=== PATIENT | male | born 1955 | race African-American/Black ===

== ENCOUNTER 2025-01-27 10:37 | Inpatient (IN) | payer MEDICARE, SELFPAY ==
[2025-01-27] VITALS (12 sets, daily range): BP systolic 165–187; BP diastolic 64–119; PULSE 57–115; RESP 12–21; TEMP 36.4–36.8; O2SAT 95–100; BMI 22.0
--- NOTE | ~2025-01-27 | US_ITS ---
EXAMINATION:US venous doppler LE RT INDICATION:Right leg pain TECHNIQUE: Multiple grayscale, color flow and Doppler images of the right lower extremity deep venous systems were obtained and reviewed. COMPARISON:01/2025 FINDINGS: The common femoral, superficial femoral and popliteal veins demonstrate normal respiratory variation, augmentation and compressibility. Color flow is also seen within the posterior tibial, pe roneal, greater saphenous and profunda veins. IMPRESSION: 1: No lower extremity deep venous thrombosis. Reviewed, dictated and finalized at location A.
--- NOTE | ~2025-01-27 | CT_ITS ---
CTA chest PE protocol Ordering provider: Antonio Barba MD History: 69 years Male with . Chest pain, recent travel . Comparison: None. Technique: CT angiogram chest was performed following timed intravenous injection of contrast. Thin s lice axial images and reformatted coronal images were obtained. Three dimensional reformatted images of the chest were also obtained using a [employer] workstation. . Automated exposure control and iterati ve reconstruction technique were employed. The dose-length product was 356.86 mGy-cm. 100 mL Omnipaqu e 350 was given IV. Findings: PULMONARY ARTERIES: No pulmonary embolus. VISUALIZED THORACIC INLET: Normal. MEDIASTINUM: Aorta/coronary arteries: Mild atheromatous disease. Heart/other: The heart is not slightly enlarged. Prominent pulmonary arteries is seen which may harshad chalo pulmonary hypertension. Congested branches of the pulmonary arteries is seen. Lymph nodes: No mediastinal or hilar adenopathy. LUNGS: Minimal bilateral interstitial thickening which may indicate edema. No pulmonary nodules or masses. N o infiltrates or effusions. No pneumothorax. Dependent atelectatic changes. VISUALIZED UPPER ABDOMEN: Possible left kidney stone. Bilateral kidney lobation. Status post ch olecystectomy. Highly suggestive status post partial resection of the right lobe of the liver with hy pertrophy of the left. Clinical correlation advised. Otherwise, the visualized upper abdomen is tk l. MUSCULOSKELETAL: Soft tissues: The superficial soft tissues are normal. Bones: Age appropriate degenerative changes of the spine. IMPRESSION: 1. No pulmonary embolism. 2. Cardiomegaly with highly suggestive pulmonary hypertension with minimal interstitial thickening w hich may indicate early pulmonary edema. Clinical correlation advised. 3. Possible left kidney stone. Reviewed, dictated and finalized at location A. IMPRESSION: 1. No pulmonary embolism. 2. Cardiomegaly with highly suggestive pulmonary hypertension with minimal int erstitial thickening which may indicate early pulmonary edema. Clinical correla tion advised. 3. Possible left kidney stone.
--- NOTE | ~2025-01-27 | XR_ITS ---
Portable chest x-ray Comparison: None Clinical History: Chest pain Findings: Lungs are clear, without focal consolidation or pleural effusion. Cardiomediastinal silho uette is enlarged. Bones and soft tissues are unremarkable. Impression: Clear lungs. Cardiomegaly. Reviewed, dictated and finalized at location . Impression: Clear lungs. Cardiomegaly.
--- NOTE | ~2025-01-27 | XR_ITS ---
XR abdomen/kub 1V 01/31/2025 14:23 INDICATION: Abdominal distention TECHNIQUE: KUB COMPARISON: None FINDINGS: Bowel gas pattern is normal. Moderate colonic fecal loading. There are surgical changes in the right upper abdomen. There is no evidence of free air, mass, organomegaly, ascites or obstruction . No abnormal calculi are seen. The bones appear intact. There is bibasilar atelectasis. IMPRESSION: 1: No acute abdominal abnormality identified. 2: Moderate colonic fecal loading. 3: Bibasilar atelectasis. Cannot exclude superimposed pneumonia. Consider correlation with chest x-r ay. Reviewed, dictated and finalized at location B. IMPRESSION: 1: No acute abdominal abnormality identified. 2: Moderate colonic fecal loading. 3: Bibasilar atelectasis. Cannot exclude superimposed pneumonia. Consider cynthia elation with chest x-ray.
--- NOTE | ~2025-01-27 | CT_ITS ---
Noncontrast CT scan of the right femur CLINICAL HISTORY: Pain TECHNIQUE: Axial noncontrast imaging of the right femur was performed. Sagittal and coronal reformatt ed images were constructed. Dose reduction technique was used on this scan by utilizing automated exp osure control and iterative reconstruction technique. The dose-length product (DLP) was 1134.14 mGy-c m. Findings: No acute fracture or dislocation seen. There is an area of sclerosis at the posterior super ior aspect of the femoral head which could reflect avascular necrosis. Possible additional more subtl e area of sclerosis at the medial femoral head, which could reflect additional AVN. No subchondral fr acture articular surface collapse. There is probable subchondral cystic change along the femoral trochlea, likely due to overlying chond romalacia. No joint effusion evident at the hip or knee. Visualized musculature is intact. There is diffuse subcutaneous soft tissue edema in the thigh, nonsp ecific. Moderate ascites noted in the lower abdomen/upper pelvis. Prostate gland enlarged. IMPRESSION: Findings suspicious for AVN of the right femoral head. No subchondral fracture or articular surface c ollapse. Recommend MR to confirm. Ascites and diffuse subcutaneous soft tissue edema, as noted above. Reviewed, dictated and finalized at location . IMPRESSION: Findings suspicious for AVN of the right femoral head. No subchondral fracture or articular surface collapse. Recommend MR to confirm. Ascites and diffuse subcutaneous soft tissue edema, as noted above.
--- NOTE | ~2025-01-27 | US_ITS ---
US abdomen limited INDICATION: Transaminitis PROCEDURE: Realtime right upper abdominal ultrasound. COMPARISON: No prior studies for comparison. FINDINGS: The pancreas is normal without focal mass or pancreatic ductal dilation. No discrete liver masses are identified. Liver surface is nodular, consistent with cirrhosis. Portal vein is dilated c onsistent with portal venous hypertension. The gallbladder is surgically absent. There is normal dir ectional flow in the portal vein. Common bile duct measures 4.2 mm. No sonographic Laureano's sign. IMPRESSION: 1: Cirrhosis of the liver with portal venous hypertension. Reviewed, dictated and finalized at location B.
--- NOTE | ~2025-01-27 | NM_ITS ---
EXAMINATION: NM renal flow and function DATE: 02/03/2025 10:07 CDT INDICATION: TECHNIQUE: 8 mCi Tc-99m MAG3 was administered IV. The patient was scanned in the upright/supine posi tion. A posterior abdominal radionuclide angiogram was obtained. A subsequent time course of static i mages of the kidneys, ureters, and bladder was obtained. COMPARISON: Renal ultrasound dated 01/30/2025 FINDINGS: The posterior abdominal radionuclide angiogram and sequential static images show normal siz e, position, and morphology of the kidneys. Peak renal parenchymal uptake was 21.5 min in right kidne y and 17.5 min in left kidney (normal peak 3-5 minutes). The relative early renal uptake was 53% on the right and 47% on the left (<40% is abnormal). No abnormalities of the ureters or bladder are see n. T1/2 for clearance of activity from the right kidney and proximal collecting system was 158 minutes. T1/2 for clearance of activity from the left kidney and proximal collecting system was 153 minutes. Notes on interpretation: T1/2 <10 minutes is normal, 10-15 minutes is low grade obstruction of questi onable clinical significance, 15-20 minutes is partial obstruction that is likely clinically signific ant, >20 minutes is high grade obstruction. Note that false positives may be seen with supine positio mirtha, dehydration, severely dilated nonobstructed kidney, atonic collecting stystem, poor renal funct ion, and chronic furosemide use. IMPRESSION: 1. Delayed peak renal uptake bilaterally, although symmetric. 2. Increased T 1/2 clearance bilaterally consistent with obstruction. Reviewed, dictated and finalized at location A.
--- NOTE | ~2025-01-27 | US_ITS ---
BILATERAL LOWER EXTREMITY VENOUS ULTRASOUND Ordering provider: Antonio Barba MD History: . Leg pain, Recent travel . Comparison: None. FINDINGS: RIGHT LOWER EXTREMITY VEINS: --COMMON FEMORAL: Patent and free of thrombus. Normal compressibility, phasic flow and augmentation. --PROXIMAL SUPERFICIAL FEMORAL: Patent and free of thrombus. Normal compressibility, phasic flow and augmentation. --DISTAL SUPERFICIAL FEMORAL: Patent and free of thrombus. Normal compressibility, phasic flow and au gmentation. --POPLITEAL: Patent and free of thrombus. Normal compressibility, phasic flow and augmentation. --POSTERIOR TIBIAL: Patent and free of thrombus. Normal compressibility, phasic flow and augmentation . LEFT LOWER EXTREMITY VEINS: --COMMON FEMORAL: Patent and free of thrombus. Normal compressibility, phasic flow and augmentation. --PROXIMAL SUPERFICIAL FEMORAL: Patent and free of thrombus. Normal compressibility, phasic flow and augmentation. --DISTAL SUPERFICIAL FEMORAL: Patent and free of thrombus. Normal compressibility, phasic flow and au gmentation. --POPLITEAL: Patent and free of thrombus. Normal compressibility, phasic flow and augmentation. --POSTERIOR TIBIAL: Patent and free of thrombus. Normal compressibility, phasic flow and augmentation . IMPRESSION: Negative bilateral lower extremity venous US. No deep vein thrombosis. Reviewed, dictated and finalized at location A.
--- NOTE | ~2025-01-27 | XR_ITS ---
EXAMINATION: XR chest 1V portable DATE: 01/28/2025 09:10 INDICATION: Desaturations. Shortness of breath. TECHNIQUE: frontal view of the chest was obtained. COMPARISON: Chest radiograph and CT dated 01/27/2025 FINDINGS: Bronchial wall thickening and mild opacities at the bilateral lung bases which could be due to pneumo tera or pulmonary edema. No pleural effusion or pneumothorax. Cardiomegaly. Sclerosis at the left chente ral head consistent with osteonecrosis. IMPRESSION: 1. Bronchial wall thickening and opacities at the bilateral lower lung zones which could represent pn eumonia or mild pulmonary edema. 2. 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 Reviewed, dictated and finalized at location A. IMPRESSION: 1. Bronchial wall thickening and opacities at the bilateral lower lung zones wh ich could represent pneumonia or mild pulmonary edema. 2. 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
--- NOTE | ~2025-01-27 | US_ITS ---
EXAMINATION: US renal BI DATE: 01/30/2025 18:09 INDICATION: RENY on CKD TECHNIQUE: Multiple grayscale and Doppler ultrasound images of the kidneys were obtained. COMPARISON: Ultrasound abdomen, same date; CTPA 01/27/2025. FINDINGS: Technical limited scan due to body habitus and considerable bowel shadowing. The right kidney measure s 7.7 x 3.8 x 4.9 cm. The left kidney measures 10.3 x 6.5 x 5.3 cm. The kidneys demonstrate normal pa renchymal echogenicity. Possible right renal mass noted in multiple images, no corresponding mass on prior CT, likely representing artifact. 11 mm simple left midpole cyst. There is no hydronephrosis. B ladder wall thickening. IMPRESSION: Limited examination as detailed above. No hydronephrosis. Bladder wall thickening as can be seen with chronic obstruction or cystitis. Reviewed, dictated and finalized at location K.
--- NOTE | 2025-01-27 10:48 | ECG_ITS ---
Test Date: 2025-01-27 10:49:45 Measurements Intervals Cullen Rate: 57 P: 52 WY: 215 QRS: -2 QRSD: 109 T: 54 QT: 442 QTc: 433 Interpretive Statements SINUS BRADYCARDIA WITH FIRST DEGREE AV BLOCK ABNORMAL ECG No previous ECG available for comparison Electronically Signed On 01-27-2025 11:42:05 CDT by Rod Santana M.D.
--- NOTE | 2025-01-27 12:02 | ED_ITS ---
<Statement entered by Gisel Elizabeth MD - 01/28/25 11:18> I dont know why this document is routed to me, I did not initiate this document and does not work collaboratively with the author. I am signing it just to get it off my dash board, but it does not serve as endorsement, the content belongs to original author HPI - General Adult General Chief complaint: Unspecified Stated complaint: all over pain hx of sickle cell Time Seen by Provider: 01/27/25 11:29 History of Present Illness HPI narrative: This is a 69-year-old male with history of beta thalassemia presenting for a pain crisis. Is traveling here from [place]. His heme oncologist in [place] is Dr. Macario Fernandez. Patient says that this morning he developed pain in his lower back going down the his legs and on the right side of his chest. He says this is his typical pain crisis. No recent viral illness fevers shortness of breath abdominal pain nausea vomiting diarrhea. He took a tramadol this morning with no relief. Related Data Home Medications ?Medication ?Instructions ?Recorded ?Confirmed ?Last Taken ?Type allopurinol 100 mg tablet 100 mg PO Q12H 01/27/25 01/27/25 01/26/25 History amlodipine 5 mg tablet 5 mg PO DAILY 01/27/25 01/27/25 01/26/25 History clonidine HCl 0.1 mg tablet 0.1 mg PO TID 01/27/25 01/27/25 01/26/25 History epoetin riley-epbx 40,000 unit/mL 40,000 unit subcut WEEKLY 01/27/25 01/27/25 01/22/25 History injection solution (Retacrit) folic acid 1 mg tablet 1 mg PO DAILY 01/27/25 01/27/25 01/26/25 History olmesartan 5 mg tablet 5 mg PO DAILY 01/27/25 01/27/25 01/26/25 History paricalcitol 1 mcg capsule 1 mcg PO DAILY 01/27/25 01/27/25 01/26/25 History pregabalin 150 mg capsule 150 mg PO HS 01/27/25 01/27/25 01/26/25 History sodium bicarbonate 650 mg tablet 650 mg PO DAILY 01/27/25 01/27/25 01/26/25 History sodium zirconium cyclosilicate 10 10 g PO DAILY 01/27/25 01/27/25 01/26/25 History gram oral powder packet (Lokelma) tramadol 50 mg tablet 50 mg PO Q8H PRN pain 01/27/25 01/27/25 01/27/25 History Allergies Allergy/AdvReac Type Severity Reaction Status Date / Time ibuprofen Allergy Unknown Verified 01/27/25 11:35 aspirin AdvReac Unknown Other Verified 01/27/25 11:35 Exam 2 Narrative: APPEARANCE: Patient appears very uncomfortable and is writhing on the bed Head: Atraumatic EYES: EOMI, NOSE: Atraumatic NECK/BACK: No midline spinal tenderness RESPIRATORY: No increased rate of breathing CTAB CARDIOVASCULAR: RRR, no peripheral edema ABDOMINAL: Non-distended soft nontender no guarding rebound MUSCULOSKELETAl: No obvious deformities NEURO: Alert. Moving for 4 extremities to command SKIN:: Warm, dry. Normal color PSYCHIATRIC: Normal affect Course Vital Signs Vital signs: Vital Signs Temperature 97.6 F 01/27/25 10:39 Pulse Rate 60 01/27/25 10:39 Respiratory Rate 16 01/27/25 10:39 Blood Pressure 171/64 H 01/27/25 10:39 Pulse Oximetry 100 01/27/25 10:39 Oxygen Delivery Room Air 01/27/25 10:39 Temperature 97.5 F L 01/27/25 11:32 Pulse Rate 92 01/27/25 17:39 Respiratory Rate 12 01/27/25 17:39 Blood Pressure 182/69 H 01/27/25 17:39 Pulse Oximetry 97 01/27/25 17:39 Oxygen Delivery Room Air 01/27/25 16:45 Oxygen Flow Rate 3 01/27/25 12:34 Medical Decision Making [facility] Narrative Medical decision making narrative: -Course: This is a 60-year-old male with thalassemia B presenting for a pain crisis. Patient has chest pain, and lower back going down his legs. The intention was to treat his pain aggressively with 1 mg of hydromorphone Q 30 minutes until pain under control. However he received 3 mg of hydromorphone on the initial dose. This was immediately recognized and he was placed on monitoring equipment. Patient required Narcan for respiratory depression. Will continue to monitor. Blood pressures were elevated but he is not taking his blood pressure medications today. Given his home dose of amlodipine and clonidine. Workup significant for hemoglobin of 9.1 and MCV of 61.4. No baseline is available. ABG showed respiratory alkalosis. Metabolic panel showed a BUN creatinine of 51 and 2.5. Patient has history of CKD stage 3 and when I spoke with his she has had his creatinine is usually in the 2s. He has also takes daily Lokelma and frequently has potassiums in the 60s. Today's potassium is 5.8. EKG shows peaked T-waves. He is given a dose of oral Lokelma with improvement in his ekg. EKG showed peaked T-waves which improved with Lokelma. Troponins are flat at 0.022. BNP 970. urine not indicative infection. Urine drug screen and alcohol viral swabs were negative. Chest x-ray showed clear lungs w/ cardiomegaly. CTA negative for PE but showed beginnings of possible fluid overload. No more fluids. Venous ultrasound negative for DVT. Patient was re-evaluated frequently and is significantly improved. His pain is now controlled. Respiratory status is stabilized. Patient will be placed in observation overnight. -DDX includes but is not limited to: Pain crisis, PE, DVT, pneumonia, acute chest syndrome -Co-morbidities complicating care: Beta thalassemia, hypertension, gout -Social determinants of health: Patient lives with [place], Vital Signs Vital Signs: Vital Signs Temperature 97.6 F 01/27/25 10:39 Pulse Rate 60 01/27/25 10:39 Respiratory Rate 16 01/27/25 10:39 Blood Pressure 171/64 H 01/27/25 10:39 Pulse Oximetry 100 01/27/25 10:39 Oxygen Delivery Room Air 01/27/25 10:39 Temperature 97.5 F L 01/27/25 11:32 Pulse Rate 92 01/27/25 17:39 Respiratory Rate 12 01/27/25 17:39 Blood Pressure 182/69 H 01/27/25 17:39 Pulse Oximetry 97 01/27/25 17:39 Oxygen Delivery Room Air 01/27/25 16:45 Oxygen Flow Rate 3 01/27/25 12:34 Lab Data 01/27/25 12:09 01/27/25 12:09 Labs: Lab Results 01/27/25 01/27/25 01/27/25 Range/Units 11:55 12:09 12:09 WBC 12.1 H (4.5-10.0) K/mm3 RBC 4.87 (4.6-6.20) M/mm3 Hgb 9.1 L (14.0-18.0) g/dL Hct 29.9 L (42.0-52.0) % MCV 61.4 L (80-100) fl MCH 18.7 L (26-34) pg MCHC 30.4 L (32-36) g/dl RDW 24.2 H (11.5-14.5) % Plt Count 185 (150-375) k/mm3 MPV TNP Immature Gran % (Auto) Not Reportable Neut % (Auto) Not Reportable Lymph % (Auto) Not Reportable [place] % (Auto) Not Reportable Eos % (Auto) Not Reportable Baso % (Auto) Not Reportable Lymph # (Auto) Not Reportable [place] # (Auto) Not Reportable Eos # (Auto) Not Reportable Baso # (Auto) Not Reportable Abs Immat Gran (auto) Not Reportable Absolute Neuts (auto) Not Reportable Absolute Nucleated RBC Not Reportable Total Counted 100 Neutrophils % (Manual) 68 (46-73) % Band Neutrophils % 2 (0-6) % Lymphocytes % (Manual) 19 (18-44) % Monocytes % (Manual) 11 H (3-9) % Nucleated RBC % Not Reportable Abs Neuts (Manual) 8.47 H (1.3-6.7) K/mm3 Abs Lymphs (Manual) 2.29 (1.1-4.5) K/mm3 Abs Monocytes (Manual) 1.33 H (0.1-0.90) K/mm3 Nucleated RBCs 73 % Platelet Estimate Adequate (Adequate) % Immature Plt Fraction 7.4 (0.9-11.2) % Polychromasia 2+ Hypochromasia 2+ Poikilocytosis 2+ Anisocytosis 2+ Pappenheimer Bodies 3+ Sickle Cells 2+ Target Cells 3+ Helmet Cells 1+ [place] Bodies 2+ Acanthocytes (Spur) 1+ Schistocytes 1+ Absolute Retic 0.32 H (0.02-0.10) 10^6/uL Percent Retic 6.43 H (0.7-4.3) % Immature Retic Fraction 25.7 H (3.0-15.9) % Retic Hgb Content 21.7 L (28.2-36.6) pg Sodium 136 L (137-145) mmol/L Potassium 5.8 H (3.4-5.0) mmol/L Chloride 108 H (98-107) mmol/L Carbon Dioxide 15 L (22-30) mmol/L Anion Gap 13 H (4-12) mmol/L BUN 51 H (9-20) mg/dL Creatinine 2.50 H (0.7-1.3) mg/dL Estim Creat Clear Calc 27 ml/min Estimated GFR 26 L (59 - ) Glucose 118 H (65-110) mg/dL POC Capillary Glucose 115 H (65-105) mg/dl Lactic Acid (0.7-2.0) mmol/L Calcium 9.3 (8.4-10.2) mg/dL Phosphorus 3.4 (2.5-4.5) mg/dL Magnesium 2.1 (1.6-2.3) mg/dL Total Bilirubin 3.1 H (0.2-1.3) mg/dL AST 60 H (17-59) U/L ALT 36 (6-50) U/L Alkaline Phosphatase 177 H (38-126) U/L Troponin I 0.023 Cancelled (0.000-0.034) ng/mL NT-Pro-B Natriuret Pep 970 H (19.9-100) pg/mL Total Protein 8.8 H (6.3-8.2) g/dL Albumin 4.2 (3.5-5.1) g/dL Lipase 317 H (23-300) U/L Urine Color (Yellow) Urine Appearance (Clear) Urine pH (5.0-9.0) Ur Specific [place]aca (1.001-1.035) Urine Protein (Negative) mg/dL Urine Glucose (UA) (Negative) mg/dL Urine Ketones (Negative) mg/dL Ur Blood (Man) (Negative) Urine Nitrate (Negative) Urine Bilirubin (Negative) Urine Urobilinogen (<2.0) mg/dL Leukocyte Esterase Rfl (Negative) SHUKRI/UL Urine RBC (0-2) /hpf Urine WBC (0-3) /hpf Ur Squamous Epith Cells (Few) /hpf Urine Bacteria /hpf Urine Casts Urine Opiates Screen (Negative) Urine Methadone Screen (Negative) Ur Barbiturates Screen (Negative) Ur Phencyclidine Scrn (Negative) Ur Amphetamine Screen (Negative) U Benzodiazepines Scrn (Negative) Urine Cocaine Screen (Negative) U Cannabinoids Screen (Negative) Ethyl Alcohol < 10 (<10) mg/dL Influenza A (RT-PCR) Negative (Negative) Influenza B (RT-PCR) Negative (Negative) RSV (RT-PCR) Negative (Negative) SARS-CoV-2 RNA (RT-PCR) Negative (Negative) 01/27/25 01/27/25 01/27/25 Range/Units 12:41 14:58 15:19 WBC (4.5-10.0) K/mm3 RBC (4.6-6.20) M/mm3 Hgb (14.0-18.0) g/dL Hct (42.0-52.0) % MCV (80-100) fl MCH (26-34) pg MCHC (32-36) g/dl RDW (11.5-14.5) % Plt Count (150-375) k/mm3 MPV Immature Gran % (Auto) Neut % (Auto) Lymph % (Auto) [place]quette % (Auto) Eos % (Auto) Baso % (Auto) Lymph # (Auto) [place] # (Auto) Eos # (Auto) Baso # (Auto) Abs Immat Gran (auto) Absolute Neuts (auto) Absolute Nucleated RBC Total Counted Neutrophils % (Manual) (46-73) % Band Neutrophils % (0-6) % Lymphocytes % (Manual) (18-44) % Monocytes % (Manual) (3-9) % Nucleated RBC % Abs Neuts (Manual) (1.3-6.7) K/mm3 Abs Lymphs (Manual) (1.1-4.5) K/mm3 Abs Monocytes (Manual) (0.1-0.90) K/mm3 Nucleated RBCs % Platelet Estimate (Adequate) % Immature Plt Fraction (0.9-11.2) % Polychromasia Hypochromasia Poikilocytosis Anisocytosis Pappenheimer Bodies Sickle Cells Target Cells Helmet Cells [place] Bodies Acanthocytes (Spur) Schistocytes Absolute Retic (0.02-0.10) 10^6/uL Percent Retic (0.7-4.3) % Immature Retic Fraction (3.0-15.9) % Retic Hgb Content (28.2-36.6) pg Sodium (137-145) mmol/L Potassium (3.4-5.0) mmol/L Chloride (98-107) mmol/L Carbon Dioxide (22-30) mmol/L Anion Gap (4-12) mmol/L BUN (9-20) mg/dL Creatinine (0.7-1.3) mg/dL Estim Creat Clear Calc ml/min Estimated GFR (59 - ) Glucose (65-110) mg/dL POC Capillary Glucose (65-105) mg/dl Lactic Acid 2.1 H 3.1 H (0.7-2.0) mmol/L Calcium (8.4-10.2) mg/dL Phosphorus (2.5-4.5) mg/dL Magnesium (1.6-2.3) mg/dL Total Bilirubin (0.2-1.3) mg/dL AST (17-59) U/L ALT (6-50) U/L Alkaline Phosphatase (38-126) U/L Troponin I 0.022 (0.000-0.034) ng/mL NT-Pro-B Natriuret Pep (19.9-100) pg/mL Total Protein (6.3-8.2) g/dL Albumin (3.5-5.1) g/dL Lipase (23-300) U/L Urine Color (Yellow) Urine Appearance (Clear) Urine pH (5.0-9.0) Ur Specific [place] (1.001-1.035) Urine Protein (Negative) mg/dL Urine Glucose (UA) (Negative) mg/dL Urine Ketones (Negative) mg/dL Ur Blood (Man) (Negative) Urine Nitrate (Negative) Urine Bilirubin (Negative) Urine Urobilinogen (<2.0) mg/dL Leukocyte Esterase Rfl (Negative) SHUKRI/UL Urine RBC (0-2) /hpf Urine WBC (0-3) /hpf Ur Squamous Epith Cells (Few) /hpf Urine Bacteria /hpf Urine Casts Urine Opiates Screen (Negative) Urine Methadone Screen (Negative) Ur Barbiturates Screen (Negative) Ur Phencyclidine Scrn (Negative) Ur Amphetamine Screen (Negative) U Benzodiazepines Scrn (Negative) Urine Cocaine Screen (Negative) U Cannabinoids Screen (Negative) Ethyl Alcohol (<10) mg/dL Influenza A (RT-PCR) (Negative) Influenza B (RT-PCR) (Negative) RSV (RT-PCR) (Negative) SARS-CoV-2 RNA (RT-PCR) (Negative) 01/27/25 01/27/25 Range/Units 15:39 19:11 WBC (4.5-10.0) K/mm3 RBC (4.6-6.20) M/mm3 Hgb (14.0-18.0) g/dL Hct (42.0-52.0) % MCV (80-100) fl MCH (26-34) pg MCHC (32-36) g/dl RDW (11.5-14.5) % Plt Count (150-375) k/mm3 MPV Immature Gran % (Auto) Neut % (Auto) Lymph % (Auto) [place] % (Auto) Eos % (Auto) Baso % (Auto) Lymph # (Auto) [place] # (Auto) Eos # (Auto) Baso # (Auto) Abs Immat Gran (auto) Absolute Neuts (auto) Absolute Nucleated RBC Total Counted Neutrophils % (Manual) (46-73) % Band Neutrophils % (0-6) % Lymphocytes % (Manual) (18-44) % Monocytes % (Manual) (3-9) % Nucleated RBC % Abs Neuts (Manual) (1.3-6.7) K/mm3 Abs Lymphs (Manual) (1.1-4.5) K/mm3 Abs Monocytes (Manual) (0.1-0.90) K/mm3 Nucleated RBCs % Platelet Estimate (Adequate) % Immature Plt Fraction (0.9-11.2) % Polychromasia Hypochromasia Poikilocytosis Anisocytosis Pappenheimer Bodies Sickle Cells Target Cells Helmet Cells Johnson[place] Bodies Acanthocytes (Spur) Schistocytes Absolute Retic (0.02-0.10) 10^6/uL Percent Retic (0.7-4.3) % Immature Retic Fraction (3.0-15.9) % Retic Hgb Content (28.2-36.6) pg Sodium (137-145) mmol/L Potassium (3.4-5.0) mmol/L Chloride (98-107) mmol/L Carbon Dioxide (22-30) mmol/L Anion Gap (4-12) mmol/L BUN (9-20) mg/dL Creatinine (0.7-1.3) mg/dL Estim Creat Clear Calc ml/min Estimated GFR (59 - ) Glucose (65-110) mg/dL POC Capillary Glucose (65-105) mg/dl Lactic Acid 2.6 H (0.7-2.0) mmol/L Calcium (8.4-10.2) mg/dL Phosphorus (2.5-4.5) mg/dL Magnesium (1.6-2.3) mg/dL Total Bilirubin (0.2-1.3) mg/dL AST (17-59) U/L ALT (6-50) U/L Alkaline Phosphatase (38-126) U/L Troponin I (0.000-0.034) ng/mL NT-Pro-B Natriuret Pep (19.9-100) pg/mL Total Protein (6.3-8.2) g/dL Albumin (3.5-5.1) g/dL Lipase (23-300) U/L Urine Color Yellow (Yellow) Urine Appearance Clear (Clear) Urine pH 6.5 (5.0-9.0) Ur Specific [place] 1.008 (1.001-1.035) Urine Protein 3+ H (Negative) mg/dL Urine Glucose (UA) Negative (Negative) mg/dL Urine Ketones Negative (Negative) mg/dL Ur Blood (Man) 2+ H (Negative) Urine Nitrate Negative (Negative) Urine Bilirubin Negative (Negative) Urine Urobilinogen 1.0 (<2.0) mg/dL Leukocyte Esterase Rfl Trace H (Negative) SHUKRI/UL Urine RBC 0-2 (0-2) /hpf Urine WBC 0-5 (0-3) /hpf Ur Squamous Epith Cells None seen (Few) /hpf Urine Bacteria None seen /hpf Urine Casts 0-2 Urine Opiates Screen Negative (Negative) Urine Methadone Screen Negative (Negative) Ur Barbiturates Screen Negative (Negative) Ur Phencyclidine Scrn Negative (Negative) Ur Amphetamine Screen Negative (Negative) U Benzodiazepines Scrn Negative (Negative) Urine Cocaine Screen Negative (Negative) U Cannabinoids Screen Negative (Negative) Ethyl Alcohol (<10) mg/dL Influenza A (RT-PCR) (Negative) Influenza B (RT-PCR) (Negative) RSV (RT-PCR) (Negative) SARS-CoV-2 RNA (RT-PCR) (Negative) ABG Data ABG results: 01/27/25 12:04 VBG pH 7.450 H* VBG pCO2 19.7 L* VBG pO2 56.6 H VBG HCO3 13.4 L O2 Delivery Device Room air O2 Liters/Min Not Reportable FiO2 21 Discharge Plan Discharge Clinical Impression: Pain crisis, Overdose of opiate or related narcotic Patient Disposition: Still a Patient Condition: Stable Patient Language: East Timorese Prescriptions: No Action allopurinol 100 mg tablet 100 mg PO Q12H amlodipine 5 mg tablet 5 mg PO DAILY clonidine HCl 0.1 mg tablet 0.1 mg PO TID Retacrit 40,000 unit/mL solution 40,000 unit subcut WEEKLY folic acid 1 mg tablet 1 mg PO DAILY olmesartan 5 mg tablet 5 mg PO DAILY paricalcitol 1 mcg capsule 1 mcg PO DAILY pregabalin 150 mg capsule 150 mg PO HS sodium bicarbonate 650 mg tablet 650 mg PO DAILY Lokelma 10 gram powder in packet 10 g PO DAILY tramadol 50 mg tablet 50 mg PO Q8H PRN (Reason: pain) Follow-up/Referrals: PHYSICIAN,SUPERVISOR [employer] [Primary Care Provider] -
--- OUTSIDE RECORDS SUMMARY | 2025-01-27 12:04 | XMS_ITS ---
Author Organization [facility] [employer] Address [address] [address] Care Team Providers Care Sole Stapler Welt Name Role Phone Lavrene SHEPARD, John Paul Primary Care Provider Carolina Becker APRN [phone] REASON FOR VISIT 1 Week (Reason: 1 w f/u ct right shoulder Encounters Encounter Location Date Provider Diagnosis [facility] [address] [place], [place] [id number] 12/21/2024 Carolina Becker Plan Of Treatment Next Appt Details Provider Name:Darwinrani Robby apodacabelen, 03/20/2025 01:30:00 PM, [address] [facility], [place], [place], [id number], Progress Notes * Cecilio JUANDOB:1955 (69 yo M)Acc No.[id number]:12/21/2024 UNLOCKED PROGRESS NOTE Progress Notes Patient: Cecilio LIMON Provider: HARLEY Lei :1955 A ge:69 Y S ex:Male Date:12/21/2024 Address:[address] [place] [address], [place], [id number] Pcp:John Paul Galloway MD Subjective: * Chief Complaints: * 1 . 1 Week (Reason: 1 w f/u ct right shoulder. * Medical History: * Implants: Objective: * Vitals: Assessment: Plan: * Treatment: * * Electronic signature of Shailesh Becker APRN, APRN on 01/27/2025 at 01:04 PM EDT Sign off status: Pending * Provider: HARLEY Lei Date: 12/21/2024 Generated for Malissa cuenca/Thomas/Elena on: 01/27/2025 01:04 PM EDT
--- OUTSIDE RECORDS SUMMARY | 2025-01-27 12:04 | XMS_ITS | Encounter Summary ---
Author Organization [facility] Address [address], [place] [address] Phone Care Team Providers Care Magneto Repairer Name Role Phone John Paul Campa MD Primary Care Provider [phone] Encounter Details Date Type Department Care Team (Late st Contact Info) Description 02/22/2020 Legacy Encounter - Labs [facility] [place] [address] ProviderGustavo MD [address] [place] [id number] Social History Tobacco Use Types Packs/Day Years Used Date Smoking Tobacco: Never Assessed Sex and Gender Information Value Date Recorded Sex Assigned at Not on file Legal Sex Male 7:04 PM MDT Gender Identity Not on file Sexual Orientation Not on file documented as of this encounter Plan of Treatment Upcoming Encounters Date Type Department Care Team (Late st Contact Info) Description 02/19/2025 10:00 AM EDT Office Visit [facility] [address] [place] [address] [place] [address] Maxx Soares MD [address] [place], [place] [id number] documented as of this encounter Procedures Procedure Name Priority Date/Time Associated Diagnosis Comments DPS CONVERSION - LAB RESULT SCAN PROCEDURE 02/22/2020 DPS CONVERSION - LAB RESULT SCAN PROCEDURE 02/22/2020 documented in this encounter Results * DPS CONVERSION - LAB RESULT SCAN PROCEDURE (02/22/2020) Narrative 02/22/2020 Ordered by an unspecified provider. Historical Provider MD LAB BLOOD ORDERABLES Nichole l Result * DPS CONVERSION - LAB RESULT SCAN PROCEDURE (02/22/2020) Narrative 02/22/2020 Ordered by an unspecified provider. Historical Provider MD LAB BLOOD ORDERABLES Nichole l Result documented in this encounter Visit Diagnoses Not on filedocumented in this encounter Care Teams Magneto Repairer Relationship Specialty Start Date End Date John Paul Campa MD [address] [place] [id number] PCP - General 05/29/24 documented as of this encounter
--- OUTSIDE RECORDS SUMMARY | 2025-01-27 12:04 | XMS_ITS | Encounter Summary ---
Author Organization [facility] Address [address], [place] [address] Phone Care Team Providers Care Tagman Name Role Phone John Paul Campa MD Primary Care Provider [phone] Encounter Details Date Type Department Care Team (Late Contact Info) Description 05/16/2020 Office Visit [facility] [address] [place] [address] ProviderGustavo MD [address] [place] [address] Social History Tobacco Use Types Packs/Day Years Used Date Smoking Tobacco: Never Assessed Sex and Gender Information Value Date Recorded Sex Assigned at Not on file Legal Sex Male 7:04 PM MDT Gender Identity Not on file Sexual Orientation Not on file documented as of this encounter Plan of Treatment Upcoming Encounters Date Type Department Care Team (Late Contact Info) Description 02/19/2025 10:00 AM EDT Office Visit [facility] [address] [place] [address] [place] [address] Maxx Soares MD [address] [place] [address] documented as of this encounter Visit Diagnoses Not on filedocumented in this encounter Care Teams Tagman Relationship Specialty Start Date End Date John Paul Campa MD [address] [place] [facility] [address] PCP - General 05/29/24 documented as of this encounter
--- OUTSIDE RECORDS SUMMARY | 2025-01-27 12:04 | XMS_ITS | Encounter Summary ---
Author Organization [facility] Address [address] [address] Phone Care Team Providers Care Table Worker Packager Name Role Phone John Paul Campa MD Primary Care Provider [phone] Encounter Details Date Type Department Care Team (Late Contact Info) Description 05/16/2020 Abstract [facility] [address] [place] [address] ProviderGustavo MD [address] [place] [address] Social History Tobacco Use Types Packs/Day [...] Description 02/19/2025 10:00 AM EDT Office Visit [facility] [address] [place] [address] [place] [address] Maxx Soares MD [address] [place] [address] documented as of this encounter Visit Diagnoses Not on filedocumented in this encounter Care Teams Table Worker Packager Relationship Specialty Start Date End Date John Paul Campa MD [address] [facility] [place] [address] PCP - General 05/29/24 documented as of this encounter
--- OUTSIDE RECORDS SUMMARY | 2025-01-27 12:04 | XMS_ITS | Encounter Summary ---
Author Organization [facility] Address [address], [place] [address] Phone Care Team Providers Care Slot Tag Inserter Name Role Phone John Paul Campa MD Primary Care Provider [phone] Encounter Details Date Type Department Care Team (Late st Contact Info) Description 02/26/2020 Abstract [facility] [address] [place] [address] ProviderGutsavo MD [address] [place] [address] Social History Tobacco Use Types Packs/Day [...] Description 02/19/2025 10:00 AM EDT Office Visit [facility] [address] [place] [address] [place] [address] Maxx Soares MD [address] [place], [place] [phone] documented as of this encounter Procedures Procedure Name Priority Date/Time Associated Diagnosis Comments DPS CONVERSION - LAB RESULT SCAN PROCEDURE 02/26/2020 documented in this encounter Results * DPS CONVERSION - LAB RESULT SCAN PROCEDURE (02/26/2020) Narrative 02/26/2020 Ordered by an unspecified provider. us Historical Provider LAB BLOOD ORDERABLES Nichole l Result documented in this encounter Visit Diagnoses Not on filedocumented in this encounter Care Teams Slot Tag Inserter Relationship Specialty Start Date End Date John Paul Campa MD [address] [place] [id number] PCP - General 05/29/24 documented as of this encounter
--- OUTSIDE RECORDS SUMMARY | 2025-01-27 12:05 | XMS_ITS | Encounter Summary ---
Author Organization [facility] Physician Phyllis utimaría elena Address [address] [address] Phone Care Team Providers Care Auto Radiator Mechanic Name Role Phone John Paul Campa MD Primary Care Provider [phone] Encounter Details Date Type Department Care Team (Late Contact Info) Description 03/11/2020 Abstract [facility] [address] [place] [address] ProviderGustavo MD [address] [place] [address] Social History Tobacco Use Types Packs/Day [...] Description 02/19/2025 10:00 AM EDT Office Visit [facility] [address] [place] [address] [place] [address] Maxx Soares MD [address] [place] [address] documented as of this encounter Visit Diagnoses Not on filedocumented in this encounter Care Teams Auto Radiator Mechanic Relationship Specialty Start Date End Date John Paul Campa MD [address] [facility] [place] [address] PCP - General 05/29/24 documented as of this encounter
--- OUTSIDE RECORDS SUMMARY | 2025-01-27 12:05 | XMS_ITS | Encounter Summary ---
Author Organization [facility] Phyllis utimaría elena Address [address] [address] Phone Care Team Providers Care Delivery Room Supervisor Name Role Phone John Paul Campa MD Primary Care Provider [phone] Encounter Details Date Type Department Care Team (Late Contact Info) Description 08/23/2022 Office Visit [facility] [address] [place] [address] ProviderGustavo MD [address] [place] [address] Social History Tobacco Use Types Packs/Day [...] Description 02/19/2025 10:00 AM EDT Office Visit [facility] [address] [place] [address] [place] [address] Maxx Soares MD [address] [place] [address] documented as of this encounter Visit Diagnoses Not on filedocumented in this encounter Care Teams Delivery Room Supervisor Relationship Specialty Start Date End Date John Paul Campa MD [address] [facility] [place] [address] PCP - General 05/29/24 documented as of this encounter
--- OUTSIDE RECORDS SUMMARY | 2025-01-27 12:05 | XMS_ITS | Encounter Summary ---
Author Organization [facility] Phyllis utimaría elena Address [address], [place] [address] Phone Care Team Providers Care Technical Support Engineer Name Role Phone John Paul Campa MD Primary Care Provider [phone] Encounter Details Date Type Department Care Team (Late st Contact Info) Description 05/05/2020 Legacy Encounter - [facility] [place] [address] ProviderGustavo MD [address] [place] [address] Social History Tobacco Use Types Packs/Day [...] Description 02/19/2025 10:00 AM EDT Office Visit [facility] [address] [place] [address] [place] [address] Maxx Soares MD [address] [place], [place] [id number] documented as of this encounter Procedures Procedure Name Priority Date/Time Associated Diagnosis Comments DPS CONVERSION - LAB RESULT SCAN PROCEDURE 05/05/2020 documented in this encounter Results * DPS CONVERSION - LAB RESULT SCAN PROCEDURE (05/05/2020) Narrative 05/05/2020 Ordered by an unspecified provider. us Historical Provider LAB BLOOD ORDERABLES Nichole l Result documented in this encounter Visit Diagnoses Not on filedocumented in this encounter Care Teams Technical Support Engineer Relationship Specialty Start Date End Date John Paul Campa MD [address] [place] [address] PCP - General 05/29/24 documented as of this encounter
--- OUTSIDE RECORDS SUMMARY | 2025-01-27 12:05 | XMS_ITS | Patient Health Record ---
Author Organization MACARIO CONLEY MD Address [address] [place] [address] Care Team Providers Care Vault Clerk Name Role Phone DHARMESH COLLINS Primary Care Provider Macario Douglas Unavailable [phone] Susana Conley Unavailable [phone] Bhupinder Jimenez Unavailable [phone] Results Component Value Reference Range Notes VITAMIN B12 (Not yet reviewe d by provider) Interpretation: Performing Lab:TP, [facility], [address], [place], [place], [address] Isaac Townsend MD Notes/Report: Received Date: NON-FASTING VITAMIN B12 [phone] pg/mL COMP (comprehensive metaboli c panel) (Not yet reviewed by provider) Interpretation: Performing Lab:TP, [facility], [address] [place], [address] Isaac Townsend MD Notes/Report: NON-FASTING Received Date: GLUCOSE 100 65-99 mg/dL Fasting reference interval For someone without known diabetes, a glucose value between 100 and 125 mg/dL is consistent with prediabetes and should be confirmed with a follow-up test. UREA NITROGEN (BUN) 54 7-25 mg/dL CREATININE 2.18 0.70-1.35 mg/dL EGFR 32 > OR = 60 mL/min/1.73m2 BUN/CREATININE RATIO 25 6-22 (calc) SODIUM 136 135-146 mmol/L POTASSIUM 5.9 3.5-5.3 mmol/L CHLORIDE 107 98-110 mmol/L CARBON DIOXIDE 18 20-32 mmol/L CALCIUM 9.0 8.6-10.3 mg/dL PROTEIN, TOTAL 7.1 6.1-8.1 g/dL ALBUMIN 3.9 3.6-5.1 g/dL GLOBULIN 3.2 1.9-3.7 g/dL (calc) ALBUMIN/GLOBULIN RATIO 1.2 1.0-2.5 (calc) BILIRUBIN, TOTAL 1.8 0.2-1.2 mg/dL ALKALINE PHOSPHATASE 146 35-144 U/L AST 23 10-35 U/L ALT 21 9-46 U/L Folate (Folic Acid), Serum ( Not yet reviewed by provider) Interpretation: Performing Lab:[address] [id number], Phone - [phone], [facility] - [facility] Notes/Report: Folate (Folic Acid), Serum >20.0 >3.0 ng/mL A serum folate concentration of less than 3.1 ng/mL is considered to represent clinical deficiency. Comp. Metabolic Panel (14) ( Not yet reviewed by provider) Interpretation: Performing Lab:[address] [id number], Phone - [phone], Director - MDFarrier Notes/Report: Glucose 121 70-99 mg/dL BUN 42 8-27 mg/dL Creatinine 1.64 0.76-1.27 mg/dL eGFR 45 >59 mL/min/1.73 BUN/Creatinine Ratio 26 10-24 Sodium 134 134-144 mmol/L Potassium 5.8 3.5-5.2 mmol/L Chloride 107 96-106 mmol/L Carbon Dioxide, Total 16 20-29 mmol/L Calcium 9.0 8.6-10.2 mg/dL Protein, Total 7.4 6.0-8.5 g/dL Albumin 3.6 3.9-4.9 g/dL Globulin, Total 3.8 1.5-4.5 g/dL Bilirubin, Total 1.3 0.0-1.2 mg/dL Alkaline Phosphatase 198 44-121 IU/L AST (SGOT) 28 0-40 IU/L ALT (SGPT) 23 0-44 IU/L Vitamin B12 (Not yet reviewe d by provider) Interpretation: Performing Lab:[address] [place], [place] [id number], Phone - [phone], [facility] Notes/Report: Vitamin B12 [phone] pg/mL Ferritin, Serum (Not yet rev iewed by provider) Interpretation: Performing Lab:[facility] [address] [id number], Phone - [phone], [facility] Notes/Report: Ferritin 1183 30-400 ng/mL Iron and TIBC (Not yet revie wed by provider) Interpretation: Performing Lab:[facility], [address] [place] [id number], Phone - [phone], Director [facility] Notes/Report: Iron Bind.Cap.(TIBC) 249 250-450 ug/dL UIBC 94 111-343 ug/dL Iron 155 38-169 ug/dL Iron Saturation 62 15-55 % IRON AND TOTAL IRON BINDING CAPACITY (Not yet reviewed by provider) Interpretation: Performing Lab:[facility], [address] [place], [address] Isaac Townsend MD Notes/Report: Received Date: IRON, TOTAL 217 50-180 mcg/dL IRON BINDING CAPACITY 250 250-425 mcg/dL (melinda c) % SATURATION 87 20-48 % (calc) COMP (comprehensive metaboli c panel) (Not yet reviewed by provider) Interpretation: Performing Lab[facility] [place], [address] Isaac Townsend MD Notes/Report: Received Date: GLUCOSE 164 65-99 mg/dL Fasting reference interval For someone without known diabetes, a glucose value >125 mg/dL indicates that they may have diabetes and this should be confirmed with a follow-up test. UREA NITROGEN (BUN) 46 7-25 mg/dL CREATININE 1.97 0.70-1.35 mg/dL EGFR 36 > OR = 60 mL/min/1.73m2 BUN/CREATININE RATIO 23 6-22 (calc) SODIUM 136 135-146 mmol/L POTASSIUM 5.5 3.5-5.3 mmol/L CHLORIDE 106 98-110 mmol/L CARBON DIOXIDE 18 20-32 mmol/L CALCIUM 9.2 8.6-10.3 mg/dL PROTEIN, TOTAL 7.2 6.1-8.1 g/dL ALBUMIN 3.8 3.6-5.1 g/dL GLOBULIN 3.4 1.9-3.7 g/dL (calc) ALBUMIN/GLOBULIN RATIO 1.1 1.0-2.5 (calc) BILIRUBIN, TOTAL 1.4 0.2-1.2 mg/dL ALKALINE PHOSPHATASE 163 35-144 U/L AST 27 10-35 U/L ALT 29 9-46 U/L FERRITIN (Not yet reviewed b y provider) Interpretation: Performing Lab[facility] [address] [place], [address] Isaac Townsend MD Notes/Report: Received Date: FERRITIN 1091 24-380 ng/mL VITAMIN B12 (Not yet reviewe d by provider) Interpretation: Performing Lab:[facility] [place], [address] Isaac Townsend MD Notes/Report: Received Date: VITAMIN B12 4839 322-7380 pg/mL Reason For Referral No Information Medications Medication SIG (Take, Route, Frequency, Duration) Notes Start Date End Date Status Folic Acid Unknown Social History Tobacco Use: Social History Observation Description Date Details (start date - stop date) Never Smoker NA - NA Tobacco Use/Smoking Question Answer Notes Are you a nonsmoker Problems Problem Type SNOMED Code ICD Code Onset Dates Problem Status W/U Status Risk Notes Problem Sickle cell disease (475027269) Sickle-cell disease, unspecified (282.60) Active confirmed Problem Sickle cell disease without crisis (777844685) Sickle-cell disease without crisis (D57.1) Active confirmed Vital Signs Heart Rate 59 /min 01/22/2025 Temperature 98.1 degrees Fahrenheit 01/22/2025 Oximetry 95 % 01/22/2025 Blood pressure diastolic 72 mm Hg 01/22/2025 Height 73 in 01/22/2025 Blood pressure systolic 153 mm Hg 01/22/2025 Weight 165 lbs 01/22/2025 BMI 21.77 kg/m2 01/22/2025 Encounters Encounter Location Date Provider Diagnosis MACARIO CONLEY MD [address] [place] [id number] 01/31/2024 Macario Jim Sickle-cell disease without crisis D57.1 MACARIO CONLEY MD [address] [place] [address] [id number] 06/04/2024 Macario Jim Sickle-cell disease without crisis D57.1 MACARIO CONLEY MD [address] [place] [address] [id number] 06/18/2024 Macario Jim Sickle-cell disease without crisis D57.1 MACARIO CONLEY MD [address] [place] [address] [id number] 07/23/2024 Macario Jim Sickle-cell disease without crisis D57.1 MACARIO CONLEY MD [address] [place] [address] [id number] 07/30/2024 Macario Jim Sickle-cell disease without crisis D57.1 Macario Conley MD [place] [address] [place] [address] 07/30/2024 Bhupinder Tony CONLEY MD [address] [place] [address] [id number] 08/06/2024 Macario Jim Sickle-cell disease without crisis D57.1 MACARIO CONLEY MD [address] [place] [address] [id number] 08/13/2024 Macario Jim Sickle-cell disease without crisis D57.1 MACARIO CONLEY MD [address] [place] [address] [id number] 08/20/2024 Macario CONLEY MD [address] [place] [address] [id number] 08/27/2024 Macario CONLEY MD [address] [place] [address] [id number] 09/06/2024 Macario Jim Sickle-cell disease without crisis D57.1 MACARIO CONLEY MD [address] [place] [address] [id number] 09/13/2024 Macario Jim Sickle-cell disease without crisis D57.1 MACARIO CONLEY MD [address] [place] [address] [id number] 09/20/2024 Macario Jim Sickle-cell disease without crisis D57.1 MACARIO CONLEY MD [address] [place] [address] [id number] 10/02/2024 Susana CONLEY MD [address] [place] [id number] 10/16/2024 Macario FORRESTER [address] [place] [address] 10/23/2024 Macario CONLEY MD [address] [place] [address] [id number] 11/06/2024 Susana CONLEY MD [address] [place] [address] [id number] 11/15/2024 Macario Conley Sickle-cell disease without crisis D57.1 MACARIO CONLEY MD [address] [place] [address] [id number] 11/22/2024 Macario Conley Sickle-cell disease without crisis D57.1 MACARIO CONLEY MD [address] [place] [address] [id number] 11/29/2024 Susana CONLEY MD [address] [place] [address] [id number] 12/06/2024 Macario CONLEY MD [address] [place] [address] [id number] 12/18/2024 Macario Conley Sickle-cell disease without crisis D57.1 MACARIO CONLEY MD [address] [place] [address] [id number] 12/25/2024 Macario Conley Sickle-cell disease without crisis D57.1 MACARIO CONLEY MD [address] [place] [address] [id number] 01/01/2025 Macario CONLEY MD [address] [place] [address] [id number] 01/08/2025 Macario Conley Sickle-cell disease without crisis D57.1 Macario FORRESTER [address] [place] [address] 01/15/2025 Macario Conley Sickle-cell disease without crisis D57.1 MACARIO COLNEY MD [address] [place] [address] [id number] 01/22/2025 Macario Conley Assessments Encounter Date Diagnosis (ICD Code) Assessment Notes Treatment Notes Treatment Clinical Notes Section Notes 01/31/2024 Sickle-cell disease without crisis (ICD-10 - D57.1) CBC hEMOGLBIN 6.0 . PATIENT SEEN AFTER 18 MONTHS . ANEMIA WORKUP SENT . HAS RENAL DYSFUNCTION . WILL REPEAT CREATININE AND CONSIDER PROCRIT 20 k FOR HEMOGLBIN LESS THAN 10 . ALSO START ON VOXELOTOR ( OXBRYTA ) 1500 MG DAILY . CBC 06/04/2024 Sickle-cell disease without crisis (ICD-10 - D57.1) CBC hEMOGLBIN 6.0 . PATIENT SEEN AFTER 18 MONTHS . ANEMIA WORKUP SENT . HAS RENAL DYSFUNCTION . WILL REPEAT CREATININE AND CONSIDER PROCRIT 20 k FOR HEMOGLBIN LESS THAN 10 . ALSO START ON VOXELOTOR ( OXBRYTA ) 1500 MG DAILY . CBC 06/18/2024 Sickle-cell disease without crisis (ICD-10 - D57.1) DESFERAL 20 MG /KG SC DAILY FOR IRON OVERLOAD . PATIENT HESITANT . iRON OVERLOAD / SATURATION HIGH AND FERRITIN 1098 CLE[address] 38 UNABLE TO USE EXJADE . . 07/23/2024 Sickle-cell disease without crisis (ICD-10 - D57.1) CBC hEMOGLBIN 6.0 . PATIENT SEEN AFTER 18 MONTHS . ANEMIA WORKUP SENT . HAS RENAL DYSFUNCTION . WILL REPEAT CREATININE AND CONSIDER PROCRIT 20 k FOR HEMOGLBIN LESS THAN 10 . iron saturation high . 07/30/2024 Sickle-cell disease without crisis (ICD-10 - D57.1) CBC hEMOGLBIN 6.0 . PATIENT SEEN AFTER 18 MONTHS . ANEMIA WORKUP SENT . HAS RENAL DYSFUNCTION . WILL REPEAT CREATININE AND CONSIDER PROCRIT 20 k FOR HEMOGLBIN LESS THAN 10 . ALSO START ON VOXELOTOR ( OXBRYTA ) 1500 MG DAILY . CBC 08/06/2024 Sickle-cell disease without crisis (ICD-10 - D57.1) CBC hEMOGLBIN 6.0 . PATIENT SEEN AFTER 18 MONTHS . ANEMIA WORKUP SENT . HAS RENAL DYSFUNCTION . WILL REPEAT CREATININE AND CONSIDER PROCRIT 20 k FOR HEMOGLBIN LESS THAN 10 . ALSO START ON VOXELOTOR ( OXBRYTA ) 1500 MG DAILY . CBC 08/13/2024 Sickle-cell disease without crisis (ICD-10 - D57.1) CBC hEMOGLBIN 6.0 . PATIENT SEEN AFTER 18 MONTHS . ANEMIA WORKUP SENT . HAS RENAL DYSFUNCTION . WILL REPEAT CREATININE AND CONSIDER PROCRIT 20 k FOR HEMOGLBIN LESS THAN 10 . ALSO START ON VOXELOTOR ( OXBRYTA ) 1500 MG DAILY . CBC 09/06/2024 Sickle-cell disease without crisis (ICD-10 - D57.1) CBC hEMOGLBIN 6.0 . PATIENT SEEN AFTER 18 MONTHS . ANEMIA WORKUP SENT . HAS RENAL DYSFUNCTION . WILL REPEAT CREATININE AND CONSIDER PROCRIT 20 k FOR HEMOGLBIN LESS THAN 10 . ALSO START ON VOXELOTOR ( OXBRYTA ) 1500 MG DAILY . CBC 09/13/2024 Sickle-cell disease without crisis (ICD-10 - D57.1) CBC hEMOGLBIN 6.0 . PATIENT SEEN AFTER 18 MONTHS . ANEMIA WORKUP SENT . HAS RENAL DYSFUNCTION . WILL REPEAT CREATININE AND CONSIDER PROCRIT 20 k FOR HEMOGLBIN LESS THAN 10 . ALSO START ON VOXELOTOR ( OXBRYTA ) 1500 MG DAILY . CBC 09/20/2024 Sickle-cell disease without crisis (ICD-10 - D57.1) CBC hEMOGLBIN 6.0 . PATIENT SEEN AFTER 18 MONTHS . ANEMIA WORKUP SENT . HAS RENAL DYSFUNCTION . WILL REPEAT CREATININE AND CONSIDER PROCRIT 20 k FOR HEMOGLBIN LESS THAN 10 . ALSO START ON VOXELOTOR ( OXBRYTA ) 1500 MG DAILY . CBC 11/15/2024 Sickle-cell disease without crisis (ICD-10 - D57.1) CBC hEMOGLBIN 6.0 . PATIENT SEEN AFTER 18 MONTHS . ANEMIA WORKUP SENT . HAS RENAL DYSFUNCTION . WILL REPEAT CREATININE AND CONSIDER PROCRIT 20 k FOR HEMOGLBIN LESS THAN 10 . ALSO START ON VOXELOTOR ( OXBRYTA ) 1500 MG DAILY . CBC 11/22/2024 Sickle-cell disease without crisis (ICD-10 - D57.1) CBC hEMOGLBIN 6.0 . PATIENT SEEN AFTER 18 MONTHS . ANEMIA WORKUP SENT . HAS RENAL DYSFUNCTION . WILL REPEAT CREATININE AND CONSIDER PROCRIT 20 k FOR HEMOGLBIN LESS THAN 10 . ALSO START ON VOXELOTOR ( OXBRYTA ) 1500 MG DAILY . CBC 12/18/2024 Sickle-cell disease without crisis (ICD-10 - D57.1) CBC hEMOGLBIN 6.0 . PATIENT SEEN AFTER 18 MONTHS . ANEMIA WORKUP SENT . HAS RENAL DYSFUNCTION . WILL REPEAT CREATININE AND CONSIDER PROCRIT 20 k FOR HEMOGLBIN LESS THAN 10 . ALSO START ON VOXELOTOR ( OXBRYTA ) 1500 MG DAILY . CBC 12/25/2024 Sickle-cell disease without crisis (ICD-10 - D57.1) CBC hEMOGLBIN 6.0 . PATIENT SEEN AFTER 18 MONTHS . ANEMIA WORKUP SENT . HAS RENAL DYSFUNCTION . WILL REPEAT CREATININE AND CONSIDER PROCRIT 20 k FOR HEMOGLBIN LESS THAN 10 . ALSO START ON VOXELOTOR ( OXBRYTA ) 1500 MG DAILY . CBC 01/08/2025 Sickle-cell disease without crisis (ICD-10 - D57.1) CBC hEMOGLBIN 6.0 . PATIENT SEEN AFTER 18 MONTHS . ANEMIA WORKUP SENT . HAS RENAL DYSFUNCTION . WILL REPEAT CREATININE AND CONSIDER PROCRIT 20 k FOR HEMOGLBIN LESS THAN 10 . ALSO START ON VOXELOTOR ( OXBRYTA ) 1500 MG DAILY . CBC 01/15/2025 Sickle-cell disease without crisis (ICD-10 - D57.1) CBC hEMOGLBIN 6.0 . PATIENT SEEN AFTER 18 MONTHS . ANEMIA WORKUP SENT . HAS RENAL DYSFUNCTION . WILL REPEAT CREATININE AND CONSIDER PROCRIT 20 k FOR HEMOGLBIN LESS THAN 10 . ALSO START ON VOXELOTOR ( OXBRYTA ) 1500 MG DAILY . CBC Plan Of Treatment Pending Test Test Name Order Date CBC (INCLUDES DIFF/PLT) 08/13/2022 FOLATE, SERUM 11/11/2020 VITAMIN B12 11/11/2020 VITAMIN B12 11/22/2024 VITAMIN B12 09/06/2024 VITAMIN B12 09/13/2024 VITAMIN B12 09/20/2024 VITAMIN B12 11/15/2024 VITAMIN B12 06/04/2024 VITAMIN B12 07/23/2024 VITAMIN B12 07/30/2024 VITAMIN B12 08/06/2024 VITAMIN B12 08/13/2024 FERRITIN 08/13/2024 FERRITIN 08/06/2024 FERRITIN 07/30/2024 FERRITIN 06/04/2024 FERRITIN 11/15/2024 FERRITIN 09/20/2024 FERRITIN 09/13/2024 FERRITIN 09/06/2024 FERRITIN 11/22/2024 FERRITIN 11/11/2020 COMP (comprehensive metabolic panel) 01/2019 COMP (comprehensive metabolic panel) 01/2019 COMP (comprehensive metabolic panel) 02/2025 COMP (comprehensive metabolic panel) 09/2024 COMP (comprehensive metabolic panel) 04/2025 COMP (comprehensive metabolic panel) COMP (comprehensive metabolic panel) 07/2024 COMP (comprehensive metabolic panel) COMP (comprehensive metabolic panel) COMP (comprehensive metabolic panel) COMP (comprehensive metabolic panel) COMP (comprehensive metabolic panel) 12/2024 COMP (comprehensive metabolic panel) 07/2024 IRON AND TOTAL IRON BINDING CAPACITY 07/2024 IRON AND TOTAL IRON BINDING CAPACITY 12/2024 IRON AND TOTAL IRON BINDING CAPACITY IRON AND TOTAL IRON BINDING CAPACITY IRON AND TOTAL IRON BINDING CAPACITY 02/2025 IRON AND TOTAL IRON BINDING CAPACITY IRON AND TOTAL IRON BINDING CAPACITY IRON AND TOTAL IRON BINDING CAPACITY IRON AND TOTAL IRON BINDING CAPACITY IRON AND TOTAL IRON BINDING CAPACITY Hgb Frac. w/o Solubility 09/06/2013 Hgb Frac. w/o Solubility 12/24/2014 Hgb Frac. w/o Solubility 04/03/2015 Vitamin B12 and Folate 01/27/2016 Iron and TIBC 01/27/2016 Iron and TIBC 03/11/2022 Iron and TIBC 04/08/2022 Iron and TIBC 05/20/2022 Iron and TIBC 06/24/2022 Iron and TIBC 07/29/2022 Iron and TIBC 08/30/2022 Iron and TIBC 06/16/2023 Iron and TIBC 06/23/2023 Iron and TIBC 07/21/2023 Iron and TIBC 04/28/2023 Iron and TIBC 11/24/2023 Iron and TIBC 12/06/2023 Iron and TIBC 01/17/2024 Iron and TIBC 01/31/2024 Ferritin, Serum 01/31/2024 Ferritin, Serum 01/17/2024 Ferritin, Serum 12/06/2023 Ferritin, Serum 11/24/2023 Ferritin, Serum 07/21/2023 Ferritin, Serum 06/23/2023 Ferritin, Serum 06/16/2023 Ferritin, Serum 08/30/2022 Ferritin, Serum 04/28/2023 Ferritin, Serum 07/29/2022 Ferritin, Serum 06/24/2022 Ferritin, Serum 05/20/2022 Ferritin, Serum 04/08/2022 Ferritin, Serum 03/11/2022 Ferritin, Serum 01/27/2016 Vitamin B12 03/11/2022 Vitamin B12 04/08/2022 Vitamin B12 05/20/2022 Vitamin B12 06/24/2022 Vitamin B12 07/29/2022 Vitamin B12 04/28/2023 Vitamin B12 08/30/2022 Vitamin B12 06/16/2023 Vitamin B12 06/23/2023 Vitamin B12 07/21/2023 Vitamin B12 11/24/2023 Vitamin B12 12/06/2023 Vitamin B12 01/17/2024 Vitamin B12 01/31/2024 Comp. Metabolic Panel (14) 01/31/2024 Comp. Metabolic Panel (14) 01/17/2024 Comp. Metabolic Panel (14) 12/06/2023 Comp. Metabolic Panel (14) 11/24/2023 Comp. Metabolic Panel (14) 07/21/2023 Comp. Metabolic Panel (14) 06/23/2023 Comp. Metabolic Panel (14) 06/16/2023 Comp. Metabolic Panel (14) 08/30/2022 Comp. Metabolic Panel (14) 04/03/2015 Comp. Metabolic Panel (14) 09/10/2019 Comp. Metabolic Panel (14) 12/24/2014 Comp. Metabolic Panel (14) 11/04/2022 Comp. Metabolic Panel (14) 04/28/2023 Comp. Metabolic Panel (14) 07/29/2022 Comp. Metabolic Panel (14) 06/24/2022 Comp. Metabolic Panel (14) 05/20/2022 Comp. Metabolic Panel (14) 04/08/2022 Comp. Metabolic Panel (14) 03/11/2022 Comp. Metabolic Panel (14) 09/06/2013 Comp. Metabolic Panel (14) 01/27/2016 Comp. Metabolic Panel (14) 08/13/2019 Folate (Folic Acid), Serum 03/11/2022 Folate (Folic Acid), Serum 04/08/2022 Folate (Folic Acid), Serum 05/20/2022 Folate (Folic Acid), Serum 06/24/2022 Folate (Folic Acid), Serum 07/29/2022 Folate (Folic Acid), Serum 04/28/2023 Folate (Folic Acid), Serum 08/30/2022 Folate (Folic Acid), Serum 06/16/2023 Folate (Folic Acid), Serum 06/23/2023 Folate (Folic Acid), Serum 07/21/2023 Folate (Folic Acid), Serum 11/24/2023 Folate (Folic Acid), Serum 12/06/2023 Folate (Folic Acid), Serum 01/17/2024 Folate (Folic Acid), Serum 01/31/2024 One Specimen Identifier 01/17/2024 One Specimen Identifier 12/06/2023 One Specimen Identifier 11/24/2023 One Specimen Identifier 04/28/2023 One Specimen Identifier 05/19/2023 One Specimen Identifier 07/21/2023 One Specimen Identifier 06/23/2023 One Specimen Identifier 06/16/2023 One Specimen Identifier 09/10/2019 One Specimen Identifier 08/13/2019 COMPREHENSIVE METABOLIC PANEL 11/11/2020 COMPREHENSIVE METABOLIC PANEL 06/04/2024 COMPREHENSIVE METABOLIC PANEL 07/30/2024 COMPREHENSIVE METABOLIC PANEL 08/13/2024 COMPREHENSIVE METABOLIC PANEL 08/06/2024 COMPREHENSIVE METABOLIC PANEL 11/22/2024 COMPREHENSIVE METABOLIC PANEL 09/06/2024 COMPREHENSIVE METABOLIC PANEL 09/13/2024 COMPREHENSIVE METABOLIC PANEL 09/20/2024 COMPREHENSIVE METABOLIC PANEL 11/15/2024 Next Appt Details Provider Name:Macario Conley , 02/05/2025 11:00:00 AM, [address] [place], [place], [phone], Insurance Providers Payer Name Payer Address Payer Phone Subscriber Number Group Number Insured Name Patient Relationship to Insured Coverage Start Date Coverage End Date [employer] [address] [place] [address] [phone] [id number] ARNALDO JUAN Self - patient is the insured 4 MEDICARE [employer] [address] [address] [place] [address] [phone] [id number] ARNALDO JUAN Self - patient is the insured Medical (General) History Surgical History Surgery Date(Month/Year)
--- OUTSIDE RECORDS SUMMARY | 2025-01-27 12:05 | XMS_ITS | Encounter Summary ---
Author Organization Elana Physician Phyllis utimaría elena Address [address] [place] [address] Phone Care Team Providers Care Cloth Folder Hand Name Role Phone John Paul Campa MD Primary Care Provider +1- [phone] Encounter Details Date Type Department Care Team (Late st Contact Info) Description 08/23/2022 Legacy Encounter - Labs [facility] [place] [address] Provider, MD Gustavo [address] [place] [address] Social History Tobacco Use Types Packs/Day [...] Description 02/19/2025 10:00 AM EDT Office Visit [facility] [address] [place] [address] Maxx Soares MD [address] [place] [address] documented as of this encounter Procedures Procedure Name Priority Date/Time Associated Diagnosis Comments DPS CONVERSION - LAB RESULT SCAN PROCEDURE 08/23/2022 documented in this encounter Results * DPS CONVERSION - LAB RESULT SCAN PROCEDURE (08/23/2022) Narrative 08/23/2022 Ordered by an unspecified provider. us Historical Provider LAB BLOOD ORDERABLES Nichole l Result documented in this encounter Visit Diagnoses Not on filedocumented in this encounter Care Teams Cloth Folder Hand Relationship Specialty Start Date End Date John Paul Campa MD [address] [place] [phone] PCP - General 05/29/24 documented as of this encounter
--- OUTSIDE RECORDS SUMMARY | 2025-01-27 12:05 | XMS_ITS | Encounter Summary ---
Author Organization Elana Physician Phyllis utimaría elena Address [address], [place] [address] Phone Care Team Providers Care Process Controls Technician Name Role Phone John Paul Campa MD Primary Care Provider +1- [phone] Encounter Details Date Type Department Care Team (Late Contact Info) Description 03/03/2020 Office Visit [facility] [address] [place] [address] ProviderGustavo MD [address] [place] [address] Social History Tobacco Use Types Packs/Day [...] Description 02/19/2025 10:00 AM EDT Office Visit [facility] - [facility] [address] [place] [address] [place] [address] Maxx Soares MD [address] [place] [address] documented as of this encounter Visit Diagnoses Not on filedocumented in this encounter Care Teams Process Controls Technician Relationship Specialty Start Date End Date John Paul Campa MD [address] [facility] [place] [address] PCP - General 05/29/24 documented as of this encounter
--- OUTSIDE RECORDS SUMMARY | 2025-01-27 12:05 | XMS_ITS ---
Author Organization MACARIO CONLEY MD Address [address] [place] [phone] Care Team Providers Care Window Installation Subcontractor Name Role Phone DHARMESH COLLINS Primary Care Provider Macario Douglas Unavailable [phone] Medications Medication SIG (Take, Route, Frequency, Duration) Notes Start Date End Date Status Folic Acid Unknown Vital Signs Temperature 98.1 degrees Fahrenheit 01/23/20 25 Heart Rate 59 /min 01/22/2025 Blood pressure systolic 153 mm Hg 01/23/20 25 Blood pressure diastolic 72 mm Hg 025 Oximetry 95 % 01/22/2025 BMI 21.77 kg/m2 01/22/2025 Height 73 in 01/22/2025 Weight 165 lbs 01/22/2025 Encounters Encounter Location Date Provider Diagnosis MACARIO CONLEY MD [address] [place] [phone] 01/22/2025 Macario Conley Plan Of Treatment Next Appt Details Provider Name:Macario Conley , 02/05/2025 11:00:00 AM, [address] [place] [address], [phone], Procedure Notes * Category Sub-Category Detail Notes Chemotherapy Notes 01/22/25CBC with d ifferential counts Inj RETACRIT 40 k adminsitered S/C on the RIGHT UPPER ARM {medications - pharmacy } PB RN Progress Notes * ARNALDO JUAN ADOB:1955 ( 69 yo M)Acc No.[id number]:01/22/2025 Patient: Lynsey ARNALDO ALMARAZ Account Number:[id number] Provider: Cb Conley MD :1955 A ge:69 Y S ex:Male Date:01/22/2025 Address:[address] [place] [address] [facility] Pcp:DHARMESH MOON Subjective: * Chief Complaints: * * Medical History: * Medications: U nknown Folic Acid Objective: * Vitals: T emp:98.1, HR:59/min, BP:153/72mm Hg, Oxygen sat %:95%, BMI:21.77Index, Ht: 73 in, Wt:165lbs. Assessment: Plan: * Treatment: * Procedures: C hemotherapy: Notes CBC with differential counts Inj RETACRIT 40 k adminsitered S/C on the RIGHT UPPER ARM {medications - pharmacy } PB RN . * Images: * Electronic signature of Leonard Conley MD on 01/27/2025 at 01:05 PM EDT Sign off status: Pending * Provider: Cb Conley MD Date: 0 01/22/2025 Generated for Malissa cuenca/Thomas/eTstephensmitting on: 0 01/27/2025 01:05 PM EDT
--- OUTSIDE RECORDS SUMMARY | 2025-01-27 12:05 | XMS_ITS ---
Author Organization MACARIO CONLEY MD Address [address] [place], [place] [address] Care Team Providers Care Public Safety Telecommunicator Name Role Phone DHARMESH COLLINS Primary Care Provider Macario Douglas Unavailable [phone] REASON FOR VISIT 3, 3, Patient with sickle cell, ., . Medications Medication SIG (Take, Route, Frequency, Duration) Notes Start Date End Date Status Folic Acid Unknown Vital Signs Temperature 97.5 degrees Fahrenheit 01/16/20 25 Heart Rate 65 /min 01/15/2025 Blood pressure systolic 133 mm Hg 01/16/20 25 Blood pressure diastolic 71 mm Hg 025 Oximetry 98 % 01/15/2025 Height 73 in 01/15/2025 Encounters Encounter Location Date Provider Diagnosis Macario Con[place] MD [place] [address] [facility] [place] [address] 01/15/2025 Macario Conley Sickle-cell disease without crisis D57.1 Assessments Encounter Date Diagnosis (ICD Code) Assessment Notes Treatment Notes Treatment Clinical Notes Section Notes 01/15/2025 Sickle-cell disease without crisis (ICD-10 - D57.1) CBC hEMOGLBIN 6.0 . PATIENT SEEN AFTER 18 MONTHS . ANEMIA WORKUP SENT . HAS RENAL DYSFUNCTION . WILL REPEAT CREATININE AND CONSIDER PROCRIT 20 k FOR HEMOGLBIN LESS THAN 10 . ALSO START ON VOXELOTOR ( OXBRYTA ) 1500 MG DAILY . CBC Plan Of Treatment Treatment Notes Assessment Notes Sickle-cell disease without crisis CBC hEMOGLBIN 6.0 . PATIENT SEEN AFTER 18 MONTHS . ANEMIA WORKUP SENT . HAS RENAL DYSFUNCTION . WILL REPEAT CREATININE AND CONSIDER PROCRIT 20 k FOR HEMOGLBIN LESS THAN 10 . ALSO START ON VOXELOTOR ( OXBRYTA ) 1500 MG DAILY . CBC Pending Test Test Name Order Date COMP (comprehensive metabolic panel) 07/2024 Next Appt Details Follow Up: 4 Weeks, Reason: Provider Name:Macario Braggta , 02/05/2025 11:00:00 AM, [address] [place], [place], [phone], Procedure Notes * Category Sub-Category Detail Notes Chemotherapy Notes 01/15/25CBC with d ifferential counts Inj RETACRIT 40 k adminsitered S/C on the RIGHT UPPER ARM HGB 8.3HCT 29.3{medications - pharmacy } PB RN Progress Notes * ARNALDO JUAN ADOB:1955 ( 69 yo M)Acc No.[id number]:01/15/2025 Patient: ARNALDO LIMON Account Number:[id number] Provider: Cb Conley MD :1955 A ge:69 Y S ex:Male Date:01/15/2025 Address:[address] [place], [place] [phone] Pcp:DHARMESH MOON Subjective: * Chief Complaints: * 1 . 3. 2. 3. 3. Patient with sickle cell . 4. .. 5. .. * HPI: I nterim History: Patient with sickle cell seen for pain . complains of bone pain . has been running low grade fevers . * ROS: G eneral/Constitutional: Change in appetite d enies. C hills d enies. F atigue d enies. F ever d enies. O phthalmologic: Blurred vision d enies. D ischarge d enies. P ain d enies. E NT: Decreased hearing d enies. D ifficulty swallowing d enies. S ore throat d enies. S wollen glands d enies. E ndocrine: Cold intolerance d enies. E xcessive thirst d enies. H eat intolerance d enies. W eight loss d enies. R espiratory: Cough d enies. H emoptysis d enies. P ain with inspiration d enies. S hortness of breath at rest d enies. S hortness of breath with exertion d enies. W heezing d enies. B reast: Breast lump d enies. B reast pain d enies. B reast swelling d enies. N ipple discharge d enies. C ardiovascular: Chest pain at rest d enies. C hest pain with exertion?denies. I rregular heartbeat d enies. S hortness of breath d enies. ? G astrointestinal: Abdominal pain d enies. D iarrhea d enies. N ausea d enies. R ectal bleeding d enies. V omiting d enies . H ematology: Dizziness d enies. E asy bruising d enies. F ever d enies. P rolonged bleeding d enies. S wollen glands d enies. W eight loss d enies. G enitourinary: Blood in urine d enies. D ifficulty urinating d enies. F requent urination d enies. M usculoskeletal: Painful joints d enies. W eakness d enies. ? S kin: Dry skin d enies. I tching d enies. R keara d enies. N eurologic: Dizziness d enies. F ainting d enies. H eadache?denies. * Medical History: * Medications: U nknown Folic Acid Objective: * Vitals: T emp:97.5, HR:65/min, BP:133/71mm Hg, Oxygen sat %:98%, Ht: 73 in. * Examination: G eneral Examination: GENERAL APPEARANCE: i n no acute distress, well developed, well nourished , in no acute distress, well developed, well nourished. HEAD: n ormocephalic, atraumatic , normocephalic, atraumatic. EYES: p upils equal, round, reactive to light and accommodation , pupils equal, round, reactive to light and accommodation. EARS: n ormal , normal. ORAL CAVITY: m ucosa moist , mucosa moist. THROAT: c lear , clear. NECK/THYROID: n tyler supple, full range of motion, no cervical lymphadenopathy , neck supple, full range of motion, no cervical lymphadenopathy. SKIN: n o suspicious lesions, warm and dry , no suspicious lesions, warm and dry. HEART: n o murmurs, regular rate and rhythm, S1, S2 normal , no murmurs, regular rate and rhythm, S1, S2 normal. LUNGS: c lear to auscultation bilaterally , clear to auscultation bilaterally. CHEST: c lear to auscultation and percussion , clear to auscultation and percussion. BREASTS: n o masses palpable bilaterally , no masses palpable bilaterally. ABDOMEN: n ormal, bowel sounds present, soft, nontender, nondistended , normal, bowel sounds present, soft, nontender, nondistended. BACK: n ormal , normal. MALE GENITOURINARY: n ormal , normal. EXTREMITIES: n o clubbing, cyanosis, or edema , no clubbing, cyanosis, or edema. PERIPHERAL PULSES: n ormal , normal. NEUROLOGIC: n onfocal, motor strength normal upper and lower extremities, sensory exam intact , nonfocal, motor strength normal upper and lower extremities, sensory exam intact. PSYCH: a lert, oriented, cognitive function intact , alert, oriented, cognitive function intact. Assessment: * Assessment: 1. S ickle-cell disease without crisis - D57.1 (Primary) Plan: * Treatment: * Procedures: C hemotherapy: Notes CBC with differential counts Inj RETACRIT 40 k adminsitered S/C on the RIGHT UPPER ARM HGB 8.3 HCT 29.3 {medications - pharmacy } PB RN . * Labs: * L ab: COMP (comprehensive metabolic panel) * Follow Up: 4 Weeks * Images: * Electronic signature of Leonard Conley MD on 01/27/2025 at 01:04 PM EDT Sign off status: Pending * Provider: Cb Conley MD Date: 01/15/2025 Generated for Anmoli bang/Thomas/eTransmitting on: 01/27/2025 01:04 PM EDT History and Physical Notes * HPI (History of Present Illness) Category Sub-Category Detail Notes Category Not es Interim History Patient with sickle cell seen for pain . complains of bone pain . has been running low grade fevers . Examination Category Sub-Category Detail Notes Category Not es General Examination GENERAL APPEARANCE: in no ac brennan distress, well developed, well nourished , in no acute distress, well developed, well nourished HEAD: normocephalic, atrau matic , normocephalic, atraumatic EYES: pupils equal, round, reactive to light and accommodation , pupils equal, round, reactive to light and accommodation EARS: normal , normal THROAT: clear , clear NECK/THYROID: neck supple, full ra nge of motion, no cervical lymphadenopathy , neck supple, full range of motion, no cervical lymphadenopathy HEART: no murmurs, regular rate and rhythm, S1, S2 normal , no murmurs, regular rate and rhythm, S1, S2 normal CHEST: clear to auscultatio n and percussion , clear to auscultation and percussion LUNGS: clear to auscultatio n bilaterally , clear to auscultation bilaterally ABDOMEN: normal, bowel sounds present, soft, nontender, nondistended , normal, bowel sounds present, soft, nontender, nondistended NEUROLOGIC: nonfocal, motor stre ngth normal upper and lower extremities, sensory exam intact , nonfocal, motor strength normal upper and lower extremities, sensory exam intact SKIN: no suspicious lesion s, warm and dry , no suspicious lesions, warm and dry EXTREMITIES: no clubbing, cyanosi s, or edema , no clubbing, cyanosis, or edema PERIPHERAL PULSES: normal , normal BACK: normal , normal BREASTS: no masses palpable b ilaterally , no masses palpable bilaterally MALE GENITOURINARY: normal , normal PSYCH: alert, oriented, cog nitive function intact , alert, oriented, cognitive function intact ORAL CAVITY: mucosa moist , mucos a moist
--- OUTSIDE RECORDS SUMMARY | 2025-01-27 12:05 | XMS_ITS | Encounter Summary ---
Author Organization Elana Physician Phyllis utimaría elena Address [address], [place] [address] Phone Care Team Providers Care Director Product Management Name Role Phone John Paul Campa MD Primary Care Provider +1- [phone] Encounter Details Date Type Department Care Team (Late Contact Info) Description 06/29/2022 Office Visit [facility] [address] [place] [address] ProviderGustavo MD [address] [place] [address] Social History Tobacco Use Types Packs/Day [...] Description 02/19/2025 10:00 AM EDT Office Visit [facility] - [facility] [address] [place] [address] [place] [address] Maxx Soares MD [address] [place] [address] documented as of this encounter Visit Diagnoses Not on filedocumented in this encounter Care Teams Director Product Management Relationship Specialty Start Date End Date John Paul Campa MD [address] [place] [address] PCP - General 05/29/24 documented as of this encounter
--- OUTSIDE RECORDS SUMMARY | 2025-01-27 12:05 | XMS_ITS | Encounter Summary ---
Author Organization Elana Physician Phyllis utimaría elena Address [address], [place] [address] Phone Care Team Providers Care Bee Rancher Name Role Phone John Paul Campa MD Primary Care Provider +1- [phone] Encounter Details Date Type Department Care Team (Late st Contact Info) Description 04/29/2022 Legacy Encounter - Labs [facility] [place] [address] Provider, MD Gustavo [address] [place], [place] [phone] Social History Tobacco Use Types Packs/Day Years [...] Description 02/19/2025 10:00 AM EDT Office Visit [facility] - [facility] [address] [place] [address] [place] [address] Maxx Soares MD [address] [place] [address] documented as of this encounter Procedures Procedure Name Priority Date/Time Associated Diagnosis Comments DPS CONVERSION - LAB RESULT SCAN PROCEDURE 04/29/2022 DPS CONVERSION - LAB RESULT SCAN PROCEDURE 04/29/2022 DPS CONVERSION - LAB RESULT SCAN PROCEDURE 04/29/2022 DPS CONVERSION - LAB RESULT SCAN PROCEDURE 04/29/2022 documented in this encounter Results * DPS CONVERSION - LAB RESULT SCAN PROCEDURE (04/29/2022) Narrative 04/29/2022 Ordered by an unspecified provider. Historical Provider MD LAB BLOOD ORDERABLES Nichole l Result * DPS CONVERSION - LAB RESULT SCAN PROCEDURE (04/29/2022) Narrative 04/29/2022 Ordered by an unspecified provider. [facility] Provider MD LAB BLOOD ORDERABLES Nichole l Result * DPS CONVERSION - LAB RESULT SCAN PROCEDURE (04/29/2022) Narrative 04/29/2022 Ordered by an unspecified provider. [facility] Provider MD LAB BLOOD ORDERABLES Nichole l Result * DPS CONVERSION - LAB RESULT SCAN PROCEDURE (04/29/2022) Narrative 04/29/2022 Ordered by an unspecified provider. [facility] Provider MD LAB BLOOD ORDERABLES Nichole l Result documented in this encounter Visit Diagnoses Not on filedocumented in this encounter Care Teams Bee Rancher Relationship Specialty Start Date End Date John Paul Campa MD [address] [place] [phone] PCP - General 05/29/24 documented as of this encounter
--- OUTSIDE RECORDS SUMMARY | 2025-01-27 12:05 | XMS_ITS | Encounter Summary ---
Author Organization Elana Physician Phyllis utimaría elena Address [address], [place] [address] Phone Care Team Providers Care Machine Loader Name Role Phone John Paul Campa MD Primary Care Provider +1- [phone] Encounter Details Date Type Department Care Team (Late st Contact Info) Description 06/10/2020 Legacy Encounter - Labs [facility] [place] [address] ProviderGustavo MD [address] [place] [address] Social History Tobacco Use Types Packs/Day [...] Description 02/19/2025 10:00 AM EDT Office Visit [facility] - [facility] [address] [place] [address] [place] [address] Maxx Soares MD [address] [place], [place] [phone] documented as of this encounter Procedures Procedure Name Priority Date/Time Associated Diagnosis Comments DPS CONVERSION - LAB RESULT SCAN PROCEDURE 06/10/2020 documented in this encounter Results * DPS CONVERSION - LAB RESULT SCAN PROCEDURE (06/10/2020) Narrative 06/10/2020 Ordered by an unspecified provider. us Historical Provider LAB BLOOD ORDERABLES Nichole l Result documented in this encounter Visit Diagnoses Not on filedocumented in this encounter Care Teams Machine Loader Relationship Specialty Start Date End Date John Paul Campa MD [address] [place] [phone] PCP - General 05/29/24 documented as of this encounter
--- OUTSIDE RECORDS SUMMARY | 2025-01-27 12:05 | XMS_ITS | Encounter Summary ---
Author Organization Elana Physician Phyllis utimaría elena Address [address] [place] [address] Phone Care Team Providers Care Hoeing Row Boss Name Role Phone John Paul Campa MD Primary Care Provider +1- [phone] Encounter Details Date Type Department Care Team (Late st Contact Info) Description 08/18/2022 Legacy Encounter - Labs [facility] [place] [address] Provider, MD Gustavo [address] [place], [place] [phone] Social History Tobacco Use Types Packs/Day Years [...] Description 02/19/2025 10:00 AM EDT Office Visit [facility] - [facility] [address] [place] [address] [place] [address] Maxx Soares MD [address] [place] [address] documented as of this encounter Procedures Procedure Name Priority Date/Time Associated Diagnosis Comments DPS CONVERSION - LAB RESULT SCAN PROCEDURE 08/18/2022 documented in this encounter Results * DPS CONVERSION - LAB RESULT SCAN PROCEDURE (08/18/2022) Narrative 08/18/2022 Ordered by an unspecified provider. us Historical Provider LAB BLOOD ORDERABLES Nichole l Result documented in this encounter Visit Diagnoses Not on filedocumented in this encounter Care Teams Hoeing Row Boss Relationship Specialty Start Date End Date John Paul Campa MD [address] [place] [phone] PCP - General 05/29/24 documented as of this encounter
--- OUTSIDE RECORDS SUMMARY | 2025-01-27 12:05 | XMS_ITS | Encounter Summary ---
Author Organization Elana Physician Phyllis utimaría elena Address [address], [place] [address] Phone Care Team Providers Care Material Control Specialist Name Role Phone John Paul Campa MD Primary Care Provider +1- [phone] Encounter Details Date Type Department Care Team (Late Contact Info) Description 05/05/2020 Office Visit [facility] [address] [place] [address] ProviderGustavo MD [address] [place] [address] Social History Tobacco Use Types Packs/Day [...] Description 02/19/2025 10:00 AM EDT Office Visit [facility] - [facility] [address] [place] [address] [place] [address] Maxx Soares MD [address] [place] [address] documented as of this encounter Visit Diagnoses Not on filedocumented in this encounter Care Teams Material Control Specialist Relationship Specialty Start Date End Date John Paul Campa MD [address] [place] [address] PCP - General 05/29/24 documented as of this encounter
--- OUTSIDE RECORDS SUMMARY | 2025-01-27 12:05 | XMS_ITS ---
Author Organization [facility] [employer]. Address [address] [place] [address] Care Team Providers Care Family Services Manager Name Role Phone Laverne SHEPARD, John Paul Primary Care Provider REASON FOR VISIT ORTHOPEDIC REFERRAL INFORMATION Encounters Encounter Location Date Provider Diagnosis [facility] [address] [place], [place] [phone] 01/17/2025 John Paul Galloway Plan Of Treatment Next Appt Details Provider Name:Carolina dale, 03/20/2025 01:30:00 PM, [address] [place], [place], [phone], Progress Notes * Cecilio JUANDOB:1955 (69 yo M)Acc No.[id number]:01/17/2025 Patient: Cecilio LIMON :1955 A ge:69 Y S ex:Male Address:[address] [place] [address], [phone] * true * Date: Generated for Malissa cuenca/Thomas/eTransmitting on: 01/27/2025 01:05 PM EDT
--- OUTSIDE RECORDS SUMMARY | 2025-01-27 12:05 | XMS_ITS | Encounter Summary ---
Author Organization Elana Physician Phyllis utimaría elena Address [address] [address] Phone Care Team Providers Care Universal Grinder Operator Name Role Phone John Paul Campa MD Primary Care Provider +1- [phone] Encounter Details Date Type Department Care Team (Late st Contact Info) Description 05/08/2020 Legacy Encounter - Labs [facility] [place] [address] ProviderGustavo MD [address] [place] [address] Social History Tobacco Use Types Packs/Day [...] Description 02/19/2025 10:00 AM EDT Office Visit [facility] - [facility] [address] [place] [address] [place] [address] Maxx Soares MD [address] [place], [place] [phone] documented as of this encounter Procedures Procedure Name Priority Date/Time Associated Diagnosis Comments DPS CONVERSION - LAB RESULT SCAN PROCEDURE 05/08/2020 documented in this encounter Results * DPS CONVERSION - LAB RESULT SCAN PROCEDURE (05/08/2020) Narrative 05/08/2020 Ordered by an unspecified provider. us Historical Provider LAB BLOOD ORDERABLES Nichole l Result documented in this encounter Visit Diagnoses Not on filedocumented in this encounter Care Teams Universal Grinder Operator Relationship Specialty Start Date End Date John Paul Campa MD [address] [place] [phone] PCP - General 05/29/24 documented as of this encounter
--- OUTSIDE RECORDS SUMMARY | 2025-01-27 12:05 | XMS_ITS | Encounter Summary ---
Author Organization Elana Physician Phyllis utimaría elena Address [address], [place] [address] Phone Care Team Providers Care Facilities Flight Check Pilot Name Role Phone John Paul Campa MD Primary Care Provider +1- [phone] Encounter Details Date Type Department Care Team (Late Contact Info) Description 03/11/2020 Office Visit [facility] [address] [place] [address] ProviderGustavo MD [address] [place] [address] Social History Tobacco Use Types Packs/Day [...] Description 02/19/2025 10:00 AM EDT Office Visit [facility] - [facility] [address] [place] [address] [place] [address] Maxx Soares MD [address] [place] [address] documented as of this encounter Visit Diagnoses Not on filedocumented in this encounter Care Teams Facilities Flight Check Pilot Relationship Specialty Start Date End Date John Paul Campa MD [address] [facility] [place] [address] PCP - General 05/29/24 documented as of this encounter
--- OUTSIDE RECORDS SUMMARY | 2025-01-27 12:05 | XMS_ITS | Encounter Summary ---
Author Organization [facility] Phyllis utimaría elena Address [address], [place] [address] Phone Care Team Providers Care Boulevard Glassware Replacer Name Role Phone John Paul Campa MD Primary Care Provider [phone]- [phone] Encounter Details Date Type Department Care Team (Late Contact Info) Description 08/24/2022 Office Visit [facility] [address] [place] [address] ProviderGustavo MD [address] [place] [address] Social History Tobacco Use Types Packs/Day [...] Description 02/19/2025 10:00 AM EDT Office Visit [facility] [address] [place] [address] Maxx Soares MD [address] [place] [address] documented as of this encounter Visit Diagnoses Not on filedocumented in this encounter Care Teams Boulevard Glassware Replacer Relationship Specialty Start Date End Date John Paul Campa MD [address] [facility] [place] [address] PCP - General 05/29/24 documented as of this encounter
--- OUTSIDE RECORDS SUMMARY | 2025-01-27 12:05 | XMS_ITS | Encounter Summary ---
Author Organization [facility] Phyllis utimaría elena Address [address], [place] [address] Phone Care Team Providers Care Dance Hall Host/Hostess Name Role Phone John Paul Campa MD Primary Care Provider [phone]- [phone] Encounter Details Date Type Department Care Team (Late Contact Info) Description 10/11/2022 Office Visit [facility] [address] [place] [address] ProviderGustavo MD [address] [place] [address] Social History Tobacco Use Types Packs/Day [...] Description 02/19/2025 10:00 AM EDT Office Visit [facility] [address] [place] [address] [place] [address] Maxx Soares MD [address] [place] [address] documented as of this encounter Visit Diagnoses Not on filedocumented in this encounter Care Teams Dance Hall Host/Hostess Relationship Specialty Start Date End Date John Paul Campa MD [address] [facility] [place] [address] PCP - General 05/29/24 documented as of this encounter
--- OUTSIDE RECORDS SUMMARY | 2025-01-27 12:05 | XMS_ITS | Encounter Summary ---
Author Organization [facility] Phyllis utimaría elena Address [address], [place] [address] Phone Care Team Providers Care French Drawer Name Role Phone John Paul Campa MD Primary Care Provider [phone]- [phone] Encounter Details Date Type Department Care Team (Late Contact Info) Description 02/26/2020 Office Visit [facility] [address] [place] [address] ProviderGustavo MD [address] [place] [address] Social History Tobacco Use Types Packs/Day [...] Description 02/19/2025 10:00 AM EDT Office Visit [facility] [address] [place] [address] Maxx Soares MD [address] [place] [address] documented as of this encounter Visit Diagnoses Not on filedocumented in this encounter Care Teams French Drawer Relationship Specialty Start Date End Date John Paul Campa MD [address] [place] [address] PCP - General 05/29/24 documented as of this encounter
--- OUTSIDE RECORDS SUMMARY | 2025-01-27 12:05 | XMS_ITS | Encounter Summary ---
Author Organization [facility]ana Physician Phyllis utimaría elena Address [address], [place] [address] Phone Care Team Providers Care Produce Specialist Name Role Phone John Paul Campa MD Primary Care Provider [phone]- [phone] Encounter Details Date Type Department Care Team (Late Contact Info) Description 09/23/2022 Office Visit [facility] [address] [place] [address] ProviderGustavo MD [address] [place] [address] Social History Tobacco Use Types Packs/Day [...] Description 02/19/2025 10:00 AM EDT Office Visit [facility] [address] [place] [address] [place] [address] Maxx Soares MD [address] [place] [address] documented as of this encounter Visit Diagnoses Not on filedocumented in this encounter Care Teams Produce Specialist Relationship Specialty Start Date End Date John Paul Campa MD [address] [place] [address] PCP - General 05/29/24 documented as of this encounter
--- OUTSIDE RECORDS SUMMARY | 2025-01-27 12:05 | XMS_ITS | Patient Health Record ---
Author Organization Julian Velázquez MD PA1 Address [address] [place] [address] Care Team Providers Care Center Mgr Name Role Phone Julian Velázquez Primary Care Provider RADHA, S Unavailable Unavailable Allergies No Known Allergies Results Component Value Reference Range Notes Cardiovascular Risk Assessme nt Reviewed date:04/04/2024 01:35:08 PM Interpretation: Performing Lab:[facility], [address] [place] [id number], Phone - [phone], Director - Andree Notes/Report: Interpretation Note Supplemental report is available. PDF Not applicable TSH Reviewed date:04/04/2024 01:35:08 PM Interpretation: Performing Lab:[facility], [address] [place] [id number], Phone - [phone], Director - Andree Notes/Report: TSH 1.800 0.450-4.500 uIU/mL Uric Acid, Serum Reviewed date:04/04/2024 01:35:08 PM Interpretation: Performing Lab:[facility], [facility] [place], [place] [id number], Phone - [phone], Director - Andree Notes/Report: Uric Acid 6.7 3.8-8.4 mg/dL Therapeutic ta rget for gout patients: <6.0 Comp. Metabolic Panel (14) Reviewed date:04/04/2024 01:35:08 PM Interpretation: Performing Lab:[facility] [id number], Phone - [phone], Director - Andree Notes/Report: Glucose 82 70-99 mg/dL BUN 50 8-27 mg/dL Creatinine 1.90 0.76-1.27 mg/dL eGFR 38 >59 mL/min/1.73 BUN/Creatinine Ratio 26 10-24 Sodium 137 134-144 mmol/L Potassium 5.5 3.5-5.2 mmol/L Chloride 108 96-106 mmol/L Carbon Dioxide, Total 18 20-29 mmol/L Calcium 9.1 8.6-10.2 mg/dL Protein, Total 7.1 6.0-8.5 g/dL Albumin 3.8 3.9-4.9 g/dL Globulin, Total 3.3 1.5-4.5 g/dL Bilirubin, Total 1.5 0.0-1.2 mg/dL Alkaline Phosphatase 178 44-121 IU/L AST (SGOT) 33 0-40 IU/L ALT (SGPT) 22 0-44 IU/L Lipid Panel Reviewed date:04/04/2024 01:35:08 PM Interpretation: Performing Lab:[facility] [address] [id number], Phone - [phone], Director - Andree Notes/Report: Cholesterol, Total 129 100-199 mg/dL Triglycerides 89 0-149 mg/dL HDL Cholesterol 59 >39 mg/dL VLDL Cholesterol Lam 17 5-40 mg/dL LDL Chol Calc (NIH) 53 0-99 mg/dL Vitamin D, 25-Hydroxy Reviewed date:04/04/2024 01:35:08 PM Interpretation: Performing Lab:[facility] [address] [id number], Phone - [phone], Director - Andree Notes/Report: Vitamin D, 25-Hydroxy 24.8 30.0-100.0 ng/mL Vitamin D deficiency has been defined by the [place] of Medicine and an Endocrine Society practice guideline as a level of serum 25-OH vitamin D less than 20 ng/mL (1,2). The Endocrine Society went on to further define vitamin D insufficiency as a level between 21 and 29 ng/mL (2). 1. IOM ([place] of Medicine). 2010. Dietary reference intakes for calcium and D. [place]: The National Academies Press. 2. Irene MF, Jewel NC, Rachel KABA, et al. Evaluation, treatment, and prevention of vitamin D deficiency: an Endocrine Society clinical practice guideline. JCEM. 2010; 96(5):1911-30. PTH, Intact Reviewed date:04/04/2024 01:35:08 PM Interpretation: Performing Lab:[facility], [address] [place] [id number], Phone - [phone], Director - Andree Notes/Report: PTH, Intact 128 15-65 pg/mL Prostate-Specific Ag, Serum Reviewed date:04/04/2024 01:35:08 PM Interpretation: Performing Lab:[facility], [address] [place] [id number], Phone - [phone], Director - Andree Notes/Report: Prostate Specific Ag 1.7 0.0-4.0 ng/mL Elizabeth ECLIA methodology. . According to the [place] [employer], Serum PSA should decrease and remain at undetectable levels after radical prostatectomy. The AUA defines biochemical recurrence as an initial PSA value 0.2 ng/mL or greater followed by a subsequent confirmatory PSA value 0.2 ng/mL or greater. Values obtained with different assay methods or kits cannot be used interchangeably. Results cannot be interpreted as absolute evidence of the presence or absence of malignant disease. Hemoglobin A1c Reviewed date:04/04/2024 01:35:08 PM Interpretation: Performing Lab:[facility], [address] [place] [id number], Phone - [phone], Director - Andree Notes/Report: Hemoglobin A1c 4.8 4.8-5.6 % Verified by repeat analysis . Prediabetes: 5.7 - 6.4 Diabetes: >6.4 Glycemic control for adults with diabetes: <7.0 CBC With Differential/Platel et Reviewed date:04/04/2024 01:35:08 PM Interpretation: Performing Lab:[facility], [facility] [place] [id number], Phone - [phone], Director - MDFarrier Notes/Report: WBC 7.7 3.4-10.8 x10E3/uL WBC correc kurtis for nucleated RBC's. RBC 3.22 4.14-5.80 x10E6/uL Target cells present. Sickle cells. Polychromasia present Pappenheimer bodies present. Microcytes present. [place] bodies were observed. Anisocytosis present. Hemoglobin 6.4 13.0-17.7 g/dL Hematocrit 21.1 37.5-51.0 % MCV 66 79-97 fL MCH 19.9 26.6-33.0 pg MCHC 30.3 31.5-35.7 g/dL RDW 23.8 11.6-15.4 % Platelets 168 150-450 x10E3/uL Neutrophils 47 Not Estab. % Occasional myel ocyte seen on scanning. Lymphs 35 Not Estab. % Monocytes 14 Not Estab. % Eos 2 Not Estab. % Basos 1 Not Estab. % Neutrophils (Absolute) 3.7 1.4-7.0 x10E3/uL Lymphs (Absolute) 2.7 0.7-3.1 x10E3/uL Monocytes(Absolute) 1.0 0.1-0.9 x10E3/uL Eos (Absolute) 0.2 0.0-0.4 x10E3/uL Baso (Absolute) 0.1 0.0-0.2 x10E3/uL Immature Granulocytes 1 Not Estab. % Immature Grans (Abs) 0.0 0.0-0.1 x10E3/uL NRBC 36 0 - 0 % Hematology Comments: Note: Verifie d by microscopic examination. Prot+CreatU (Random) Reviewed date:04/04/2024 01:35:08 PM Interpretation: Performing Lab:[facility], [facility] [place], [place] [id number], Phone - [phone], Director - Andree Notes/Report: Creatinine, Urine 58.1 Not Estab. mg/dL Protein,Total,Urine 130.6 Not Estab. mg/dL Protein/Creat Ratio 2248 0-200 mg/g creat [facility] CKD Program Reviewed date:04/04/2024 01:35:08 PM Interpretation: Performing Lab:[facility] [place], [facility] [place], [place] [id number], Phone - [phone], Director - Andree Notes/Report: Interpretation Note Oncology Radiation Physician's Note: Two or more accessions have been associated with this patient's current order. The listing of laboratory test results is not included within this interpretive report. Please refer to the [facility] report for these test results. Oncology Radiation Physician's Note: This is a consolidated report on 03/31/2024. You and one or more other clinicians ordered program relevant tests with the same date of service for this patient. We have included all of those tests in this report, including tests you may not have ordered. Where tests were duplicated, we present only the results from one physician's order. When available, Treatment and/or Follow-Up Suggestions in the Bone and Mineral section are based on concomitant calcium/intact PTH results. If applicable, you should consult your [facility] test results as well as this report to verify that the duplicated test values are clinically equivalent. Please contact us if you need additional information. This report is being forwarded to all ordering clinicians. Supplemental report is available. PDF . Reason For Referral No Information Medications Medication SIG (Take, Route, Frequency, Duration) Notes Start Date End Date Status amLODIPine Besylate 5 MG 1 tablet Orally Once a day for 90 days Active Pregabalin 150 MG 1 capsule Orally Once a day 03/18 Active Torsemide 20 MG 1 tablet Orally once a day 024 Active Folic Acid 1 MG 1 tablet Orally Once a day for 90 days Active cloNIDine HCl 0.1 MG 1 tablet Orally twi ce a day for 90 days Active Allopurinol 100 MG 1 tablet Orally Once a day for 90 days Active Social History Tobacco Use: Social History Observation Description Date Details (start date - stop date) Never Smoker NA - NA Tobacco Use/Smoking Question Answer Notes Are you a nonsmoker Section Notes: denies of alcohol use denies of alcohol use Problems Problem Type SNOMED Code ICD Code Onset Dates Problem Status W/U Status Risk Notes Problem Sickle cell disease without crisis (251778904) Sickle-cell disease without crisis (D57.1) 2020 Active confirmed Problem Anemia in chronic kidney disease (292572973) Anemia in chronic kidney disease (D63.1) Active confirmed Problem Hypertensive heart AND chronic kidney disease with congestive heart failure (27375437440590) Hypertensive heart and chronic kidney disease with heart failure and stage 1 through stage 4 chronic kidney disease, or unspecified chronic kidney disease (I13.0) Active confirmed Problem Secondary hyperparathyroidism of renal origin (36959892) Secondary hyperparathyroidism of renal origin (N25.81) Active confirmed Problem Thalassemia (94901753) Thalassemia, unspecified type (D56.9) 2019 Active confirmed Problem Chronic kidney disease stage 3A (699932429) Stage 3a chronic kidney disease (N18.31) 2021 Active confirmed Problem First degree atrioventricular block (535038778) Atrioventricular block, first degree (I44.0) 2023 Active confirmed Problem Hyperparathyroidism due to renal insufficiency (99681653) Hyperparathyroidism due to renal insufficiency (N25.81) 2023 Active confirmed Problem Chronic kidney disease stage 4 (960431002) Chronic kidney disease stage 4 (N18.4) 2023 Active confirmed Problem Hyperuricemia (65230931) Hyperuricemia (E79.0) 2023 Active confirmed Vital Signs Heart Rate 61 /min 04/05/2024 Temperature 98.6 degrees Fahrenheit 04/05/2024 Respiratory Rate 16 /min 04/05/2024 Blood pressure diastolic 58 mm Hg 04/05/2024 Oximetry 99 % 04/05/2024 Height 6FT 1IN in 04/05/2024 Blood pressure systolic 144 mm Hg 04/05/2024 Weight 164 lbs 04/05/2024 BMI 21.63 kg/m2 04/05/2024 Encounters Encounter Location Date Provider Diagnosis Julian Velázquez MD PA [address] [place] [address] 03/22/2024 Julian Velázquez Hypertensive heart a nd chronic kidney disease with heart failure and stage 1 through stage 4 chronic kidney disease, or unspecified chronic kidney disease I13.0 ; Sickle-cell disease without crisis D57.1 ; Chronic kidney disease stage 4 N18.4 ; Hyperparathyroidism due to renal insufficiency N25.81 ; Hyperuricemia E79.0 ; Atrioventricular block, first degree I44.0 ; Thalassemia, unspecified type D56.9 and Body mass index [BMI] 21.0-21.9, adult Z68.21 Julian Velázquez MD [facility] [address] [place] [address] 04/05/2024 Julian Velázquez Hypertensive heart a nd chronic kidney disease with heart failure and stage 1 through stage 4 chronic kidney disease, or unspecified chronic kidney disease I13.0 ; Anemia in chronic kidney disease D63.1 ; Hyperuricemia E79.0 ; Thalassemia, unspecified type D56.9 ; Chronic kidney disease stage 4 N18.4 ; Hyperparathyroidism due to renal insufficiency N25.81 ; Atrioventricular block, first degree I44.0 and Body mass index [BMI] 21.0-21.9, adult Z68.21 Julian Velázquez MD PA1 [address] [place] [address] 03/22/2024 Julian Velázquez Hypertensive heart a nd chronic kidney disease with heart failure and stage 1 through stage 4 chronic kidney disease, or unspecified chronic kidney disease I13.0 ; Hyperuricemia E79.0 and Thalassemia, unspecified type D56.9 Assessments Encounter Date Diagnosis (ICD Code) Assessment Notes Treatment Notes Treatment Clinical Notes Section Notes 03/22/2024 Sickle-cell disease without crisis (ICD-10 - D57.1) 03/22/2024 Hypertensive heart a nd chronic kidney disease with heart failure and stage 1 through stage 4 chronic kidney disease, or unspecified chronic kidney disease (ICD-10 - I13.0) 04/05/2024 Anemia in chronic kidney disease (ICD-10 - D63.1) Hgb is 64 , HCT is 21.1 , patient is advised to go to ER for blood transfusion , he is not ready for it and refused, he is advised to go to ER if he feels chest pain or shortness of breath. 04/05/2024 Hypertensive heart a nd chronic kidney disease with heart failure and stage 1 through stage 4 chronic kidney disease, or unspecified chronic kidney disease (ICD-10 - I13.0) 03/22/2024 Hypertensive heart a nd chronic kidney disease with heart failure and stage 1 through stage 4 chronic kidney disease, or unspecified chronic kidney disease (ICD-10 - I13.0) 03/22/2024 Chronic kidney disea se stage 4 (ICD-10 - N18.4) 03/22/2024 Hyperuricemia (ICD-1 0 - E79.0) 04/05/2024 Hyperuricemia (ICD-1 0 - E79.0) 03/22/2024 Hyperparathyroidism due to renal insufficiency (ICD-10 - N25.81) 03/22/2024 Thalassemia, unspecified type (ICD-10 - D56.9) 04/05/2024 Thalassemia, unspecified type (ICD-10 - D56.9) 03/22/2024 Hyperuricemia (ICD-1 0 - E79.0) 04/05/2024 Chronic kidney disea se stage 4 (ICD-10 - N18.4) Cr is 1.90 , GFR is 38 03/30/2024 03/22/2024 Atrioventricular blo ck, first degree (ICD-10 - I44.0) 04/05/2024 Hyperparathyroidism due to renal insufficiency (ICD-10 - N25.81) iPTH 128 03/30/2024 04/05/2024 Atrioventricular blo ck, first degree (ICD-10 - I44.0) 03/22/2024 Thalassemia, unspecified type (ICD-10 - D56.9) 03/22/2024 Body mass index [BMI ] 21.0-21.9, adult (ICD-10 - Z68.21) 04/05/2024 Body mass index [BMI ] 21.0-21.9, adult (ICD-10 - Z68.21) Plan Of Treatment Pending Test Test Name Order Date PTH, Intact 03/22/2024 Microalb/Creat Ratio, Randm Ur Comp. Metabolic Panel (14) 03/22/2024 Uric Acid, Serum 03/22/2024 Insurance Providers Payer Name Payer Address Payer Phone Subscriber Number Group Number Insured Name Patient Relationship to Insured Coverage Start Date Coverage End Date [employer] (HMO) [address] [place] [address] [id number] ARNALDO JUAN Self - patient is the insured Medical (General) History Medical History History ICD Code Hypertensive heart and chron ic kidney disease with heart failure and stage 1 through stage 4 chronic kidney disease, or unspecified chronic kidney disease I13.0 Chronic kidney disease stage 4 N18.4 Hyperuricemia E79.0 Secondary hyperparathyroidism of renal o rigin N25.81 anemia of chronic disease Hospitalization History Reason Date(Month/Year) hyperkelemia 02/2024
--- OUTSIDE RECORDS SUMMARY | 2025-01-27 12:05 | XMS_ITS | Patient Health Record ---
Author Organization [facility] Address [address] [facility] [address] [place] [address] Care Team Providers Care Gravity Prospecting Operator Helper Name Role Phone Hilario Mcgrath MD Primary Care Provider Unavailab mary Manzanares MD, Thanh Unavailable [phone] Zachariah Martinez Unavailable Unavailable REASON FOR REFERRAL No Information MEDICATIONS Medication SIG (Take, Route, Frequency, Duration) Notes Start Date End Date Status Dandelion Root Activ e hydroCHLOROthiazide 25 mg 1 tab(s) orall y once a day for 30 day(s) Active folic acid 1 mg 1 tab(s) orally once a day for 30 day(s) Active olmesartan 40 mg 1 tab(s) orally once a day for 30 day(s) Active pregabalin 100 mg 1 cap(s) orally once a day Active allopurinol 100 mg 1 tab(s) orally once a day Active HydrALAZINE Hydrochloride 50 mg 1 tab(s) orally 3 times a day for 30 day(s) 06/29/2022 Active torsemide 20 mg 1 tab(s) orally once a day for 30 day(s) Active Milk Thistle 1 cap(s) orally ever y evening Active SOCIAL HISTORY Sex Assigned At : Social History Observation Description Sex Assigned At Unknown PROBLEMS Problem Type ICD Code Onset Dates Problem Status W/U Status Risk SNOMED Code Notes Problem Thalassemia, unspecified type (D56.9) Active confirmed 96558862 Problem Hypertension, unspecified type (I10) Active confirmed 70155105 Problem Stage 3a chronic kidney disease (N18.31) Active confirmed 434485289 PLAN OF TREATMENT Pending Test Test Name Order Date BMP WITH eGFR 05/16/2020 COMPLETE BLOOD COUNT WITH AUTO DIFF 02/16 CMP WITH eGFR 03/11/2020 TINO w/Reflex 03/11/2020 C3, C4, COMPLEMENT CH50 03/11/2020 Hepatitis Panel 03/11/2020 ANCA SCREEN WITH MPO AND PR3 WITH REFLEX TO TITER 03/11/2020 Future Test Test Name Order Date CMP WITH eGFR 06/29/2022 UPROT/UCREAT RATIO 06/29/2022 Urinalysis, Complete with Microscopic ex am 06/29/2022 CMP WITH eGFR 08/23/2022 UPROT/UCREAT RATIO 08/23/2022 COMPLETE BLOOD COUNT WITH AUTO DIFF 09/16 CMP WITH eGFR 10/11/2022 UPROT/UCREAT RATIO 10/11/2022 Urinalysis, Complete with Microscopic ex am 10/11/2022 Insurance Providers Payer Name Payer Address Payer Phone Subscriber Number Group Number Insured Name Patient Relationship to Insured Coverage Start Date Coverage End Date [employer] [address] [place] [address] [id number] ARNALDO JUAN Self - patient is the insured MEDICAL (GENERAL) HISTORY Medical History History ICD Code Hypertension Dx 2019 Thalassemia 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
--- OUTSIDE RECORDS SUMMARY | 2025-01-27 12:06 | XMS_ITS | Patient Health Record ---
Author Organization [employer] Address [address] [place] [address] [place] [address] Care Team Providers Care Behavioral Scientist Name Role Phone John Paul Galloway MD Primary Care Provider Taqueria SHEPARD, Jazmin Unavailable [phone] Carolina Becker APRN Unavailable Allergies Allergen (clinical drug ingredient) Drug/Non Drug Allergy documented on EMR Reaction Allergy Type Onset Date Status aspirin Aspirin GI upset Drug Allergy Active ibuprofen Ibuprofen GI upset Drug Allergy Active Results Component Value Reference Range Notes Urine Culture, Routine Reviewed date:10/10/2024 08:28:27 AM Interpretation: Performing Lab:[facility] [id number], Phone - [phone], [facility] Notes/Report: Urine Culture, Routine Final report Result 1 Enterococcus faecalis Enterococci susceptible to penicillin are predictably susceptible resistance screening), cephalosporins, clindamycin, and 25,000-50,000 colony forming units per mL For Enterococcus species, aminoglycosides (except for high-level amoxicillin-clavulanate , and piperacillin-tazobactam for trimethoprim-sulfametho xazole are not effective clinically. to ampicillin, amoxicillin, ampicillin-sulbactam, cmi-szxd-olakhadld producing enterococci. (CLSI 2018) (CLSI, E047-[id number], 2016) Urinalysis with Microscopy ( UA) Reviewed date:10/10/2024 08:28:27 AM Interpretation: Performing Lab:[facility] [address], [place], [place] [id number], Phone - [phone], Director - Landy Notes/Report: Specific Romeo 1.010 1.005-1.030 pH 6.0 5.0-7.5 Urine-Color Yellow Yellow Appearance Clear Clear WBC Esterase Negative Negative Protein 3+ Negative/Trace Glucose Negative Negative Ketones Negative Negative Occult Blood Negative Negative Bilirubin Negative Negative Urobilinogen,Semi-Qn 0.2 0.2-1.0 mg/dL Nitrite, Urine Negative Negative Microscopic Examination See below: Micr oscopic was indicated and was performed. WBC None seen 0 - 5 /hpf RBC None seen 0 - 2 /hpf Epithelial Cells (non renal) None seen 0 - 10 /hpf Casts None seen None seen /lpf Bacteria None seen None seen/Few Pain Screening - Pain Presen t Reviewed date:01/04/2025 01:46:18 PM Interpretation: Performing Lab: Notes/Report: MEDICATION REVIEW Reviewed date:01/04/2025 01:46:39 PM Interpretation: Performing Lab: Notes/Report: Pain Screening - Pain Presen t Reviewed date:12/13/2024 01:04:34 PM Interpretation: Performing Lab: Notes/Report: MEDICATION REVIEW Reviewed date:12/13/2024 01:04:34 PM Interpretation: Performing Lab: Notes/Report: [facility] CKD Program Reviewed date:10/10/2024 08:28:27 AM Interpretation: Performing Lab:[facility], [address] [place] [address] [address], [place], [place] [id number], Phone - [phone], [facility] Notes/Report: Interpretation Not applicable A [employer] CDS interpretive report has not been generated since ordered tests are not currently relevant to the program. program. A [facility] CDS interpretive report has not been generated since ordered tests are not currently relevant to the A [employer] CDS interpretive report has not been generated since ordered tests are not currently relevant to the program. PDF Not applicable Interpretation Not applicable A [employer] CDS interpretive report has not been generated since ordered tests are not currently relevant to the program. program. A [employer] CDS interpretive report has not been generated since ordered tests are not currently relevant to the A [employer] CDS interpretive report has not been generated since ordered tests are not currently relevant to the program. PDF Not applicable Interpretation Not applicable A [employer] CDS interpretive report has not been generated since ordered tests are not currently relevant to the program. program. A [facility] CDS interpretive report has not been generated since ordered tests are not currently relevant to the A [employer] CDS interpretive report has not been generated since ordered tests are not currently relevant to the program. PDF Not applicable * *CORRECTED REPORT * * *CORRECTED REPORT * Pain Screening - Pain Presen t Reviewed date:10/01/2024 12:47:05 PM Interpretation: Performing Lab: Notes/Report: MEDICATION REVIEW Reviewed date:10/01/2024 02:32:20 PM Interpretation: Performing Lab: Notes/Report: Pain Screening - Pain Presen t Reviewed date:09/28/2024 08:47:45 AM Interpretation: Performing Lab: Notes/Report: MEDICATION REVIEW Reviewed date:09/28/2024 08:47:45 AM Interpretation: Performing Lab: Notes/Report: Pain Screening - Pain Presen t Reviewed date:09/18/2024 02:57:11 PM Interpretation: Performing Lab: Notes/Report: MEDICATION REVIEW Reviewed date:09/18/2024 02:57:11 PM Interpretation: Performing Lab: Notes/Report: Pain Screening - No Pain Pre sent Reviewed date:07/13/2024 02:39:08 PM Interpretation: Performing Lab: Notes/Report: MEDICATION REVIEW Reviewed date:07/13/2024 02:38:47 PM Interpretation: Performing Lab: Notes/Report: Hemoglobin A1C Reviewed date:06/10/2024 04:52:47 PM Interpretation: Performing Lab:[facility] [place], [address] [place] [id number], Phone - [phone], Director - Andree Notes/Report: Hemoglobin A1c 5.1 4.8-5.6 % Verified by repeat analysis . Diabetes: >6.4 Prediabetes: 5.7 - 6.4 Glycemic control for adults with diabetes: <7.0 Parathyroid Hormone (PTH), I ntact Reviewed date:06/10/2024 04:52:47 PM Interpretation: Performing Lab:[facility] [id number], Phone - [phone], Director - Andree Notes/Report: PTH, Intact 156 15-65 pg/mL Lipid Panel With Total Pina sterol/HDL Ratio Reviewed date:06/10/2024 04:52:47 PM Interpretation: Performing Lab:[facility] [id number], Phone - [phone], Director - Andree Notes/Report: Cholesterol, Total 143 100-199 mg/dL Triglycerides 77 0-149 mg/dL HDL Cholesterol 68 >39 mg/dL VLDL Cholesterol Lam 15 5-40 mg/dL LDL Chol Calc ([facility]) 60 0-99 mg/dL T. Chol/HDL Ratio 2.1 0.0-5.0 ratio Men Women T. Chol/HDL Ratio 1/2 Avg.Risk 3.4 3.3 Avg.Risk 5.0 4.4 3X Avg.Risk 23.4 11.0 2X Avg.Risk 9.6 7.1 Comprehensive Metabolic Pane l 14 (CMP) Reviewed date:06/10/2024 04:52:47 PM Interpretation: Performing Lab:[address] [id number], Phone - [phone], Director - Andree Notes/Report: Glucose 90 70-99 mg/dL BUN 48 8-27 mg/dL Creatinine 2.60 0.76-1.27 mg/dL eGFR 26 >59 mL/min/1.73 BUN/Creatinine Ratio 18 10-24 Sodium 136 134-144 mmol/L Potassium 5.2 3.5-5.2 mmol/L Chloride 101 96-106 mmol/L Carbon Dioxide, Total 21 20-29 mmol/L Calcium 9.2 8.6-10.2 mg/dL Protein, Total 6.9 6.0-8.5 g/dL Albumin 4.0 3.9-4.9 g/dL Globulin, Total 2.9 1.5-4.5 g/dL Bilirubin, Total 1.2 0.0-1.2 mg/dL Alkaline Phosphatase 191 44-121 IU/L AST (SGOT) 28 0-40 IU/L ALT (SGPT) 27 0-44 IU/L Pain Screening - No Pain Pre sent Reviewed date:05/28/2024 08:54:13 AM Interpretation: Performing Lab: Notes/Report: MEDICATION REVIEW Reviewed date:05/28/2024 08:53:49 AM Interpretation: Performing Lab: Notes/Report: Pain Screening - No Pain Pre sent Reviewed date:09/12/2024 10:17:19 AM Interpretation: Performing Lab: Notes/Report: MEDICATION REVIEW Reviewed date:09/12/2024 10:17:19 AM Interpretation: Performing Lab: Notes/Report: Pain Screening - No Pain Pre sent Reviewed date:09/05/2024 02:12:40 PM Interpretation: Performing Lab: Notes/Report: MEDICATION REVIEW Reviewed date:09/05/2024 02:12:40 PM Interpretation: Performing Lab: Notes/Report: [facility] CKD Program Reviewed date:06/10/2024 04:52:47 PM Interpretation: Performing Lab:[facility] [address] [id number], Phone - [phone], Director - Andree Notes/Report: Interpretation Note Supplemental report is available. Complete Blood Count With Di fferential With Reflex to Smear Review (CBC) Reviewed date:06/10/2024 04:52:47 PM Interpretation: Performing Lab:[facility] [address] [id number], Phone - [phone], Director - Andree Notes/Report: WBC 10.5 3.4-10.8 x10E3/uL Effective June 18, 2024 profile [id number] WBC will be made WBC corrected for nucleated RBC's. non-orderable as a stand-alone order code. RBC 3.51 4.14-5.80 x10E6/uL Polychromasia present Johnson-Brambleton bodies were observed. Target cells present. Pappenheimer bodies present. Sickle cells. Microcytes present. Basophilic Stippling. Anisocytosis present. Hemoglobin 7.2 13.0-17.7 g/dL Hematocrit 24.5 37.5-51.0 % MCV 70 79-97 fL MCH 20.5 26.6-33.0 pg MCHC 29.4 31.5-35.7 g/dL RDW 27.5 11.6-15.4 % Platelets 230 150-450 x10E3/uL Neutrophils 46 Not Estab. % Lymphs 35 Not Estab. % Monocytes 13 Not Estab. % Eos 4 Not Estab. % Basos 1 Not Estab. % Neutrophils (Absolute) 4.9 1.4-7.0 x10E3/uL Lymphs (Absolute) 3.7 0.7-3.1 x10E3/uL Monocytes(Absolute) 1.3 0.1-0.9 x10E3/uL Eos (Absolute) 0.4 0.0-0.4 x10E3/uL Baso (Absolute) 0.1 0.0-0.2 x10E3/uL Immature Granulocytes 1 Not Estab. % Immature Grans (Abs) 0.1 0.0-0.1 x10E3/uL NRBC 34 0 - 0 % Hematology Comments: Note: Verifie d by microscopic examination. Albumin/Creatinine Ratio, Ra ndom Urine (uACR) Reviewed date:06/10/2024 04:52:47 PM Interpretation: Performing Lab:[facility] [place], [address] [place] [id number], Phone - [phone], Director - Andree Notes/Report: Creatinine, Urine 47.9 Not Estab. mg/dL Albumin, Urine 416.0 Not Estab. ug/mL dilution. Results confirmed on Alb/Creat Ratio 868 0-29 mg/g creat Normal: 0 - 29 Moderately increased: 30 - 300 Severely increased: >300 Reason For Referral Reason eval PLEASE FAX RATNA LOYD NOTES TO [phone] faxed Successfully Created. STATUS: Approved. Your Reference # is [id number]. 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) Referral Organization [facility] Referring Provider First Name John Paul Referring Provider Last Name Laverne Referring Provider Speciality Internal M edicine Referred Provider Gerald Wu Referred Provider Specialty Hematology/O ncology Procedure 1 New Patient - Detail ed (59602) Procedure 2 New Patient - Compre hensive/Moderate (15961) Procedure 3 Established - Expand ed (27621) Procedure 4 Established - Detail ed (83601) Procedure 5 COMPLETE CBC W/AUTO DIFF WBC (03237) Procedure 6 VENIPUNCT, ROUTINE ( 39287) Procedure 7 PROTHROMBIN TIME (85 610) General Notes John Paul Galloway 1 07/25/2023 12:06:31 PM >[facility] - referral ID [id number], Target specialist:, , Name: Jim Sorto, Practice name: [facility], Specialty: Hematology/Oncology, Address: [address] [place] [address] [address], [place], [address], , , Referral information:, Start date: 2024-05-25, End date: 2025-05-25, Number of visits: 2, Diagnosis: , code: D57.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 Your Reference # is [id number]., Debra Arce 05/25/2024 12:17:02 PM >referral given to patient on hand Referral Priority Routine Reason eval PLEASE FAX RATNA LOYD NOTES TO [phone] faxed Authorization - [id number], Status - Approved Diagnosis 1 Heart failure, diast olic, chronic (I50.32) Referral Organization [facility] Referring Provider First Name John Paul Referring Provider Last Name Laverne Referring Provider Speciality Internal M edicine Referred Provider Gerald Wu Juanito Referred Provider Specialty Cardiology Procedure 1 New Patient - Detail ed (87931) Procedure 2 New Patient - Compre hensive/Moderate (90064) Procedure 3 Established - Expand ed (55328) Procedure 4 Established - Detail ed (74564) Procedure 5 ELECTROCARDIOGRAM (E KG), COMPLETE (77212) General Notes John Paul Galloway 1 07/25/2023 12:10:59 PM >[facility] - referral ID [id number], Target specialist:, , Name: Cherrie Shell, Practice name: [facility], Specialty: Cardiology, [facility], [address], , , Referral information:, Start date: 2024-05-25, End date: 2025-05-25, Number of visits: 2, Diagnosis: , code: I50.32 description: Heart failure, diastolic, chronic, Reason: eval, Urgency: RoutineClaude Mireya 06/04/2024 04:52:39 PM >called specialist office spoke Meagankevin stated they received referral Referral Priority Routine Reason eval Authorization - [id number], Status - Approved PLEASE FAX BACK CONUSLT NOTES TO [phone] faxed Diagnosis 1 Stage 3b chronic kid lokesh disease (CKD) (N18.32) Referral Organization [facility] Referring Provider First Name John Paul Referring Provider Last Name Laverne Referring Provider Speciality Internal M edicine Referred Provider Gerald Wu [place] Referred Provider Specialty Nephrology Procedure 1 New Patient - Detail ed (24775) Procedure 2 New Patient - Compre hensive/Moderate (98123) Procedure 3 Established - Expand ed (55555) Procedure 4 Established - Detail ed (05504) General Notes John Paul Galloway 1 07/25/2023 12:13:19 PM >[facility] - referral ID [id number], Target specialist:, , Name: Fany Lilly, Practice name[facility], Specialty: Nephrology, Address: [address] [place] [address], [address], , Fax: N/A, Referral information:, Start date: 2024-05-25, End date: 2025-05-25, Number of visits: 2, Diagnosis: , code: N18.32 description: Stage 3b chronic kidney disease (CKD), Reason: eval, Urgency: Routine, Bartolo Arcea 05/25/2024 12:23:40 PM >Successfully Created., STATUS: Approved. Your Reference # is [id number], Bartolo Arcea 05/25/2024 12:24:46 PM >referral given to patient on hand, Debra Arce 06/04/2024 04:53:20 PM >called specialist office spoke to Dania stated they received referral Referral Priority Routine Reason Follow up due uncont rolled HTN recently. thank you in advance PLEASE FAXBACK CONSULT NOTES TO [phone] FAXED Diagnosis 1 Hypertensive heart a nd chronic kidney disease with heart failure and stage 1 through stage 4 chronic kidney disease, or unspecified chronic kidney disease (I13.0) Diagnosis 2 Hypertensive chronic kidney disease with stage 1 through stage 4 chronic kidney disease, or unspecified chronic kidney disease (I12.9) Diagnosis 3 Heart failure, diast olic, chronic (I50.32) Referral Organization [facility] Referring Provider First Name John Paul Referring Provider Last Name Laverne Referring Provider Speciality Internal M edicine Referred Provider Gerald Wu Referred Provider Specialty Cardiology Procedure 1 ELECTROCARDIOGRAM (E KG), COMPLETE (11434) Procedure 2 New Patient - Detail ed (21836) Procedure 3 New Patient - Compre hensive/Moderate (36591) Procedure 4 Established - Expand ed (80359) Procedure 5 Established - Detail ed (38913) General Notes Carolina Becker 07/13/2024 02:43:58 PM >[facility] - referral ID [id number] Target specialist: Name: Vinayak Jordan Practice name: [facility] Specialty: Cardiology () Address 1: [address] [place] [address] Address 2: Address 3: City: [place] State: [place] Zip: [address] Referral information: Follow up due uncontrolled HTN recently. thank you in advance End date: 2025-07-13 Number of visits: 3 Diagnosis: code: I13.0 description: Hypertensive heart and chronic kidney disease with heart failure and stage 1 through stage 4 chronic kidney disease, or unspecified chronic kidney disease, code: I12.9 description: Hypertensive chronic kidney disease with stage 1 through stage 4 chronic kidney disease, or unspecified chronic kidney disease, code: I50.32 description: Heart failure, diastolic, chronic Urgency: (Normal) Market: [place] Tier: Tier 1, Debra Arce 07/13/2024 03:10:31 PM >REFERRAL UPDATED, Provider Name JOSE PORTILLO Org Name , Specialty INTERVENTIONAL CARDIOLOGY, LOB FRCR, , Tax ID [id number], , , Address [address] [place] [address], Successfully Created., STATUS: Approved. Your Reference # is [id number]. Clinical Notes AlvesJennifer perez 08/18 10:15:43 AM >called at this number is not the number . Referral Priority Routine Reason eval and treat giancarlo l Diagnosis 1 Major depressive dis order, single episode, mild (F32.0) Referral Organization [facility] Referring Provider First Name Jazmin Referring Provider Last Name Taqueria Referring Provider Speciality Internal M edicine Referred Provider Gerald Wu Juanito Referred Provider Specialty Psychiatry Procedure 1 New Patient - Detail ed (32815) Procedure 2 New Patient - Compre hensive/Moderate (73619) Procedure 3 Established - Expand ed (26681) Procedure 4 Established - Detail ed (57408) General Notes Jazmin Meng 06:18:04 PM >[facility] - referral ID [id number] Target specialist: NPI: Name: Practice name: [facility] Specialty: Psychiatry () Address 1: undefined Address 2: undefined Address 3: City: [facility] State: [facility] Zip: undefined Phone: undefined Fax: undefined Referral information: eval and treat End date: 2025-10-01 Number of visits: 3 Diagnosis: code: F32.0 description: Major depressive disorder, single episode, mild Urgency: (Normal) Market: [place] Tier: undefined, Debra Arce 10/25/2024 09:39:47 PM >Referral To Information:, Provider Name: Re [facility], Provider , Provider Speciality: Psychiatry, Address1: [address] [place] [address], [facility], Zip: [place], [address], , Referral Priority Routine Reason eval and treat Diagnosis 1 Heart failure, diast olic, chronic (I50.32) [facility] Referring Provider First Name John Paul Referring Provider Last Name Laverne Referring Provider Speciality Internal M edicine Referred Provider Gerald Wu Referred Provider Specialty Cardiology Procedure 1 New Patient - Detail ed (98295) Procedure 2 New Patient - Compre hensive/Moderate (71579) Procedure 3 Established - Expand ed (85494) Procedure 4 Established - Detail ed (39292) Procedure 5 ELECTROCARDIOGRAM (E KG), COMPLETE (95443) General Notes Debra Arce 10/15 08:58:09 AM >Successfully Created., STATUS: Approved. Your Reference # is [id number]., Debra Arce 10/15/2024 08:59:55 AM >Provider Name JOSE PORTILLO, Specialty INTERVENTIONAL CARDIOLOGY, , Tax ID [id number], , , Address [address] [place] [address] Referral Priority Routine Reason eval and treat Diagnosis 1 Nocturia (R35.1) Ref[facility] [employer] [facility] Referring Provider First Name John Paul Referring Provider Last Name Laverne Referring Provider Speciality Internal M edicine Referred Provider Gerald Wu Referred Provider Specialty Urology Procedure 1 New Patient - Detail ed (84439) Procedure 2 New Patient - Compre hensive/Moderate (38944) Procedure 3 Established - Expand ed (57584) Procedure 4 Established - Detail ed (85192) General Notes Jazmin Meng 04:55:57 PM >[facility] - referral ID [id number] Target specialist: NPI: Name: Practice name: undefined Specialty: Urology () Address 1: undefined Address 2: undefined Address 3: City: undefined State: undefined Zip: undefined Phone: undefined Fax: undefined Referral information: eval and treat End date: 2025-10-09 Number of visits: 3 Diagnosis: code: R35.1 description: Nocturia Urgency: (Normal) Market: [place] Tier: undefined, Arce Debra 10/10/2024 11:25:39 AM >Carolina Becker 10/09/2024 05:09:46 PM >[facility] - referral ID [id number] Target specialist: Name: Dean Gusman Practice name: [facility] Specialty: Urology () Address 1: [address] Address 2: [facility] [address] Address 3: City: [facility]: [place] Zip: [address] Referral information: eval and f/u. thnak you in advance. End date: 2025-10-09 Number of visits: 3 Diagnosis: code: R35.1 description: Nocturia Urgency: (Normal) Market: [place] Tier: Tier 1Claude Mireya 10/10/2024 11:24:24 AM >Successfully Created., STATUS: Approved. Your Reference # is [id number]. Referral Priority Routine Reason eval and f/u. thnak you in advance. Diagnosis 1 Nocturia (R35.1) Referral Organization [facility] Referring Provider First Name John Paul Referring Provider Last Name Laverne Referring Provider Speciality Internal M edicine Referred Provider Gerald [place] Referred Provider Specialty Urology Procedure 1 New Patient - Detail ed (56831) Procedure 2 New Patient - Compre hensive/Moderate (56158) Procedure 3 Established - Expand ed (30643) Procedure 4 Established - Detail ed (77185) Procedure 5 Urinalysis wo micro Auto (63344) Procedure 6 US URINE CAPACITY ME ASURE (69687) Procedure 7 CYSTOSCOPY (43437) General Notes Carolina Becker 10/09/2024 05:09:46 PM >[facility] - referral ID [id number] Target specialist: Name: Dean Gusman Practice name: [facility] Specialty: Urology () Address 1: [address] Address 2: [place] [address] Address 3: City: [facility]: [place] Zip: [address] Referral information: eval and f/u. thnak you in advance. End date: 2025-10-09 Number of visits: 3 Diagnosis: code: R35.1 description: Nocturia Urgency: (Normal) Market: [place] Tier: Tier 1Claude Mireya 10/10/2024 11:24:24 AM >Successfully Created., STATUS: Approved. Your Reference # is [id number]. Referral Priority Routine Reason Eval and f/u. CT rig ht shoulder done recently 12/31/2024. Thank you in advance. Please fax back the record to [phone]. 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) Referral Organization [facility] Referring Provider First Name Carolina Referring Provider Last Name Eugenio Referring Provider Speciality [facility] Referred Provider Gerald Wu Referred Provider Specialty Orthopedic S urgery Procedure 1 New Patient - Detail ed (79333) Procedure 2 New Patient - Compre hensive/Moderate (20740) Procedure 3 Established - Expand ed (17857) Procedure 4 Established - Detail ed (68479) Procedure 5 XRAY EXAM OF SHOULDSia R (04329) General Notes Debra Arce 01/17 02:45:17 PM >Successfully Created., STATUS: Approved. Your Reference # is [id number]., Provider Name HÉCTOR TETE, Specialty ORTHOPEDIC SURGERY, , Tax ID [id number], , , Address [address] [place] [address] Referral Priority Routine Medications Medication SIG (Take, Route, Frequency, Duration) Notes Start Date End Date Status Amoxicillin 250 MG one capsule Orally T hree times a day for 10 days 10/09/2024 Active amLODIPine Besylate 10 MG 1 tablet Orall y Once a day for 90 days Active Folic Acid 1 MG TAKE ONE TABLET BY M OUTH ONE TIME DAILY Oral Once a day for 90 days Active Sodium Bicarbonate 650 MG as directed Or ally daily for 90 days Active Allopurinol 100 MG 1 tablet Orally twic e a day for 90 days 05/25/2024 Active Paricalcitol 1 MCG 1 capsule Orally onc e a day for 90 days Active Meclizine HCl 12.5 MG 1 tablet as needed Orally every 12 hrs for 15 days 09/18/2024 Active cloNIDine HCl 0.1 MG 1 tablet Orally thr ee times a day for 90 days Active Lactulose 10 GM/15ML TAKE 15 ML BY MOUTH ONE TIME DAILY FOR 3 DOSES Oral for Not Available Active Famotidine 40 MG 1 tablet Orally Once a day for 90 days 10/01/2024 Active Vitamin D 25 MCG (1000 UT) 1 tablet Oral ly Once a day Active Vitamin C 500 MG as directed Orally Active Diclofenac Sodium 1 % as directed Assistant Manager Trainee ally every 4 hours for 10 days 12/12/2024 Active Triamcinolone Acetonide 0.1 % 1 application Externally day for 7 days 12/12/2024 Active Torsemide 20 MG 1 tablet as needed f or edema, swelling Orally Once a day for 90 days Active Social History Marital status: Question Answer Notes Status: Alcohol Screen Question Answer Notes Do you currently consume, or have you in the pas t consumed, alcohol? No Did you have a drink containing alcohol in the p ast year? No Points 0 Problems Problem Type SNOMED Code ICD Code Onset Dates Problem Status W/U Status Risk Notes Problem Mild major depression, single episode (41785450) Major depressive disorder, single episode, mild (F32.0) Active confirmed Problem [id number] Other chronic pa in (G89.29) Active confirmed Problem [id number] Hypertensive hea rt and chronic kidney disease with heart failure and stage 1 through stage 4 chronic kidney disease, or unspecified chronic kidney disease (I13.0) Active confirmed Problem [id number] Pain in right shoulder (M25.511) Active confirmed Problem 954484710 Generalized abdominal pain (R10.84) Active confirmed Problem Gastritis (4390764) Gastritis (K29.70) Active c onfirmed Problem 29895754 Serum potassium elevated (E87.5) Active confirmed Problem 925627320 Dermatitis (L30.9) Active confirmed Problem 900448866 Vertigo (R42) Active confirmed Problem 676391880 Lower extremity edema (R60.0) Active confirmed Problem CKD (chronic kid lokesh disease) stage 4, GFR 15-29 ml/min (N18.4) Active confirmed Problem Arthritis of acromioclavicular joint (692863290) 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 Problem 571531546 Encounter for screening (Z13.9) Active confirmed Problem Avascular necrosis (24929856) Avascular necrosis (M87.00) Active confirmed Problem 801670620 Cervical spine p ain (M54.2) Active confirmed Problem 391942777 Heart failure, diastolic, chronic (I50.32) Active confirmed Problem 11017402 Iron overload (E83.19) Active confirmed Problem 878024251 Encounter for annual wellness visit (AWV) in Medicare patient (Z00.00) Active confirmed Problem 134755622 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 Vital Signs Temperature 98.1 degrees Fahrenheit 01/04/2025 Respiratory Rate 17 /min 01/04/2025 Oximetry 96 % 01/04/2025 Blood pressure diastolic 55 mm Hg 01/04/2025 Height 72 in 01/04/2025 Blood pressure systolic 115 mm Hg 01/04/2025 Weight 170 lbs 01/04/2025 BMI 23.05 kg/m2 01/04/2025 Encounters Encounter Location Date Provider Diagnosis [facility] [address] [id number] 05/25/2024 John Paul Galloway Encounter for annual wellness visit (AWV) in Medicare patient Z00.00 ; Sickle cell beta thalassemia D57.40 ; Heart failure, diastolic, chronic I50.32 ; Iron overload E83.19 ; Stage 3b chronic kidney disease (CKD) N18.32 ; Hypertensive heart and chronic kidney disease with heart failure and stage 1 through stage 4 chronic kidney disease, or unspecified chronic kidney disease I13.0 and Colon cancer screening Z12.11 [facility] [address] [id number] 06/08/2024 John Paul Galloway Encounter for annual wellness visit (AWV) in Medicare patient Z00.00 ; Sickle cell beta thalassemia D57.40 ; Heart failure, diastolic, chronic I50.32 ; Iron overload E83.19 ; Stage 3b chronic kidney disease (CKD) N18.32 ; Hypertensive heart and chronic kidney disease with heart failure and stage 1 through stage 4 chronic kidney disease, or unspecified chronic kidney disease I13.0 ; Colon cancer screening Z12.11 and Encounter for screening Z13.9 [facility] [address] [place] [id number] 06/12/2024 Dhayamy Eugenio Encounter for annual wellness visit (AWV) in Medicare patient Z00.00 ; Hypertensive heart and chronic kidney disease with heart failure and stage 1 through stage 4 chronic kidney disease, or unspecified chronic kidney disease I13.0 ; Stage 3b chronic kidney disease (CKD) N18.32 ; Heart failure, diastolic, chronic I50.32 and Iron overload E83.19 [facility] [address], [place] [id number] 09/12/2024 Dhacamilla LindquistEugenio Heart failure, diastolic, chronic I50.32 ; Encounter for screening Z13.9 ; Encounter for annual wellness visit (AWV) in Medicare patient Z00.00 ; Hypertensive heart and chronic kidney disease with heart failure and stage 1 through stage 4 chronic kidney disease, or unspecified chronic kidney disease I13.0 ; Stage 3b chronic kidney disease (CKD) N18.32 ; Iron overload E83.19 ; Sickle cell beta thalassemia D57.40 and Hypertensive chronic kidney disease with stage 1 through stage 4 chronic kidney disease, or unspecified chronic kidney disease I12.9 [facility] [address] [id number] 07/13/2024 Dhacamilla LindquistEugenio Encounter for screening Z13.9 ; Hospital discharge follow-up Z09 ; Hypertensive heart and chronic kidney disease with heart failure and stage 1 through stage 4 chronic kidney disease, or unspecified chronic kidney disease I13.0 ; Sickle cell beta thalassemia D57.40 and Iron overload E83.19 [facility] [address], [place] [id number] 09/05/2024 Jazmin Taqueria Encounter for screen ing Z13.9 and Left leg swelling M79.89 [facility] [address] [id number] 09/18/2024 Dhayamy Eugenio Encounter for screening Z13.9 ; Cervical spine pain M54.2 ; Vertigo R42 and Lower extremity edema R60.0 [facility] [address] [id number] 09/25/2024 Dhayamy Eugenio Encounter for screening Z13.9 ; Generalized abdominal pain R10.84 and Sickle cell beta thalassemia D57.40 [facility] [address] [id number] 10/01/2024 [facility] discharge follow-up Z09 ; Gastritis K29.70 ; Sickle cell beta thalassemia D57.40 ; Encounter for screening Z13.9 ; Hypertensive heart and chronic kidney disease with heart failure and stage 1 through stage 4 chronic kidney disease, or unspecified chronic kidney disease I13.0 ; Heart failure, diastolic, chronic I50.32 ; CKD (chronic kidney disease) stage 4, GFR 15-29 ml/min N18.4 and Major depressive disorder, single episode, mild F32.0 [facility] [address], [place] [id number] 12/12/2024 Carolina Becker Hypertensive heart and chronic kidney disease with heart failure and stage 1 through stage 4 chronic kidney disease, or unspecified chronic kidney disease I13.0 ; Pain in right shoulder M25.511 ; Encounter for screening Z13.9 ; Sickle cell beta thalassemia D57.40 ; Heart failure, diastolic, chronic I50.32 ; Gastritis K29.70 ; Vertigo R42 ; Other chronic pain G89.29 and Dermatitis L30.9 [facility] [place] [address], [place] [id number] 01/04/2025 Carolina Becker Avascular necrosis M87.00 ; 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 and Encounter for screening Z13.9 [facility] [place] [address], [place] [id number] 05/25/2024 John Paul Galloway [facility] [place] [address], [place] [id number] 05/28/2024 John Paul Galloway [facility] [place] [address], [place] [id number] 07/12/2024 John Paul Galloway [facility] [address] [place] [phone] 09/04/2024 John Paul Galloway [facility] [place] [address], [place] [id number] 09/07/2024 John Paul Galloway Serum potassium elev ated E87.5 [facility] [place] [address], [place] [id number] 09/20/2024 John Paul Simms-Saldaña [facility] [address], [place] [id number] 09/28/2024 John Paul Simms-Saldaña [facility] [address] [facility], [place] [id number] 09/28/2024 John Paul Simms-Saldaña [facility] [address], [place] [id number] 10/02/2024 John Paul Simms-Saldaña Heart failure, diastolic, chronic I50.32 [facility] [address], [place] [id number] 10/05/2024 John Paul Simms-Saldaña Hypertensive heart a nd chronic kidney disease with heart failure and stage 1 through stage 4 chronic kidney disease, or unspecified chronic kidney disease I13.0 [facility] [address], [place] [id number] 10/08/2024 John Paul Simms-Saldaña [facility] [address], [place] [id number] 10/09/2024 John Paul Simms-Saldaña Hypertensive heart a nd chronic kidney disease with heart failure and stage 1 through stage 4 chronic kidney disease, or unspecified chronic kidney disease I13.0 and Nocturia R35.1 [facility] [place] [address], [place] [id number] 10/15/2024 John Paul Simms-Saldaña [facility] [address], [place] [id number] 12/12/2024 John Paul Simms-Saldaña [facility] [address], [place] [id number] 12/18/2024 John Paul Simms-Saldaña [facility] [address], [place] [id number] 01/17/2025 John Paul Simms-Saldaña Assessments Encounter Date Diagnosis (ICD Code) Assessment Notes Treatment Notes Treatment Clinical Notes 05/25/2024 Encounter for annual wellness visit (AWV) in Medicare patient (ICD-10 - Z00.00) 05/25/2024 Sickle cell beta thalassemia (ICD-10 - D57.40) To be followed and managed by H/O 06/08/2024 Encounter for annual wellness visit (AWV) in Medicare patient (ICD-10 - Z00.00) 06/08/2024 Sickle cell beta thalassemia (ICD-10 - D57.40) 06/12/2024 Encounter for annual wellness visit (AWV) in Medicare patient (ICD-10 - Z00.00) 06/12/2024 Hypertensive heart and chronic kidney disease with heart failure and stage 1 through stage 4 chronic kidney disease, or unspecified chronic kidney disease (ICD-10 - I13.0) Follow a low sodium diet, avoid stress, exercise as tolerated, monitor blood pressure as directed, continue with medications as prescribed. Will continue to monitor. 07/13/2024 Encounter for screening (ICD-10 - Z13.9) 07/13/2024 Hospital discharge follow-up (ICD-10 - Z09) 09/12/2024 Heart failure, diastolic, chronic (ICD-10 - I50.32) Patient with clinical signs and symptoms of heart failure with abnormal diastolic findings on echocardiogram with response to heart failure therapy. Plan is to follow low sodium diet, continue diuretic/CALVIN therapy, control BP, and close outpatient followup. Serial echocardiography as needed. 09/05/2024 Encounter for screening (ICD-10 - Z13.9) 09/07/2024 Serum potassium elevated (ICD-10 - E87.5) 09/12/2024 Encounter for screening (ICD-10 - Z13.9) 09/18/2024 Encounter for screening (ICD-10 - Z13.9) 09/18/2024 Cervical spine pain (ICD-10 - M54.2) Plan of care is to start Motrin for control of pain. Risks and benefits of this type of drugs explained to patient in detail. He was instructed to use a towel roll to support the cervical spine at night. Neck and shoulder stretches. Moist heat BID and IC massage. Explained this will take time and gradually improved. He voiced understanding. I have reviewed at this encounter, patient recent labs, Xray, medication and problem list. 09/25/2024 Encounter for screening (ICD-10 - Z13.9) 09/25/2024 Generalized abdomina l pain (ICD-10 - R10.84) Referral to ER for evaluation. Pt refuses to uses 911. 10/01/2024 Hospital discharge follow-up (ICD-10 - Z09) Hospital records reviewed and findings discussed with pt. Medications reconciled. 10/02/2024 Heart failure, diastolic, chronic (ICD-10 - I50.32) 10/05/2024 Hypertensive heart and chronic kidney disease with heart failure and stage 1 through stage 4 chronic kidney disease, or unspecified chronic kidney disease (ICD-10 - I13.0) 10/09/2024 Hypertensive heart and chronic kidney disease with heart failure and stage 1 through stage 4 chronic kidney disease, or unspecified chronic kidney disease (ICD-10 - I13.0) 12/12/2024 Hypertensive heart and chronic kidney disease with heart failure and stage 1 through stage 4 chronic kidney disease, or unspecified chronic kidney disease (ICD-10 - I13.0) Pts HTN has caused chronic kidney disease. Pt is aware of the need to conrtol HTN and to notify us if any edema, decrease in urine output. Pt reminded to avoid NSAIDs and to eat a low salt diet of no more than 2000 mg/day. Pt to follow up with Nephrol and cardiology as advised. Pt voiced understanding. 12/12/2024 Pain in right shoulder (ICD-10 - M25.511) Improved. Stable at this time. CT ordered today. Continue current pain regimen. Will consider MRI if symptoms do not improve and or Referral to ortho as needed. 01/04/2025 Avascular necrosis (ICD-10 - M87.00) Patient seen and examined, has signs and symptoms of impingement sign to the shoulder. Patient with positive painful acrc, Neer's and Hawkin's test. Discussed treatment options and patient elected Kenalog (40 mg/mL)/lidocaine 1% without epinephrine via posteriolateral approach. After informed consent injection was given. Patient tolerated procedure well. 15 min post injection patient reporting significant improvement in pain. Patient also demonstrates improved range of motion without pain. 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 Patient with positive painful acrc, Neer's and Hawkin's test. Discussed treatment options and patient elected Kenalog (40 mg/mL)/lidocaine 1% without epinephrine via posteriolateral approach. After informed consent injection was given. Patient tolerated procedure well. 15 min post injection patient reporting significant improvement in pain. Patient also demonstrates improved range of motion without pain. 01/04/2025 Encounter for screening (ICD-10 - Z13.9) 10/09/2024 Nocturia (ICD-10 - R35.1) 12/12/2024 Encounter for screening (ICD-10 - Z13.9) 10/01/2024 Gastritis (ICD-10 - K29.70) Patient is advised to eliminate irritating foods from his diet such as lactose from dairy or gluten from wheat, avoid hot or spicy foods. 09/25/2024 Sickle cell beta thalassemia (ICD-10 - D57.40) Send to Er for evaluation. Pt in acute severe abdminal pain. 09/18/2024 Vertigo (ICD-10 - R42) The plan of care for vertigo will be to avoid positions that may trigger this event. Take medications as recommended. Do not drive if vertigo persists, this can cause and accident and . Call us if the medication is not working or if vertigo gets worse. 09/05/2024 Left leg swelling (ICD-10 - M79.89) will check venous doppler to r/o DVT 09/12/2024 Encounter for annual wellness visit (AWV) in Medicare patient (ICD-10 - Z00.00) Annual Wellness Assessment Completed. All medication reviewed and reconciled. All past medical, social, surgical, and family history reviewed and updated. Patient evaluated for need for any age appropriate screening exams and vaccinations. 07/13/2024 Hypertensive heart and chronic kidney disease with heart failure and stage 1 through stage 4 chronic kidney disease, or unspecified chronic kidney disease (ICD-10 - I13.0) Follow a low sodium diet, avoid stress, exercise as tolerated, monitor blood pressure as directed, continue with medications as prescribed. Will continue to monitor. 06/12/2024 Stage 3b chronic kidney disease (CKD) (ICD-10 - N18.32) Continue with medications as prescribed, maintain BP control at target. Monitor blood pressure and Renal function. Follow a low sodium diet. Follow up in 3 months for a visit and labs or as directed. Avoid all NSAIDs. 06/08/2024 Heart failure, diastolic, chronic (ICD-10 - I50.32) 05/25/2024 Heart failure, diastolic, chronic (ICD-10 - I50.32) Follow a low sodium diet, maintain excellent control of blood pressure, monitor blood pressure as directed, continue with medications as prescribed and follow in 3 months for labs and an office visit unless advised otherwise. Avoid taking NSAIDs. 05/25/2024 Iron overload (ICD-1 0 - E83.19) Secondary to blood transfusions 06/08/2024 Iron overload (ICD-1 0 - E83.19) 06/12/2024 Heart failure, diastolic, chronic (ICD-10 - I50.32) Check weight daily, follow a low sodium diet. Continue to take medications as prescribed, exercise as tolerated. Notify PCP if increase in weight gain, increase in dyspnea, or increase in lower extremity edema. Follow up in 3 months for lab and visit unless advised otherwise. 07/13/2024 Sickle cell beta thalassemia (ICD-10 - D57.40) Patients with sickle cell trait can usually be cared for on an outpatient basis. Follow-up care is necessary to ensure that therapy is being continued and to assess the efficacy of treatment. The plan of care will be hemoglobin monitoring followed by Heme/Onc if symptoms develop or an acute therapy if patient develops sickle cell crisis. 09/12/2024 Hypertensive heart and chronic kidney disease with heart failure and stage 1 through stage 4 chronic kidney disease, or unspecified chronic kidney disease (ICD-10 - I13.0) Pts HTN has caused chronic kidney disease. Pt is aware of the need to conrtol HTN and to notify us if any edema, decrease in urine output. Pt reminded to avoid NSAIDs and to eat a low salt diet of no more than 2000 mg/day. Pt to follow up with Nephrol and cardiology as advised. Pt voiced understanding. 09/18/2024 Lower extremity marla a (ICD-10 - R60.0) Advised pt to restart diuretic, eat a low salt diet (no more than 2000mg per day), elevate legs as much as possible. Advised to weigh daily and call if gains over 5 pounds in 7 days and has edema. Pt voiced understanding. Cut down the amlopidine to 2.5 mg x 3 days and after stop and check BP with log and will follow up in 1 week. 12/12/2024 Sickle cell beta thalassemia (ICD-10 - D57.40) Patients with sickle cell trait can usually be cared for on an outpatient basis. Follow-up care is necessary to ensure that therapy is being continued and to assess the efficacy of treatment. The plan of care will be hemoglobin monitoring followed by Heme/Onc if symptoms develop or an acute therapy if patient develops sickle cell crisis. 10/01/2024 Sickle cell beta thalassemia (ICD-10 - D57.40) f/u by Dr. Fernandez 12/12/2024 Heart failure, diastolic, chronic (ICD-10 - I50.32) Continue low fat/low salt diet. Continue current medications as prescribed. Continue to stay active as much as possible. Monitor for sxs of angina or claudication. Check weight daily and notify clinic if a gain of more than 5 lbs in 2 days occurs. Keep f/u with cardiology. 10/01/2024 Encounter for screening (ICD-10 - Z13.9) 09/12/2024 Stage 3b chronic kidney disease (CKD) (ICD-10 - N18.32) Stage 3 CKD secondary to hypertension. Continue current medications to control blood pressure and comorbidities currently takes . Avoidance of nephrotoxic agents discussed. Discussed BP goal less than 140/90. Monitor labs routinely and as needed. 07/13/2024 Iron overload (ICD-1 0 - E83.19) mild; will monitor with serial CBC/iron studies Pt is under Hemotology follow up. 06/12/2024 Iron overload (ICD-1 0 - E83.19) Patient advised of Dx. Patient advised that I recommend stating Ferrous Sulfate to help correct this anemia, and Colace to prevent constipation as this can happen when taking Ferrous Sulfate. Reviewed and discussed new medications with pt. Pt advised of name of medications, dosages, route, frequency, and potential side effects. Pt advised to notify us immediately of any ill effects of medications. Also discussed iron rich foods to include in diet: dark, leafy green vegetables, legumes, Cream of Wheat, lean meats. Pt voiced understanding and is agreeable to plan of care. 06/08/2024 Stage 3b chronic kidney disease (CKD) (ICD-10 - N18.32) 05/25/2024 Stage 3b chronic kidney disease (CKD) (ICD-10 - N18.32) 05/25/2024 Hypertensive heart and chronic kidney disease with heart failure and stage 1 through stage 4 chronic kidney disease, or unspecified chronic kidney disease (ICD-10 - I13.0) CHF secondary to hypertensive heart disease. Follow a low sodium diet, monitor and control blood pressure as directed, continue with medications as prescribed and follow in 4 months for labs and an office visit unless advised otherwise. Limit or avoid NSAID use. 06/08/2024 Hypertensive heart and chronic kidney disease with heart failure and stage 1 through stage 4 chronic kidney disease, or unspecified chronic kidney disease (ICD-10 - I13.0) 09/12/2024 Iron overload (ICD-1 0 - E83.19) Monitor CBC, check Iron/IBC, Ferritin, B12, Folate. Patient FOBT tested positive therefore she will be referred immediately to GI for colonoscopy to determine source of bleeding . Patient instructed to buy OTC Ferrous sulfate and take it AD. Additionally, patient was also advised to increase rugae and fluid to prevent iron induced constipation. 10/01/2024 Hypertensive heart and chronic kidney disease with heart failure and stage 1 through stage 4 chronic kidney disease, or unspecified chronic kidney disease (ICD-10 - I13.0) Follow a low sodium diet, avoid stress, exercise as tolerated, monitor blood pressure as directed, continue with medications as prescribed. Will continue to monitor. 12/12/2024 Gastritis (ICD-10 - K29.70) Medication as above. Asked to avoid alcohol, stress, antiinflammatory drugs and certain foods such as citrus, peppers onion, high fat foods. Encouraged small frequent meals, sit upright after eating, sleep with head of bed elavated and reduce abdominal girth 12/12/2024 Vertigo (ICD-10 - R42) Advised to avoid positions that may trigger this event and change position very slowly, especially when getting up and down positions. Will start meclizine. Medication may cause drowsiness or sleepiness, avoid driving and use fall precautions. 10/01/2024 Heart failure, diastolic, chronic (ICD-10 - I50.32) Continue low fat/low salt diet. Continue current medications as prescribed. Continue to stay active as much as possible. Monitor for sxs of angina or claudication. Check weight daily and notify clinic if a gain of more than 5 lbs in 2 days occurs. Keep f/u with cardiology. 09/12/2024 Sickle cell beta thalassemia (ICD-10 - D57.40) Patients with sickle cell trait can usually be cared for on an outpatient basis. Follow-up care is necessary to ensure that therapy is being continued and to assess the efficacy of treatment. The plan of care will be hemoglobin monitoring followed by Heme/Onc if symptoms develop or an acute therapy if patient develops sickle cell crisis. 06/08/2024 Colon cancer screening (ICD-10 - Z12.11) 06/08/2024 Encounter for screening (ICD-10 - Z13.9) 05/25/2024 Colon cancer screening (ICD-10 - Z12.11) 09/12/2024 Hypertensive chronic kidney disease with stage 1 through stage 4 chronic kidney disease, or unspecified chronic kidney disease (ICD-10 - I12.9) Pts HTN has caused chronic kidney disease. Pt is aware of the need to conrtol HTN and to notify us if any edema, decrease in urine output. Pt reminded to avoid NSAIDs and to eat a low salt diet of no more than 2000 mg/day. Pt to follow up with Nephrol and cardiology as advised. Pt voiced understanding. 10/01/2024 CKD (chronic kidney disease) stage 4, GFR 15-29 ml/min (ICD-10 - N18.4) Continue with medications as prescribed, maintain BP control at target. Monitor blood pressure and Renal function. Follow a low sodium diet. Follow up in 3 months for a visit and labs or as directed. Avoid all NSAIDs. 12/12/2024 Other chronic pain (ICD-10 - G89.29) For all chronic pain related diagnoses with controlled opioid pain medication dependence either constant or interval: Consider appropriate evaluation and consult by pain management when indicated: Otherwise, monitor labs and vital signs per pain policies and protocols for the specific type of medication for this patient, at least every 3-4 months. 10/01/2024 Major depressive disorder, single episode, mild (ICD-10 - F32.0) Maintain healthy lifestyle with regular exercise, diet, and adequate sleep. Notify office if any decreased appetite, weight loss, or prolonged episodes of sadness or lack of concentration occur. Continue medications as directed 12/12/2024 Dermatitis (ICD-10 - L30.9) Wash with Cetaphil Gentle Cleanser twice a day. Apply topical steroid prescription for 5-7 days only. Aquaphor/Cerave generously throughout the day. Avoid fragrances, nail polishes, hair dyes. Call if not improved. Take allergy med to help with itching. 06/12/2024 Other Patient educat ion was given about patient's diagnosed condition and patient expressed understanding. Printed information also generated for patient to review again at home. Patient expressed understanding about the plan of care that was explained. 07/13/2024 Other Patient educat ion was given about patient's diagnosed condition and patient expressed understanding. Printed information also generated for patient to review again at home. Patient expressed understanding about the plan of care that was explained. 09/12/2024 Other Patient educat ion was given about patient's diagnosed condition and patient expressed understanding. Printed information also generated for patient to review again at home. Patient expressed understanding about the plan of care that was explained. 09/18/2024 Other Patient educat ion was given about patient's diagnosed condition and patient expressed understanding. Printed information also generated for patient to review again at home. Patient expressed understanding about the plan of care that was explained. 09/25/2024 Other Patient educat ion was given about patient's diagnosed condition and patient expressed understanding. Printed information also generated for patient to review again at home. Patient expressed understanding about the plan of care that was explained. 12/12/2024 Other Patient educat ion was given about patient's diagnosed condition and patient expressed understanding. Printed information also generated for patient to review again at home. Patient expressed understanding about the plan of care that was explained. 01/04/2025 Other Patient educat ion was given about patient's diagnosed condition and patient expressed understanding. Printed information also generated for patient to review again at home. Patient expressed understanding about the plan of care that was explained. Plan Of Treatment Pending Test Test Name Order Date DEPRESSION SCREENING 06/12/2024 Advance Directive 06/12/2024 MONITORING/COUNSELING PHYSICAL ACTIVITY 06/12/2024 FALL RISK ASSESSMENT 06/12/2024 Albumin/Creatinine Ratio, Random Urine ( uACR) 10/01/2024 Albumin/Creatinine Ratio, Random Urine ( uACR) 05/25/2024 Comprehensive Metabolic Panel 14 (CMP) 0 09/07/2024 FUNCTIONAL STATUS ASSESSMENT 06/12/2024 MEDICATION REVIEW 06/12/2024 Urinalysis without Microscopy 10/01/2024 TOBACCO SCREENING 06/12/2024 BLADDER CONTROL ASSESSMENT 06/12/2024 Pain Screening - No Pain Present 024 Pain Screening - Pain Present 06/12/2024 Elder Abuse Suspicion Index (EASI) 06/12 CERVICAL SPINE, 2 VIEWS 09/18/2024 VENOUS DOPPLER LOWER EXTREMITY - UNILATE RAL - LEFT 09/05/2024 CT Shoulder Right without Contrast 12/12 Mini-Cog 06/12/2024 Occult Blood Fecal, IA (FIT) 05/25/2024 Vitamin B12 and Folate 09/12/2024 Hemoglobin A1C 09/12/2024 Urinalysis with Microscopy (UA) 09/12/19 25 Parathyroid Hormone (PTH), Intact 2024 Complete Blood Count (CBC) Without Diffe rential 09/12/2024 Vitamin D, 25-Hydroxy 09/12/2024 Lipid Panel With Total Cholesterol/HDL R atio 09/12/2024 TSH reflex to T4F 09/12/2024 Comprehensive Metabolic Panel 14 (CMP) 0 09/12/2024 Future Test Test Name Order Date Vitamin B12 and Folate 10/08/2024 Phosphorus, Serum 10/08/2024 Uric Acid, Serum 10/08/2024 Iron and Total Iron Binding Capacity (TI BC) 10/08/2024 Hemoglobin A1C 10/08/2024 Complete Blood Count With Differential W ith Reflex to Smear Review (CBC) 10/08/2024 Parathyroid Hormone (PTH), Intact 2024 Vitamin D, 25-Hydroxy 10/08/2024 Albumin/Creatinine Ratio, Random Urine ( uACR) 10/08/2024 Lipid Panel With Total Cholesterol/HDL R atio 10/08/2024 TSH reflex to T4F 10/08/2024 Comprehensive Metabolic Panel 14 (CMP) 0 10/08/2024 Occult Blood Fecal, IA (FIT) 10/08/2024 Next Appt Details Provider Name:Carolina Bustamante chito, 03/20/2025 01:30:00 PM, [address], [place], [phone], Insurance Providers Payer Name Payer Address Payer Phone Subscriber Number Group Number Insured Name Patient Relationship to Insured Coverage Start Date Coverage End Date [id number] [employer] [address] [place], [place] [phone] [id number] Cecilio Estrada Self - patient is the insured Medications Administered Medication Instructions Date of Administration Dosage Notes Ketorolac, 60mg/2mL 09/25/2024 60 mg Medical (General) History Medical History History ICD Code High blood pressure Kidney failure CHF Hospitalization History Reason Date(Month/Year) [facility] Hospitalized Elevated Potassium and low hemaglobin 04/07/2024 Hospitalized high potassium and low marianne globin 03/03/2024
--- OUTSIDE RECORDS SUMMARY | 2025-01-27 12:06 | XMS_ITS | Clinical Summary ---
Author Organization Formerly [facility] Address [address] [place] [address] Care Team Providers Care Hearing Care Professional Name Role Phone Jose Garcia MD Primary Care Provider U navailable Social History Tobacco Use Types Packs/Day Years Used Date Smoking Tobacco: Never Assessed Sex and Gender Information Value Date Recorded Sex Assigned at Not on file Legal Sex Male 3:21 AM EDT Gender Identity Not on file Sexual Orientation Not on file Plan of Treatment Not on file Care Teams Hearing Care Professional Relationship Specialty Start Date End Date Jose Garcia MD PCP - General Family Medicine 01/12/23
--- OUTSIDE RECORDS SUMMARY | 2025-01-27 12:06 | XMS_ITS ---
Author Organization Julian Velázquez MD PA1 Address [address] [place] [address] Care Team Providers Care Conference Services Director Name Role Phone Julian Velázquez Primary Care Provider RADHA, S Unavailable Unavailable REASON FOR VISIT Follow-up appointment Encounters Encounter Location Date Provider Diagnosis Julian Velázquez MD PA[facility] [address] [place] [address] 05/03/2024 Julian Velázquez Plan Of Treatment No Information Progress Notes * DRAKEARNALDODOB:1955 (69 yo M)Acc No.[id number]:05/03/2024 Progress Notes Patient: ARNALDO LIMON Provider: Chiki Velázquez MD :1955 A ge:68 Y S ex:Male Date:05/03/2024 Address:[address] [place], [place] [id number] Subjective: * Chief Complaints: * 1 . Follow-up appointment. * Medical History: Objective: * Vitals: Assessment: Plan: * Treatment: * Preventive Medicine: Preventative screening: H GA1C 4 .8-03/30/2024. T OBACCO ASSESMENT 0 03/22/2024. D EPRESSION SCREENING 0 04/05/2024. L IPID PANEL-LDL 5 3-03/30/2024. * Care Plan Details* * Electronic signature of Julian Velázquez MD on 01/27/2025 at 01:06 PM EDT Sign off status: Pending * Provider: Chiki Velázquez MD Date: 1 Generated for Malissa cuenca/Thomas/Elena on: 0 01/27/2025 01:06 PM EDT
--- OUTSIDE RECORDS SUMMARY | 2025-01-27 12:06 | XMS_ITS ---
Author Organization MACARIO CONLEY MD Address [address], [place] [address] Care Team Providers Care Hotel Security Officer Name Role Phone DHARMESH COLLINS Primary Care Provider Macario Douglas Unavailable [phone] REASON FOR VISIT 3, 3, Patient with sickle cell, ., . Medications Medication SIG (Take, Route, Frequency, Duration) Notes Start Date End Date Status Folic Acid Unknown Vital Signs Temperature 98.0 degrees Fahrenheit 01/09/20 25 Heart Rate 63 /min 01/08/2025 Blood pressure systolic 136 mm Hg 01/09/20 25 Blood pressure diastolic 65 mm Hg 025 Oximetry 94 % 01/08/2025 BMI 21.77 kg/m2 01/08/2025 Height 73 in 01/08/2025 Weight 165 lbs 01/08/2025 Encounters Encounter Location Date Provider Diagnosis MACARIO CONLEY MD [address], [place] [phone] 01/08/2025 Macario Conley Sickle-cell diseas e without crisis D57.1 Assessments Encounter Date Diagnosis (ICD Code) Assessment Notes Treatment Notes Treatment Clinical Notes Section Notes 01/08/2025 Sickle-cell disease without crisis (ICD-10 - [...] Name Order Date COMP (comprehensive metabolic panel) Next Appt Details Follow Up: 4 Weeks, Reason: Provider Name:Macario Conley , 02/05/2025 11:00:00 AM, [address] [place] [address], [phone], Procedure Notes * Category Sub-Category Detail Notes Chemotherapy Notes 01/08/25CBC with differential counts Inj RETACRIT 40 k adminsitered S/C on the RIGHT UPPER ARM HGB 8.1HCT 29.1{medications - pharmacy } PB RN Progress Notes * ARNALDO JUAN ADOB:1955 ( 69 yo M)Acc No.[id number]:01/08/2025 Patient: ARNALDO LIMON Account Number:[id number] Provider: Cb Conley MD :1955 A ge:69 Y S ex:Male Date:01/08/2025 Address:[address] [place], [place] [address] Pcp:DHARMESH MOON Subjective: * Chief Complaints: * [...] d enies. H eadache?denies. * Medical History: M edical History Verified. * Medications: U nknown Folic Acid , Medication List reviewed and reconciled with the patient Objective: * Vitals: T emp:98.0, HR:63/min, BP:136/65mm Hg, Oxygen sat %:94%, BMI:21.77Index, Ht: 73 in, Wt:165lbs. * Examination: G eneral Examination: GENERAL APPEARANCE: [...] * Treatment: * Procedures: C hemotherapy: Notes 0 01/08/25 CBC with differential counts Inj RETACRIT 40 k adminsitered S/C on the RIGHT UPPER ARM HGB 8.1 HCT 29.1 {medications - pharmacy } PB RN . * Labs: * L ab: COMP (comprehensive metabolic panel) * Follow Up: 4 Weeks * Images: * Electronic signature of Leonard Conley MD on 01/27/2025 at 01:06 PM EDT Sign off status: Pending * Provider: Cb Conley MD Date: 01/08/2025 Generated for Malissa cuenca/Thomas/eTransmitting on: 0 01/27/2025 01:06 PM EDT History and Physical Notes * [...]
--- OUTSIDE RECORDS SUMMARY | 2025-01-27 12:06 | XMS_ITS ---
Author Organization [facility] Address [address] [facility] [address] [place] [address] Care Team Providers Care Automatic Blocker Name Role Phone Laverne SHEPARD, John Paul Primary Care Provider [phone] Carolina Becker APRN Unavailable Allergies Allergen (clinical drug ingredient) Drug/Non Drug Allergy documented on EMR Reaction Allergy Type Onset Date Status aspirin Aspirin GI upset Drug Allergy Active ibuprofen Ibuprofen GI upset Drug Allergy Active Results Component Value Reference Range Notes MEDICATION REVIEW Reviewed date:01/04/2025 01:46:39 PM Interpretation: Performing Lab: Notes/Report: Pain Screening - Pain Presen t Reviewed date:01/04/2025 01:46:18 PM Interpretation: Performing Lab: Notes/Report: Reason For Referral Reason Eval and f/u. CT rig ht shoulder done recently 12/31/2024. Thank you in advance. Please fax back the record to [phone]. 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) Referral Organization [facility] Referring Provider First Name Carolina Referring Provider Last Name Eugenio Referring Provider Speciality Family Med icine Referred Provider Gerald Wu Referred Provider Specialty Orthopedic S urgery Procedure 1 New Patient - Detail ed (55757) Procedure 2 New Patient - Compre hensive/Moderate (48548) Procedure 3 Established - Expand ed (35342) Procedure 4 Established - Detail ed (43990) Procedure 5 XRAY EXAM OF SHOULDE R (39536) General Notes Debra Arce 01/17 02:45:17 PM >Successfully Created., STATUS: Approved. Your Reference # is [id number]., Provider Name TETE ANAYA, Specialty ORTHOPEDIC SURGERY, , Tax ID [id number], , , Address [address] [place] [address] Referral Priority Routine REASON FOR VISIT follow up CT of shoulder in chart, pt came in alone, no medication bottles Medications Medication SIG (Take, Route, Frequency, Duration) Notes Start Date End Date Status Allopurinol 100 MG 1 tablet Orally twic e a day for 90 days 05/25/2024 Active Vitamin D 25 MCG (1000 UT) 1 tablet Oral ly Once a day Active Vitamin C 500 MG as directed Orally Active Triamcinolone Acetonide 0.1 % 1 application [...] Or ally daily for 90 days Active Paricalcitol 1 MCG 1 capsule Orally onc e a day for 90 days Active Meclizine HCl 12.5 MG 1 tablet as needed Orally every 12 hrs for 15 days 09/18/2024 Active Lactulose 10 GM/15ML TAKE 15 ML BY MOUTH ONE TIME DAILY FOR 3 DOSES Oral for Not Available Active Amoxicillin 250 MG one capsule Orally T hree times a day for 10 days 10/09/2024 Active amLODIPine Besylate 10 MG 1 tablet Orall y Once a day for 90 days Active cloNIDine HCl 0.1 MG 1 tablet Orally thr ee times a day for 90 days Active Famotidine 40 MG 1 tablet Orally Once a day for 90 days 10/01/2024 Active Diclofenac Sodium 1 % as directed [employer] Operator ally every 4 hours for 10 days 12/12/2024 Active Problems Problem Type SNOMED Code ICD Code Onset Dates Problem Status W/U Status Risk Notes Problem Avascular necrosis (77480228) Avascular necrosis (M87.00) Active confirmed Problem Arthritis of acromioclavicular joint (448819578) 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 Vital Signs Blood pressure systolic 115 mm Hg 01/05/20 25 Blood pressure diastolic 55 mm Hg 025 Respiratory Rate 17 /min 01/04/2025 Temperature 98.1 degrees Fahrenheit 01/05/20 25 Height 72 in 01/04/2025 Weight 170 lbs 01/04/2025 BMI 23.05 kg/m2 01/04/2025 Oximetry 96 % 01/04/2025 Encounters Encounter Location Date Provider Diagnosis [facility] [address], [place] [phone] 01/04/2025 Carolina Becker Avascular necrosis M87.00 ; 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 and Encounter for screening Z13.9 Assessments Encounter Date Diagnosis (ICD Code) Assessment Notes Treatment Notes Treatment Clinical Notes 01/04/2025 Avascular necrosis (ICD-10 - M87.00) Patient [...] 01/04/2025 Encounter for screening (ICD-10 - Z13.9) 01/04/2025 Other Patient educat ion was given about patient's diagnosed condition and patient expressed understanding. Printed information also generated for patient to review again at home. Patient expressed understanding about the plan of care that was explained. Plan Of Treatment Referrals Referral Date Details 01/04/2025 01/04/2025, Eval and f/u. CT right shoulder done recently 12/31/2024. Thank you in advance. Please fax back the record to [phone]. Next Appt Details Follow Up: keep next appt, R chan: f/u c c Provider Name:Carolina dale, 03/20/2025 01:30:00 PM, [address], [place], [phone], Progress Notes * Cecilio JUANDOB:1955 (69 yo M)Acc No.[id number]:01/04/2025 Progress Notes Patient: Cecilio LIMON Provider: HARLEY Lei :1955 A ge:69 Y S ex:Male Date:01/04/2025 Address:[address] [place], [place] [phone] Pcp:John Paul Galloway MD Subjective: * Chief Complaints: * f ollow up CT of shoulder in chartPt came in aloneNo medication bottles * HPI: G eneral: 68 years old AA male patient is seen today for follow up right shoulder CT and referral to Ortopedic. , medication refills and complaint of right shoulder pain. 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 Macario Fernandez. Patient has HTN complicated by CHF and CKD stage 4 and is anxious about his medical condition. He is being f/u by Dr. Soares, the soft boarder. His BP is elevated and he is encouraged to monitor his bP and HR. He admits to abdominal pain associated with bloating and nausea but he denies any rectal bleeding or vomiting. He had MDD with anxiety episodes and insomnia but denies any suicidal ideation. * ROS: C omplete Review of Systems: Constitutional: D enies fever, chills, fatigue, unintentional weight loss. E yes: D enies blurred vision, vision change. E NT: D enies sore throat, nasal congestion, loss of taste/smell. S kin: D enies Rash. C ardiovascular: D enies chest pain, palpitations, lower extremity edema. P ulmonary: D enies shortness of breath, cough. G astrointestinal: c /o abdominal pain, nausea, but denies vomiting, diarrhea, constipation. G enitourinary: D enies dysuria, hematuria, polyuria. M usculoskeletal: D enies pain, stiff joints. N eurologic: D enies headache, dizziness. P sychiatric: c /o anxiety and insomnia. * Medical History: * Surgical History: * Hospitalization/Major Diagno stic Procedure: * Medications: T akingAllopurinol 100 MG Tablet 1 tablet Orally twice a day amLODIPine Besylate 10 MG Tablet 1 tablet Orally Once a day Amoxicillin 250 MG Capsule one capsule Orally Three times a day cloNIDine HCl 0.1 MG Tablet 1 tablet Orally three times a day Diclofenac Sodium 1 % Gel as directed Externally every 4 hours Famotidine 40 MG Tablet 1 tablet Orally Once a day Folic Acid 1 MG Tablet TAKE ONE TABLET BY MOUTH ONE TIME DAILY Oral Once a day Lactulose 10 GM/15ML Solution TAKE 15 ML BY MOUTH ONE TIME DAILY FOR 3 DOSES Oral Meclizine HCl 12.5 MG Tablet 1 tablet as needed Orally every 12 hrs Paricalcitol 1 MCG Capsule 1 capsule Orally once a day Sodium Bicarbonate 650 MG Tablet as directed Orally daily Torsemide 20 MG Tablet 1 tablet as needed for edema, swelling Orally Once a day Triamcinolone Acetonide 0.1 % Cream 1 application Externally day Vitamin C 500 MG Capsule as directed Orally Vitamin D 25 MCG (1000 UT) Tablet 1 tablet Orally Once a day Medication List reviewed and reconciled with the patientTaking Allopurinol 100 MG Tablet 1 tablet Orally twice a day Taking amLODIPine Besylate 10 MG Tablet 1 tablet Orally Once a day Taking Amoxicillin 250 MG Capsule one capsule Orally Three times a day Taking cloNIDine HCl 0.1 MG Tablet 1 tablet Orally three times a day Taking Diclofenac Sodium 1 % Gel as directed Externally every 4 hours Taking Famotidine 40 MG Tablet 1 tablet Orally Once a day Taking Folic Acid 1 MG Tablet TAKE ONE TABLET BY MOUTH ONE TIME DAILY Oral Once a day Taking Lactulose 10 GM/15ML Solution TAKE 15 ML BY MOUTH ONE TIME DAILY FOR 3 DOSES Oral Taking Meclizine HCl 12.5 MG Tablet 1 tablet as needed Orally every 12 hrs Taking Paricalcitol 1 MCG Capsule 1 capsule Orally once a day Taking Sodium Bicarbonate 650 MG Tablet as directed Orally daily Taking Torsemide 20 MG Tablet 1 tablet as needed for edema, swelling Orally Once a day Taking Triamcinolone Acetonide 0.1 % Cream 1 application Externally day Taking Vitamin C 500 MG Capsule as directed Orally Taking Vitamin D 25 MCG (1000 UT) Tablet 1 tablet Orally Once a day Medication List reviewed and reconciled with the patient * Allergies: A spirin: GI upset - Side EffectsIbuprofen: GI upset - Side Effectsyes[Allergies Verified] * Implants: Objective: * Vitals: B P:sittin/55mm Hg, RR:17/min, Pulse:sittin/min, Temp:98.1F, Ht:72in, Wt:170lbs, BMI:23.05Index, Oxygen Sat:Room Air:96%, Pain Scale:21-10, Nurse/MA::Karoline SHAH MA. * Examination: G eneral Examination: Appearance: i n no acute distress, well developed, well nourished. Neck/Thyroid: n o cervical lymphadenopathy, no thyromegaly.? Heart: S 1, S2 normal. Lungs: c lear to auscultation bilaterally. Abdomen: n ormal, soft, nontender, nondistended. Neurologic: nonfocal. Assessment: * Assessment: 1. 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 E ncounter for screening - Z13.9 3 . A vascular necrosis - M87.00 (Primary) S pecify :right humeral head as per CT done in [facility] 12/31/2024. Plan: * Treatment: 2. A cromioclavicular joint arthritis Clinical Notes: Patient seen and examined, has signs and [...] demonstrates improved range of motion without pain. Referral To:Orthopedic Surgery Reason:Eval and f/u. CT right shoulder done recently 12/31/2024. Thank you in advance. Please fax back the record to [phone]. 3. E ncounter for screening I maging: MEDICATION REVIEW (Performed Date - 01/04/2025) ?Imaging: Pain Screening - Pain Present (Performed Date - 01/04/2025)* Ana Paula Shah 01/04/2025 0 2:46:07 PM EDT > complete 4.?Others? Clinical Notes: Patient education was given about patient's diagnosed condition and patient expressed understanding. Printed information also generated for patient to review again at home. Patient expressed understanding about the plan of care that was explained.?? * Procedure Codes: G 8420 BMI<30 AND >=22 CALC & [id number] SYST BP LT 130 MM [id number] DIAST BP < 80 MM [id number] MEDICATION REVIEW [id number] MEDICATION LIST DOCUMENTED IN [id number] DOC MEDS VERIFIED W/PT OR [id number] AMNT PAIN NOTED PAIN PRSNT * Preventive Medicine: Self-Reported Measures: C olon Cancer Screening Colon Cancer Screening: D one Type: C olonoscopy in the last 10 years Date: 0 12/13/2024 Results: N ormal * Follow Up: k eep next appt (Reason: f/u c c) * * Sign off status: Completed true * Provider: HARLEY Lei Date: 0 01/04/2025 Generated for Malissa cuenca/Thomas/eTransmitting on: 0 01/27/2025 01:06 PM EDT History and Physical Notes * Examination Category Sub-Category Detail Notes General Examination Appearance: in no acute distress, well developed, well nourished Neck/Thyroid: no cervical lymphade nopathy, no thyromegaly Heart: S1, S2 normal Lungs: clear to auscultatio n bilaterally Abdomen: normal, soft, nonten sander, nondistended Neurologic: nonfocal Consultation Request Notes Referral Date Referring Provider Referred Provider Not es 01/04/2025 Carolina Becker LeadingRekatrina h, [facility] Eval and f/u. CT right shoulder done recently 12/31/2024. Thank you in advance. Please fax back the record to [phone].
--- OUTSIDE RECORDS SUMMARY | 2025-01-27 12:06 | XMS_ITS | Encounter Summary ---
Author Organization [facility] Address [address] [place] [address] Care Team Providers Care Address Change Clerk Name Role Phone Susi Marshall MD Unavailable John Paul Campa MD Primary Care Provider [phone] Encounter Details Date Type Department Care Team (Latest Contact Info) Description 01/17/2025 Results Follow-Up [facility] - Dr. [facility] [address] [place] [address] [phone] Wayne Rush MD [address] [facility] [place] [address] [address] Pathology Tissue Exam Social History Tobacco Use Types Packs/Day Years Used Date Smoking Tobacco: Never Smokeless Tobacco: Never Alcohol Use Standard Drinks/Week Comments Never 0 (1 standard drink = 0.6 oz pur e alcohol) Caregiver Education and Work Answer James e Recorded Opt Out of Tobacco Outreach No 03/18 Opt Out of Tobacco Outreach No 03/18 Safety and Environment Answer Date Angelito rded Opt Out of Tobacco Outreach No 03/18 Opt Out of Tobacco Outreach No 03/18 Opt Out of Tobacco Outreach No 03/18 Opt Out of Tobacco Outreach No 03/18 Caregiver Health Answer Date Recorded Opt Out of Tobacco Outreach No 03/18 Opt Out of Tobacco Outreach No 03/18 Opt Out of Tobacco Outreach No 03/18 Child Education Answer Date Recorded Opt Out of Tobacco Outreach No 03/18 Opt Out of Tobacco Outreach No 03/18 Opt Out of Tobacco Outreach No 03/18 Adolescent Substance Use Answer Date Re corded Opt Out of Tobacco Outreach No 03/18 Opt Out of Tobacco Outreach No 03/18 Opt Out of Tobacco Outreach No 03/18 [place] Short Social Needs Screen ing - Utilities Answer Date Recorded Would you like help with any of the following needs? (Select ALL that apply) I don't want help with any of these 09/26/2024 [place] ED Domestic Violence Answer Date Rec orded Do you feel threatened or afraid of others close to you? No 09/25/2024 [place] IP Psychosocial Abuse Answer Date Re corded Is there any current sexual, emotional, verbal, or physical abuse? No 09/25/2024 [place] Short Social Needs Screen ing - Social Connection Answer Date Recorded Would you like help with any of the following needs? (Select ALL that apply) I don't want help with any of these 09/26/2024 [place] IP CAGE Alcohol Use Answer Date Angelito rded Is the patient able to parti cipate in an alcohol misuse screening? Yes 09/25/2024 CAGE Questionnaire Score 0 025 [place] Short Social Needs Screen ing - Medical Financial Resource Strain Answer Date Recorded Would you like help with any of the following needs? (Select ALL that apply) I don't want help with any of these 09/26/2024 [place] Short Social Needs Screen ing - Food Insecurity Answer Date Recorded Would you like help with any of the following needs? (Select ALL that apply) I don't want help with any of these 09/26/2024 [place] Short Social Needs Screen ing - Transportation Answer Date Recorded Would you like help with any of the following needs? (Select ALL that apply) I don't want help with any of these 09/26/2024 [place] Short Social Needs Screen ing - Housing Answer Date Recorded Would you like help with any of the following needs? (Select ALL that apply) I don't want help with any of these 09/26/2024 Sex and Gender Information Value Date Recorded Sex Assigned at Not on file Legal Sex Male 11:49 PM EDT Gender Identity Not on file Sexual Orientation Not on file documented as of this encounter Functional Status * Are you deaf or do you have serious difficulty hearing? Answer Date of Assessment Author No 04/08/2024 4:46 PM EDT Dale Zepeda RN * Are you blind or do you have serious difficulty seeing, even when wearing glasses? Answer Date of Assessment Author No 04/08/2024 4:46 PM EDT Dale Zepeda RN * Do you have serious difficulty walking or climbing stairs? Answer Date of Assessment Author No 04/08/2024 4:46 PM EDT Dale Zepeda RN * Do you have serious difficulty dressing or bathing? Answer Date of Assessment Author No 04/08/2024 4:46 PM EDT Dale Zepeda RN * Because of a physical, mental, or emotional condition, do you have serious difficulty doing errandsalone such as visiting the doctor? Answer Date of Assessment Author No 04/08/2024 4:46 PM EDT Dale Zepeda RN documented as of this encounter Mental Status * Because of a physical, mental, or emotional condition, do you have serious difficulty concentrating, remembering, or making decisions? (5 years old or older) Answer Entry Date Author No 04/08/2024 4:46 PM EDT Dale Zepeda RN documented in this encounter Miscellaneous Notes * Result Encounter Note - Wayne Rush MD - 01/17/2025 3:55 PM EDT Biopsies are within normal limits documented in this encounter Plan of Treatment Not on file documented as of this encounter Visit Diagnoses Not on filedocumented in this encounter Additional Health Concerns Infection Onset Date Last Indicated Resolved Time MSSA 03/05/2024 03/05/2024 documented as of this encounter Care Teams Address Change Clerk Relationship Specialty Start Date End Date John Paul Campa MD [address] [place], [place] [id number] PCP - General Internal Medicine 09/25/24 Susi Marshall MD [address] [phone] Consulting Physician Hematology and Oncology 08/10/23 documented as of this encounter
--- OUTSIDE RECORDS SUMMARY | 2025-01-27 12:06 | XMS_ITS | Clinical Summary ---
Author Organization [facility] Address [address] [place] [address] Care Team Providers Care [employer] Officer Name Role Phone Susi Marshall MD Unavailable John Paul Campa MD Primary Care Provider [phone] Allergies Active Allergy Reactions Criticality Noted Date Comments Aspirin Other 08/03/2019 Ibuprofen Nausea 02/07/2021 Medications folic acid (FOLVITE) 1 mg tablet Take 1 mg by mouth 1 (one) time each day. Active cloNIDine (CATAPRES) 0.1 mg tablet Take 1 tablet (0.1 mg total) by mouth every 12 (twelve) hours. 60 tablet 4 Active allopurinoL (ZYLOPRIM) 100 mg tablet Take 100 mg by mouth in the morning and 100 mg before bedtime. 4 Active labetalol (NORMODYNE) 100 mg tablet Take 1 tablet (100 mg total) by mouth in the morning and 1 tablet (100 mg total) at noon and 1 tablet (100 mg total) in the evening. 90 tablet 4 Active amLODIPine (NORVASC) 10 mg tablet Take 1 tablet (10 mg total) by mouth 1 (one) time each day. 5 Active torsemide (DEMADEX) 20 mg tablet Take 1 tablet (20 mg total) by mouth 1 (one) time each day if needed (edema, swelling). NEPHROLOGY RECOMMENDS ONLY TAKING THIS NEEDED Active paricalcitol (ZEMPLAR) 1 mcg capsule Take 1 capsule (1 mcg total) by mouth 1 (one) time each day. 30 capsule 5 Active Active Problems Problem Noted Date Diagnosed Date Leukocytosis 09/26/2024 Uncontrolled stage 2 hypertension 07/10/2024 Uncontrolled hypertension 07/10/2024 Iron overload, transfusional 05/22/2024 Acute on chronic anemia 05/21/2024 Chronic heart failure with p reserved ejection fraction [facility] 05/21/2024 Diabetes type 2, controlled [facility] 04/08/2024 COVID-19 03/05/2024 UTI (urinary tract infection) 03/05/2024 Cardiomegaly 03/05/2024 Macrocytic anemia 12/02/2023 Stage 3b chronic kidney disease 07/29/2023 Elevated brain natriuretic peptide (BNP) level 0 07/29/2023 Atrioventricular block, first degree 07/29/2023 Vitamin D insufficiency 07/29/2023 Hyperparathyroidism due to r enal insufficiency ([facility]) 07/29/2023 Acute on chronic diastolic h eart failure ([facility] 07/07/2023 Microcytic anemia 08/04/2021 Hypertension 08/04/2021 Assessment & Plan (08/04/2021 11:21 AM EST): . Chest pain 02/13/2021 Assessment & Plan (08/04/2021 11:20 AM EST): Hgb 5.1 Troponin <0.03 , continue to trend EKG SR, PVCs, nonspecific ST changes CXR negatie Sickle [id number] 02/13/2021 Overview (07/11/2024): Stable COVID-19 02/08/2021 Resolved Problems Problem Noted Date Diagnosed Date Resolved Date Hypertensive urgency 09/26/2024 025 Anemia, unspecified type 05/22/202412/2023 Hyponatremia 04/08/2024 04/08/2024 Acute kidney injury superimposed on CKD 04/08/2024 04/08/2024 Metabolic acidosis, increased anion gap 03/05/2024 03/07/2024 Hyperglycemia 03/05/2024 03/07/2024 Elevated lipase 03/05/2024 03/07/2024 Leukocytosis 03/05/2024 03/07/2024 Ankle edema, bilateral 03/05/202403/07 Dizziness 03/05/2024 03/07/2024 Abdominal pain 03/05/2024 03/07/2024 Sickle cell disease without crisis ([facility] [facility]) 12/02/2023 12/03/2023 Hyperkalemia 07/29/2023 09/27/2024 Acute on chronic anemia 07/29/202302/16 Sinus bradycardia 07/29/2023 04/08/2024 Diastolic CHF, acute [facility] 07/29/2023 08/05/2023 Acute hypoxemic respiratory failure ([facility] 07/07/2023 07/09/2023 Hypertensive emergency 07/07/202307/09 Bilateral lower extremity edema 07/06/2023 08/05/2023 Thrombocytopenia 07/04/2023 08/05/2023 Hemolytic anemia, acute [facility] 08/05/2023 RENY (acute kidney injury) 08/04/2021 Hypoxia 02/17/2021 02/17/2021 Encounters Date Type Department Care Team Description 01/17/2025 Results Follow-Up [facility] - Dr. Cho [address] [facility] [address] [place] [address] Wayne Rush MD Pathology Tissue Exam 12/13/2024 11:16 AM EDT Anesthesia Event [facility] Dr Hari Cho [facility] [address] [place] [address] Farhad Moreira Jr., MD Rodriguez Cintron, Edwin O, LASHAY 12/13/2024 10:57 AM EDT - 12/13/2024 11:59 PM EDT Hospital Encounter [facility] [address] [place] [address] Wayne Rush MD Rodriguez Cintron, Edwin O, Farhad Chan Jr., Domenica Hernandez, Shlomo Stoner, ESTHER Abdominal pain, unspecified abdominal location; Screen for colon cancer Discharge Disposition: Discharged to home or self care (routine discharge) 12/07/2024 10:20 AM EDT Clinical Support [facility] [address] [facility] [address] [place] [address] Chronic kidney disease, stage 3b ([facility]); Essential (primary) hypertension; Hyperkalemia; Hyperuricemia without signs of inflammatory arthritis and tophaceous disease; Other proteinuria; Encounter for follow-up examination after completed treatment for conditions other than malignant neoplasm; Encounter for screening, unspecified; Hypertensive heart and chronic kidney disease with heart failure and stage 1 through stage 4 chronic kidney disease, or unspecified chronic kidney disease ([facility]); Chronic diastolic (congestive) heart failure ([facility] [facility]); Gastritis, unspecified, without bleeding; Chronic kidney disease, stage 4 (severe) ([facility]) 11/02/2024 8:00 AM EDT Ancillary Procedure [facility] [address] [place] [address] Abdominal pain, unspecified abdominal location 11/02/2024 Telephone [facility] - Dr. Cho [address] [facility] [address] [place] [address] Wayne Rush MD [id number] (Pt calling asking about a sooner availability for her husbands procedure, please advise) 11/02/2024 Nurse Triage [facility] - [address] [place] [address] [place] [phone] Moni John, ESTHER 10/29/2024 Patient Outreach [facility] [address] [place] [address] Gail Gunn, KOSHER SEALER from Last 3 Months Social History Tobacco Use Types Packs/Day Years Used Date Smoking Tobacco: Never Smokeless Tobacco: Never Tobacco Cessation:Counseling Given: Not Answered Alcohol Use Standard Drinks/Week Comments Never 0 [...] on file Sexual Orientation Not on file Last Filed Vital Signs Vital Sign Reading Time Taken Comments Blood Pressure 137/72 12/13/2024 12:25 PM EDT Pulse 52 12/13/2024 12:25 PM EDT Temperature 36.3 C (97.4 F) 12/13/2024 12:00 PM EDT Respiratory Rate 12 12/13/2024 12:25 PM EDT Oxygen Saturation 96% 12/13/2024 12:25 PM EDT Inhaled Oxygen Concentration - - Weight 77 kg (169 lb 12.1 oz) 10/12/2024 12:38 P M EDT Height 185.4 cm (6' 0.99) 10/12/2024 12:38 PM E DT Body Mass Index 22.4 10/12/2024 12:38 PM EDT Plan of Treatment Health Maintenance Due Date Last Done Comments CT Colonography 1955 FIT-DNA 1955 FIT 1955 Hepatitis C Screening 1955 Sigmoidoscopy 1955 HIB Vaccines (1 of 1 - Risk 1-dose series) 02/15/1957 Meningococcal ACWY (1 - Risk 2-dose series) 11/15/1957 COVID-19 Vaccine (#1) 11/15/1960 Diabetic Foot Exam 11/15/1965 Depression Screening 1967 Hepatitis A Vaccines (1 of 2 - Risk 2-dose series) 11/15/1974 Zoster Vaccines (1 of 2) 11/15/1974 Pneumococcal Vaccine: 50+ Years (2 of 2 - PPSV23) 07/07/2004 05/12/2004 Pneumococcal Vaccine: Pediatrics (0 to 5 Years) and At-Risk Patients (6 to 49 Years) (2 of 2 - PPSV23) 07/07/2004 05/12/2004 Hepatitis B Vaccines (1 of 3 - Risk 3-dose series) 2015 RSV women or 60 years and older (1 - Risk 60-74 years 1-dose series) 2015 FOBT 07/30/2024 07/30/2023 Hemoglobin A1C 03/07/2025 09/07/2024, 02/15, 07/29/2023 Influenza Vaccine (#1) 2025 05/12/2004 Advance Care Planning 07/10/2025 07/10/2024 Fall Risk Screening 09/27/2025 09/27/2024 Hypertension Annual Potassium 12/07/2025 12/07/2024, 09/27/2024, 09/26/2024, Additional history exists Lipid Panel 12/07/2029 12/07/2024, 02/07/2024, 07/30/2023, Additional history exists DTaP,Tdap,and Td Vaccines (2 - Td or Tdap) 03/07/2032 03/07/2022, 03/07/2022 Colonoscopy 12/13/2034 12/13/2024 [place] Colorectal Cancer Screening 12/13/2034 Diabetes Screening Discontinued 12/07/2024, 0 09/27/2024, 09/26/2024, Additional history exists HPV Vaccines Aged Out No longer eligi ble based on patient's age to complete this topic IPV Vaccines Aged Out No longer eligi ble based on patient's age to complete this topic RSV patients under 20 months Aged Out No longer eligible based on patient's age to complete this topic Procedures Procedure Name Priority Date/Time Associated Diagnosis Comments COLONOSCOPY Routine 12/13/2024 11:53 AM EDT Abdominal pain, unspecified abdominal location Screen for colon cancer EGD Routine 12/13/2024 11:53 AM EDT Abdominal pain, unspecified abdominal location PATHOLOGY TISSUE REQUEST Routine 12/13/2024 11:25 AM EDT Abdominal pain, unspecified abdominal location Screen for colon cancer MANUAL DIFF CELLAVISION Routine 12/07/2024 10:35 AM EDT Chronic kidney disease, stage 3b (CMS-HCC) Essential (primary) hypertension Hyperkalemia Hyperuricemia without signs of inflammatory arthritis and tophaceous disease Other proteinuria CBC WITH AUTO DIFFERENTIAL Routine 12/07/2024 10:35 AM EDT Chronic kidney disease, stage 3b (CMS-HCC) Essential (primary) hypertension Hyperkalemia Hyperuricemia without signs of inflammatory arthritis and tophaceous disease Other proteinuria B12/ FOLATE LEVEL Routine 12/07/2024 10: 35 AM EDT Encounter for follow-up examination after completed treatment for conditions other than malignant neoplasm Encounter for screening, unspecified Hypertensive heart and chronic kidney disease with heart failure and stage 1 through stage 4 chronic kidney disease, or unspecified chronic kidney disease (CMS/Commercial-H[facility]) Chronic diastolic (congestive) heart failure (CMS/Commercial-HCC) Gastritis, unspecified, without bleeding Chronic kidney disease, stage 4 (severe) (CMS/Commercial-HCC) VITAMIN D 25 HYDROXY Routine 12/07/2024 10:35 AM EDT Encounter for follow-up examination after completed treatment for conditions other than malignant neoplasm Encounter for screening, unspecified Hypertensive heart and chronic kidney disease with heart failure and stage 1 through stage 4 chronic kidney disease, or unspecified chronic kidney disease (CMS/Commercial-HCC) Chronic diastolic (congestive) heart failure (CMS/Commercial-HCC) Gastritis, unspecified, without bleeding Chronic kidney disease, stage 4 (severe) (CMS/Commercial-HCC) T4, FREE Routine 12/07/2024 10:35 AM EDT Encounter for follow-up examination after completed treatment for conditions other than malignant neoplasm Encounter for screening, unspecified Hypertensive heart and chronic kidney disease with heart failure and stage 1 through stage 4 chronic kidney disease, or unspecified chronic kidney disease (CMS/Commercial-HCC) Chronic diastolic (congestive) heart failure (CMS/Commercial-HCC) Gastritis, unspecified, without bleeding Chronic kidney disease, stage 4 (severe) (CMS/Commercial-HCC) TSH Routine 12/07/2024 10:35 AM EDT Encounter for follow-up examination after completed treatment for conditions other than malignant neoplasm Encounter for screening, unspecified Hypertensive heart and chronic kidney disease with heart failure and stage 1 through stage 4 chronic kidney disease, or unspecified chronic kidney disease ([facility]) Chronic diastolic (congestive) heart failure (CMS/Commercial-HCC) Gastritis, unspecified, without bleeding Chronic kidney disease, stage 4 (severe) (CMS/Commercial-HCC) LIPID PANEL Routine 12/07/2024 10:35 AM EDT Encounter for follow-up examination after completed treatment for conditions other than malignant neoplasm Encounter for screening, unspecified Hypertensive heart and chronic kidney disease with heart failure and stage 1 through stage 4 chronic kidney disease, or unspecified chronic kidney disease ([facility]) Chronic diastolic (congestive) heart failure (CMS/Commercial-HCC) Gastritis, unspecified, without bleeding Chronic kidney disease, stage 4 (severe) (CMS/Commercial-HCC) IRON AND TIBC Routine 12/07/2024 10:35 AM EDT Encounter for follow-up examination after completed treatment for conditions other than malignant neoplasm Encounter for screening, unspecified Hypertensive heart and chronic kidney disease with heart failure and stage 1 through stage 4 chronic kidney disease, or unspecified chronic kidney disease ([facility]) Chronic diastolic (congestive) heart failure ([facility]) Gastritis, unspecified, without bleeding Chronic kidney disease, stage 4 (severe) (CMS/Commercial-HCC) HEMOGLOBIN A1C Routine 12/07/2024 10:35 AM EDT Encounter for follow-up examination after completed treatment for conditions other than malignant neoplasm Encounter for screening, unspecified Hypertensive heart and chronic kidney disease with heart failure and stage 1 through stage 4 chronic kidney disease, or unspecified chronic kidney disease ([facility]) Chronic diastolic (congestive) heart failure (CMS/Commercial-HCC) Gastritis, unspecified, without bleeding Chronic kidney disease, stage 4 (severe) (CMS/Commercial-HCC) COMPREHENSIVE METABOLIC PANEL Routine 12/07/2024 10:35 AM EDT Encounter for follow-up examination after completed treatment for conditions other than malignant neoplasm Encounter for screening, unspecified Hypertensive heart and chronic kidney disease with heart failure and stage 1 through stage 4 chronic kidney disease, or unspecified chronic kidney disease ([facility]) Chronic diastolic (congestive) heart failure ([facility]) Gastritis, unspecified, without bleeding Chronic kidney disease, stage 4 (severe) ([facility]) URINE MICROALBUMIN Routine 12/07/2024 10 :35 AM EDT Encounter for follow-up examination after completed treatment for conditions other than malignant neoplasm Encounter for screening, unspecified Hypertensive heart and chronic kidney disease with heart failure and stage 1 through stage 4 chronic kidney disease, or unspecified chronic kidney disease ([facility] [facility]) Chronic diastolic (congestive) heart failure ([facility] [facility]) Gastritis, unspecified, without bleeding Chronic kidney disease, stage 4 (severe) ([facility]) URINALYSIS WITH CULTURE IF INDICATED Routine 12/07/2024 10:35 AM EDT Encounter for follow-up examination after completed treatment for conditions other than malignant neoplasm Encounter for screening, unspecified Hypertensive heart and chronic kidney disease with heart failure and stage 1 through stage 4 chronic kidney disease, or unspecified chronic kidney disease ([facility] [facility]) Chronic diastolic (congestive) heart failure ([facility] [facility]) Gastritis, unspecified, without bleeding Chronic kidney disease, stage 4 (severe) ([facility]) URIC ACID Routine 12/07/2024 10:35 AM EDT Chronic kidney disease, stage 3b ([facility]) Essential (primary) hypertension Hyperkalemia Hyperuricemia without signs of inflammatory arthritis and tophaceous disease Other proteinuria PROTEIN / CREATININE RATIO, URINE Routine 12/07/2024 10:35 AM EDT Chronic kidney disease, stage 3b ([facility]) Essential (primary) hypertension Hyperkalemia Hyperuricemia without signs of inflammatory arthritis and tophaceous disease Other proteinuria CBC WITH DIFFERENTIAL Routine 12/07/2024 10:35 AM EDT Chronic kidney disease, stage 3b (CMS-HCC) Essential (primary) hypertension Hyperkalemia Hyperuricemia without signs of inflammatory arthritis and tophaceous disease Other proteinuria PTH, INTACT Routine 12/07/2024 10:35 AM EDT Chronic kidney disease, stage 3b (CMS-HCC) Essential (primary) hypertension Hyperkalemia Hyperuricemia without signs of inflammatory arthritis and tophaceous disease Other proteinuria PHOSPHORUS Routine 12/07/2024 10:35 AM EDT Chronic kidney disease, stage 3b (CMS-HCC) Essential (primary) hypertension Hyperkalemia Hyperuricemia without signs of inflammatory arthritis and tophaceous disease Other proteinuria CT ABDOMEN WO CONTRAST STAT 11/02/2024 8:14 AM EDT Abdominal pain, unspecified abdominal location HEMOGLOBIN A1C Routine 09/07/2024 10:46 AM EST Encounter for general adult medical examination without abnormal findings Hypertensive heart and chronic kidney disease with heart failure and stage 1 through stage 4 chronic kidney disease, or unspecified chronic kidney disease (CMS/Commercial-HCC) Chronic kidney disease, stage 3b (CMS-HCC) OCCULT BLOOD X 1, STOOL Routine 07/30/2023 10:36 AM EST from Last 3 Months or Most Recently Relevant to Health Maintenance Results * Colonoscopy (12/13/2024 11:53 AM EDT) Anatomical Region Laterality Modality Endoscopy 12/13/2024 11:0 4 AM EDT Narrative 12/13/2024 11:59 AM EDT Gastroenterology Patient Name: Arnaldo Estrada Procedure Date: 12/13/2024 11:04 AM Date of : 1955 Age: 69 Gender: Male Procedure: Colonoscopy Indications: Screening for colorectal malignant neoplasm Providers: Wayne Rush MD, oDmenica Dawn, SUZI RYAN RN Referring MD: Attending Participation: I personally performed the entire procedure without the assistance of a fellow, resident or surgical forceps fabricator. Medicines: Propofol per Anesthesia Complications: No immediate complications. Estimated blood loss: None. Procedure: Pre-Anesthesia Assessment: - Prior to the procedure, a History and Physical was performed, and patient medications and allergies were reviewed. The patient is competent. The risks and benefits of the procedure and the sedation options and risks were discussed with the patient. All questions were answered and informed consent was obtained. Patient identification and proposed procedure were verified by the physician in the pre-procedure area. Mental Status Examination: alert and oriented. Airway Examination: normal oropharyngeal airway and neck mobility. Respiratory Examination: clear to auscultation. CV Examination: normal. Prophylactic Antibiotics: The patient does not require prophylactic antibiotics. Prior Anticoagulants: The patient has taken no anticoagulant or antiplatelet agents. ASA Grade Assessment: III - A patient with severe systemic disease. After reviewing the risks and benefits, the patient was deemed in satisfactory condition to undergo the procedure. The anesthesia plan was to use monitored anesthesia care (MAC). Immediately prior to administration of medications, the patient was re-assessed for adequacy to receive sedatives. The heart rate, respiratory rate, oxygen saturations, blood pressure, adequacy of pulmonary ventilation, and response to care were monitored throughout the procedure. The physical status of the patient was re-assessed after the procedure. A history and physical examination was performed and documented. Prior to obtaining signature documenting informed consent, the planned endoscopic procedure was discussed including, indications, potential complications (bleeding, perforation, respiratory distress, respiratory failure, cardiac arrest and , need for surgery, infection, adverse medication reaction), and alternatives available were explained and understanding verbalized. The opportunity for questions was provided and informed consent obtained. Throughout the procedure, the patient's blood pressure, pulse, and oxygen saturations were monitored continuously. The Colonoscope was introduced through the anus and advanced to the the cecum, identified by appendiceal orifice and ileocecal valve. The colonoscopy was performed without difficulty. The patient tolerated the procedure well. The quality of the bowel preparation was evaluated using the BBPS ([place] Bowel Preparation Scale) with scores of: Right Colon = 2 (minor amount of residual staining, small fragments of stool and/or opaque liquid, but mucosa seen well), Transverse Colon = 2 (minor amount of residual staining, small fragments of stool and/or opaque liquid, but mucosa seen well) and Left Colon = 2 (minor amount of residual staining, small fragments of stool and/or opaque liquid, but mucosa seen well). The total BBPS score equals 6. The quality of the bowel preparation was good. The ileocecal valve, appendiceal orifice, and rectum were photographed. Estimated Blood Loss: Estimated blood loss: none. Findings: The perianal and digital rectal examinations were normal. Pertinent negatives include normal sphincter tone. The colon (entire examined portion) appeared normal. Non-bleeding internal hemorrhoids were found during retroflexion. The hemorrhoids were small. Impression: - The entire examined colon is normal. - Non-bleeding internal hemorrhoids. - No specimens collected. - Patient stable at time of discharge from procedure. Recommendation: - Repeat colonoscopy in 10 years for screening purposes. - Patient has a contact number available for emergencies. The signs and symptoms of potential delayed complications were discussed with the patient. Return to normal activities tomorrow. Written discharge instructions were provided to the patient. Procedure Code(s): --- Professional --- 82467, Colonoscopy, flexible; diagnostic, including collection of specimen(s) by brushing or washing, when performed (separate procedure) Diagnosis Code(s): --- Professional --- Z12.11, Encounter for screening for malignant neoplasm of colon K64.8, Other hemorrhoids CPT copyright 2020 [employer]. All rights reserved. The codes documented in this report are preliminary and upon pourer review may be revised to meet current compliance requirements. Wayne Rush MD 12/13/2024 11:59:27 AM This report has been signed electronically. Number of Addenda: 0 Note Initiated On: 12/13/2024 11:04 AM Scope Withdrawal Time: 0 hours 13 minutes 33 seconds Total Procedure Duration: Scope In: Scope Out: 11:51:14 AM Procedure Note Wayne Rush MD - 12/13/2024 Gastroenterology Patient Name: Arnaldo Estrada Procedure Date: 12/13/2024 11:04 AM Date of : 1955 Age: 69 Gender: Male Procedure: Colonoscopy Indications: Screening for colorectal malignant neoplasm Providers: Wayne Rush MD, GuadamarSUZI Cheng RN Referring MD: Attending Participation: I personally performed the entire procedure without the assistance ofa fellow, resident or surgical forceps fabricator. Medicines: Propofol per Anesthesia Complications: No immediate complications. Estimated blood loss:None. Procedure: Pre-Anesthesia Assessment: - Prior to the procedure, a History and Physicalwas performed, and patient medications and allergieswere reviewed. The patient is competent. The risks and benefits of the procedure and the sedation optionsand risks were discussed with the patient. Allquestions were answered and informed consent was obtained. Patient identification and proposed procedure were verified by the physician in the pre-procedurearea. Mental Status Examination: alert and oriented.Airway Examination: normal oropharyngeal airway and neck mobility. Respiratory Examination: clear to auscultation. CV Examination: normal. Prophylactic Antibiotics: The patient does not requireprophylactic antibiotics. Prior Anticoagulants: The patient has taken no anticoagulant or antiplatelet agents. ASA Grade Assessment: III - A patient with severesystemic disease. After reviewing the risks and benefits,the patient was deemed in satisfactory condition to undergo the procedure. The anesthesia plan was touse monitored anesthesia care (MAC). Immediately priorto administration of medications, the patient was re-assessed for adequacy to receive sedatives. The heart rate, respiratory rate, oxygen saturations, blood pressure, adequacy of pulmonary ventilation,and response to care were monitored throughout the procedure. The physical status of the patient was re-assessed after the procedure. A history and physical examination was performedand documented. Prior to obtaining signaturedocumenting informed consent, the planned endoscopic procedurewas discussed including, indications, potential complications (bleeding, perforation, respiratory distress, respiratory failure, cardiac arrest and , need for surgery, infection, adversemedication reaction), and alternatives available wereexplained and understanding verbalized. The opportunity for questions was provided and informed consentobtained. Throughout the procedure, the patient's blood pressure, pulse, and oxygen saturations weremonitored continuously. The Colonoscope was introducedthrough the anus and advanced to the the cecum, identifiedby appendiceal orifice and ileocecal valve. The colonoscopy was performed without difficulty. The patient tolerated the procedure well. The qualityof the bowel preparation was evaluated using the BBPS ([place] Bowel Preparation Scale) with scores of:Right Colon = 2 (minor amount of residual staining, small fragments of stool and/or opaque liquid, but mucosa seen well), Transverse Colon = 2 (minor amount of residual staining, small fragments of stool and/or opaque liquid, but mucosa seen well) and Left Colon= 2 (minor amount of residual staining, smallfragments of stool and/or opaque liquid, but mucosa seenwell). The total BBPS score equals 6. The quality of the bowel preparation was good. The ileocecal valve, appendiceal orifice, and rectum werephotographed. Estimated Blood Loss: Estimated blood loss: none. Findings: The perianal and digital rectal examinations were normal. Pertinent negatives include normal sphincter tone. The colon (entire examined portion) appeared normal. Non-bleeding internal hemorrhoids were found during retroflexion. The hemorrhoids were small. Impression: - The entire examined colon is normal. - Non-bleeding internal hemorrhoids. - No specimens collected. - Patient stable at time of discharge fromprocedure. Recommendation: - Repeat colonoscopy in 10 years for screening purposes. - Patient has a contact number available for emergencies. The signs and symptoms of potential delayed complications were discussed with thepatient. Return to normal activities tomorrow. Written discharge instructions were provided to thepatient. Procedure Code(s): --- Professional --- 25796, Colonoscopy, flexible; diagnostic, including collection of specimen(s) by brushing or washing, when performed (separateprocedure) Diagnosis Code(s): --- Professional --- Z12.11, Encounter for screening for malignant neoplasm of colon K64.8, Other hemorrhoids CPT copyright 2020 [employer]. All rights reserved. The codes documented in this report are preliminary and upon pourer reviewmay be revised to meet current compliance requirements. Wayne Rush MD 12/13/2024 11:59:27 AM This report has been signed electronically. Number of Addenda: 0 Note Initiated On: 12/13/2024 11:04 AM Scope Withdrawal Time: 0 hours 13 minutes 33 seconds Total Procedure Duration: Scope In: Scope Out: 11:51:14 AM us Wayne Rush MD GI PROCEDURE ORDERABLES Final R esult * Esophagogastroduodenoscopy (12/13/2024 11:53 AM EDT) Anatomical Region Laterality Modality Endoscopy 12/13/2024 11:0 2 AM EDT Narrative 12/13/2024 12:02 PM EDT Gastroenterology Patient Name: Arnaldo Estrada Procedure Date: 12/13/2024 11:02 AM Date of : 1955 Age: 69 Gender: Male Procedure: Upper GI endoscopy Indications: Dyspepsia, bloating Providers: Wayne Rush MD, Domenica Dawn, SUZI RYAN RN Referring MD: Attending Participation: I personally performed the entire procedure without the assistance of a fellow, resident or surgical forceps fabricator. Medicines: Propofol per Anesthesia Complications: No immediate complications. Estimated blood loss: Minimal. Procedure: Pre-Anesthesia Assessment: - Prior to the procedure, a History and Physical was performed, and patient medications and allergies were reviewed. The patient is competent. The risks and benefits of the procedure and the sedation options and risks were discussed with the patient. All questions were answered and informed consent was obtained. Patient identification and proposed procedure were verified by the physician in the pre-procedure area. Mental Status Examination: alert and oriented. Airway Examination: normal oropharyngeal airway and neck mobility. Respiratory Examination: clear to auscultation. CV Examination: normal. Prophylactic Antibiotics: The patient does not require prophylactic antibiotics. Prior Anticoagulants: The patient has taken no anticoagulant or antiplatelet agents. ASA Grade Assessment: III - A patient with severe systemic disease. After reviewing the risks and benefits, the patient was deemed in satisfactory condition to undergo the procedure. The anesthesia plan was to use monitored anesthesia care (MAC). Immediately prior to administration of medications, the patient was re-assessed for adequacy to receive sedatives. The heart rate, respiratory rate, oxygen saturations, blood pressure, adequacy of pulmonary ventilation, and response to care were monitored throughout the procedure. The physical status of the patient was re-assessed after the procedure. A history and physical examination was performed and documented. Prior to obtaining signature documenting informed consent, the planned endoscopic procedure was discussed including, indications, potential complications (bleeding, perforation, respiratory distress, respiratory failure, cardiac arrest and , need for surgery, infection, adverse medication reaction), and alternatives available were explained and understanding verbalized. The opportunity for questions was provided and informed consent obtained. Throughout the procedure, the patient's blood pressure, pulse, and oxygen saturations were monitored continuously. The Endoscope was introduced through the mouth, and advanced to the second part of duodenum. The upper GI endoscopy was accomplished without difficulty. The patient tolerated the procedure well. Estimated Blood Loss: Estimated blood loss was minimal. Findings: The examined esophagus was normal. The entire examined stomach was normal. Biopsies were taken with a cold forceps for Helicobacter pylori testing. The duodenal bulb, first portion of the duodenum and second portion of the duodenum were normal. Biopsies for histology were taken with a cold forceps for evaluation of celiac disease. Impression: - Normal esophagus. - Normal stomach. Biopsied. - Normal duodenal bulb, first portion of the duodenum and second portion of the duodenum. Biopsied. - Patient stable at time of discharge from procedure. Recommendation: - Patient has a contact number available for emergencies. The signs and symptoms of potential delayed complications were discussed with the patient. Return to normal activities tomorrow. Written discharge instructions were provided to the patient. - Await pathology results. - Return to my office as previously scheduled. - Advance diet as tolerated today. Procedure Code(s): --- Professional --- 00127, Esophagogastroduodenoscopy, flexible, transoral; with biopsy, single or multiple Diagnosis Code(s): --- Professional --- R10.13, Epigastric pain CPT copyright 2020 [employer]. All rights reserved. The codes documented in this report are preliminary and upon pourer review may be revised to meet current compliance requirements. Wayne Rush MD 12/13/2024 12:02:14 PM This report has been signed electronically. Number of Addenda: 0 Note Initiated On: 12/13/2024 11:02 AM Scope Withdrawal Time: Total Procedure Duration: Scope In: Scope Out: Procedure Note Wayne Rush MD - 12/13/2024 Gastroenterology Patient Name: Arnaldo Estrada Procedure Date: 12/13/2024 11:02 AM Date of : 1955 Age: 69 Gender: Male Procedure: Upper GI endoscopy Indications: Dyspepsia, bloating Providers: Wayne Rush MD, SUZI Garza RN Referring MD: Attending Participation: I personally performed the entire procedure without the assistance ofa fellow, resident or surgical forceps fabricator. Medicines: Propofol per Anesthesia Complications: No immediate complications. Estimated blood loss: Minimal. Procedure: Pre-Anesthesia Assessment: - Prior to the procedure, a History and Physicalwas performed, and patient medications and allergieswere reviewed. The patient is competent. The risks and benefits of the procedure and the sedation optionsand risks were discussed with the patient. Allquestions were answered and informed consent was obtained. Patient identification and proposed procedure were verified by the physician in the pre-procedurearea. Mental Status Examination: alert and oriented.Airway Examination: normal oropharyngeal airway and neck mobility. Respiratory Examination: clear to auscultation. CV Examination: normal. Prophylactic Antibiotics: The patient does not requireprophylactic antibiotics. Prior Anticoagulants: The patient has taken no anticoagulant or antiplatelet agents. ASA Grade Assessment: III - A patient with severesystemic disease. After reviewing the risks and benefits,the patient was deemed in satisfactory condition to undergo the procedure. The anesthesia plan was touse monitored anesthesia care (MAC). Immediately priorto administration of medications, the patient was re-assessed for adequacy to receive sedatives. The heart rate, respiratory rate, oxygen saturations, blood pressure, adequacy of pulmonary ventilation,and response to care were monitored throughout the procedure. The physical status of the patient was re-assessed after the procedure. A history and physical examination was performedand documented. Prior to obtaining signaturedocumenting informed consent, the planned endoscopic procedurewas discussed including, indications, potential complications (bleeding, perforation, respiratory distress, respiratory failure, cardiac arrest and , need for surgery, infection, adversemedication reaction), and alternatives available wereexplained and understanding verbalized. The opportunity for questions was provided and informed consentobtained. Throughout the procedure, the patient's blood pressure, pulse, and oxygen saturations weremonitored continuously. The Endoscope was introduced throughthe mouth, and advanced to the second part of duodenum. The upper GI endoscopy was accomplished without difficulty. The patient tolerated the procedurewell. Estimated Blood Loss: Estimated blood loss was minimal. Findings: The examined esophagus was normal. The entire examined stomach was normal. Biopsies were taken with acold forceps for Helicobacter pylori testing. The duodenal bulb, first portion of the duodenum and second portionof the duodenum were normal. Biopsies for histology were taken with acold forceps for evaluation of celiac disease. Impression: - Normal esophagus. - Normal stomach. Biopsied. - Normal duodenal bulb, first portion of theduodenum and second portion of the duodenum. Biopsied. - Patient stable at time of discharge fromprocedure. Recommendation: - Patient has a contact number available for emergencies. The signs and symptoms of potential delayed complications were discussed with thepatient. Return to normal activities tomorrow. Written discharge instructions were provided to thepatient. - Await pathology results. - Return to my office as previously scheduled. - Advance diet as tolerated today. Procedure Code(s): --- Professional --- 04128, Esophagogastroduodenoscopy, flexible, transoral; with biopsy, single or multiple Diagnosis Code(s): --- Professional --- R10.13, Epigastric pain CPT copyright 2020 [employer]. All rights reserved. The codes documented in this report are preliminary and upon pourer reviewmay be revised to meet current compliance requirements. Wayne Rush MD 12/13/2024 12:02:14 PM This report has been signed electronically. Number of Addenda: 0 Note Initiated On: 12/13/2024 11:02 AM Scope Withdrawal Time: Total Procedure Duration: Scope In: Scope Out: Wayne Rush MD GI PROCEDURE ORDERABLES Final R esult * Pathology Tissue Exam (12/13/2024 11:25 AM EDT) Case Report Surgical Pathology Case: [id number] Authorizing Provider: Wayne Rush MD Collected: 12/13/2024 1125 Ordering Location: [facility] [address]ie[address] Received: 12/13/2024 1411 [facility] Pathologist: Handy Peñaloza MD Specimens: 1) - Small Intestine, Duodenum, duodenal biopsy r/o celiac dse 2) - Stomach, antrum biopsy 3) - Stomach, gastric body biopsy 12/17/2024 4:40 PM EDT ORM LAB Clinical Information Esophagogastroduodeno scopy; Colonoscopy Pre-procedure Diagnosis: R10.9 - Abdominal pain, unspecified abdominal location [ICD-10-CM] Z12.11 - Screen for colon cancer [ICD-10-CM] Post-op Diagnosis: No Dx found. Admission Diagnosis: Abdominal pain, unspecified abdominal location, Screen for colon cancer Authorizing Provider: Wayne Rush MD 12/17/2024 4:40 PM EDT [facility]M [facility] Final Diagnosis 1. DUODENUM, BIOPSY: - WITHIN NORMAL LIMITS. NORMAL VILLOUS ARCHITECTURE. NEGATIVE FOR INTRAEPITHELIAL LYMPHOCYTOSIS OR GRANULOMA. 2. STOMACH, BIOPSY: - ANTRAL MUCOSA, WITHIN NORMAL LIMITS. 3. STOMACH, BODY, BIOPSY: - BODY MUCOSA, WITHIN NORMAL LIMITS. 12/17/2024 4:40 PM EDT ORM LAB at [address] [place], [place] [address]T Gross Description The specimen is received labeled with the patient's name ARNALDO ESTRADA 1. Received in formalin labeled duodenal biopsy are multiple irregular oneal-pink soft tissues measuring 0.9 x 0.4 x 0.2 cm in greatest dimension which are submitted in toto in one cassette in a specimen bag. 2. Received in formalin labeled antrum biopsy are two irregular oneal-pink soft tissues measuring 0.5 x 0.4 x 0.2 cm in greatest dimension which are submitted in toto in one cassette in a specimen bag. 3. Received in formalin labeled gastric body biopsy are two irregular oneal-pink soft tissues measuring 0.7 x 0.4 x 0.2 cm in greatest dimension which are submitted in toto in one cassette in a specimen bag. Manuela 12/17/2024 4:40 PM EDT ORM LAB Microscopic Description Unless 'gross-only' is specified, the final diagnosis for each specimen is based on a microscopic interpretation of the submitted sections of each tissue sample. Daily H&E QC controls were prepared, reviewed by a pathologist, determined to stain appropriately, and documented at ORM LAB. Immunohistochemical and special stain controls (if applicable) are present on the respective slides and stain appropriately. 12/17/2024 4:40 PM EDT ORM LAB Tissue Stomach structure / Unknown 12/13/2024 11:25 AM EDT 12/13/2024 2:11 PM EDT Tissue specimen (specimen) Stomach structure / Unknown 12/13/2024 11:25 AM EDT 12/13/2024 2:11 PM EDT Tissue specimen (specimen) Stomach structure / Unknown 12/13/2024 11:25 AM EDT 12/13/2024 2:11 PM EDT Wayne Rush MD LAB PATHOLOGY ORDERABLES Final Result OR LAB [facility] [place] [address], * (ABNORMAL) Manual Differential (12/07/2024 10:35 AM EDT) Neutrophil % 55.9 42 - 75 % LAB HEMATOLOGY METHOD 12/07/2024 1:29 PM EDT [facility] Band % 2.2 0 - 11 % LAB HEMATOLOGY METHOD 12/07/2024 1:29 PM EDT [facility] Lymphocyte % 22.6 20 - 44 % LAB HEMATOLOGY METHOD 12/07/2024 1:29 PM EDT [facility] Monocyte % 17.2(H) 2 - 8 % LAB HEMATOLOGY METHOD 12/07/2024 1:29 PM EDT [facility] Eosinophil % 1.1 1 - 5 % LAB HEMATOLOGY METHOD 12/07/2024 1:29 PM EDT [facility] Basophil % 1.1 0 - 2 % LAB HEMATOLOGY METHOD 12/07/2024 1:29 PM EDT [facility] Manual nRBC 139.8(H) 0 - 0 % LAB HEMATOLOGY METHOD 12/07/2024 1:29 PM EDT [facility] Absolute Neutrophil Count 3.3 1.5 - 7.5 x10(3)/ul LAB HEMATOLOGY METHOD 12/07/2024 1:29 PM EDT [facility] Anisocytosis Marked LAB HEMATOLOGY METHOD 12/07/2024 1:29 PM EDT [facility] Macrocyte Marked LAB HEMATOLOGY METHOD 12/07/2024 1:29 PM EDT [facility] Polychromasia Marked LAB HEMATOLOGY METHOD 12/07/2024 1:29 PM EDT [facility] Blood Venous blood specimen / Unknown Venipuncture / Unknown 12/07/2024 10:35 AM EDT 12/07/2024 10:35 AM EDT Erika FORRESTER LAB BLOOD ORDERABLES Final R esult [facility] [address] [place], [place] [address], [place] [phone] * (ABNORMAL) Urinalysis with reflex culture if indicated (12/07/2024 10:35 AM EDT) Urine, Color Yellow 12/07/2024 12:20 PM EDT [facility] Urine, Appearance Clear Clear, Slightly Cloudy 12/07/2024 12:20 PM EDT [facility] Specific Slaughters, Urine 1.008 1.002 - 1.035 12/07/2024 12:20 PM EDT [facility] Urine, Leukocyte Esterase Negative Negative /uL 12/07/2024 12:20 PM EDT [facility] Urine Nitrite Negative Negative 12/07/2024 12:20 PM EDT [facility] pH, Urine 5.5 4.5 - 8.0 12/07/2024 12:20 PM EDT [facility] Protein, Urine Dipstick 100(A) Negative - 30 mg/dL 12/07/2024 12:20 PM EDT [facility] Urine, Glucose Negative Negative mg/dL 12/07/2024 12:20 PM EDT [facility] Urine, Ketones Negative Negative mg/dL 12/07/2024 12:20 PM EDT [facility] Urine, Urobilinogen Normal Normal mg/dL 12/07/2024 12:20 PM EDT [facility] Urine, Bilirubin Negative Negative 12/07/2024 12:20 PM EDT [facility] Urine, Blood Small(A) Negative 12/07/2024 12:20 PM EDT [facility] Urine, RBC 0-2 0 - 2 /HPF 12/07/2024 12:20 PM EDT [facility] Urine, WBC 0-5 0 - 5 /HPF 12/07/2024 12:20 PM EDT [facility] Urine, Bacteria None Seen < / = Occasional /HPF 12/07/2024 12:20 PM EDT [facility] Urine, Hyaline Casts 0-2 0 - 2 /LPF 12/07/2024 12:20 PM EDT [facility] UA sent for Culture? Culture not indicated LAB URINALYSIS - AUTOMATED METHOD 12/07/2024 12:20 PM EDT [facility] Urine, Total Epithelial Cells 0-5 (None/Rare) /HPF 12/07/2024 12:20 PM EDT [facility] Comment:Total Epithelial Cou nt includes squamous and non-squamous epithelial cells. Microscopic examination is performed when the value is > 5 cells/HPF. Non- squamous epithelial cells will be reported with microscopic results if present. Urine Urine specimen obtained by clean catch procedure / Unknown Non-blood Collection / Unknown 12/07/2024 10:35 AM EDT 12/07/2024 10:35 AM EDT Jazmin Meng MD LAB URINE ORDERABLES Final Re sult Performing Organization Address City/[facility]/ZIP Co de Phone Number [facility] [address] [place], [place] [address], [place] [phone] * (ABNORMAL) B12/ Folate Level (12/07/2024 10:35 AM EDT) Vitamin B-12 999(H) 213 - 816 pg/mL LAB CHEMISTRY METHOD 12/07/2024 2:17 PM EDT ORM LAB Folate 14.2 >3.5 ng/mL LAB CHEMISTRY METHOD 12/07/2024 2:17 PM EDT OR LAB Blood Venous blood specimen / Unknown Venipuncture / Unknown 12/07/2024 10:35 AM EDT 12/07/2024 10:35 AM EDT Jazmin Meng MD LAB BLOOD ORDERABLES Final Re sult Performing Organization Address [facility]/ZIP Co de Phone Number [facility] [address] [id number], [place] [phone] * (ABNORMAL) CBC auto differential (12/07/2024 10:35 AM EDT) WBC 5.7 4.4 - 10.5 x10(3)/uL LAB HEMATOLOGY METHOD 12/07/2024 12:31 PM EDT [facility] RBC 4.65 4.00 - 5.65 x10(6)/uL LAB HEMATOLOGY METHOD 12/07/2024 12:31 PM EDT [facility] Hgb 8.8(L) 12.6 - 16.7 g/dL LAB HEMATOLOGY METHOD 12/07/2024 12:31 PM EDT [facility] HCT 28.4(L) 36.9 - 48.5 % LAB HEMATOLOGY METHOD 12/07/2024 12:31 PM EDT [facility] MCV 61.1(L) 82.4 - 99.3 fL LAB HEMATOLOGY METHOD 12/07/2024 12:31 PM EDT [facility] MCH 18.9(L) 27.5 - 34.1 pg LAB HEMATOLOGY METHOD 12/07/2024 12:31 PM EDT [facility] MCHC 31.0(L) 31.7 - 36.1 g/dL LAB HEMATOLOGY METHOD 12/07/2024 12:31 PM EDT [facility] RDW 22.8(H) 11.4 - 14.9 % LAB HEMATOLOGY METHOD 12/07/2024 12:31 PM EDT [facility] Platelet 190 139 - 361 x10(3)/uL LAB HEMATOLOGY METHOD 12/07/2024 12:31 PM EDT [facility] MPV LAB HEMATOLOGY METHOD 12/07/2024 12:31 PM EDT [facility] Comment:Unable to calculate due to abnormal distribution curve. Smear, Review Done 12/07/2024 12:31 PM EDT [facility] Blood Venous blood specimen / Unknown Venipuncture / Unknown 12/07/2024 10:35 AM EDT 12/07/2024 10:35 AM EDT Erika FORRESTER LAB BLOOD ORDERABLES Final R esult [facility] [address] [place] [id number], * IRON AND TIBC (12/07/2024 10:35 AM EDT) Iron Level 143 65 - 175 ug/dL LAB CHEMISTRY METHOD 12/07/2024 1:06 PM EDT [facility] Comment:Reportable range has been updated. Transferrin 185 174 - 364 mg/dL LAB CHEMISTRY METHOD 12/07/2024 1:06 PM EDT [facility] TIBC 231 218 - 455 ug/dL LAB CHEMISTRY METHOD 12/07/2024 1:06 PM EDT [facility] Iron Saturation 62 % 1:06 PM EDT [facility] Blood Venous blood specimen / Unknown Venipuncture / Unknown 12/07/2024 10:35 AM EDT 12/07/2024 10:35 AM EDT Jazmin Meng MD LAB BLOOD ORDERABLES Final Re sult Performing Organization Address [facility] de Phone Number [facility] [address] [place] [address], * (ABNORMAL) Protein / creatinine ratio, urine (12/07/2024 10:35 AM EDT) Protein, Urine 53 mg/dL LAB CHEMISTRY METHOD 12/07/2024 12:38 PM EDT [facility] Prot/Creat, Ur 1.5(H) 0.0 - 0.2 LAB CHEMISTRY METHOD 12/07/2024 12:38 PM EDT [facility] Creatinine, Urine 35 mg/dL LAB CHEMISTRY METHOD 12/07/2024 12:38 PM EDT [facility] Urine Urine specimen obtained by clean catch procedure / Unknown Non-blood Collection / Unknown 12/07/2024 10:35 AM EDT 12/07/2024 10:35 AM EDT Erika FORRESTER LAB URINE ORDERABLES Final R esult Performing Organization Address [facility] de Phone Number [facility] [address] [place] [address], * (ABNORMAL) Microalbumin, Urine (12/07/2024 10:35 AM EDT) Microalb, Ur 38.6(H) 0.5 - 29.0 mg/dL LAB CHEMISTRY METHOD 12/07/2024 12:38 PM EDT [facility] Comment: Urinary microalbumin is intended to detect early glomerular damage. Samples from patients with moderate to heavy proteinuria may yield falsely low or false negative results with this assay. Creatinine, Urine 35 mg/dL LAB CHEMISTRY METHOD 12/07/2024 12:38 PM EDT [facility] Microalbumin/Cre atinine Ratio 1,103(H) 1 - 30 mg/g LAB CHEMISTRY METHOD 12/07/2024 12:38 PM EDT [facility] Comment: Urine Microalbumin note: The ADA (Diabetes care (1997) 20:S24-S27) has defined abnomalities in Albumin excretion as follows: Category Result Normal <30 Microalbuminuria 30-300 Clinical Albuminuria >300 The ADA recommends that at least two of three specimens,collected within a 3-6 month period be abnormal, before considering a patient to be within a diagnostic category. Urine Urine specimen obtained by clean catch procedure / Unknown Non-blood Collection / Unknown 12/07/2024 10:35 AM EDT 12/07/2024 10:35 AM EDT Jazmin Meng MD LAB URINE ORDERABLES Final Re sult [facility] [address] [place] [address], * Vitamin D 25 hydroxy (12/07/2024 10:35 AM EDT) Vit D, 25-Hydroxy 34.3 29.0 - 99.0 ng/mL LAB CHEMISTRY METHOD 12/07/2024 2:03 PM EDT [facility] Blood Venous blood specimen / Unknown Venipuncture / Unknown 12/07/2024 10:35 AM EDT 12/07/2024 10:35 AM EDT Jazmin Meng MD LAB BLOOD ORDERABLES Final Re sult [facility] [place] [address], [place] [phone] * Uric acid (12/07/2024 10:35 AM EDT) Uric Acid 6.0 3.5 - 7.2 mg/dL LAB CHEMISTRY METHOD 12/07/2024 12:34 PM EDT [facility] Comment: Note: Patients who have taken toxic doses of acetaminophen may have falsely low levels of this analyte. Blood Venous blood specimen / Unknown Venipuncture / Unknown 12/07/2024 10:35 AM EDT 12/07/2024 10:35 AM EDT Erika FORRESTER LAB BLOOD ORDERABLES Final R esult Performing Organization Address [facility] Co de Phone Number [facility] [address] [place] [address], * TSH (12/07/2024 10:35 AM EDT) TSH 1.94 0.35 - 4.94 uIU/mL LAB CHEMISTRY METHOD 12/07/2024 12:46 PM EDT [facility] Comment:Comment: TSH standar dized to WHO 3rd International Standard for human TSH (IRP81/565) Blood Venous blood specimen / Unknown Venipuncture / Unknown 12/07/2024 10:35 AM EDT 12/07/2024 10:35 AM EDT Jazmin Meng MD LAB BLOOD ORDERABLES Final Re sult Performing Organization Address [facility] Co de Phone Number [facility] [address] [place] [address], * T4, free (12/07/2024 10:35 AM EDT) Free T4 1.07 0.70 - 1.48 ng/dL LAB CHEMISTRY METHOD 12/07/2024 12:46 PM EDT [facility] Blood Venous blood specimen / Unknown Venipuncture / Unknown 12/07/2024 10:35 AM EDT 12/07/2024 10:35 AM EDT Jazmin Meng MD LAB BLOOD ORDERABLES Final Re sult Performing Organization Address [facility] Co de Phone Number [facility] [address] [place] [address], * (ABNORMAL) Phosphorus (12/07/2024 10:35 AM EDT) Phosphorus 6.3(H) 2.3 - 4.7 mg/dL LAB CHEMISTRY METHOD 12/07/2024 12:41 PM EDT [facility] Blood Venous blood specimen / Unknown Venipuncture / Unknown 12/07/2024 10:35 AM EDT 12/07/2024 10:35 AM EDT Erika FORRESTER LAB BLOOD ORDERABLES Final R esult [facility] [address] [place] [id number], * (ABNORMAL) PTH, intact (12/07/2024 10:35 AM EDT) PTH 383(H) 12 - 88 pg/mL LAB CHEMISTRY METHOD 12/07/2024 1:48 PM EDT [facility] Blood Venous blood specimen / Unknown Venipuncture / Unknown 12/07/2024 10:35 AM EDT 12/07/2024 10:35 AM EDT Erika FORRESTER LAB BLOOD ORDERABLES Final R esult Performing Organization Address [facility] Co de Phone Number [facility] [place] [address], * Hemoglobin A1c (12/07/2024 10:35 AM EDT) Only the most recent of2 resultswithin the time period is included. Hemoglobin A1c LAB CHEMISTRY METHOD 12/08/2024 1:04 AM EDT [facility] Comment:HbA1c cannot be kendal ured, probably indicative of a hemoglobinopathy. Recommend measuring fructosamine as an alternative monitor of glycemic control. Blood Venous blood specimen / Unknown Venipuncture / Unknown 12/07/2024 10:35 AM EDT 12/07/2024 10:35 AM EDT Jazmin Meng MD LAB BLOOD ORDERABLES Final Re sult Performing Organization Address City/[facility]/ZIP Co de Phone Number [facility] [address] [place] [address], * (ABNORMAL) Lipid panel (12/07/2024 10:35 AM EDT) Triglycerides 99 7 - 149 mg/dL LAB CHEMISTRY METHOD 12/07/2024 12:36 PM EDT [facility] Comment: Triglycerides: Normal - Less than 150 mg/dl Borderline High - 150 to 199 mg/dl High - 200 to 499 mg/dl Very High - 500 mg/dl or greater Cholesterol, Total 135 118 - 199 mg/dL LAB CHEMISTRY METHOD 12/07/2024 12:36 PM EDT [facility] Comment: Cholesterol: Desirable- Less than 200 mg/dl Borderline high- 200 to 239 mg/dl High- 240 mg/dl or greater HDL Cholesterol 52 40 - 60 mg/dL LAB CHEMISTRY METHOD 12/07/2024 12:36 PM EDT [facility] Comment: HDL Cholesterol: High (Desirable) - Greater than 60 mg/dl Acceptable - 40 to 60 mg/dl Low - Less than 40 mg/dl Chol/HDL Ratio 2.6(L) 4.2 - 7.6 LAB CHEMISTRY METHOD 12/07/2024 12:36 PM EDT [facility] LDL Calculated 63 <=130 mg/dL LAB CHEMISTRY METHOD 12/07/2024 12:36 PM EDT [facility] Comment: LDL Cholesterol: Below 70 mg/dL - Best for people who have coronary artery disease - including a history of heart attacks, angina, stents, or coronary bypass. Below 100 mg/dL - Optimal for people at risk of coronary artery disease or who have diabetes. Near optimal for people with uncomplicated coronary artery disease. 100-129 mg/dL - Near optimal if there is no coronary artery disease. High if there is coronary artery disease. 130-159 mg/dL - Borderline high if there is no coronary artery disease. High if there is coronary artery disease. 160-189 mg/dL - High if there is no coronary artery disease. Very high if there is coronary artery disease. 190 mg/dL and above - Very high, likely representing a genetic condition. Blood Venous blood specimen / Unknown Venipuncture / Unknown 12/07/2024 10:35 AM EDT 12/07/2024 10:35 AM EDT Jazmin Meng MD LAB BLOOD ORDERABLES Final Re sult [facility] [address] [place] [address], * (ABNORMAL) Comprehensive metabolic panel (12/07/2024 10:35 AM EDT) Sodium 135(L) 136 - 145 mmol/L LAB CHEMISTRY METHOD 12/07/2024 12:36 PM EDT [facility] Potassium 5.3(H) 3.5 - 5.1 mmol/L LAB CHEMISTRY METHOD 12/07/2024 12:36 PM EDT [facility] Chloride 108(H) 98 - 107 mmol/L LAB CHEMISTRY METHOD 12/07/2024 12:36 PM EDT [facility] CO2 19(L) 22 - 31 mmol/L LAB CHEMISTRY METHOD 12/07/2024 12:36 PM EDT [facility] Glucose 88 80 - 115 mg/dL LAB CHEMISTRY METHOD 12/07/2024 12:36 PM EDT [facility] BUN 59(H) 7 - 26 mg/dL LAB CHEMISTRY METHOD 12/07/2024 12:36 PM EDT [facility] Creatinine 2.46(H) 0.70 - 1.30 mg/dL LAB CHEMISTRY METHOD 12/07/2024 12:36 PM EDT [facility] BUN/Creatinine Ratio 24.0(H) 7.3 - 21.7 LAB CHEMISTRY METHOD 12/07/2024 12:36 PM EDT [facility] Calcium 8.6 8.4 - 10.2 mg/dL LAB CHEMISTRY METHOD 12/07/2024 12:36 PM EDT [facility] Total Protein 8.3 6.4 - 8.3 g/dL LAB CHEMISTRY METHOD 12/07/2024 12:36 PM EDT [facility] Albumin Level 3.6 3.5 - 5.0 g/dL LAB CHEMISTRY METHOD 12/07/2024 12:36 PM EDT [facility] Bilirubin Total 2.2(H) 0.2 - 1.2 mg/dL LAB CHEMISTRY METHOD 12/07/2024 12:36 PM EDT [facility] ALT 27 6 - 55 U/L LAB CHEMISTRY METHOD 12/07/2024 12:36 PM EDT [facility] AST 27 5 - 34 U/L LAB CHEMISTRY METHOD 12/07/2024 12:36 PM EDT [facility] ALP 178(H) 40 - 150 U/L LAB CHEMISTRY METHOD 12/07/2024 12:36 PM EDT [facility] Osmolality Calc 297 280 - 300 mOs/kg LAB CHEMISTRY METHOD 12/07/2024 12:36 PM EDT [facility] Anion Gap 8 2 - 12 mmol/L LAB CHEMISTRY METHOD 12/07/2024 12:36 PM EDT [facility] Corrected Calcium 8.92 mg/dL 025 12:36 PM EDT [facility] eGFR 28 mL/min LAB CHEMISTRY METHOD 12/07/2024 12:36 PM EDT [facility] Comment: Calculation based on the Chronic Kidney Disease Epidemiology Collaboration (CKD- EPI) equation refit without adjustment for race. GFR ranges: A GFR of 60 higher is in the normal range. A GFR below 60 may mean kidney disease. A GFR of 15 or lower may mean kidney failure. Below shows the 5 stages of CKD with ICD-10 code and GFR for each stage: N18.1 Stage 1: With normal or high GFR (GFR > 90 mL/min) N18.2 Stage 2: Mild CKD (GFR = 60-89 mL/min) N18.3 Stage 3A: Moderate CKD (GFR = 45-59 mL/min) N18.3 Stage 3B: Moderate CKD (GFR = 30-44 mL/min) N18.4 Stage 4: Severe CKD (GFR = 15-29 mL/min) N18.5 Stage 5: End Stage CKD (GFR < 15 mL/min) Blood Venous blood specimen / Unknown Venipuncture / Unknown 12/07/2024 10:35 AM EDT 12/07/2024 10:35 AM EDT us Jazmin Meng MD LAB BLOOD ORDERABLES Final Re sult [facility] [address] [place] [address], * CT abdomen wo IV contrast (11/02/2024 8:14 AM EDT) Anatomical Region Laterality Modality Abdomen N/A Computed Tomogra phy Impressions 11/02/2024 8:24 AM EDT 1. No visualized acute process in the abdomen. Dictated on: 11/02/2024 8:20 AM Signed by: Stuart Smith DO 11/02/2024 8:24 AM Narrative 11/02/2024 8:24 AM EDT PROCEDURE: CT ABDOMEN WO CONTRAST INDICATION: abdominal pain in the left abdomen. COMPARISON: 03/05/2024 TECHNIQUE: Serial axial images of the abdomen were obtained without IV contrast. Coronal reformations were performed. Dose lowering technique(s) such as automated exposure control, iterative reconstruction, mA and/or KV adjustment for patient's size was utilized for this examination. CONTRAST: None. FINDINGS: Lower chest: The lung bases are clear. The included mediastinum is unremarkable. Liver: Normal. Gallbladder: Surgically absent. Biliary system: No intra or extrahepatic ductal dilation. Pancreas: No mass lesion, duct dilatation, peripancreatic fluid or fluid collection. Spleen: Not visualized. Minimal soft tissue in the splenic bed. This may represent autoinfarcted spleen or surgical removal. Unchanged from comparison. Adrenals: No nodule or mass lesion. Kidneys: No renal stones, hydronephrosis or mass lesion. Vasculature: No aneurysm or dissection. Gastrointestinal: Partial visualization of the small and large bowel. No bowel wall thickening, bowel obstruction, pneumatosis or diverticulitis. Lymph nodes: No pathologically enlarged lymph nodes. Other: No free fluid or focal fluid collection. Abdominal wall: No abdominal wall hernia. Musculoskeletal: No acute osseous injury or suspicious osseous lesion. Procedure Note Stuart Smith DO - 11/02/2024 PROCEDURE: CT ABDOMEN WO CONTRAST INDICATION: abdominal pain in the left abdomen. COMPARISON: 03/05/2024 TECHNIQUE: Serial axial images of the abdomen were obtained without IVcontrast. Coronal reformations were performed. Dose lowering technique(s)such as automated exposure control, iterative reconstruction, mA and/or KVadjustment for patient's size was utilized for this examination. CONTRAST: None. FINDINGS: Lower chest: The lung bases are clear. The included mediastinum isunremarkable. Liver: Normal. Gallbladder: Surgically absent. Biliary system: No intra or extrahepatic ductal dilation. Pancreas: No mass lesion, duct dilatation, peripancreatic fluid or fluidcollection. Spleen: Not visualized. Minimal soft tissue in the splenic bed. This mayrepresent autoinfarcted spleen or surgical removal. Unchanged fromcomparison. Adrenals: No nodule or mass lesion. Kidneys: No renal stones, hydronephrosis or mass lesion. Vasculature: No aneurysm or dissection. Gastrointestinal: Partial visualization of the small and large bowel. Nobowel wall thickening, bowel obstruction, pneumatosis or diverticulitis. Lymph nodes: No pathologically enlarged lymph nodes. Other: No free fluid or focal fluid collection. Abdominal wall: No abdominal wall hernia. Musculoskeletal: No acute osseous injury or suspicious osseous lesion. IMPRESSION: 1. No visualized acute process in the abdomen. Dictated on: 11/02/2024 8:20 AM Signed by: Stuart Smith DO 11/02/2024 8:24 AM Wayne Rush MD IMG CT PROCEDURES Final Result * Stool Occult Blood (07/30/2023 10:36 AM EST) Occult, Blood Stool Negative Negative 07/30/2023 10:53 AM EST [facility] Stool Rectal contents / Unknown Non-blood Collection / Unknown 07/30/2023 10:36 AM EST 07/30/2023 10:43 AM EST Josh Currie MD LAB BODY FLUIDS AND STOOLS BLAKE PASCUAL Final Result [facility] [address] [place], [place] [id number], from Last 3 Months or Most Recently Relevant to Health Maintenance Additional Health Concerns Infection Onset Date Last Indicated MSSA 03/05/2024 03/05/2024 Insurance [employer] H[employer] Advance Directives For more information, please contact: [phone] * Full Code (Latest Code Status on File) Date Activated Date Inactivated Comments 09/25/2024 7:00 PM 09/27/2024 3:03 PM * Full Code Date Activated Date Inactivated Comments 07/10/2024 3:00 AM 07/11/2024 6:54 PM * Full Code Date Activated Date Inactivated Comments 05/21/2024 10:12 AM 05/23/2024 6:37 PM * Full Code Date Activated Date Inactivated Comments 04/08/2024 2:57 AM 04/08/2024 10:39 PM * Full Code Date Activated Date Inactivated Comments 03/05/2024 2:48 PM 03/07/2024 8:20 PM Care Teams [employer] Officer Relationship Specialty Start Date End Date John Paul Campa MD [address] [place], [place] [phone] PCP - General Internal Medicine 09/25/24 [place] [address] [place] [phone] Consulting Physician Hematology and Oncology 08/10/23
--- OUTSIDE RECORDS SUMMARY | 2025-01-27 12:06 | XMS_ITS | Clinical Summary ---
Author Organization [facility] Address [address], [place] [address] Phone Care Team Providers Care Installer Inspector Final Name Role Phone John Paul Campa MD Primary Care Provider [phone] Allergies Active Allergy Reactions Criticality Noted Date Comments Aspirin Stomach Upset Medium 08/03/2019 Medications cloNIDine (CATAPRES) 0.1 MG tablet Take 1 tablet (0.1 mg total) by mouth in the morning and 1 tablet (0.1 mg total) in the evening and 1 tablet (0.1 mg total) before bedtime. 90 tablet 11 4 Active allopurinol (ZYLOPRIM) 100 MG tablet Take 1 tablet (100 mg total) by mouth in the morning and 1 tablet (100 mg total) in the evening. 180 tablet 3 4 Active folic acid (FOLVITE) 1 MG tablet Take 1 tablet (1 mg total) by mouth 1 (one) time each day 90 tablet 1 4 Active amLODIPine (NORVASC) 10 MG tablet Take 10 mg by mouth 1 (one) time each day Active sodium bicarbonate 650 MG tablet TAKE ONE TABLET BY MOUTH ONE TIME DAILY DIRECTED 5 Active paricalcitol (ZEMPLAR) 1 MCG capsule Take 1 mcg by mouth 1 (one) time each day Active olmesartan (BENICAR) 5 MG tablet Take 1 tablet (5 mg total) by mouth 1 (one) time each day 30 tablet 11 5 12/28/19 26 Active Jardiance 10 MG tablet Take 10 mg by mouth every other day 30 tablet 11 5 Active Sodium Zirconium Cyclosilicate 10 g pack Take 10 g by mouth 1 (one) time each day 30 each 3 5 Active Active Problems Problem Noted Date Diagnosed Date Other proteinuria 09/21/2023 Overview (12/27/2024): Pt states farxiga caused hypoglycemia. Will change to Jardiance 10 mg every other day. Resume olmesartan 5 mg daily. Proteinuria & RAAS Blockade: Proteinuria represents intrinsic glomerular/tubular interstitial membrane damage either from a systemic or intrinsic renal disease. There is strong correlation with: -Worsening of GFR via accelerated Intrinsic Fibrosis/Sclerosis -Cardiovascular-Atherosclerotic -Endothelial dysfunction. Whether the patients has Hypertension or not, they will Benefit from RAAS Blockade via ACEI/ARB/DRI therapy, In addition to the Following: -Management of Metabolic Syndrome & Diabetes Mellitus -Management of Hemodynamics -Management of Hypertension with Target sbp 120-130 -Management and Restriction of Sodium Intake We should avoid the usage DUAL RAAS blockade (DRI+ACEI or ARB) based on the Ontarget Trial among others in particular it should be avoided in those with DM,CardioVAscular complications (CMP with Lvef Dysfunction) and PVD as the potential for mortality is high . Recommend continue (SGLT2) inhibitor but QOD based on the DAPPA trial. Data shows favorable effects in decreasing both kidney and cardiovascular adverse outcomes in individuals with diabetic kidney disease, nondiabetic proteinuric kidney disease, and heart failure with reduce ejection fraction (with and without precense on diabetes). Sodium glucose cotransporter 2 is responsible for the majority of glucose reabsorption in the proximal tubule. SGLT2 inhibitors increase urinary glucose excretion and lower blood glucose. Also have non-glycemic effects on improvements in blood pressure, lipids, and uric acid levels. Advised the patient to keep up with fluid intake and or made adjustments in diuretics as IVVD can occur with and osmotic diuretic drag with Glucosuria . SIde effects of the class of drug discussed, in particular issues. Chronic kidney disease stage 4 08/24/2023 Overview (08/24/2023): CardioRenal Syndrome: We should expect fluctuations of the GFR based on patients compromised LVEF plus diuretic usage, RAAS inhibition and intra Glomerular hemodynamics . Daily weights are critical in the daily management of diuretic usage. Instructions provided for the patient to auto-adjust based on fluid gain or lost. The patient was advised to monitor intrinsic blood pressure twice a day plus daily weights and report to me in 4 weeks with the log reading. We will notify the patient and make changes accordingly if needed. Hyperkalemia 08/24/2023 Overview (12/27/2024): Recurrent. He is well aware of low potassium diet. Resume once daily lokelma now that we are resuming his ARB because of proteinuria. Hyperuricemia 08/24/2023 Overview (09/21/2023): Uric Acid , is a product of purine metabolism. In humans and higher-order primates, there is a tendency to retain high levels of serum uric acid due to the loss of akey enzyme, uricase, which converts uric acid to water soluble allantoin. Elevated concentrations of uric acid in serum (hyperuricemia defined by serum uric acid concentration >7 mg/dL in men and >6 mg/dL in women), or elevated urinary uric acid concentrations (hyperuricosuria) can lead to gout and uric acid nephrolithiasis and increase the risk for hypertension, acceleration of chronic kidney disease, and cardiovascular disease. Patient was advised to decrease fluid intake such as red meat, seafood shrimp, alcohol, etc In addition to dietary restriction, the medical therapy will consist of either allopurinol or Uloric. We will strive to maintain a uric acid less than 6.5. Continue allopurinol BID Hyperparathyroidism due to renal insufficiency 0 08/24/2023 Overview (12/27/2024): Secondary Hyperparathyroidism and its complexity with renal involvement was discussed with patient at [facility]. Data discussed with its Renal Osteodystrophy and cardiovascular M & M association. Patient's compliance is extremely importance in its management. Our goal is to maintain the PTH between <75. Certainly need to avoid oversuppression and adynamic bone disease. Recently started on zemplar Hypertensive crisis 08/15/2023 Overview (08/15/2023): Hospitalized. 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 We will need to check updated labs since his hospital discharge. In addition, patient was advised to: -Avoid prolonged dehydration, -Hypotension, -Contrast exposure, -NSAID or PPI use, -Monitor and report any allergic reaction to any medication or other potential nephrotoxic injury Furthermore, we will continue to focus on addressing and managing the metabolic derangements of the particular CKD stage in hopes to maintain metabolic neutrality and avoid further deterioration of the GFR. Each CKD stage has specific laboratory abnormalities that need attention in conjuction to main systemic Illness such as DM , HTN, Cardiac stable plus Dietary modification. The metabolic neutrality of all lead to the Nephrological Management Complexity of our subspecialty. They all play a critical role in management in hopes to reduce the rapidity of gfr loss and ultimate preservation or slowing of Nephron demise and ESRD. Iron deficiency anemia 07/20/2023 Overview (08/24/2023): Currently on procrit injection with his hematology office. Has hx of thalassemia. Continue with procrit as per his hemaotology doctor Thalassemia 03/11/2020 Overview (08/15/2023): He normally runs a hemoglobin between 6.5 and 7.5. He is getting Procrit through the capping machine operator. Essential (primary) hypertension 02/26/2020 Overview (12/27/2024): I advised the patient and family (when present) about the importance of maintaining SBP 120-130 based Literature guidelines in addition to comorbid conditions and end-organ complications. This is based on multi-regression analysis of all Hypertensive data, as reported on the JNC-7 and prior studies. Although , there are conflicting suggestions of target SBP from JNC 8 as described by some ... Then comes the SPRINT Trial which showed significant cardiovascular outcome with target [id number]'s as compared to controls <140. Pte is aware of importance of monitoring Bp at home and report log as discussed. Resume olmesartan 5 mg daily and cut down amlodipine to 5 mg daily. Monitor BP Resolved Problems Problem Noted Date Diagnosed Date Resolved Date Vitamin D deficiency 07/20/2023 024 Overview (07/20/2023): Continue daily vitamin D supplement. Check updated Vitamin D levels. Stage 3a chronic kidney disease 06/29/2022 08/15/2023 Encounters Date Type Department Care Team Description 12/27/2024 2:00 PM EDT Office Visit [facility] [address] [place] [address] [place] [address] Maxx Soares MD Stage 3b chronic kidney disease (CMS-HCC) (Primary Dx); Essential (primary) hypertension; Hyperkalemia; Hyperuricemia; Other proteinuria; Hyperparathyroidism due to renal insufficiency (CMS-HCC) from Last 3 Months Family History Medical History Relation Comments Hypertension Father Hypertension Mother Relation Status Comments Father Alive Mother Alive Social History Tobacco Use Types Packs/Day Years Used Date Smoking Tobacco: Never Smokeless Tobacco: Never Tobacco Cessation:Counseling Given: Not Answered Alcohol Use Standard Drinks/Week Comments Never 0 (1 standard drink = 0.6 oz pur e alcohol) Sex and Gender Information Value Date Recorded Sex Assigned at Not on file Legal Sex Male 7:04 PM MDT Gender Identity Not on file Sexual Orientation Not on file Last Filed Vital Signs Vital Sign Reading Time Taken Comments Blood Pressure 128/63 12/27/2024 10:11 AM EDT Pulse 72 12/27/2024 10:11 AM EDT Temperature - - Respiratory Rate 16 02/26/2020 9:17 AM EDT Oxygen Saturation 99% 12/27/2024 10:11 AM EDT Inhaled Oxygen Concentration - - Weight 74.8 kg (165 lb) 12/27/2024 10:11 AM EDT Height 185.4 cm (6' 1) 12/27/2024 10:11 AM EDT Body Mass Index 21.77 12/27/2024 10:11 AM EDT Plan of Treatment Upcoming Encounters Date Type Department Care Team (Late st Contact Info) Description 02/19/2025 10:00 AM EDT Office Visit [facility] [address] [place] [address] Maxx Soares MD [address] [place] [address] Health Maintenance Due Date Last Done Comments Diabetic Foot Exam 11/15/1965 Ophthalmology Exam 11/15/1965 Pneumococcal PPSV23/PCV13 65 + Years / High and Highest Risk (1 of 5 - PCV) 11/15/1974 Influenza Vaccine (#1) 2025 Insurance [employer] Care Teams Installer Inspector Final Relationship Specialty Start Date End Date John Paul Campa MD [address] [place] [address] PCP - General 05/29/24
[2025-01-27 12:13] LABS: Fractional Inspired Oxygen 21 %; HCO3 VBG 13.4 mEq/l (24.0-30.0); PO2 VBG 56.6 mmHg (35.0-45.0)
[2025-01-27] MEDS: KETOROLAC 15 MG/ML VIAL (*BKC) IV PUSH (12:14)
[2025-01-27 12:16] LABS: PCO2 VBG 19.7 mmHg (42.0-48.0); pH VBG 7.450 (7.300-7.400)
[2025-01-27 12:16] LABS: Hematocrit 29.9 % (42.0-52.0); Hemoglobin 9.1 g/dL (14.0-18.0); Immature Platelet Fraction Pct 7.4 % (0.9-11.2); Mean Corpuscular HGB Conc 30.4 g/dl (32-36); Mean Corpuscular Hemoglobin 18.7 pg (26-34); Mean Corpuscular Volume 61.4 fl (80-100); Platelet Count Result 185 k/mm3 (150-375); Red Blood Count 4.87 M/mm3 (4.6-6.20); White Blood Count 12.1 K/mm3 (4.5-10.0)
[2025-01-27] MEDS: HYDROmorphone HCL INJ (*CRX) 2 MG/ML VIAL 3 MG IV PUSH (12:17)
[2025-01-27 12:24] LABS: Alanine Aminotransferase 36 U/L (6-50); Albumin Level 4.2 g/dL (3.5-5.1); Alkaline Phosphatase 177 U/L (38-126); Anion Gap 13 mmol/L (4-12); Aspartate Amino Transferase 60 U/L (17-59); Bilirubin,Total 3.1 mg/dL (0.2-1.3); Blood Urea Nitrogen 51 mg/dL (9-20); Calcium 9.3 mg/dL (8.4-10.2); Carbon Dioxide 15 mmol/L (22-30); Chloride 108 mmol/L (98-107); Estimated CRCL calculation 27 ml/min; Estimated Glomerular Filt Rate 26; Glucose 118 mg/dL (65-110); Lipase 317 U/L (23-300); Magnesium 2.1 mg/dL (1.6-2.3); Potassium 5.8 mmol/L (3.4-5.0); Sodium 136 mmol/L (137-145); Total Protein 8.8 g/dL (6.3-8.2)
[2025-01-27] MEDS: ACETAMINOPHEN 500 MG TABLET 1000 MG PO (12:24)
[2025-01-27 12:36] LABS: NT Pro B Type Natriuretic Pept 970 pg/mL (19.9-100); Troponin I 0.023 ng/mL (0.000-0.034)
[2025-01-27 12:40] LABS: Immature Reticulocyte Fraction 25.7 % (3.0-15.9); Reticulocyte Hemoglobin Conten 21.7 pg (28.2-36.6); Reticulocytes Absolute 0.32 10^6/uL (0.02-0.10)
[2025-01-27 12:51] LABS: Influenza A QL RT-PCR Negative (Negative); Influenza B QL RT-PCR Negative (Negative); RSV RNA, RT-PCR Negative (Negative); SARS-CoV-2 RNA PCR Negative (Negative)
[2025-01-27 12:58] LABS: Band Neutrophils Percent 2 % (0-6); Lymphocytes Absolute Manual 2.29 K/mm3 (1.1-4.5); Lymphocytes Percent Manual 19 % (18-44); Monocytes Absolute Manual 1.33 K/mm3 (0.1-0.90); Monocytes Percent Manual 11 % (3-9); Neutrophils Absolute Manual 8.47 K/mm3 (1.3-6.7); Neutrophils Percent Manual 68 % (46-73); Total Cells Counted 100
[2025-01-27 12:59] LABS: Anisocytosis 2+; Hypochromasia 2+; Poikilocytosis 2+; Polychromasia 2+
[2025-01-27 13:00] LABS: Helmet Cells 1+; Sickle Cells 2+; Target Cells 3+
[2025-01-27 13:01] LABS: Schistocytes 1+
[2025-01-27 13:02] LABS: Acanthocytes 1+
[2025-01-27] MEDS: SODIUM ZIRCONIUM CYCLOSILICATE 10 GM POWD.PACK PO ×2 (13:58→21:46)
--- NOTE | 2025-01-27 14:16 | PC.NURSE ---
Pt reports still unable to void
--- NOTE | 2025-01-27 14:47 | ECG_ITS ---
Test Date: 2025-01-27 14:57:19 Measurements Intervals [place] Rate: 103 P: 26 ME: 233 QRS: 74 QRSD: 109 T: 26 QT: 323 QTc: 423 Interpretive Statements SINUS TACHYCARDIA WITH FIRST DEGREE AV BLOCK POSSIBLE LEFT ATRIAL ENLARGEMENT [-0.1mV P-WAVE IN V1/V2] ST-T WAVE CHANGES SUGGESTIVE OF ISCHEMIA Compared to ECG 01/27/2025 10:49:45 Sinus bradycardia no longer present Electronically Signed On 01-28-2025 15:50:47 CDT by Duncan Burks M.D.
[2025-01-27 15:37] LABS: Troponin I 0.022 ng/mL (0.000-0.034)
[2025-01-27 16:02] LABS: Cannabinoid Screen Urine Negative (Negative)
[2025-01-27 16:07] LABS: Add Urine Microscopic? YES; Appearance Urine Clear (Clear); Glucose Urine UA Negative (Negative); Leukocyte Esterase Ur Trace LEU/UL (Negative); Nitrate Urine Negative (Negative); Non Pathogenic Casts 0-2; Specific Grav Ur 1.008 (1.001-1.035)
[2025-01-27] MEDS: LACTATED RINGERS 1,000 ML 999 ML IV CONT ×2 (16:28)
--- NOTE | 2025-01-27 17:09 | PC.NURSE ---
EDP gave VORB that pt is able to take his home medication including the following : 5mg amlodipine and 0.1mg clonidine for his blood pressure.
--- NOTE | 2025-01-27 17:15 | ECG_ITS ---
Test Date: 2025-01-27 17:45:42 Measurements Intervals [place] Rate: 90 P: 33 MO: 204 QRS: 12 QRSD: 126 T: 45 QT: 362 QTc: 444 Interpretive Statements SINUS RHYTHM WITH SINUS ARRHYTHMIA MODERATE INTRAVENTRICULAR CONDUCTION DELAY [110+ ms QRS DURATION] FIRST-DEGREE AV BLOCK Compared to ECG 01/27/2025 14:57:19 Intraventricular conduction delay now present Possible ischemia no longer present Electronically Signed On 01-28-2025 15:53:16 CDT by Duncan Burks M.D.
--- NOTE | 2025-01-27 18:40 | PC.NURSE ---
Phlebotomy called to get repeat lactic at this time.
--- NOTE | 2025-01-27 18:42 | PC.NURSE ---
Report given to Kinza SANTANA all questions answered
--- NOTE | 2025-01-27 19:07 | PC.NURSE ---
Phlebotomy at bedside at this time.
[2025-01-27] MEDS: SODIUM BICARBONATE 8.4% 100 MEQ in WATER, STERILE FOR INJECTION 1,000 ML 75 MEQ IV CONT (19:35)
--- NOTE | 2025-01-27 20:07 | P.HP_ITS ---
H&P: HPI History of Present Illness Date/Time: 01/27/25 20:07 Chief Complaint: Chest pain Narrative: 69 yo male with PMH of sickle cell with PMH of HTN, CKD III, CHF who presented to the on account of chest and lower extremities. Patient lives in [place] and came to [place] for a gnosticism function which concluded yesterday, he started having symptoms yesterday which worsening today causing him to presented to the ER for proper eval and care. Denies any SOB, abdpain, fever, focal weakness or numbness, diarrhea or vomiting. ER eval notable for PPR 113, RR 18, BP 176/86, saturating 99% on room air. Labs notable for WBC 12.1, hb 9.1, Na 136, K 5.8, CO2 15, Cr 2.5, Lactic aic 3.1 repeat 2.6. CTA chest showed no PE but showed cardiomegaly showed hightly suggetive pulm hypertensio with monimal interstitial thickening wihich may indicate early pulm edema and possible left kidney stone. Venous doppler negative for DVT. Patient was started on IVF and IV Dilaudid PRN prior to admission. Patient appea red to be overdose o Dilaudid in the ER and was given Narcan prior to admission whcih he responded to. Review of Systems Review of Systems: All other systemes were reviewed and negative except as noted in the HPI above Meds Home Medications and Allergies Home Medications ?Medication ?Instructions ?Recorded ?Confirmed ?Type allopurinol 100 mg tablet 100 mg PO Q12H 01/27/25 01/27/25 History amlodipine 5 mg tablet 5 mg PO DAILY 01/27/25 01/27/25 History clonidine HCl 0.1 mg tablet 0.1 mg PO TID 01/27/25 01/27/25 History epoetin riley-epbx 40,000 unit/mL 40,000 unit subcut WEEKLY 01/27/25 01/27/25 History injection solution (Retacrit) folic acid 1 mg tablet 1 mg PO DAILY 01/27/25 01/27/25 History olmesartan 5 mg tablet 5 mg PO DAILY 01/27/25 01/27/25 History paricalcitol 1 mcg capsule 1 mcg PO DAILY 01/27/25 01/27/25 History pregabalin 150 mg capsule 150 mg PO HS 01/27/25 01/27/25 History sodium bicarbonate 650 mg tablet 650 mg PO DAILY 01/27/25 01/27/25 History sodium zirconium cyclosilicate 10 10 g PO DAILY 01/27/25 01/27/25 History gram oral powder packet (Lokelma) tramadol 50 mg tablet 50 mg PO Q8H PRN pain 01/27/25 01/27/25 History Allergies Allergy/AdvReac Type Severity Reaction Status Date / Time ibuprofen Allergy Unknown Verified 01/27/25 11:35 aspirin AdvReac Unknown Other Verified 01/27/25 11:35 Vital Signs Vital Signs - 24 hr 01/27/25 10:39 01/27/25 11:32 01/27/25 11:32 Temperature 97.6 F 97.5 F L Pulse Rate 60 74 79 Respiratory Rate 16 20 Blood Pressure 171/64 H 165/119 H Pulse Oximetry 100 100 Oxygen Delivery Room Air Room Air Oxygen Flow Rate 01/27/25 12:34 01/27/25 13:03 01/27/25 14:12 Temperature Pulse Rate 115 H 114 H Respiratory Rate 21 H 13 Blood Pressure 187/96 H 187/99 H Pulse Oximetry 96 98 95 Oxygen Delivery Nasal Cannula Oxygen Flow Rate 3 01/27/25 14:46 01/27/25 15:30 01/27/25 16:45 Temperature Pulse Rate 113 H 108 H Respiratory Rate 18 15 Blood Pressure 176/86 H 177/77 H Pulse Oximetry 96 96 99 Oxygen Delivery Room Air Oxygen Flow Rate 01/27/25 16:46 01/27/25 17:39 Temperature Pulse Rate 94 92 Respiratory Rate 13 12 Blood Pressure 177/72 H 182/69 H Pulse Oximetry 100 97 Oxygen Delivery Oxygen Flow Rate Exam Narrative: General: lethargic but responding to question and compliant Eyes: EOMI, PERRLA ENNT External ears normal, Neck is supple, no masses, Respiratory systems: Clear to auscultation Cardiovascular S1, S2, normal rhythm, no murmur, rub, or gallop; no thrill or palpable murmurs on palpation. Gastrointestinal: soft, non-tender, and non-distended abdomen with no masses; BS present Skin: no rash, lesions, ulcerations, subcutaneous nodules or induration Musculoskeletal: no abnormality and no tenderness, normal ROM Neurologic: Alert and oriented x3, non focal Mental Status Exam: normal affect H&P: Results Labs Labs: Short CBC 01/27/25 Range/Units 12:09 WBC 12.1 H (4.5-10.0) K/mm3 Hgb 9.1 L (14.0-18.0) g/dL Hct 29.9 L (42.0-52.0) % Plt Count 185 (150-375) k/mm3 BMP 01/27/25 12:09 Sodium 136 L Potassium 5.8 H Chloride 108 H Carbon Dioxide 15 L BUN 51 H Creatinine 2.50 H Glucose 118 H Calcium 9.3 Cardiac Enzymes 01/27/25 01/27/25 01/27/25 Range/Units 12:09 12:09 14:58 Troponin I 0.023 Cancelled 0.022 (0.000-0.034) ng/mL Liver Function 01/27/25 Range/Units 12:09 Total Bilirubin 3.1 H (0.2-1.3) mg/dL AST 60 H (17-59) U/L ALT 36 (6-50) U/L Alkaline Phosphatase 177 H (38-126) U/L Albumin 4.2 (3.5-5.1) g/dL Urine 01/27/25 Range/Units 15:39 Urine Color Yellow (Yellow) Urine Appearance Clear (Clear) Urine pH 6.5 (5.0-9.0) Ur Specific [place] 1.008 (1.001-1.035) Urine Protein 3+ H (Negative) mg/dL Urine Glucose (UA) Negative (Negative) mg/dL Assessment and Plan Assessment and plan (1) Pain crisis: Code(s): R52 - Pain, unspecified Status: Acute (2) Overdose of opiate or related narcotic: Code(s): T40.601A - Poisoning by unspecified narcotics, accidental (unintentional), initial encounter Status: Acute Plan Sickle cell pain crisis patient has history of Sickle cell disease CTA Chest reviewed, no PE but showed cardiomegaly and possible pulm edema Noted pain is improving COntineu IVF and PRN pain control monitor Sickle cell anemia hb 9.1 patient on epoietin Continue monitoring Metabolic acidosis Co2 15 with anion gap of 13 started on Bicarb infusion restarted on home bicarb tablets monitor hyperkalemia K 5.8 Conitnue home Zirconium monitor K level CKD, stage III cr 2.5 monitor HTN conitnue home meds CHF, no ECHO, unable to specify CT chest reviewed monitor for now DVT prophylaxis on Sq lovenox full code SDM: Spouse Meuhl Estrada Hospitalist [facility] Advance Care Plan I have confirmed that the patient's Advanced Care Plan is present, code status is documented, or surrogate decision maker is listed in patient medical record.: Yes Medication Reconciliation I have utilized all available resources to obtain, update and review the patients current medications (includes all prescriptions, OTC, herbals, cannabis, and nutritional supplements).: Yes
--- NOTE | 2025-01-27 20:50 | ADMGEN ---
This patient, Cecilio Estrada, was admitted to Medical Room 349-01. Patient/family oriented to hospital policies and general routines including ID bracelet, bed and alarms, visiting hours, pain management, procedures, bathroom and other care routines, personal items, smoking policy, room service/diet, and visiting hours. Information on how to activate the Rapid Response Team has been discussed. Patient/Family are encouraged to report perceived risks to care and to ask questions if they do not understand what they are told or what they should do.
[2025-01-28] VITALS (8 sets, daily range): BP systolic 148–181; BP diastolic 70–78; PULSE 66–84; RESP 12–20; TEMP 36.8–37; O2SAT 86–95
[2025-01-28] MEDS: traMADol HCL (*CRX) 50 MG TABLET PO ×3 (04:25→21:24)
[2025-01-28] MEDS: traMADol HCL (*CRX) 25 MG TABLET PO (06:32)
[2025-01-28 07:10] LABS: Hematocrit 24.4 % (42.0-52.0); Hemoglobin 7.4 g/dL (14.0-18.0); Immature Platelet Fraction Pct 8.5 % (0.9-11.2); Mean Corpuscular HGB Conc 30.3 g/dl (32-36); Mean Corpuscular Hemoglobin 18.7 pg (26-34); Mean Corpuscular Volume 61.6 fl (80-100); Platelet Count Result 152 k/mm3 (150-375); Red Blood Count 3.96 M/mm3 (4.6-6.20); White Blood Count 15.3 K/mm3 (4.5-10.0)
[2025-01-28 07:29] LABS: Alanine Aminotransferase 120 U/L (6-50); Albumin Level 3.3 g/dL (3.5-5.1); Alkaline Phosphatase 151 U/L (38-126); Anion Gap 10 mmol/L (4-12); Aspartate Amino Transferase 177 U/L (17-59); Bilirubin,Total 3.3 mg/dL (0.2-1.3); Blood Urea Nitrogen 58 mg/dL (9-20); Calcium 8.9 mg/dL (8.4-10.2); Carbon Dioxide 19 mmol/L (22-30); Chloride 102 mmol/L (98-107); Estimated CRCL calculation 19 ml/min; Estimated Glomerular Filt Rate 17; Glucose 89 mg/dL (65-110); Magnesium 2.1 mg/dL (1.6-2.3); Potassium 4.7 mmol/L (3.4-5.0); Sodium 131 mmol/L (137-145); Total Protein 6.9 g/dL (6.3-8.2)
[2025-01-28 07:45] LABS: Anisocytosis 2+; Band Neutrophils Percent 1 % (0-6); Eosinophils Absolute Manual 0.15 K/mm3 (0.02-0.50); Eosinophils Percent Manual 1 % (0-4); Hypochromasia 3+; Lymphocytes Absolute Manual 1.98 K/mm3 (1.1-4.5); Lymphocytes Percent Manual 13 % (18-44); Monocytes Absolute Manual 0.30 K/mm3 (0.1-0.90); Monocytes Percent Manual 2 % (3-9); Neutrophils Absolute Manual 12.39 K/mm3 (1.3-6.7); Neutrophils Percent Manual 80 % (46-73); Poikilocytosis 2+; Sickle Cells 2+; Target Cells 2+; Total Cells Counted 100
[2025-01-28 07:46] LABS: Acanthocytes 1+; Schistocytes 1+
[2025-01-28 09:44] LABS: Alveolar/Arterial O2 Gradient 52.8 mmHg; Fractional Inspired Oxygen 21 %; HCO3 ABG 20.7 mEq/l (22.0-26.0); Oxygen Content ABG 9.0 %vol (16.0-22.0); PCO2 ABG 38.6 mmHg (35.0-45.0); PO2 ABG 50.7 mmHg (80.0-100.0); PO2 FiO2 Ratio Arterial Blood 2.41 %
[2025-01-28 10:07] LABS: Oxygen Saturation ABG 84.3 % (95.0-100.0)
[2025-01-28 10:08] LABS: Modified Allen's Test Pass; Site Drawn RIGHT RADIAL
[2025-01-28] MEDS: OLMESARTAN MEDOXOMIL 5 MG TABLET PO (10:31)
[2025-01-28] MEDS: SODIUM BICARBONATE TAB 650 MG TABLET PO (10:31)
[2025-01-28] MEDS: SODIUM BICARBONATE 8.4% 100 MEQ in WATER, STERILE FOR INJECTION 1,000 ML 75 MEQ IV CONT (10:32)
--- NOTE | 2025-01-28 13:53 | P.PNIM_ITS ---
Progress Note: A&P Assessment and Plan (1) Pain crisis: Code(s): R52 - Pain, unspecified Status: Acute (2) Overdose of opiate or related narcotic: Code(s): T40.601A - Poisoning by unspecified narcotics, accidental (unintentional), initial encounter Status: Acute Plan Sickle cell pain crisis patient has history of Sickle cell disease CTA Chest reviewed, no PE but showed cardiomegaly and possible pulm edema still in pain but improvin Continue IVF and PRN pain control monitor Sickle cell anemia hb 7.4 today patient on epoietin Continue monitoring Metabolic acidosis, resolving Co2 19 from 15 , anion gap resolved continue Bicarb infusion on home bicarb tablets monitor hyperkalemia, resolved K 4.7 Continue home Zirconium monitor K level RENY on CKD, stage III cr 2.5 , 3.5 today Contineu IVF and monitor HTN continue home meds CHF, no ECHO, unable to specify CT chest reviewed monitor for now DVT prophylaxis on Sq lovenox full code SDM: Spouse Mehul Estrada Subjective Date/time seen: 01/28/25 13:53 Interval history: Comfortable at bedside Still acidotic Review of Systems Review of Systems: All other systemes were reviewed and negative except as noted in the HPI above Exam Narrative: General: lethargic but responding to question and compliant Eyes: EOMI, PERRLA ENNT External ears normal, Neck is supple, no masses, Respiratory systems: Clear to auscultation Cardiovascular S1, S2, normal rhythm, no murmur, rub, or gallop; no thrill or palpable murmurs on palpation. Gastrointestinal: soft, non-tender, and non-distended abdomen with no masses; BS present Skin: no rash, lesions, ulcerations, subcutaneous nodules or induration Musculoskeletal: no abnormality and no tenderness, normal ROM Neurologic: Alert and oriented x3, non focal Mental Status Exam: normal affect Objective Data Vital Signs Vital Signs: Vital Signs - 24 hr 01/27/25 14:12 01/27/25 14:46 01/27/25 15:30 Temperature Pulse Rate 114 H 113 H 108 H Respiratory Rate 13 18 15 Blood Pressure 187/99 H 176/86 H 177/77 H Pulse Oximetry 95 96 96 Oxygen Delivery Fraction of Inspired Oxygen 01/27/25 16:45 01/27/25 16:46 01/27/25 17:39 Temperature Pulse Rate 94 92 Respiratory Rate 13 12 Blood Pressure 177/72 H 182/69 H Pulse Oximetry 99 100 97 Oxygen Delivery Room Air Fraction of Inspired Oxygen 01/27/25 21:11 01/27/25 21:15 01/27/25 22:00 Temperature 98.2 F Pulse Rate 57 L Respiratory Rate 18 Blood Pressure 181/83 H Pulse Oximetry 97 95 Oxygen Delivery Room Air Room Air Fraction of Inspired Oxygen 21 01/28/25 00:00 01/28/25 00:00 01/28/25 04:00 Temperature 98.6 F Pulse Rate 71 77 66 Respiratory Rate 18 Blood Pressure 158/77 H Pulse Oximetry 90 Oxygen Delivery Fraction of Inspired Oxygen 01/28/25 04:00 01/28/25 08:00 01/28/25 12:00 Temperature 98.2 F 98.4 F 98.6 F Pulse Rate 78 83 74 Respiratory Rate 20 12 12 Blood Pressure 181/74 H 148/72 H 156/78 H Pulse Oximetry 93 92 86 L Oxygen Delivery Fraction of Inspired Oxygen Intake/Output Intake/Output: Intake & Output 01/25/25 01/26/25 01/27/25 01/28/25 23:59 23:59 23:59 23:59 Intake Total 1999 1440 Output Total 200 Balance 1999 1240 Meds/Results Medications: Active Medications Generic Name Dose Route Start Last Admin Trade Name Alejandroq PRN Reason Stop Dose Admin Allopurinol 100 mg 01/27/25 21:00 01/28/25 10:31 Allopurinol 100 Mg Tablet PO 100 mg Q12HR KYAW Administration Amlodipine Besylate 5 mg 01/28/25 09:00 01/28/25 10:31 Amlodipine Besylate 5 Mg Tablet PO 5 mg DAILY KYAW Administration Clonidine HCl 0.1 mg 01/28/25 09:00 01/28/25 10:31 Clonidine Hcl 0.1 Mg Tablet PO 0.1 mg TID KYAW Administration Heparin Sodium (Porcine) 5,000 units 01/27/25 22:00 01/28/25 05:06 Heparin Sodium 5,000 Units/Ml Vial SUB-Q 5,000 units Q8HR KYAW Administration Sodium Bicarbonate 100 meq/ 1,100 mls @ 75 mls/hr 01/27/25 19:00 01/28/25 10:32 Sterile Water IV CONT 75 mls/hr .[id number] KYAW Administration Olmesartan 5 mg 01/28/25 09:00 01/28/25 10:31 Olmesartan Medoxomil 5 Mg Tablet PO 5 mg DAILY KYAW Administration Sodium Bicarbonate 650 mg 01/28/25 09:00 01/28/25 10:31 Sodium Bicarbonate Tab 650 Mg Tablet PO 650 mg DAILY KYAW Administration Sodium Zirconium Cyclosilicate 10 gm 01/27/25 19:00 01/28/25 10:36 Sodium Zirconium Cyclosilicate 10 Gm Powd.Pack PO Not Given DAILY KYAW Tramadol HCl 50 mg 01/27/25 20:26 01/28/25 12:50 Tramadol Hcl (*Crx) 50 Mg Tablet PO 50 mg Q8H PRN Administration pain 4-6 Radiology Results: ITS Impressions Chest CTA 01/27/25 19:20 IMPRESSION: 1. No pulmonary embolism. 2. Cardiomegaly with highly suggestive pulmonary hypertension with minimal interstitial thickening which may indicate early pulmonary edema. Clinical correlation advised. 3. Possible left kidney stone. Venous Doppler Study 01/27/25 19:29 IMPRESSION: Negative bilateral lower extremity venous US. No deep vein thrombosis. Chest X-Ray 01/28/25 11:36 IMPRESSION: 1. Bronchial wall thickening and opacities at the bilateral lower lung zones which could represent pneumonia or mild pulmonary edema. 2. 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 Labs Labs: Laboratory Results - last 24 hr 01/27/25 01/27/25 01/27/25 14:58 15:19 15:39 WBC RBC Hgb Hct MCV MCH MCHC RDW Plt Count MPV Immature Gran % (Auto) Neut % (Auto) Lymph % (Auto) [place] % (Auto) Eos % (Auto) Baso % (Auto) Lymph # (Auto) [place] # (Auto) Eos # (Auto) Baso # (Auto) Abs Immat Gran (auto) Absolute Neuts (auto) Absolute Nucleated RBC Total Counted Neutrophils % (Manual) Band Neutrophils % Lymphocytes % (Manual) Monocytes % (Manual) Eosinophils % (Manual) Nucleated RBC % Abs Neuts (Manual) Abs Lymphs (Manual) Abs Monocytes (Manual) Absolute Eos (Manual) Nucleated RBCs Atypical Lymphocytes Platelet Estimate % Immature Plt Fraction Hypochromasia Poikilocytosis Anisocytosis Pappenheimer Bodies Sickle Cells Target Cells [place] Bodies Acanthocytes (Spur) Schistocytes Puncture Site ABG pH ABG pCO2 ABG pO2 ABG PO2/FiO2 Ratio ABG HCO3 ABG O2 Saturation ABG O2 Content ABG Base Excess A-a Gradient Oxyhemoglobin Total Hemoglobin O2 Delivery Device O2 Liters/Min FiO2 Sodium Potassium Chloride Carbon Dioxide Anion Gap BUN Creatinine Estim Creat Clear Calc Estimated GFR Glucose Lactic Acid 3.1 H Calcium Magnesium Total Bilirubin AST ALT Alkaline Phosphatase Troponin I 0.022 Total Protein Albumin Urine Color Yellow Urine Appearance Clear Urine pH 6.5 Ur Specific [place] 1.008 Urine Protein 3+ H Urine Glucose (UA) Negative Urine Ketones Negative Ur Blood (Man) 2+ H Urine Nitrate Negative Urine Bilirubin Negative Urine Urobilinogen 1.0 Leukocyte Esterase Rfl Trace H Urine RBC 0-2 Urine WBC 0-5 Ur Squamous Epith Cells None seen Urine Bacteria None seen Urine Casts 0-2 Urine Opiates Screen Negative Urine Methadone Screen Negative Ur Barbiturates Screen Negative Ur Phencyclidine Scrn Negative Ur Amphetamine Screen Negative U Benzodiazepines Scrn Negative Urine Cocaine Screen Negative U Cannabinoids Screen Negative 01/27/25 01/28/25 01/28/25 19:11 06:41 09:36 WBC 15.3 H RBC 3.96 L Hgb 7.4 L Hct 24.4 L MCV 61.6 L MCH 18.7 L MCHC 30.3 L RDW 24.2 H Plt Count 152 MPV TNP Immature Gran % (Auto) Not Reportable Neut % (Auto) Not Reportable Lymph % (Auto) Not Reportable [place] % (Auto) Not Reportable Eos % (Auto) Not Reportable Baso % (Auto) Not Reportable Lymph # (Auto) Not Reportable [place] # (Auto) Not Reportable Eos # (Auto) Not Reportable Baso # (Auto) Not Reportable Abs Immat Gran (auto) Not Reportable Absolute Neuts (auto) Not Reportable Absolute Nucleated RBC Not Reportable Total Counted 100 Neutrophils % (Manual) 80 H Band Neutrophils % 1 Lymphocytes % (Manual) 13 L Monocytes % (Manual) 2 L Eosinophils % (Manual) 1 Nucleated RBC % Not Reportable Abs Neuts (Manual) 12.39 H Abs Lymphs (Manual) 1.98 Abs Monocytes (Manual) 0.30 Absolute Eos (Manual) 0.15 Nucleated RBCs 48 Atypical Lymphocytes Present Platelet Estimate Adequate % Immature Plt Fraction 8.5 Hypochromasia 3+ Poikilocytosis 2+ Anisocytosis 2+ Pappenheimer Bodies 2+ Sickle Cells 2+ Target Cells 2+ [place] Bodies 2+ Acanthocytes (Spur) 1+ Schistocytes 1+ Puncture Site Right radial ABG pH 7.348 L ABG pCO2 38.6 ABG pO2 50.7 L ABG PO2/FiO2 Ratio 2.41 ABG HCO3 20.7 L ABG O2 Saturation 84.3 L* ABG O2 Content 9.0 L ABG Base Excess -4.5 A-a Gradient 52.8 Oxyhemoglobin 77.2 L* Total Hemoglobin 8.2 L O2 Delivery Device Room air O2 Liters/Min Not Reportable FiO2 21 Sodium 131 L Potassium 4.7 Chloride 102 Carbon Dioxide 19 L Anion Gap 10 BUN 58 H Creatinine 3.55 H Estim Creat Clear Calc 19 Estimated GFR 17 L Glucose 89 Lactic Acid 2.6 H 1.3 Calcium 8.9 Magnesium 2.1 Total Bilirubin 3.3 H AST 177 H ALT 120 H Alkaline Phosphatase 151 H Troponin I Total Protein 6.9 Albumin 3.3 L Urine Color Urine Appearance Urine pH Ur Specific [place] Urine Protein Urine Glucose (UA) Urine Ketones Ur Blood (Man) Urine Nitrate Urine Bilirubin Urine Urobilinogen Leukocyte Esterase Rfl Urine RBC Urine WBC Ur Squamous Epith Cells Urine Bacteria Urine Casts Urine Opiates Screen Urine Methadone Screen Ur Barbiturates Screen Ur Phencyclidine Scrn Ur Amphetamine Screen U Benzodiazepines Scrn Urine Cocaine Screen U Cannabinoids Screen
[2025-01-28] MEDS: ACETAMINOPHEN 325 MG TABLET 650 MG PO (15:07)
[2025-01-28] MEDS: BISACODYL 10 MG SUPPOSITORY RECTAL (18:24)
--- NOTE | 2025-01-28 19:09 | PC.NURSE ---
RN spoke with hospitalist Glenn via telephone. Patient appears to have some facial swelling/puffiness. is concerned of fluid overload and patient not urinating enough. RN bladder scanned patient and 308mL were present.RN updated hospitalist on concerns. RN obtained order to straight cath patient if over 400mL present. RN obtained order for CMP and BMP. Hospitalist Glenn wanted called with results, but due to shift change shift mgr RN will report results to night hospitalist.
[2025-01-28 20:00] LABS: Alanine Aminotransferase 200 U/L (6-50); Albumin Level 3.5 g/dL (3.5-5.1); Alkaline Phosphatase 175 U/L (38-126); Anion Gap 10 mmol/L (4-12); Aspartate Amino Transferase 281 U/L (17-59); Bilirubin,Total 3.5 mg/dL (0.2-1.3); Blood Urea Nitrogen 57 mg/dL (9-20); Calcium 8.1 mg/dL (8.4-10.2); Carbon Dioxide 25 mmol/L (22-30); Chloride 88 mmol/L (98-107); Estimated CRCL calculation 19 ml/min; Estimated Glomerular Filt Rate 17; Glucose 129 mg/dL (65-110); Potassium 4.6 mmol/L (3.4-5.0); Sodium 123 mmol/L (137-145); Total Protein 7.5 g/dL (6.3-8.2)
[2025-01-28] MEDS: SODIUM CHLORIDE 500 MG TABLET 1000 MG PO (22:18)
[2025-01-29] VITALS (12 sets, daily range): BP systolic 148–188; BP diastolic 71–86; PULSE 70–99; RESP 12–18; TEMP 36.4–37.2; O2SAT 88–97
[2025-01-29 05:55] LABS: Hematocrit 24.9 % (42.0-52.0); Hemoglobin 7.6 g/dL (14.0-18.0); Immature Platelet Fraction Pct 8.5 % (0.9-11.2); Mean Corpuscular HGB Conc 30.5 g/dl (32-36); Mean Corpuscular Hemoglobin 18.5 pg (26-34); Mean Corpuscular Volume 60.7 fl (80-100); Platelet Count Result 154 k/mm3 (150-375); Red Blood Count 4.10 M/mm3 (4.6-6.20); White Blood Count 15.6 K/mm3 (4.5-10.0)
[2025-01-29 06:19] LABS: Alanine Aminotransferase 209 U/L (6-50); Albumin Level 3.3 g/dL (3.5-5.1); Alkaline Phosphatase 187 U/L (38-126); Anion Gap 9 mmol/L (4-12); Aspartate Amino Transferase 250 U/L (17-59); Bilirubin,Total 3.4 mg/dL (0.2-1.3); Blood Urea Nitrogen 63 mg/dL (9-20); Calcium 8.6 mg/dL (8.4-10.2); Carbon Dioxide 21 mmol/L (22-30); Chloride 95 mmol/L (98-107); Estimated CRCL calculation 16 ml/min; Estimated Glomerular Filt Rate 13; Glucose 105 mg/dL (65-110); Magnesium 2.0 mg/dL (1.6-2.3); Potassium 5.6 mmol/L (3.4-5.0); Sodium 125 mmol/L (137-145); Total Protein 7.0 g/dL (6.3-8.2)
[2025-01-29 06:40] LABS: Hypochromasia 3+; Lymphocytes Absolute Manual 0.46 K/mm3 (1.1-4.5); Lymphocytes Percent Manual 3 % (18-44); Monocytes Absolute Manual 0.31 K/mm3 (0.1-0.90); Monocytes Percent Manual 2 % (3-9); Neutrophils Percent Manual 33 % (46-73); Smudge Cells PRESENT; Total Cells Counted 100
[2025-01-29 06:41] LABS: Microcytosis 1+ (NORMAL); Poikilocytosis 1+; Sickle Cells 2+; Target Cells 2+
[2025-01-29 06:42] LABS: Acanthocytes 1+; Schistocytes 1+
[2025-01-29] MEDS: SODIUM BICARBONATE TAB 650 MG TABLET PO (10:13)
[2025-01-29] MEDS: OLMESARTAN MEDOXOMIL 5 MG TABLET PO (10:13)
[2025-01-29] MEDS: SODIUM ZIRCONIUM CYCLOSILICATE 10 GM POWD.PACK PO (10:14)
[2025-01-29] MEDS: traMADol HCL (*CRX) 50 MG TABLET PO (10:21)
[2025-01-29] MEDS: SODIUM CHLORIDE 0.9% IV 1,000 ML 75 ML IV CONT (14:03)
--- NOTE | 2025-01-29 14:27 | P.PNIM_ITS ---
Progress Note: A&P Assessment and Plan (1) Pain crisis: Code(s): R52 - Pain, unspecified Status: Acute (2) Overdose of opiate or related narcotic: Code(s): T40.601A - Poisoning by unspecified narcotics, accidental (unintentional), initial encounter Status: Acute Plan Sickle cell pain crisis patient has history of Sickle cell disease CTA Chest reviewed, no PE but showed cardiomegaly and possible pulm edema still in pain but improvin Continue IVF and PRN pain control monitor Sickle cell anemia hb 7.6 today patient on epoietin Continue monitoring Metabolic acidosis, resolving Co2 21, anion gap resolved continue Bicarb infusion on home bicarb tablets monitor hyperkalemia K 5.6 Continue home Zirconium monitor K level RENY on CKD, stage III cr 2.5 at baseline , worsening Contineu IVF and monitor consult nephrology team HTN uncontrolled continue home meds hydralazine prn CHF, no ECHO, unable to specify CT chest reviewed monitor for now DVT prophylaxis on Sq lovenox full code SDM: Spouse Mehul Estrada Subjective Date/time seen: 01/29/25 14:27 Interval history: per HPI: 69 yo male with PMH of sickle cell with PMH of HTN, CKD III, CHF who presented to the on account of chest and lower extremities. Patient lives in [place] and came to [place] for a orthodox function which concluded yesterday, he started having symptoms yesterday which worsening today causing him to presented to the ER for proper eval and care. Denies any SOB, abdpain, fever, focal weakness or numbness, diarrhea or vomiting. ER eval notable for PPR 113, RR 18, BP 176/86, saturating 99% on room air. Labs notable for WBC 12.1, hb 9.1, Na 136, K 5.8, CO2 15, Cr 2.5, Lactic aic 3.1 repeat 2.6. CTA chest showed no PE but showed cardiomegaly showed hightly suggetive pulm hypertensio with monimal interstitial thickening wihich may indicate early pulm edema and possible left kidney stone. Venous doppler negative for DVT. Patient was started on IVF and IV Dilaudid PRN prior to admission. Patient appeared to be overdose o Dilaudid in the ER and was given Narcan prior to admission whcih he responded to. 01/29/25 Felling better. pain improving/ WBC 15.6, hemoglobin 7.6, sodium 125, creatinine 4.43 ,elevated liver enzyme Continue IV fluid. We will get liver ultrasound. Review of Systems Review of Systems: All other systemes were reviewed and negative except as noted in the HPI above Exam Narrative: General: lethargic but responding to question and compliant Eyes: EOMI, PERRLA ENNT External ears normal, Neck is supple, no masses, Respiratory systems: Clear to auscultation Cardiovascular S1, S2, normal rhythm, no murmur, rub, or gallop; no thrill or palpable murmurs on palpation. Gastrointestinal: soft, non-tender, and non-distended abdomen with no masses; BS present Skin: no rash, lesions, ulcerations, subcutaneous nodules or induration Musculoskeletal: no abnormality and no tenderness, normal ROM Neurologic: Alert and oriented x3, non focal Mental Status Exam: normal affect Objective Data Vital Signs Vital Signs: Vital Signs - 24 hr 01/28/25 16:00 01/28/25 16:00 01/28/25 20:00 Temperature 98.5 F 98.4 F Pulse Rate 77 76 73 Respiratory Rate 12 17 Blood Pressure 168/70 H 164/74 H Pulse Oximetry 90 94 Oxygen Delivery Oxygen Flow Rate 01/28/25 21:30 01/28/25 21:30 01/29/25 00:00 Temperature Pulse Rate 75 76 Respiratory Rate Blood Pressure Pulse Oximetry 94 Oxygen Delivery Nasal Cannula Oxygen Flow Rate 1 01/29/25 00:34 01/29/25 04:00 01/29/25 04:34 Temperature 98.1 F 97.5 F L Pulse Rate 77 93 87 Respiratory Rate 18 17 Blood Pressure 155/71 H 148/76 H Pulse Oximetry 96 96 Oxygen Delivery Oxygen Flow Rate 01/29/25 10:22 01/29/25 10:22 Temperature Pulse Rate 84 Respiratory Rate Blood Pressure Pulse Oximetry Oxygen Delivery Room Air Oxygen Flow Rate Intake/Output Intake/Output: Intake & Output 01/26/25 01/27/25 01/28/25 01/29/25 23:59 23:59 23:59 23:59 Intake Total 1999 3540 980 Output Total 700 520 Balance 1999 2840 460 Meds/Results Medications: Active Medications Generic Name Dose Route Start Last Admin Trade Name Freq PRN Reason Stop Dose Admin Acetaminophen 650 mg 01/28/25 14:02 01/28/25 15:07 Acetaminophen 325 Mg Tablet PO 650 mg Q4H PRN Administration Mild Pain (1-3) or Fever Allopurinol 100 mg 01/27/25 21:00 01/29/25 10:13 Allopurinol 100 Mg Tablet PO 100 mg Q12HR KYAW Administration Amlodipine Besylate 5 mg 01/28/25 09:00 01/29/25 10:13 Amlodipine Besylate 5 Mg Tablet PO 5 mg DAILY KYAW Administration Clonidine HCl 0.1 mg 01/28/25 09:00 01/29/25 14:01 Clonidine Hcl 0.1 Mg Tablet PO 0.1 mg TID KYAW Administration Heparin Sodium (Porcine) 5,000 units 01/27/25 22:00 01/29/25 14:04 Heparin Sodium 5,000 Units/Ml Vial SUB-Q 5,000 units Q8HR KYAW Administration Sodium Chloride 1,000 mls @ 75 mls/hr 01/29/25 12:55 01/29/25 14:03 Normal Saline Iv IV CONT 75 mls/hr .[id number] KYAW Administration Olmesartan 5 mg 01/28/25 09:00 01/29/25 10:13 Olmesartan Medoxomil 5 Mg Tablet PO 5 mg DAILY KYAW Administration Sodium Bicarbonate 650 mg 01/28/25 09:00 01/29/25 10:13 Sodium Bicarbonate Tab 650 Mg Tablet PO 650 mg DAILY KYAW Administration Sodium Zirconium Cyclosilicate 10 gm 01/27/25 19:00 01/29/25 10:14 Sodium Zirconium Cyclosilicate 10 Gm Powd.Pack PO 10 gm DAILY KYAW Administration Tramadol HCl 50 mg 01/27/25 20:26 01/29/25 10:21 Tramadol Hcl (*Crx) 50 Mg Tablet PO 50 mg Q8H PRN Administration pain 4-6 Radiology Results: ITS Impressions Chest CTA 01/27/25 19:20 IMPRESSION: 1. No pulmonary embolism. 2. Cardiomegaly with highly suggestive pulmonary hypertension with minimal interstitial thickening which may indicate early pulmonary edema. Clinical correlation advised. 3. Possible left kidney stone. Venous Doppler Study 01/27/25 19:29 IMPRESSION: Negative bilateral lower extremity venous US. No deep vein thrombosis. Chest X-Ray 01/28/25 11:36 IMPRESSION: 1. Bronchial wall thickening and opacities at the bilateral lower lung zones which could represent pneumonia or mild pulmonary edema. 2. 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 Labs Labs: Laboratory Results - last 24 hr 01/28/25 01/29/25 19:44 05:45 WBC 15.6 H RBC 4.10 L Hgb 7.6 L Hct 24.9 L MCV 60.7 L MCH 18.5 L MCHC 30.5 L RDW 24.7 H Plt Count 154 MPV TNP Immature Gran % (Auto) Not Reportable Neut % (Auto) Not Reportable Lymph % (Auto) Not Reportable [place] % (Auto) Not Reportable Eos % (Auto) Not Reportable Baso % (Auto) Not Reportable Lymph # (Auto) Not Reportable [place] # (Auto) Not Reportable Eos # (Auto) Not Reportable Baso # (Auto) Not Reportable Abs Immat Gran (auto) Not Reportable Absolute Neuts (auto) Not Reportable Absolute Nucleated RBC Not Reportable Total Counted 100 Neutrophils % (Manual) 33 L Band Neutrophils % Not Reportable Lymphocytes % (Manual) 3 L Monocytes % (Manual) 2 L Nucleated RBC % Not Reportable Abs Lymphs (Manual) 0.46 L Abs Monocytes (Manual) 0.31 Nucleated RBCs 62 Smudge Cells Present Platelet Estimate Adequate % Immature Plt Fraction 8.5 Hypochromasia 3+ Poikilocytosis 1+ Microcytosis 1+ Pappenheimer Bodies 2+ Sickle Cells 2+ Target Cells 2+ Johnson-Segundo Bodies 1+ Acanthocytes (Spur) 1+ Schistocytes 1+ Sodium 123 L 125 L Potassium 4.6 5.6 H Chloride 88 L 95 L Carbon Dioxide 25 21 L Anion Gap 10 9 BUN 57 H 63 H Creatinine 3.61 H 4.43 H Estim Creat Clear Calc 19 16 Estimated GFR 17 L 13 L Glucose 129 H 105 Calcium 8.1 L 8.6 Phosphorus 4.6 H Magnesium 2.0 Total Bilirubin 3.5 H 3.4 H AST 281 H 250 H ALT 200 H 209 H Alkaline Phosphatase 175 H 187 H Total Protein 7.5 7.0 Albumin 3.5 3.3 L
[2025-01-29 15:24] LABS: Albumin Level 3.9 g/dL (3.5-5.1); Anion Gap 12 mmol/L (4-12); Blood Urea Nitrogen 62 mg/dL (9-20); Calcium 8.6 mg/dL (8.4-10.2); Carbon Dioxide 20 mmol/L (22-30); Chloride 92 mmol/L (98-107); Estimated CRCL calculation 14 ml/min; Estimated Glomerular Filt Rate 12; Glucose 157 mg/dL (65-110); Potassium 5.2 mmol/L (3.4-5.0); Sodium 124 mmol/L (137-145)
[2025-01-29] MEDS: SODIUM POLYSTYRENE SULFONONATE 15 GM/60 ML BTL PO (16:02)
[2025-01-29] MEDS: TAMSULOSIN HCL 0.4 MG CAPSULE PO (22:20)
[2025-01-30] VITALS (14 sets, daily range): BP systolic 145–185; BP diastolic 62–82; PULSE 87–107; RESP 16–20; TEMP 35.9–36.8; O2SAT 93–99
[2025-01-30] MEDS: SODIUM CHLORIDE 0.9% IV 1,000 ML 75 ML IV CONT ×2 (01:27→14:13)
[2025-01-30 05:18] LABS: Hematocrit 24.6 % (42.0-52.0); Hemoglobin 7.5 g/dL (14.0-18.0); Immature Platelet Fraction Pct 8.5 % (0.9-11.2); Mean Corpuscular HGB Conc 30.5 g/dl (32-36); Mean Corpuscular Hemoglobin 18.7 pg (26-34); Mean Corpuscular Volume 61.3 fl (80-100); Platelet Count Result 141 k/mm3 (150-375); Red Blood Count 4.01 M/mm3 (4.6-6.20); White Blood Count 14.5 K/mm3 (4.5-10.0)
[2025-01-30 05:35] LABS: Anion Gap 11 mmol/L (4-12); Blood Urea Nitrogen 68 mg/dL (9-20); Calcium 8.0 mg/dL (8.4-10.2); Carbon Dioxide 17 mmol/L (22-30); Chloride 95 mmol/L (98-107); Estimated CRCL calculation 13 ml/min; Estimated Glomerular Filt Rate 11; Glucose 111 mg/dL (65-110); Potassium 4.5 mmol/L (3.4-5.0); Sodium 123 mmol/L (137-145)
[2025-01-30] MEDS: SODIUM BICARBONATE TAB 650 MG TABLET PO (08:55)
[2025-01-30] MEDS: OLMESARTAN MEDOXOMIL 5 MG TABLET PO (08:55)
[2025-01-30] MEDS: SODIUM ZIRCONIUM CYCLOSILICATE 10 GM POWD.PACK PO (08:55)
[2025-01-30 09:20] LABS: Alanine Aminotransferase 184 U/L (6-50); Albumin Level 3.3 g/dL (3.5-5.1); Alkaline Phosphatase 201 U/L (38-126); Anion Gap 12 mmol/L (4-12); Aspartate Amino Transferase 145 U/L (17-59); Bilirubin,Total 3.5 mg/dL (0.2-1.3); Blood Urea Nitrogen 70 mg/dL (9-20); Calcium 8.3 mg/dL (8.4-10.2); Carbon Dioxide 19 mmol/L (22-30); Chloride 94 mmol/L (98-107); Estimated CRCL calculation 12 ml/min; Estimated Glomerular Filt Rate 10; Glucose 110 mg/dL (65-110); Potassium 4.7 mmol/L (3.4-5.0); Sodium 125 mmol/L (137-145); Total Protein 7.1 g/dL (6.3-8.2)
--- NOTE | 2025-01-30 13:05 | P.CONNP_ITS ---
Assessment and Plan Assessment and plan (1) Acute kidney injury: Code(s): N17.9 - Acute kidney failure, unspecified Status: Acute Assessment and Plan: * at baseline on admission (01/27) * acute decline noted on 01/28 * suspected etiology: * contrast exposure (CTA of chest on 01/27) * concurrent ARB use (olmesartan) * NSAID administration (Toradol) * prerenal factors(?) * evaluation to date noted: * urine electrolytes nonprerenal * urine eosinophils negative * UA without infection * nephrotic range proteinuri * hold ARB * check renal ultrasound * trial of IVFs * still making reasonable urine output * follow trend of repeat labs and UOP (2) Stage 4 chronic kidney disease: Code(s): N18.4 - Chronic kidney disease, stage 4 (severe) Status: Chronic Assessment and Plan: * baseline creatinine seems to run ~ 2.0 - 2.6mg/dl * this causes him to fluctuate between CKD stage 3b and stage 4 * likely secondary to hypertension and vascular disease along with possible sickle cell disease(?) * follows with nephrology back home for CKD management (3) 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, unspecified Status: Acute Assessment and Plan: * pain control * IVFs as tolerated * continue supportive therapy (4) Hyperkalemia: Code(s): E87.5 - Hyperkalemia Status: Chronic Assessment and Plan: * stable at this time * chronic issue at baseline per my discussion with patient * likely acutely worsened by RENY/ARF * on lokelma as an outpatient * although patient and seem to think kayexalate works better (5) Hyponatremia: Code(s): E87.1 - Hypo-osmolality and hyponatremia Status: Acute Assessment and Plan: * likely due to RENY/ARF * should improve as renal function does * on fluid restriction at this time (6) Metabolic acidosis: Code(s): E87.20 - Acidosis, unspecified Status: Acute Assessment and Plan: * due to CKD and worsened by RENY * on oral bicarbonate supplementation (7) Hypertension: Code(s): I10 - Essential (primary) hypertension Status: Chronic Assessment and Plan: * fluctuating since admission * however, suspect pain is playing a role * follow trend of hemodynamics (8) Anemia: Code(s): D64.9 - Anemia, unspecified Status: Chronic Assessment and Plan: * due to CKD with possible worsening due to #3 * follow trend of H/H * may need to consider Epogen (on this as an outpatient) * PRBC transfusion per protocol Long extensive discussion (greater than 20 minutes) with the patient as well as his at bedside regarding his worsening renal dysfunction is association with his electrolyte abnormalities (hyperkalemia & hyponatremia) and his fluctuating urine output. I voiced my concerns that if his kidney function continues to deteriorate, he may require renal replacement therapy/dialysis to optimize these issues. They both appeared to voice understanding but they made it quite clear to me that they are trying to find a way not to do dialysis under any circumstance. I will continue to follow the patient with you while he remains hospitalized and make further recommendations as deemed necessary. Thank you for allowing me to participate in the care of this patient. L History of Present Illness Reason for Consult Consult date: 01/30/25 Reason for consult: acute renal failure (on chronic kidney disease) Chief Complaint Chief complaint: Pain crisis History of Present Illness Narrative: The patient is a 69-year-old male a past medical history as outlined below presented to [facility] Emergency Room with complaints of back pain/discomfort and pain in his lower extremities. The patient lives in [facility] for spiritism function which concluded the day before presentation to the ER. He started having the symptoms yesterday which progressed to the day of admission and continued to worsen. The pain started in his lower back which then moved down his legs and then on to the right side of his chest. He feels the symptoms are consistent with his previous episodes secondary to sickle cell pain crisis. He gave no other symptoms with regard to shortness of breath, abdominal pain, fevers numbness, tingling nausea, vomiting, or diarrhea. As the pain continued to worsen he presented to the ER evaluation. Vital signs on admission to the ER noted a heart rate of 113, RR of 18, BP 176/86, with a oxygen saturation of 99% on room air. Routine labs were notable for WBC 12.1, hb 9.1, Na 136, K 5.8, CO2 15, Cr 2.5, and lactic acido of 3.1 with repeat value of 2.6. He underwent a CTA of the chest which showed no PE but showed cardiomegaly and findings highly suggestive of pulmonary hypertension with minimal interstitial thickening which may indicate early pulmonary edema and possible left kidney stone. His subsequent venous doppler were negative for DVT. The patient was started on IVF and IV Dilaudid PRN prior to admission. He appeared to be overdosed on Dilaudid in the ER and was given Narcan prior to admission which he responded to. Since his admission, his pain control has been adequate but has been noted that his kidney function has been slowly deteriorating. Renal consultation was requested due to his acute kidney injury/acute renal failure on top of his baseline chronic kidney disease. From my discussion with the patient and review of what records I have available, his baseline creatinine runs around 2.0-2.6 mg/dL. On admission, he was at his baseline but subsequently repeat labs have shown a slow and steady progression/worsening of his kidney function. He reports that he has had issues and problems with fluctuating renal function when he does have a sickle cell pain crisis in association with significant hyperkalemia they usually resolves with medical management/therapy and supportive interventions. His presumed etiology of his CKD is thought to be from hypertension and possibly his underlying sickle cell disease. In spite of his worsening creatinine, he continues to make reasonable urine output although he has having some issues metabolic acidosis, anemia, and hyponatremia. Currently, at the time my evaluation, he appears to be in no acute distress. Review of Systems 2 Review of Systems: As per HPI. [facility] Past Medical History Medical History (Updated 02/01/25 @ 06:11 by Cristiano Fritz MD) Elevated liver enzymes Cirrhosis Social History Social History Smoking status: Never smoker Alcohol intake: never Substance use: never Substance use type: does not use Do You Feel Safe in your Home?: Yes Lack of Transportation: No Lack of Food: Never True Current Housing: I Have Housing Concerned About Future Housing: No Difficulty Paying Gas/Electric Bills: No Difficulty Paying for Meds: No Currently Unemployed: No Education: Trade/Vocational Certificate Difficulty w/ Childcare or Family Care: No Spiritual care concerns: No Meds Home Medications and Allergies Home Medications ?Medication ?Instructions ?Recorded ?Confirmed ?Type allopurinol 100 mg tablet 100 mg PO Q12H 01/27/25 01/27/25 History amlodipine 5 mg tablet 5 mg PO DAILY 01/27/25 01/27/25 History clonidine HCl 0.1 mg tablet 0.1 mg PO TID 01/27/25 01/27/25 History epoetin riley-epbx 40,000 unit/mL 40,000 unit subcut WEEKLY 01/27/25 01/27/25 History injection solution (Retacrit) folic acid 1 mg tablet 1 mg PO DAILY 01/27/25 01/27/25 History olmesartan 5 mg tablet 5 mg PO DAILY 01/27/25 01/27/25 History paricalcitol 1 mcg capsule 1 mcg PO DAILY 01/27/25 01/27/25 History pregabalin 150 mg capsule 150 mg PO HS 01/27/25 01/27/25 History sodium bicarbonate 650 mg tablet 650 mg PO DAILY 01/27/25 01/27/25 History sodium zirconium cyclosilicate 10 10 g PO DAILY 01/27/25 01/27/25 History gram oral powder packet (Lokelma) tramadol 50 mg tablet 50 mg PO Q8H PRN pain 01/27/25 01/27/25 History Allergies Allergy/AdvReac Type Severity Reaction Status Date / Time ibuprofen Allergy Unknown Verified 01/27/25 11:35 aspirin AdvReac Unknown Other Verified 01/27/25 11:35 Vital Signs Laboratory Tests 01/30/25 05:08 01/30/25 08:45 Calcium 8.3 L Total Bilirubin 3.5 H AST 145 H ALT 184 H Alkaline Phosphatase 201 H Total Protein 7.1 Albumin 3.3 L Exam 2 Narrative: GENERAL APPEARANCE: elderly but well developed well nourished male in no acute distress HEENT: normocephalic, atraumatic, normal conjunctiva and sclera, nares patient NECK: no lymphadenopathy, thyromegaly, or JVD MOUTH: normal lips, teeth, and gums CARDIOVASCULAR: RRR, normal S1 and S2, no rub RESPIRATORY: clear to auscultation bilaterally ABDOMEN: soft, nontender, nondistended, positive bowel sounds present EXTREMITIES: no evidence of cyanosis, clubbing, or edema NEUROLOGICAL: alert and oriented x 3; CN II - XII intact bilaterally; no focal deficits noted Results Lab Results 01/31/25 05:27 02/01/25 05:19 Lab results: Most recent lab results ABG pH 7.348 (7.350-7.450) L 01/28/25 09:36 ABG pCO2 38.6 mmHg (35.0-45.0) 01/28/25 09:36 ABG pO2 50.7 mmHg (80.0-100.0) L 01/28/25 09:36 ABG HCO3 20.7 mEq/l (22.0-26.0) L 01/28/25 09:36 ABG O2 Saturation 84.3 % (95.0-100.0) L* 01/28/25 09:36 Calcium 8.3 mg/dL (8.4-10.2) L 01/30/25 08:45 Phosphorus 4.6 mg/dL (2.5-4.5) H 01/29/25 15:01 Magnesium 2.0 mg/dL (1.6-2.3) 01/29/25 05:45 Urine Creatinine 58.4 mg/dL 01/30/25 12:56 Urine Creatinine 58.4 mg/dL 01/30/25 12:56
[2025-01-30 13:27] LABS: Urea Random Urine 257 MG/DL
[2025-01-30 13:41] LABS: Urine Eos QC 2nd Tech Confirmed
--- NOTE | 2025-01-30 13:54 | PM.IMPN ---
Progress Note: A&P Assessment and Plan (1) Pain crisis: Code(s): R52 - Pain, unspecified Status: Acute (2) Overdose of opiate or related narcotic: Code(s): T40.601A - Poisoning by unspecified narcotics, accidental (unintentional), initial encounter Status: Acute Plan Sickle cell pain crisis patient has history of Sickle cell disease CTA Chest reviewed, no PE but showed cardiomegaly and possible pulm edema still in pain but improving Continue IVF and PRN pain control monitor Sickle cell anemia hb 7.5 today patient on epoietin Continue monitoring Metabolic acidosis, resolving Co2 21, anion gap resolved continue Bicarb infusion on home bicarb tablets monitor hyperkalemia resolved Continue home Zirconium monitor K level RENY on CKD, stage III cr 2.5 at baseline , worsening Continue IVF and monitor consult nephrology team HTN uncontrolled continue home meds hydralazine prn CHF, no ECHO, unable to specify CT chest reviewed monitor for now transaminitis stable liver US pending will check hepatitis panel will consult GI team DVT prophylaxis on Sq Lovenox full code SDM: Spouse Mehul Estrada Subjective Date/time seen: 01/30/25 13:54 Interval history: per HPI: 69 yo male with PMH of sickle cell with PMH of HTN, CKD III, CHF who presented to the on account of chest and lower extremities. Patient lives in [place] and came to [place] for a adventism function which concluded yesterday, he started having symptoms yesterday which worsening today causing him to presented to the ER for proper eval and care. Denies any SOB, abdpain, fever, focal weakness or numbness, diarrhea or vomiting. ER eval notable for PPR 113, RR 18, BP 176/86, saturating 99% on room air. Labs notable for WBC 12.1, hb 9.1, Na 136, K 5.8, CO2 15, Cr 2.5, Lactic aic 3.1 repeat 2.6. CTA chest showed no PE but showed cardiomegaly showed hightly suggetive pulm hypertensio with monimal interstitial thickening wihich may indicate early pulm edema and possible left kidney stone. Venous doppler negative for DVT. Patient was started on IVF and IV Dilaudid PRN prior to admission. Patient appeared to be overdose o Dilaudid in the ER and was given Narcan prior to admission whcih he responded to. 01/29/25 Felling better. pain improving/ WBC 15.6, hemoglobin 7.6, sodium 125, creatinine 4.43 ,elevated liver enzyme Continue IV fluid. We will get liver ultrasound. 01/30/25 patient was seen and examined at bedside. he is feeling fine. denies any marcell pain, SOb, abd pian. N/V. Na 123. kidney function worsening. Liver us pending. Nephrology team on board. discussed with patient that we can not discharge him today. he mentioned he prefer to go home and get better at home and can get sunshine at home and that help him with kidney recovery. he is ok to stay and see wait for nephrology recs. Review of Systems Review of Systems: All other systemes were reviewed and negative except as noted in the HPI above Exam Narrative: General: lethargic but responding to question and compliant Eyes: EOMI, PERRLA ENNT External ears normal, Neck is supple, no masses, Respiratory systems: Clear to auscultation Cardiovascular S1, S2, normal rhythm, no murmur, rub, or gallop; no thrill or palpable murmurs on palpation. Gastrointestinal: soft, non-tender, and non-distended abdomen with no masses; BS present Skin: no rash, lesions, ulcerations, subcutaneous nodules or induration Musculoskeletal: no abnormality and no tenderness, normal ROM Neurologic: Alert and oriented x3, non focal Mental Status Exam: normal affect Objective Data Vital Signs Vital Signs: Vital Signs - 24 hr 01/29/25 14:00 01/29/25 16:00 01/29/25 20:00 Temperature 98.2 F Pulse Rate 86 88 Respiratory Rate 12 Blood Pressure 188/75 H Pulse Oximetry 88 L 96 Oxygen Delivery Nasal Cannula Oxygen Flow Rate 1 01/29/25 20:00 01/29/25 21:12 01/29/25 22:47 Temperature 99.0 F Pulse Rate 99 99 Respiratory Rate 18 Blood Pressure 181/86 H Pulse Oximetry 96 97 Oxygen Delivery Room Air Oxygen Flow Rate 01/29/25 23:47 01/30/25 00:00 01/30/25 01:04 Temperature 99.0 F Pulse Rate 98 98 102 H Respiratory Rate 16 20 Blood Pressure 181/76 H 185/81 H Pulse Oximetry 96 99 Oxygen Delivery Oxygen Flow Rate 01/30/25 04:00 01/30/25 05:15 01/30/25 08:00 Temperature 97.1 F L Pulse Rate 107 H 101 H 97 Respiratory Rate 16 Blood Pressure 158/62 H Pulse Oximetry 93 Oxygen Delivery Oxygen Flow Rate 01/30/25 08:40 01/30/25 09:59 01/30/25 12:00 Temperature Pulse Rate 96 88 Respiratory Rate 18 Blood Pressure 177/70 H Pulse Oximetry 99 99 Oxygen Delivery Room Air Oxygen Flow Rate Intake/Output Intake/Output: Intake & Output 01/27/25 01/28/25 01/29/25 01/30/25 23:59 23:59 23:59 23:59 Intake Total 1999 3540 2110 1145 Output Total 700 970 400 Balance 1999 2840 1140 745 Meds/Results Medications: Active Medications Generic Name Dose Route Start Last Admin Trade Name Freq PRN Reason Stop Dose Admin Acetaminophen 650 mg 01/28/25 14:02 01/28/25 15:07 Acetaminophen 325 Mg Tablet PO 650 mg Q4H PRN Administration Mild Pain (1-3) or Fever Allopurinol 100 mg 01/27/25 21:00 01/30/25 08:55 Allopurinol 100 Mg Tablet PO 100 mg Q12HR KYAW Administration Amlodipine Besylate 5 mg 01/28/25 09:00 01/30/25 08:55 Amlodipine Besylate 5 Mg Tablet PO 5 mg DAILY KYAW Administration Clonidine HCl 0.1 mg 01/28/25 09:00 01/30/25 08:55 Clonidine Hcl 0.1 Mg Tablet PO 0.1 mg TID KYAW Administration Heparin Sodium (Porcine) 5,000 units 01/27/25 22:00 01/30/25 05:12 Heparin Sodium 5,000 Units/Ml Vial SUB-Q 5,000 units Q8HR KYAW Administration Hydralazine HCl 10 mg 01/29/25 14:38 01/29/25 23:48 Hydralazine Hcl 20 Mg/Ml Vial IV PUSH 10 mg Q8H PRN Administration Blood Pressure - High Sodium Chloride 1,000 mls @ 75 mls/hr 01/29/25 12:55 01/30/25 01:27 Normal Saline Iv IV CONT 75 mls/hr .[id number] KYAW Administration Olmesartan 5 mg 01/28/25 09:00 01/30/25 08:55 Olmesartan Medoxomil 5 Mg Tablet PO 5 mg DAILY KYAW Administration Ondansetron HCl 4 mg 01/29/25 21:35 Ondansetron Inj 4 Mg/2 Ml Vial IV PUSH Q6H PRN Nausea And Vomiting Sodium Bicarbonate 650 mg 01/28/25 09:00 01/30/25 08:55 Sodium Bicarbonate Tab 650 Mg Tablet PO 650 mg DAILY KYAW Administration Sodium Zirconium Cyclosilicate 10 gm 01/27/25 19:00 01/30/25 08:55 Sodium Zirconium Cyclosilicate 10 Gm Powd.Pack PO 10 gm DAILY KYAW Administration Tamsulosin HCl 0.4 mg 01/29/25 21:40 01/29/25 22:20 Tamsulosin Hcl 0.4 Mg Capsule PO 0.4 mg QHS KYAW Administration Tramadol HCl 50 mg 01/27/25 20:26 01/29/25 10:21 Tramadol Hcl (*Crx) 50 Mg Tablet PO 50 mg Q8H PRN Administration pain 4-6 Radiology Results: ITS Impressions Chest CTA 01/27/25 19:20 IMPRESSION: 1. No pulmonary embolism. 2. Cardiomegaly with highly suggestive pulmonary hypertension with minimal interstitial thickening which may indicate early pulmonary edema. Clinical correlation advised. 3. Possible left kidney stone. Venous Doppler Study 01/27/25 19:29 IMPRESSION: Negative bilateral lower extremity venous US. No deep vein thrombosis. Chest X-Ray 01/28/25 11:36 IMPRESSION: 1. Bronchial wall thickening and opacities at the bilateral lower lung zones which could represent pneumonia or mild pulmonary edema. 2. 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 Labs Labs: Laboratory Results - last 24 hr 01/29/25 01/30/25 01/30/25 15:01 05:08 08:45 WBC 14.5 H RBC 4.01 L Hgb 7.5 L Hct 24.6 L MCV 61.3 L MCH 18.7 L MCHC 30.5 L RDW 24.5 H Plt Count 141 L MPV TNP % Immature Plt Fraction 8.5 Sodium 124 L 123 L 125 L Potassium 5.2 H 4.5 4.7 Chloride 92 L 95 L 94 L Carbon Dioxide 20 L 17 L 19 L Anion Gap 12 11 12 BUN 62 H 68 H 70 H Creatinine 4.82 H 5.16 H 5.56 H Estim Creat Clear Calc 14 13 12 Estimated GFR 12 L 11 L 10 L Glucose 157 H 111 H 110 Calcium 8.6 8.0 L 8.3 L Phosphorus 4.6 H Total Bilirubin 3.5 H AST 145 H ALT 184 H Alkaline Phosphatase 201 H Total Protein 7.1 Albumin 3.9 3.3 L Urine Eosinophils Ur Random Sodium Ur Random Urea Urine Creatinine 01/30/25 12:56 WBC RBC Hgb Hct MCV MCH MCHC RDW Plt Count MPV % Immature Plt Fraction Sodium Potassium Chloride Carbon Dioxide Anion Gap BUN Creatinine Estim Creat Clear Calc Estimated GFR Glucose Calcium Phosphorus Total Bilirubin AST ALT Alkaline Phosphatase Total Protein Albumin Urine Eosinophils None seen Ur Random Sodium 29 Ur Random Urea 257 Urine Creatinine 58.4
[2025-01-30 14:56] LABS: Hepatitis B Surface Antigen Negative (Negative)
[2025-01-30 15:02] LABS: HAV RESULT Negative (Negative); Hepatitis B Core IgM Result Negative (Negative)
[2025-01-30 15:41] LABS: Total Protein Urine Random 265 mg/dL
[2025-01-30 15:42] LABS: Total Protein Urine Random 265 mg/dL
[2025-01-30 15:43] LABS: Ur Ttl Prot Creatinine Ratio 4.54 mg/mg (0-0.20)
--- NOTE | 2025-01-30 17:42 | P.CONGI_ITS ---
Assessment and Plan Assessment and plan (1) 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, unspecified Status: Acute Assessment and Plan: this is controlled now by primary, doing better (2) Cirrhosis: Code(s): K74.60 - Unspecified cirrhosis of liver Status: Acute Assessment and Plan: new diagnosis, no alcohol use wonder if partially could be from sickle cell with intrahepatic sickling and chronic injury hepatitis panel negative he is aware now about diagnosis and he will let his PCP know once he is back to [place] (3) Hyponatremia: Code(s): E87.1 - Hypo-osmolality and hyponatremia Status: Acute (4) Elevated liver enzymes: Code(s): R74.8 - Abnormal levels of other serum enzymes Status: Acute Assessment and Plan: probably this is chronic but exacerbated by acute attack of sickle cell (5) Metabolic acidosis: Code(s): E87.20 - Acidosis, unspecified Status: Acute Assessment and Plan: resolved GI Consult Note Consult date/time: 01/30/25 17:42 Reason for consult: cirrhosis, elevated liver enzymes HPI: Cecilio Estrada is a 69 year old male with PMH of sickle cell with PMH of HTN, CKD III, CHF who presented with crisis. 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 bili 3, transaminases 100, then had liver ultrasound that showed cirrhosis. He denies hepatitis, no alcohol use. He has been told in past about having elevated liver enzymes but never about cirrhosis. Pain now is gone and he is doing better, still in hospital because Na is low 125 Review of Systems 2 Constitutional: Constitutional: Reports body ache(s) Eyes: Eyes: Denies blurry vision ENT: Reports Normal hearing present Cardiovascular: Cardiovascular: Reports chest pain Respiratory: Respiratory: Denies cough Gastrointestinal: Gastrointestinal: Denies nausea Genitourinary: Genitourinary: Denies dysuria Musculoskeletal: Musculoskeletal: Reports myalgias Integumentary/Breasts: Skin/Breast: Denies rash Neurologic: Denies Abnormal speech present Psychiatric: Psychiatric: Denies behavioral changes [facility] Past Medical History Medical History (Updated 01/30/25 @ 17:46 by Freddie Santoyo MD) Elevated liver enzymes Cirrhosis Social History Social History Smoking status: Never smoker Alcohol intake: never Substance use: never Substance use type: does not use Do You Feel Safe in your Home?: Yes Lack of Transportation: No Lack of Food: Never True Current Housing: I Have Housing Concerned About Future Housing: No Difficulty Paying Gas/Electric Bills: No Difficulty Paying for Meds: No Currently Unemployed: No Education: Trade/Vocational Certificate Difficulty w/ Childcare or Family Care: No Spiritual care concerns: No Meds Home Medications and Allergies Home Medications ?Medication ?Instructions ?Recorded ?Confirmed ?Type allopurinol 100 mg tablet 100 mg PO Q12H 01/27/25 01/27/25 History amlodipine 5 mg tablet 5 mg PO DAILY 01/27/25 01/27/25 History clonidine HCl 0.1 mg tablet 0.1 mg PO TID 01/27/25 01/27/25 History epoetin riley-epbx 40,000 unit/mL 40,000 unit subcut WEEKLY 01/27/25 01/27/25 History injection solution (Retacrit) folic acid 1 mg tablet 1 mg PO DAILY 01/27/25 01/27/25 History olmesartan 5 mg tablet 5 mg PO DAILY 01/27/25 01/27/25 History paricalcitol 1 mcg capsule 1 mcg PO DAILY 01/27/25 01/27/25 History pregabalin 150 mg capsule 150 mg PO HS 01/27/25 01/27/25 History sodium bicarbonate 650 mg tablet 650 mg PO DAILY 01/27/25 01/27/25 History sodium zirconium cyclosilicate 10 10 g PO DAILY 01/27/25 01/27/25 History gram oral powder packet (Lokelma) tramadol 50 mg tablet 50 mg PO Q8H PRN pain 01/27/25 01/27/25 History Allergies Allergy/AdvReac Type Severity Reaction Status Date / Time ibuprofen Allergy Unknown Verified 01/27/25 11:35 aspirin AdvReac Unknown Other Verified 01/27/25 11:35 Vital Signs Vital Signs - 24 hr 01/29/25 20:00 01/29/25 20:00 01/29/25 21:12 Temperature 99.0 F Pulse Rate 99 99 Respiratory Rate 18 Blood Pressure 181/86 H Pulse Oximetry 96 96 Oxygen Delivery Nasal Cannula Oxygen Flow Rate 1 01/29/25 22:47 01/29/25 23:47 01/30/25 00:00 Temperature 99.0 F Pulse Rate 98 98 Respiratory Rate 16 Blood Pressure 181/76 H Pulse Oximetry 97 96 Oxygen Delivery Room Air Oxygen Flow Rate 01/30/25 01:04 01/30/25 04:00 01/30/25 05:15 Temperature 97.1 F L Pulse Rate 102 H 107 H 101 H Respiratory Rate 20 16 Blood Pressure 185/81 H 158/62 H Pulse Oximetry 99 93 Oxygen Delivery Oxygen Flow Rate 01/30/25 08:00 01/30/25 08:40 01/30/25 09:59 Temperature Pulse Rate 97 96 Respiratory Rate 18 Blood Pressure 177/70 H Pulse Oximetry 99 99 Oxygen Delivery Room Air Oxygen Flow Rate 01/30/25 12:00 01/30/25 14:00 01/30/25 16:00 Temperature 96.7 F L Pulse Rate 88 97 96 Respiratory Rate 16 Blood Pressure 160/65 H Pulse Oximetry 97 Oxygen Delivery Oxygen Flow Rate 01/30/25 17:36 Temperature Pulse Rate Respiratory Rate Blood Pressure 145/82 H Pulse Oximetry Oxygen Delivery Oxygen Flow Rate Exam 2 Const: General: comfortable and no acute distress HENMT: Face/Nose/Sinus: Normal nares present Eyes: General: appearance normal, both eyes and all related structures Neck: Neck: no JVD Resp: Auscultation: clear to auscultation bilaterally Cardio: Rate: regular rate Rhythm: regular rhythm GI: Inspection: non-distended GI Palp: Yes Soft to palpation Skin: General skin exam: normal color Neuro: Speech: normal speech Extrem: General: normal to inspection Psych: Mental Status: mental status grossly normal Results Labs 01/30/25 05:08 01/30/25 08:45 Labs: Short CBC 01/30/25 Range/Units 05:08 WBC 14.5 H (4.5-10.0) K/mm3 Hgb 7.5 L (14.0-18.0) g/dL Hct 24.6 L (42.0-52.0) % Plt Count 141 L (150-375) k/mm3 BMP 01/30/25 01/30/25 05:08 08:45 Sodium 123 L 125 L Potassium 4.5 4.7 Chloride 95 L 94 L Carbon Dioxide 17 L 19 L BUN 68 H 70 H Creatinine 5.16 H 5.56 H Glucose 111 H 110 Calcium 8.0 L 8.3 L Liver Function 01/30/25 Range/Units 08:45 Total Bilirubin 3.5 H (0.2-1.3) mg/dL AST 145 H (17-59) U/L ALT 184 H (6-50) U/L Alkaline Phosphatase 201 H (38-126) U/L Albumin 3.3 L (3.5-5.1) g/dL
[2025-01-30] MEDS: TAMSULOSIN HCL 0.4 MG CAPSULE PO (21:06)
[2025-01-31] VITALS (14 sets, daily range): BP systolic 157–181; BP diastolic 65–73; PULSE 70–108; RESP 18; TEMP 36.4–36.8; O2SAT 90–96
[2025-01-31] MEDS: SODIUM CHLORIDE 0.9% IV 1,000 ML 75 ML IV CONT ×2 (02:03→18:36)
[2025-01-31 05:37] LABS: Hematocrit 23.8 % (42.0-52.0); Hemoglobin 7.3 g/dL (14.0-18.0); Immature Platelet Fraction Pct 8.5 % (0.9-11.2); Mean Corpuscular HGB Conc 30.7 g/dl (32-36); Mean Corpuscular Hemoglobin 18.9 pg (26-34); Mean Corpuscular Volume 61.5 fl (80-100); Platelet Count Result 126 k/mm3 (150-375); Red Blood Count 3.87 M/mm3 (4.6-6.20); White Blood Count 11.4 K/mm3 (4.5-10.0)
[2025-01-31 06:14] LABS: Alanine Aminotransferase 129 U/L (6-50); Albumin Level 2.9 g/dL (3.5-5.1); Alkaline Phosphatase 146 U/L (38-126); Anion Gap 11 mmol/L (4-12); Aspartate Amino Transferase 94 U/L (17-59); Bilirubin,Total 3.0 mg/dL (0.2-1.3); Blood Urea Nitrogen 73 mg/dL (9-20); Calcium 7.7 mg/dL (8.4-10.2); Carbon Dioxide 16 mmol/L (22-30); Chloride 96 mmol/L (98-107); Creatine Kinase 53 U/L (55-170); Estimated CRCL calculation 12 ml/min; Estimated Glomerular Filt Rate 10; Glucose 101 mg/dL (65-110); Potassium 4.8 mmol/L (3.4-5.0); Sodium 123 mmol/L (137-145); Total Protein 6.5 g/dL (6.3-8.2)
[2025-01-31 07:24] LABS: Hepatitis B Surface Antigen Negative (Negative)
[2025-01-31 07:46] LABS: Hepatitis B Surface Anti Res Positive
[2025-01-31] MEDS: SODIUM ZIRCONIUM CYCLOSILICATE 10 GM POWD.PACK PO (09:11)
[2025-01-31] MEDS: SODIUM BICARBONATE TAB 650 MG TABLET PO (09:12)
--- NOTE | 2025-01-31 13:41 | P.PNNP_ITS ---
Progress Note: A&P Assessment and Plan (1) Acute kidney injury: Code(s): N17.9 - Acute kidney failure, unspecified Status: Acute Assessment and Plan: * at baseline on admission (01/27) * acute decline noted on 01/28 * however, rate of rise seems to be declining * suspected etiology: * contrast exposure (CTA of chest on 01/27) * concurrent ARB use (olmesartan) * NSAID administration (Toradol) * prerenal factors(?) * evaluation to date noted: * urine electrolytes nonprerenal * urine eosinophils negative * UA without infection * nephrotic range proteinuri * hold ARB * renal ultrasound noted * trial of IVFs * still making reasonable urine output * follow trend of repeat labs and UOP (2) Stage 4 chronic kidney disease: Code(s): N18.4 - Chronic kidney disease, stage 4 (severe) Status: Chronic Assessment and Plan: * baseline creatinine seems to run ~ 2.0 - 2.6mg/dl * this causes him to fluctuate between CKD stage 3b and stage 4 * likely secondary to hypertension and vascular disease along with possible sickle cell disease(?) * follows with nephrology back home for CKD management (3) 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, unspecified Status: Acute Assessment and Plan: * pain control * IVFs as tolerated * continue supportive therapy (4) Hyperkalemia: Code(s): E87.5 - Hyperkalemia Status: Chronic Assessment and Plan: * stable at this time * chronic issue at baseline per my discussion with patient * likely acutely worsened by RENY/ARF * on lokelma as an outpatient * although patient and seem to think kayexalate works better (5) Hyponatremia: Code(s): E87.1 - Hypo-osmolality and hyponatremia Status: Acute Assessment and Plan: * likely due to RENY/ARF * should improve as renal function does * titrate sodium bicarbonate for this issue as well as #6 * on fluid restriction at this time (6) Metabolic acidosis: Code(s): E87.20 - Acidosis, unspecified Status: Acute Assessment and Plan: * due to CKD and worsened by RENY * on oral bicarbonate supplementation (7) Hypertension: Code(s): I10 - Essential (primary) hypertension Status: Chronic Assessment and Plan: * fluctuating since admission * however, suspect pain is playing a role * follow trend of hemodynamics (8) Anemia: Code(s): D64.9 - Anemia, unspecified Status: Chronic Assessment and Plan: * due to CKD with possible worsening due to #3 * follow trend of H/H * may need to consider Epogen (on this as an outpatient) * PRBC transfusion per protocol Will continue to follow. L Subjective Date/time seen: 01/31/25 13:41 Interval history: Follow-up for acute kidney injury/acute renal failure on chronic kidney disease. Renal function/creatinine continues to deteriorate with fluctuating sodium level but still making reasonable urine output; pain control appears reasonable; wanted to be discharged earlier today to follow-up with his physicians in [place] but he was told that if he did so, it would be against medical advice; at bedside and we discussed the situation. Exam 2 Narrative: General: elderly but WD/WN male in NAD Heart: normal S1 and S2; no rub Lungs: clear anteriorly Abdomen: soft, nontender, nondistended, positive bowel sounds Extremities: no cyanosis or clubbing; no edema Skin: warm and dry Objective Data Vital Signs Vital Signs: Vital Signs Temp Pulse Resp BP Pulse Ox O2 Del Method O2 Flow Rate 01/31/25 12:52 100 18 161/66 H 90 01/31/25 11:15 91 Room Air 01/31/25 06:00 98.2 F 101 H 18 181/72 H 96 01/31/25 04:00 70 01/31/25 01:52 95 Nasal Cannula 1 01/31/25 00:00 95 01/30/25 22:00 98.3 F 87 18 165/76 H 95 01/30/25 21:00 98.3 F 87 18 165/76 H 95 01/30/25 20:00 90 01/30/25 20:00 Room Air 01/30/25 17:36 145/82 H Intake/Output Intake/Output: Intake & Output 01/28/25 01/29/25 01/30/25 01/31/25 23:59 23:59 23:59 23:59 Intake Total 3540 2110 3012.5 1397.5 Output Total 700 005 726 3341 Balance 2840 1140 2272.5 122.5 Meds/Results Medications: Active Medications Generic Name Dose Route Start Last Admin Trade Name Freq PRN Reason Stop Dose Admin Acetaminophen 650 mg 01/28/25 14:02 01/28/25 15:07 Acetaminophen 325 Mg Tablet PO 650 mg Q4H PRN Administration Mild Pain (1-3) or Fever Allopurinol 100 mg 01/27/25 21:00 01/31/25 09:12 Allopurinol 100 Mg Tablet PO 100 mg Q12HR KYAW Administration Amlodipine Besylate 5 mg 01/28/25 09:00 01/31/25 09:12 Amlodipine Besylate 5 Mg Tablet PO 5 mg DAILY KYAW Administration Clonidine HCl 0.1 mg 01/28/25 09:00 01/31/25 16:00 Clonidine Hcl 0.1 Mg Tablet PO 0.1 mg TID KYAW Administration Epoetin Chava-epbx 40,000 units 01/31/25 15:00 01/31/25 15:58 Epoetin Chava-Epbx 20,000 Units/Ml Vial SUB-Q 40,000 units Th@0900 KYAW Administration Heparin Sodium (Porcine) 5,000 units 01/27/25 22:00 01/31/25 13:10 Heparin Sodium 5,000 Units/Ml Vial SUB-Q 5,000 units Q8HR YKAW Administration Hydralazine HCl 10 mg 01/29/25 14:38 01/31/25 06:18 Hydralazine Hcl 20 Mg/Ml Vial IV PUSH 10 mg Q8H PRN Administration Blood Pressure - High Sodium Chloride 1,000 mls @ 75 mls/hr 01/29/25 12:55 01/31/25 02:03 Normal Saline Iv IV CONT 75 mls/hr .[id number] KYAW Administration Lactulose 20 gm 01/31/25 17:00 01/31/25 16:01 Lactulose 20 Gm/30 Ml Udc PO 20 gm BID KYAW Administration Olmesartan 5 mg 01/28/25 09:00 01/30/25 08:55 Olmesartan Medoxomil 5 Mg Tablet PO 5 mg DAILY KYAW Administration Ondansetron HCl 4 mg 01/29/25 21:35 Ondansetron Inj 4 Mg/2 Ml Vial IV PUSH Q6H PRN Nausea And Vomiting Sodium Bicarbonate 650 mg 01/28/25 09:00 01/31/25 09:12 Sodium Bicarbonate Tab 650 Mg Tablet PO 650 mg DAILY KYAW Administration Sodium Chloride 1 gm 01/31/25 17:00 01/31/25 16:01 Sodium Chloride 1 Gm Tablet PO 1 gm BID KYAW Administration Sodium Zirconium Cyclosilicate 10 gm 01/27/25 19:00 01/31/25 09:11 Sodium Zirconium Cyclosilicate 10 Gm Powd.Pack PO 10 gm DAILY KYAW Administration Tamsulosin HCl 0.4 mg 01/29/25 21:40 01/30/25 21:06 Tamsulosin Hcl 0.4 Mg Capsule PO 0.4 mg QHS KYAW Administration Tramadol HCl 50 mg 01/27/25 20:26 01/29/25 10:21 Tramadol Hcl (*Crx) 50 Mg Tablet PO 50 mg Q8H PRN Administration pain 4-6 Radiology Results: ITS Impressions Chest CTA 01/27/25 19:20 IMPRESSION: 1. No pulmonary embolism. 2. Cardiomegaly with highly suggestive pulmonary hypertension with minimal interstitial thickening which may indicate early pulmonary edema. Clinical correlation advised. 3. Possible left kidney stone. Venous Doppler Study 01/27/25 19:29 IMPRESSION: Negative bilateral lower extremity venous US. No deep vein thrombosis. Chest X-Ray 01/28/25 11:36 IMPRESSION: 1. Bronchial wall thickening and opacities at the bilateral lower lung zones which could represent pneumonia or mild pulmonary edema. 2. 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 Abdomen Ultrasound 01/30/25 14:51 IMPRESSION: 1: Cirrhosis of the liver with portal venous hypertension. Renal Ultrasound 01/30/25 19:09 IMPRESSION: Limited examination as detailed above. No hydronephrosis. Bladder wall thickening as can be seen with chronic obstruction or cystitis. Labs Labs: Laboratory Tests 01/31/25 05:27 01/31/25 05:27 Calcium 7.7 L Total Bilirubin 3.0 H AST 94 H ALT 129 H Alkaline Phosphatase 146 H Total Creatine Kinase 53 L Total Protein 6.5 Albumin 2.9 L
--- NOTE | 2025-01-31 13:45 | PM.IMPN ---
Progress Note: A&P Assessment and Plan (1) Pain crisis: Code(s): R52 - Pain, unspecified Status: Acute (2) Overdose of opiate or related narcotic: Code(s): T40.601A - Poisoning by unspecified narcotics, accidental (unintentional), initial encounter Status: Acute Plan Sickle cell pain crisis patient has history of Sickle cell disease CTA Chest reviewed, no PE but showed cardiomegaly and possible pulm edema improving Continue IVF and PRN pain control monitor Sickle cell anemia hb 7.3 today patient on epoetin Continue monitoring Metabolic acidosis, r Co2 low, anion gap resolved continue Bicarb infusion on home bicarb tablets monitor hyperkalemia resolved Continue home Zirconium monitor K level RENY on CKD, stage III cr 2.5 at baseline , worsening US Bladder wall thickening as can be seen with chronic obstruction or cystitis Continue IVF and monitor nephrology team on board HTN uncontrolled continue home meds hydralazine prn CHF, no ECHO, unable to specify CT chest reviewed monitor for now transaminitis stable liver US Cirrhosis of the liver with portal venous hypertension. hepatitis panel neg GI team on board constipation bowel regimen DVT prophylaxis on Sq Lovenox full code SDM: Spouse Mehul Estrada Subjective Date/time seen: 01/31/25 13:45 Interval history: per HPI: 69 yo male with PMH of sickle cell with PMH of HTN, CKD III, CHF who presented to the on account of chest and lower extremities. Patient lives in [place] and came to [place] for a moravian function which concluded yesterday, he started having symptoms yesterday which worsening today causing him to presented to the ER for proper eval and care. Denies any SOB, abdpain, fever, focal weakness or numbness, diarrhea or vomiting. ER eval notable for PPR 113, RR 18, BP 176/86, saturating 99% on room air. Labs notable for WBC 12.1, hb 9.1, Na 136, K 5.8, CO2 15, Cr 2.5, Lactic aic 3.1 repeat 2.6. CTA chest showed no PE but showed cardiomegaly showed hightly suggetive pulm hypertensio with monimal interstitial thickening wihich may indicate early pulm edema and possible left kidney stone. Venous doppler negative for DVT. Patient was started on IVF and IV Dilaudid PRN prior to admission. Patient appeared to be overdose o Dilaudid in the ER and was given Narcan prior to admission [facility] he responded to. 01/29/25 Felling better. pain improving/ WBC 15.6, hemoglobin 7.6, sodium 125, creatinine 4.43 ,elevated liver enzyme Continue IV fluid. We will get liver ultrasound. 01/30/25 patient was seen and examined at bedside. he is feeling fine. denies any marcell pain, SOb, abd pian. N/V. Na 123. kidney function worsening. Liver us pending. Nephrology team on board. discussed with patient that we can not discharge him today. he mentioned he prefer to go home and get better at home and can get sunshine at home and that help him with kidney recovery. he is ok to stay and see wait for nephrology recs. 01/31/25 patient was seen and examined at bedside. he is feeling fine. his pain is better. he is urinating better. Kidney function is worsening. his is upset about hospital mistakes to give contrast and too much pain meds. He is asking to discharge and follow up with his doctors at [place]. i told him that I respect his decision but at this time he is not safe to be discharged and if he wants to leave it would be AMA. He and his understood. will give epoetin for anemia as he is getting weekly as outpatient. started on po salt tablet. continue to monitor. will follow nephrology team recs. US showed cirrhosis. GI team on board. Review of Systems Review of Systems: All other systemes were reviewed and negative except as noted in the HPI above Exam Narrative: General: lethargic but responding to question and compliant Eyes: EOMI, PERRLA ENNT External ears normal, Neck is supple, no masses, Respiratory systems: Clear to auscultation Cardiovascular S1, S2, normal rhythm, no murmur, rub, or gallop; no thrill or palpable murmurs on palpation. Gastrointestinal: soft, non-tender, and non-distended abdomen with no masses; BS present Skin: no rash, lesions, ulcerations, subcutaneous nodules or induration Musculoskeletal: no abnormality and no tenderness, normal ROM Neurologic: Alert and oriented x3, non focal Mental Status Exam: normal affect Objective Data Vital Signs Vital Signs: Vital Signs - 24 hr 01/30/25 14:00 01/30/25 16:00 01/30/25 17:36 Temperature 96.7 F L Pulse Rate 97 96 Respiratory Rate 16 Blood Pressure 160/65 H 145/82 H Pulse Oximetry 97 Oxygen Delivery Oxygen Flow Rate 01/30/25 20:00 01/30/25 20:00 01/30/25 21:00 Temperature 98.3 F Pulse Rate 90 87 Respiratory Rate 18 Blood Pressure 165/76 H Pulse Oximetry 95 Oxygen Delivery Room Air Oxygen Flow Rate 01/30/25 22:00 01/31/25 00:00 01/31/25 01:52 Temperature 98.3 F Pulse Rate 87 95 Respiratory Rate 18 Blood Pressure 165/76 H Pulse Oximetry 95 95 Oxygen Delivery Nasal Cannula Oxygen Flow Rate 1 01/31/25 04:00 01/31/25 06:00 01/31/25 11:15 Temperature 98.2 F Pulse Rate 70 101 H Respiratory Rate 18 Blood Pressure 181/72 H Pulse Oximetry 96 91 Oxygen Delivery Room Air Oxygen Flow Rate 01/31/25 12:52 Temperature Pulse Rate 100 Respiratory Rate 18 Blood Pressure 161/66 H Pulse Oximetry 90 Oxygen Delivery Oxygen Flow Rate Intake/Output Intake/Output: Intake & Output 01/28/25 01/29/25 01/30/25 01/31/25 23:59 23:59 23:59 23:59 Intake Total 3540 2110 3012.5 1397.5 Output Total 700 481 864 0006 Balance 2840 1140 2272.5 122.5 Meds/Results Medications: Active Medications Generic Name Dose Route Start Last Admin Trade Name Alejandroq PRN Reason Stop Dose Admin Acetaminophen 650 mg 01/28/25 14:02 01/28/25 15:07 Acetaminophen 325 Mg Tablet PO 650 mg Q4H PRN Administration Mild Pain (1-3) or Fever Allopurinol 100 mg 01/27/25 21:00 01/31/25 09:12 Allopurinol 100 Mg Tablet PO 100 mg Q12HR KYAW Administration Amlodipine Besylate 5 mg 01/28/25 09:00 01/31/25 09:12 Amlodipine Besylate 5 Mg Tablet PO 5 mg DAILY KYAW Administration Clonidine HCl 0.1 mg 01/28/25 09:00 01/31/25 13:09 Clonidine Hcl 0.1 Mg Tablet PO 0.1 mg TID KYAW Administration Heparin Sodium (Porcine) 5,000 units 01/27/25 22:00 01/31/25 13:10 Heparin Sodium 5,000 Units/Ml Vial SUB-Q 5,000 units Q8HR KYAW Administration Hydralazine HCl 10 mg 01/29/25 14:38 01/31/25 06:18 Hydralazine Hcl 20 Mg/Ml Vial IV PUSH 10 mg Q8H PRN Administration Blood Pressure - High Sodium Chloride 1,000 mls @ 75 mls/hr 01/29/25 12:55 01/31/25 02:03 Normal Saline Iv IV CONT 75 mls/hr .[id number] KYAW Administration Miscellaneous Information 1 each 01/31/25 00:01 Nonformulary Drug (Epoetin Chava-Epbx [Retacrit] 40,000 Unit/Ml Solution) Which Day Of Week XX 03/02/25 00:00 CLARIFY [facility] Non-Formulary Medication 40,000 unit 02/07/25 09:00 Epoetin Chava-Epbx [Retacrit] SUB-Q 03/09/25 08:59 WEEKLY [facility] Olmesartan 5 mg 01/28/25 09:00 01/30/25 08:55 Olmesartan Medoxomil 5 Mg Tablet PO 5 mg DAILY [facility] Administration Ondansetron HCl 4 mg 01/29/25 21:35 Ondansetron Inj 4 Mg/2 Ml Vial IV PUSH Q6H PRN Nausea And Vomiting Sodium Bicarbonate 650 mg 01/28/25 09:00 01/31/25 09:12 Sodium Bicarbonate Tab 650 Mg Tablet PO 650 mg DAILY [facility] Administration Sodium Chloride 1 gm 01/31/25 17:00 Sodium Chloride 1 Gm Tablet PO BID [facility] Sodium Zirconium Cyclosilicate 10 gm 01/27/25 19:00 01/31/25 09:11 Sodium Zirconium Cyclosilicate 10 Gm Powd.Pack PO 10 gm DAILY [facility] Administration Tamsulosin HCl 0.4 mg 01/29/25 21:40 01/30/25 21:06 Tamsulosin Hcl 0.4 Mg Capsule PO 0.4 mg QHS [facility] Administration Tramadol HCl 50 mg 01/27/25 20:26 01/29/25 10:21 Tramadol Hcl (*Crx) 50 Mg Tablet PO 50 mg Q8H PRN Administration pain 4-6 Radiology Results: ITS Impressions Chest CTA 01/27/25 19:20 IMPRESSION: 1. No pulmonary embolism. 2. Cardiomegaly with highly suggestive pulmonary hypertension with minimal interstitial thickening which may indicate early pulmonary edema. Clinical correlation advised. 3. Possible left kidney stone. Venous Doppler Study 01/27/25 19:29 IMPRESSION: Negative bilateral lower extremity venous US. No deep vein thrombosis. Chest X-Ray 01/28/25 11:36 IMPRESSION: 1. Bronchial wall thickening and opacities at the bilateral lower lung zones which could represent pneumonia or mild pulmonary edema. 2. 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 Abdomen Ultrasound 01/30/25 14:51 IMPRESSION: 1: Cirrhosis of the liver with portal venous hypertension. Renal Ultrasound 01/30/25 19:09 IMPRESSION: Limited examination as detailed above. No hydronephrosis. Bladder wall thickening as can be seen with chronic obstruction or cystitis. Labs Labs: Laboratory Results - last 24 hr 01/30/25 01/30/25 01/30/25 05:08 12:56 12:56 WBC RBC Hgb Hct MCV MCH MCHC RDW Plt Count MPV % Immature Plt Fraction Sodium Potassium Chloride Carbon Dioxide Anion Gap BUN Creatinine Estim Creat Clear Calc Estimated GFR Glucose Calcium Total Bilirubin AST ALT Alkaline Phosphatase Total Creatine Kinase Total Protein Albumin U Random Total Protein 265 265 Urine Creatinine 58.4 Protein/Creat Ratio 2 4.54 H Hepatitis A IgM Ab Negative Hep Bs Antigen Negative Hep Bs Antibody Hep B Core IgM Ab Negative Hepatitis C Ab Screen Negative 01/31/25 05:27 WBC 11.4 H RBC 3.87 L Hgb 7.3 L Hct 23.8 L MCV 61.5 L MCH 18.9 L MCHC 30.7 L RDW 23.6 H Plt Count 126 L MPV TNP % Immature Plt Fraction 8.5 Sodium 123 L Potassium 4.8 Chloride 96 L Carbon Dioxide 16 L Anion Gap 11 BUN 73 H Creatinine 5.71 H Estim Creat Clear Calc 12 Estimated GFR 10 L Glucose 101 Calcium 7.7 L Total Bilirubin 3.0 H AST 94 H ALT 129 H Alkaline Phosphatase 146 H Total Creatine Kinase 53 L Total Protein 6.5 Albumin 2.9 L U Random Total Protein Urine Creatinine Protein/Creat Ratio 2 Hepatitis A IgM Ab Hep Bs Antigen Negative Hep Bs Antibody Positive Hep B Core IgM Ab Hepatitis C Ab Screen
[2025-01-31 14:30] LABS: Alanine Aminotransferase 123 U/L (6-50); Albumin Level 3.0 g/dL (3.5-5.1); Alkaline Phosphatase 166 U/L (38-126); Anion Gap 11 mmol/L (4-12); Aspartate Amino Transferase 73 U/L (17-59); Bilirubin,Total 3.3 mg/dL (0.2-1.3); Blood Urea Nitrogen 73 mg/dL (9-20); Calcium 7.8 mg/dL (8.4-10.2); Carbon Dioxide 18 mmol/L (22-30); Chloride 97 mmol/L (98-107); Estimated CRCL calculation 12 ml/min; Estimated Glomerular Filt Rate 10; Glucose 129 mg/dL (65-110); Magnesium 2.1 mg/dL (1.6-2.3); Potassium 4.1 mmol/L (3.4-5.0); Sodium 126 mmol/L (137-145); Total Protein 6.6 g/dL (6.3-8.2)
[2025-01-31] MEDS: EPOETIN ALFA-EPBX 20,000 UNITS/ML VIAL 40000 UNITS SUB-Q (15:58)
[2025-01-31] MEDS: LACTULOSE 20 GM/30 ML UDC PO (16:01)
[2025-01-31] MEDS: SODIUM CHLORIDE 1 GM TABLET PO (16:01)
[2025-01-31 21:04] LABS: Anion Gap 12 mmol/L (4-12); Blood Urea Nitrogen 74 mg/dL (9-20); Calcium 7.9 mg/dL (8.4-10.2); Carbon Dioxide 18 mmol/L (22-30); Chloride 98 mmol/L (98-107); Estimated CRCL calculation 12 ml/min; Estimated Glomerular Filt Rate 9; Glucose 126 mg/dL (65-110); Potassium 4.6 mmol/L (3.4-5.0); Sodium 128 mmol/L (137-145)
[2025-01-31] MEDS: TAMSULOSIN HCL 0.4 MG CAPSULE PO (21:32)
[2025-02-01] VITALS (19 sets, daily range): BP systolic 151–188; BP diastolic 61–79; PULSE 78–110; RESP 16–18; TEMP 36.6–37.1; O2SAT 93–100
[2025-02-01] MEDS: SODIUM CHLORIDE 0.9% IV 1,000 ML 75 ML IV CONT (05:24)
[2025-02-01 05:34] LABS: Hematocrit 21.4 % (42.0-52.0); Immature Platelet Fraction Pct 6.3 % (0.9-11.2); Mean Corpuscular HGB Conc 31.8 g/dl (32-36); Mean Corpuscular Hemoglobin 19.0 pg (26-34); Mean Corpuscular Volume 59.9 fl (80-100); Platelet Count Result 128 k/mm3 (150-375); Red Blood Count 3.57 M/mm3 (4.6-6.20); White Blood Count 10.6 K/mm3 (4.5-10.0)
[2025-02-01 05:56] LABS: Alanine Aminotransferase 89 U/L (6-50); Albumin Level 2.7 g/dL (3.5-5.1); Alkaline Phosphatase 153 U/L (38-126); Anion Gap 9 mmol/L (4-12); Aspartate Amino Transferase 49 U/L (17-59); Bilirubin,Total 2.8 mg/dL (0.2-1.3); Blood Urea Nitrogen 73 mg/dL (9-20); Calcium 7.7 mg/dL (8.4-10.2); Carbon Dioxide 18 mmol/L (22-30); Chloride 101 mmol/L (98-107); Estimated CRCL calculation 12 ml/min; Estimated Glomerular Filt Rate 9; Glucose 102 mg/dL (65-110); Potassium 4.4 mmol/L (3.4-5.0); Sodium 128 mmol/L (137-145); Total Protein 6.1 g/dL (6.3-8.2)
[2025-02-01 06:03] LABS: Hemoglobin 6.8 g/dL (14.0-18.0)
[2025-02-01] MEDS: SODIUM BICARBONATE TAB 650 MG TABLET 1300 MG PO (08:30)
[2025-02-01] MEDS: SODIUM ZIRCONIUM CYCLOSILICATE 10 GM POWD.PACK PO (08:30)
[2025-02-01] MEDS: LACTULOSE 20 GM/30 ML UDC PO ×2 (08:30→17:12)
[2025-02-01] MEDS: SODIUM CHLORIDE 0.9% IV 250 ML 30 ML IV CONT (08:31)
--- NOTE | 2025-02-01 08:44 | PC.NURSE ---
Patient is complaining of new right leg pain. RN notified MD Drew about pain. MD is assessing patient bedside now with RN.
--- NOTE | 2025-02-01 11:34 | P.PNNP_ITS ---
Progress Note: A&P Assessment and Plan (1) Acute kidney injury: Code(s): N17.9 - Acute kidney failure, unspecified Status: Acute Assessment and Plan: * Acute kidney injury. * This is on chronic kidney disease with a baseline creatinine of around 2.5 * At baseline on admission (01/27). However, creatinine has been on the rise it seemed to peak yesterday at 6 point O2 but is down to 5.97 now. * evaluation to date noted: * urine electrolytes nonprerenal * urine eosinophils negative * UA without infection * nephrotic range proteinuria * Renal ultrasound unremarkable * suspected etiology: * contrast exposure (CTA of chest on 01/27) * concurrent ARB use (olmesartan) * NSAID administration (Toradol) * prerenal factors(?) * Anemia? * Thrombotic complication of sickle cell crisis question * He has received a trial of IVFs. He continues to get 75cc an hour. No shortness of breath. Very small amount of swelling. Will continue IV fluids for now * Will check a renal scan to look for flow and function. * He does not seem to have any uremic symptom, although his GFR is around 9. * I am hoping he recover some kidney function as the contrast nephropathy improves. * still making reasonable urine output * He wants to drive back home. I would like to see a trend in a good direction on the creatinine before he goes. We have had 3 days in row over the creatinine is about the same. * We had a long discussion. * First of all he wants to apply for kidney transplant. This would be fine. He would apply [facility] got [facility] [place]. * Second of all the patient was asking about temporary dialysis to improve his kidney function. I would not suggest doing this. First of all putting a catheter in and doing dialysis does have side effects. If we drop his pressure during the treatment or if he has a complication from catheter placement his kidney function may worsen and he could end up on permanent dialysis. Since he does not have any symptoms of uremia and is not fluid overloaded I would not do dialysis right now. Dialysis would not remove contrast given so long ago. * Thidly the patient says that is not want to do long-term dialysis at all. We discussed this at length. He would rather just let nature take its course. This fact especially would make me lean against doing any sort of temporary dialysis as if he developed end-stage while on temporary dialysis that brings in a whole new issue of withdrawal of dialysis. * The patient has anemia. He did receive a shot of Epogen yesterday. He has been getting Epogen at home. He will be getting a blood transfusion today. * The timing of driving home is a difficult one. Things would have to be more stable because if something happens on the road they may not be close to a medical center. * Long discussion with the patient and Mrs. Estrada. 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, unspecified Status: Acute Assessment and Plan: * pain control * IVFs as tolerated * continue supportive therapy (4) Hyperkalemia: Code(s): E87.5 - Hyperkalemia Status: Chronic Assessment and Plan: * stable at this time * chronic issue at baseline per my discussion with patient * likely acutely worsened by RENY/ARF * on lokelma as an outpatient * although patient and seem to think kayexalate works better (5) Hyponatremia: Code(s): E87.1 - Hypo-osmolality and hyponatremia Status: Acute Assessment and Plan: * likely due to RENY/ARF * should improve as renal function does * titrate sodium bicarbonate for this issue as well as #6 * on fluid restriction at this time (6) Metabolic acidosis: Code(s): E87.20 - Acidosis, unspecified Status: Acute Assessment and Plan: * due to CKD and worsened by RENY * on oral bicarbonate supplementation (7) Hypertension: Code(s): I10 - Essential (primary) hypertension Status: Chronic Assessment and Plan: * fluctuating since admission * however, suspect pain is playing a role * follow trend of hemodynamics (8) Anemia: Code(s): D64.9 - Anemia, unspecified Status: Chronic Assessment and Plan: * due to CKD with possible worsening due to #3 * follow trend of H/H * may need to consider Epogen (on this as an outpatient) * PRBC transfusion per protocol Will continue to follow. Subjective Date/time seen: 02/01/25 11:34 Interval history: Patient feels about the same. Pain from his sickle crisis is better. He had constipation until last evening when he finally had a good bowel movement . No shortness of breath. Very little swelling. Eating okay today. Exam Narrative: General: WD/WN male in NAD Heart: normal S1 and S2; no rub Lungs: clear anteriorly Abdomen: soft, nontender, nondistended, positive bowel sounds Extremities: no cyanosis or clubbing; trace edema Skin: No rash Objective Data Vital Signs Vital Signs: Vital Signs - 24 hr 01/31/25 12:00 01/31/25 12:52 01/31/25 14:00 Temperature 97.9 F Pulse Rate 93 100 99 Respiratory Rate 18 18 Blood Pressure 161/66 H 157/65 H Pulse Oximetry 90 91 Oxygen Delivery Fraction of Inspired Oxygen 01/31/25 16:00 01/31/25 20:00 01/31/25 20:29 Temperature 97.6 F Pulse Rate 99 96 96 Respiratory Rate 18 Blood Pressure 161/73 H Pulse Oximetry 94 Oxygen Delivery Fraction of Inspired Oxygen 01/31/25 21:30 01/31/25 22:04 02/01/25 00:00 Temperature Pulse Rate 96 Respiratory Rate Blood Pressure Pulse Oximetry 94 Oxygen Delivery Room Air Room Air Fraction of Inspired Oxygen 21 02/01/25 04:00 02/01/25 05:27 02/01/25 08:26 Temperature 97.9 F Pulse Rate 110 H 97 92 Respiratory Rate 18 18 Blood Pressure 169/71 H 188/61 H Pulse Oximetry 93 98 Oxygen Delivery Fraction of Inspired Oxygen 02/01/25 08:38 02/01/25 08:38 02/01/25 09:31 Temperature 98.2 F Pulse Rate 92 98 Respiratory Rate 18 Blood Pressure 171/64 H Pulse Oximetry 95 98 Oxygen Delivery Room Air Fraction of Inspired Oxygen 02/01/25 11:13 Temperature 98.1 F Pulse Rate 99 Respiratory Rate 18 Blood Pressure 166/64 H Pulse Oximetry 97 Oxygen Delivery Fraction of Inspired Oxygen Intake/Output Intake/Output: Intake & Output 01/29/25 01/30/25 01/31/25 02/01/25 23:59 23:59 23:59 23:59 Intake Total 2110 3012.5 3027.5 1320 Output Total 072 821 4384 1210 Balance 1140 2272.5 982.5 110 Meds/Results Medications: Active Medications Generic Name Dose Route Start Last Admin Trade Name Freq PRN Reason Stop Dose Admin Acetaminophen 650 mg 01/28/25 14:02 01/28/25 15:07 Acetaminophen 325 Mg Tablet PO 650 mg Q4H PRN Administration Mild Pain (1-3) or Fever Allopurinol 100 mg 01/27/25 21:00 02/01/25 08:30 Allopurinol 100 Mg Tablet PO 100 mg Q12HR KYAW Administration Alprazolam 0.25 mg 02/01/25 10:09 Alprazolam (*Crx) 0.25 Mg Tablet PO TID PRN Anxiety Amlodipine Besylate 5 mg 01/28/25 09:00 02/01/25 08:30 Amlodipine Besylate 5 Mg Tablet PO 5 mg DAILY KYAW Administration Clonidine HCl 0.1 mg 01/28/25 09:00 02/01/25 08:31 Clonidine Hcl 0.1 Mg Tablet PO 0.1 mg TID KYAW Administration Epoetin Chava-epbx 40,000 units 01/31/25 15:00 01/31/25 15:58 Epoetin Chava-Epbx 20,000 Units/Ml Vial SUB-Q 40,000 units Th@0900 KYAW Administration Heparin Sodium (Porcine) 5,000 units 01/27/25 22:00 02/01/25 05:21 Heparin Sodium 5,000 Units/Ml Vial SUB-Q 5,000 units Q8HR KYAW Administration Hydralazine HCl 10 mg 01/29/25 14:38 02/01/25 09:47 Hydralazine Hcl 20 Mg/Ml Vial IV PUSH 10 mg Q8H PRN Administration Blood Pressure - High Sodium Chloride 1,000 mls @ 75 mls/hr 01/29/25 12:55 02/01/25 05:24 Normal Saline Iv IV CONT 75 mls/hr .[id number] KYAW Administration Sodium Chloride 250 mls @ 30 mls/hr 02/01/25 07:58 02/01/25 08:31 Normal Saline Iv IV CONT 02/01/25 16:17 30 mls/hr .[id number] STA Administration Lactulose 20 gm 01/31/25 17:00 02/01/25 08:30 Lactulose 20 Gm/30 Ml Udc PO 20 gm BID KYAW Administration Olmesartan 5 mg 01/28/25 09:00 01/30/25 08:55 Olmesartan Medoxomil 5 Mg Tablet PO 5 mg DAILY KYAW Administration Ondansetron HCl 4 mg 01/29/25 21:35 Ondansetron Inj 4 Mg/2 Ml Vial IV PUSH Q6H PRN Nausea And Vomiting Sodium Bicarbonate 1,300 mg 01/31/25 17:04 02/01/25 08:30 Sodium Bicarbonate Tab 650 Mg Tablet PO 1,300 mg DAILY KYAW Administration Sodium Zirconium Cyclosilicate 10 gm 01/27/25 19:00 02/01/25 08:30 Sodium Zirconium Cyclosilicate 10 Gm Powd.Pack PO 10 gm DAILY KYAW Administration Tamsulosin HCl 0.4 mg 01/29/25 21:40 01/31/25 21:32 Tamsulosin Hcl 0.4 Mg Capsule PO 0.4 mg QHS KYAW Administration Tramadol HCl 50 mg 01/27/25 20:26 01/29/25 10:21 Tramadol Hcl (*Crx) 50 Mg Tablet PO 50 mg Q8H PRN Administration pain 4-6 Radiology Results: ITS Impressions Chest CTA 01/27/25 19:20 IMPRESSION: 1. No pulmonary embolism. 2. Cardiomegaly with highly suggestive pulmonary hypertension with minimal interstitial thickening which may indicate early pulmonary edema. Clinical correlation advised. 3. Possible left kidney stone. Venous Doppler Study 01/27/25 19:29 IMPRESSION: Negative bilateral lower extremity venous US. No deep vein thrombosis. Chest X-Ray 01/28/25 11:36 IMPRESSION: 1. Bronchial wall thickening and opacities at the bilateral lower lung zones which could represent pneumonia or mild pulmonary edema. 2. 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 Abdomen Ultrasound 01/30/25 14:51 IMPRESSION: 1: Cirrhosis of the liver with portal venous hypertension. Renal Ultrasound 01/30/25 19:09 IMPRESSION: Limited examination as detailed above. No hydronephrosis. Bladder wall thickening as can be seen with chronic obstruction or cystitis. Abdomen X-Ray 01/31/25 15:07 IMPRESSION: 1: No acute abdominal abnormality identified. 2: Moderate colonic fecal loading. 3: Bibasilar atelectasis. Cannot exclude superimposed pneumonia. Consider correlation with chest x-ray. Labs Labs: Laboratory Results - last 24 hr 01/31/25 01/31/25 02/01/25 14:04 20:36 05:19 WBC 10.6 H RBC 3.57 L Hgb 6.8 L* Hct 21.4 L MCV 59.9 L MCH 19.0 L MCHC 31.8 L RDW 22.6 H Plt Count 128 L MPV TNP % Immature Plt Fraction 6.3 Sodium 126 L 128 L 128 L Potassium 4.1 4.6 4.4 Chloride 97 L 98 101 Carbon Dioxide 18 L 18 L 18 L Anion Gap 11 12 9 BUN 73 H 74 H 73 H Creatinine 5.92 H 6.02 H 5.97 H Estim Creat Clear Calc 12 12 12 Estimated GFR 10 L 9 L 9 L Glucose 129 H 126 H 102 Calcium 7.8 L 7.9 L 7.7 L Magnesium 2.1 Total Bilirubin 3.3 H 2.8 H AST 73 H 49 ALT 123 H 89 H Alkaline Phosphatase 166 H 153 H Total Protein 6.6 6.1 L Albumin 3.0 L 2.7 L Blood Type Antibody Screen Crossmatch 02/01/25 08:10 WBC RBC Hgb Hct MCV MCH MCHC RDW Plt Count MPV % Immature Plt Fraction Sodium Potassium Chloride Carbon Dioxide Anion Gap BUN Creatinine Estim Creat Clear Calc Estimated GFR Glucose Calcium Magnesium Total Bilirubin AST ALT Alkaline Phosphatase Total Protein Albumin Blood Type A Positive Antibody Screen Negative Crossmatch See Detail
[2025-02-01] MEDS: ALPRAZolam (*CRX) 0.25 MG TABLET PO ×2 (12:35→17:12)
--- NOTE | 2025-02-01 13:09 | PC.NURSE ---
Patient's BP is very elevated still. RN has notified MD Drew several times with no new orders. RN has asked about increasing BP medications and times and discontinuing fluids.
--- NOTE | 2025-02-01 13:11 | P.PNIM_ITS ---
Progress Note: A&P Assessment and Plan (1) Pain crisis: Code(s): R52 - Pain, unspecified Status: Acute (2) Overdose of opiate or related narcotic: Code(s): T40.601A - Poisoning by unspecified narcotics, accidental (unintentional), initial encounter Status: Acute Plan Sickle cell pain crisis patient has history of Sickle cell disease CTA Chest reviewed, no PE but showed cardiomegaly and possible pulm edema improving Continue IVF and PRN pain control monitor Sickle cell anemia hb 6.8 today transfuse one unit blood 02/01/25 patient on epoetin Continue monitoring Metabolic acidosis, r Co2 low, anion gap resolved continue Bicarb infusion on home bicarb tablets monitor hyperkalemia resolved Continue home Zirconium monitor K level RENY on CKD, stage III cr 2.5 at baseline , imroving US Bladder wall thickening as can be seen with chronic obstruction or cystitis Continue IVF and monitor nephrology team on board HTN uncontrolled continue home meds increased amlodipine to 10 mg hydralazine prn CHF, no ECHO, unable to specify CT chest reviewed monitor for now transaminitis improving liver US Cirrhosis of the liver with portal venous hypertension. hepatitis panel neg GI team on board constipation bowel regimen DVT prophylaxis on Sq Lovenox full code SDM: Spouse Mehul Estrada Subjective Date/time seen: 02/01/25 13:11 Interval history: per HPI: 69 yo male with PMH of sickle cell with PMH of HTN, CKD III, CHF who presented to the on account of chest and lower extremities. Patient lives in [place] and came to [place] for a denominational function which concluded yesterday, he started having symptoms yesterday which worsening today causing him to presented to the ER for proper eval and care. Denies any SOB, abdpain, fever, focal weakness or numbness, diarrhea or vomiting. ER eval notable for PPR 113, RR 18, BP 176/86, saturating 99% on room air. Labs notable for WBC 12.1, hb 9.1, Na 136, K 5.8, CO2 15, Cr 2.5, Lactic aic 3.1 repeat 2.6. CTA chest showed no PE but showed cardiomegaly showed hightly suggetive pulm hypertensio with monimal interstitial thickening wihich may indicate early pulm edema and possible left kidney stone. Venous doppler negative for DVT. Patient was started on IVF and IV Dilaudid PRN prior to admission. Patient appeared to be overdose o Dilaudid in the ER and was given Narcan prior to adm ission [facility] he responded to. 01/29/25 Felling better. pain improving/ WBC 15.6, hemoglobin 7.6, sodium 125, creatinine 4.43 ,elevated liver enzyme Continue IV fluid. We will get liver ultrasound. 01/30/25 patient was seen and examined at bedside. he is feeling fine. denies any marcell pain, SOb, abd pian. N/V. Na 123. kidney function worsening. Liver us pending. Nephrology team on board. discussed with patient that we can not discharge him today. he mentioned he prefer to go home and get better at home and can get sunshine at home and that help him with kidney recovery. he is ok to stay and see wait for nephrology recs. 01/31/25 patient was seen and examined at bedside. he is feeling fine. his pain is better. he is urinating better. Kidney function is worsening. his is upset about hospital mistakes to give contrast and too much pain meds. He is asking to discharge and follow up with his doctors at [place]. i told him that I respect his decision but at this time he is not safe to be discharged and if he wants to leave it would be AMA. He and his understood. will give epoetin for anemia as he is getting weekly as outpatient. started on po salt tablet. continue to monitor. will follow nephrology team recs. US showed cirrhosis. GI team on board. 02/01/25 Patient was seen and examined at bedside. he is feeling ok. complaining of R hip pain and he is thinking should get better with exercises. had low Hb will transfuse one unit blood. kidney function slightly better. Continue with IVF. Liver function improving. has uncontrolled HTN. will increase amlodipine to 10 mg. Review of Systems Review of Systems: All other systemes were reviewed and negative except as noted in the HPI above Exam Narrative: General: lethargic but responding to question and compliant Eyes: EOMI, PERRLA ENNT External ears normal, Neck is supple, no masses, Respiratory systems: Clear to auscultation Cardiovascular S1, S2, normal rhythm, no murmur, rub, or gallop; no thrill or palpable murmurs on palpation. Gastrointestinal: soft, non-tender, and non-distended abdomen with no masses; BS present Skin: no rash, lesions, ulcerations, subcutaneous nodules or induration Musculoskeletal: no abnormality and no tenderness, normal ROM Neurologic: Alert and oriented x3, non focal Mental Status Exam: normal affect Objective Data Vital Signs Vital Signs: Vital Signs - 24 hr 01/31/25 14:00 01/31/25 16:00 01/31/25 20:00 Temperature 97.9 F Pulse Rate 99 99 96 Respiratory Rate 18 Blood Pressure 157/65 H Pulse Oximetry 91 Oxygen Delivery Fraction of Inspired Oxygen 01/31/25 20:29 01/31/25 21:30 01/31/25 22:04 Temperature 97.6 F Pulse Rate 96 Respiratory Rate 18 Blood Pressure 161/73 H Pulse Oximetry 94 94 Oxygen Delivery Room Air Room Air Fraction of Inspired Oxygen 21 02/01/25 00:00 02/01/25 04:00 02/01/25 05:27 Temperature 97.9 F Pulse Rate 96 110 H 97 Respiratory Rate 18 Blood Pressure 169/71 H Pulse Oximetry 93 Oxygen Delivery Fraction of Inspired Oxygen 02/01/25 08:26 02/01/25 08:38 02/01/25 08:38 Temperature Pulse Rate 92 78 Respiratory Rate 18 Blood Pressure 188/61 H Pulse Oximetry 98 95 Oxygen Delivery Room Air Fraction of Inspired Oxygen 02/01/25 09:31 02/01/25 11:13 02/01/25 11:30 Temperature 98.2 F 98.1 F 98.2 F Pulse Rate 98 99 97 Respiratory Rate 18 18 18 Blood Pressure 171/64 H 166/64 H 175/61 H Pulse Oximetry 98 97 98 Oxygen Delivery Fraction of Inspired Oxygen 02/01/25 12:00 02/01/25 12:30 Temperature 97.8 F Pulse Rate 84 88 Respiratory Rate 18 Blood Pressure 161/63 H Pulse Oximetry 100 Oxygen Delivery Fraction of Inspired Oxygen Intake/Output Intake/Output: Intake & Output 01/29/25 01/30/25 01/31/25 02/01/25 23:59 23:59 23:59 23:59 Intake Total 2110 3012.5 3027.5 1320 Output Total 974 676 6844 1210 Balance 1140 2272.5 982.5 110 Meds/Results Medications: Active Medications Generic Name Dose Route Start Last Admin Trade Name Freq PRN Reason Stop Dose Admin Acetaminophen 650 mg 01/28/25 14:02 01/28/25 15:07 Acetaminophen 325 Mg Tablet PO 650 mg Q4H PRN Administration Mild Pain (1-3) or Fever Allopurinol 100 mg 01/27/25 21:00 02/01/25 08:30 Allopurinol 100 Mg Tablet PO 100 mg Q12HR KYAW Administration Alprazolam 0.25 mg 02/01/25 10:09 02/01/25 12:35 Alprazolam (*Crx) 0.25 Mg Tablet PO 0.25 mg TID PRN Administration Anxiety Amlodipine Besylate 10 mg 02/02/25 09:00 Amlodipine Besylate 10 Mg Tablet PO DAILY KYAW Amlodipine Besylate 5 mg 02/01/25 13:10 Amlodipine Besylate 5 Mg Tablet PO 02/01/25 13:11 ONCE ONE Clonidine HCl 0.1 mg 01/28/25 09:00 02/01/25 12:33 Clonidine Hcl 0.1 Mg Tablet PO 0.1 mg TID KYAW Administration Epoetin Chava-epbx 40,000 units 01/31/25 15:00 01/31/25 15:58 Epoetin Chava-Epbx 20,000 Units/Ml Vial SUB-Q 40,000 units Th@0900 KYAW Administration Heparin Sodium (Porcine) 5,000 units 01/27/25 22:00 02/01/25 05:21 Heparin Sodium 5,000 Units/Ml Vial SUB-Q 5,000 units Q8HR KYAW Administration Hydralazine HCl 10 mg 01/29/25 14:38 02/01/25 09:47 Hydralazine Hcl 20 Mg/Ml Vial IV PUSH 10 mg Q8H PRN Administration Blood Pressure - High Sodium Chloride 1,000 mls @ 75 mls/hr 01/29/25 12:55 02/01/25 05:24 Normal Saline Iv IV CONT 75 mls/hr .[id number] KYAW Administration Sodium Chloride 250 mls @ 30 mls/hr 02/01/25 07:58 02/01/25 08:31 Normal Saline Iv IV CONT 02/01/25 16:17 30 mls/hr .[id number] STA Administration Lactulose 20 gm 01/31/25 17:00 02/01/25 08:30 Lactulose 20 Gm/30 Ml Udc PO 20 gm BID KYAW Administration Olmesartan 5 mg 01/28/25 09:00 01/30/25 08:55 Olmesartan Medoxomil 5 Mg Tablet PO 5 mg DAILY KYAW Administration Ondansetron HCl 4 mg 01/29/25 21:35 Ondansetron Inj 4 Mg/2 Ml Vial IV PUSH Q6H PRN Nausea And Vomiting Sodium Bicarbonate 1,300 mg 01/31/25 17:04 02/01/25 08:30 Sodium Bicarbonate Tab 650 Mg Tablet PO 1,300 mg DAILY KYAW Administration Sodium Zirconium Cyclosilicate 10 gm 01/27/25 19:00 02/01/25 08:30 Sodium Zirconium Cyclosilicate 10 Gm Powd.Pack PO 10 gm DAILY KYAW Administration Tamsulosin HCl 0.4 mg 01/29/25 21:40 01/31/25 21:32 Tamsulosin Hcl 0.4 Mg Capsule PO 0.4 mg QHS KYAW Administration Tramadol HCl 50 mg 01/27/25 20:26 01/29/25 10:21 Tramadol Hcl (*Crx) 50 Mg Tablet PO 50 mg Q8H PRN Administration pain 4-6 Radiology Results: ITS Impressions Chest CTA 01/27/25 19:20 IMPRESSION: 1. No pulmonary embolism. 2. Cardiomegaly with highly suggestive pulmonary hypertension with minimal interstitial thickening which may indicate early pulmonary edema. Clinical correlation advised. 3. Possible left kidney stone. Venous Doppler Study 01/27/25 19:29 IMPRESSION: Negative bilateral lower extremity venous US. No deep vein thrombosis. Chest X-Ray 01/28/25 11:36 IMPRESSION: 1. Bronchial wall thickening and opacities at the bilateral lower lung zones w hich could represent pneumonia or mild pulmonary edema. 2. 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 Abdomen Ultrasound 01/30/25 14:51 IMPRESSION: 1: Cirrhosis of the liver with portal venous hypertension. Renal Ultrasound 01/30/25 19:09 IMPRESSION: Limited examination as detailed above. No hydronephrosis. Bladder wall thickening as can be seen with chronic obstruction or cystitis. Abdomen X-Ray 01/31/25 15:07 IMPRESSION: 1: No acute abdominal abnormality identified. 2: Moderate colonic fecal loading. 3: Bibasilar atelectasis. Cannot exclude superimposed pneumonia. Consider correlation with chest x-ray. Labs Labs: Laboratory Results - last 24 hr 01/31/25 01/31/25 02/01/25 14:04 20:36 05:19 WBC 10.6 H RBC 3.57 L Hgb 6.8 L* Hct 21.4 L MCV 59.9 L MCH 19.0 L MCHC 31.8 L RDW 22.6 H Plt Count 128 L MPV TNP % Immature Plt Fraction 6.3 Sodium 126 L 128 L 128 L Potassium 4.1 4.6 4.4 Chloride 97 L 98 101 Carbon Dioxide 18 L 18 L 18 L Anion Gap 11 12 9 BUN 73 H 74 H 73 H Creatinine 5.92 H 6.02 H 5.97 H Estim Creat Clear Calc 12 12 12 Estimated GFR 10 L 9 L 9 L Glucose 129 H 126 H 102 Calcium 7.8 L 7.9 L 7.7 L Magnesium 2.1 Total Bilirubin 3.3 H 2.8 H AST 73 H 49 ALT 123 H 89 H Alkaline Phosphatase 166 H 153 H Total Protein 6.6 6.1 L Albumin 3.0 L 2.7 L Blood Type Antibody Screen Crossmatch 02/01/25 08:10 WBC RBC Hgb Hct MCV MCH MCHC RDW Plt Count MPV % Immature Plt Fraction Sodium Potassium Chloride Carbon Dioxide Anion Gap BUN Creatinine Estim Creat Clear Calc Estimated GFR Glucose Calcium Magnesium Total Bilirubin AST ALT Alkaline Phosphatase Total Protein Albumin Blood Type A Positive Antibody Screen Negative Crossmatch See Detail
--- NOTE | 2025-02-01 18:31 | PC.NURSE ---
Patient refused to have a CBC redraw. Patient also has still had increasing BP and RN has continously checked BPs all day and letting Dr. Drew know. Dr. Drew has ordered an additional dose of 10 mg of Hydralazine.
[2025-02-01 21:09] LABS: Hematocrit 27.5 % (42.0-52.0); Hemoglobin 8.7 g/dL (14.0-18.0); Immature Platelet Fraction Pct 6.4 % (0.9-11.2); Mean Corpuscular HGB Conc 31.6 g/dl (32-36); Mean Corpuscular Hemoglobin 19.6 pg (26-34); Mean Corpuscular Volume 61.9 fl (80-100); Platelet Count Result 141 k/mm3 (150-375); Red Blood Count 4.44 M/mm3 (4.6-6.20); White Blood Count 12.6 K/mm3 (4.5-10.0)
[2025-02-01] MEDS: TAMSULOSIN HCL 0.4 MG CAPSULE PO (21:34)
[2025-02-02] VITALS (16 sets, daily range): BP systolic 140–189; BP diastolic 58–74; PULSE 72–104; RESP 16–18; TEMP 36.9–37.1; O2SAT 92–96
[2025-02-02] MEDS: ALPRAZolam (*CRX) 0.25 MG TABLET PO (02:39)
--- NOTE | 2025-02-02 02:54 | PC.NURSE ---
Nurse and grad nurse was called to bedside with patient stating My head hurts so bad its messing with my breathing and I need anxiety medicine. Nurse took vitals signs which were within normal limits except for elevated BP. Nurse administered hydralazine and brought Tylenol and Xanax to administer. After explaining the medications to the patient, patients stated that the patient does not need Tylenol stating he doesn't not have a headache. The patient was ask if he had a headache and he said No, its just pounding and refused medication. Histotechnologist will continue to monitor and re-assess patients BP.
[2025-02-02 06:35] LABS: Alanine Aminotransferase 70 U/L (6-50); Albumin Level 2.9 g/dL (3.5-5.1); Alkaline Phosphatase 166 U/L (38-126); Aspartate Amino Transferase 39 U/L (17-59); Bilirubin,Total 2.8 mg/dL (0.2-1.3); Blood Urea Nitrogen 67 mg/dL (9-20); Calcium 7.8 mg/dL (8.4-10.2); Carbon Dioxide 16 mmol/L (22-30); Estimated CRCL calculation 12 ml/min; Estimated Glomerular Filt Rate 10; Glucose 104 mg/dL (65-110); Total Protein 6.5 g/dL (6.3-8.2)
[2025-02-02 07:01] LABS: Anion Gap 10 mmol/L (4-12); Chloride 102 mmol/L (98-107); Potassium 3.9 mmol/L (3.4-5.0); Sodium 128 mmol/L (137-145)
[2025-02-02] MEDS: SODIUM CHLORIDE 0.9% IV 1,000 ML 75 ML IV CONT (09:24)
[2025-02-02] MEDS: LACTULOSE 20 GM/30 ML UDC PO ×2 (09:25→16:56)
[2025-02-02] MEDS: SODIUM BICARBONATE TAB 650 MG TABLET 1300 MG PO ×2 (09:25→16:56)
[2025-02-02] MEDS: SODIUM ZIRCONIUM CYCLOSILICATE 10 GM POWD.PACK PO (09:25)
[2025-02-02] MEDS: atenoloL 12.5 MG TABLET PO (09:27)
--- NOTE | 2025-02-02 11:19 | P.PNNP_ITS ---
Progress Note: A&P Assessment and Plan (1) Acute kidney injury: Code(s): N17.9 - Acute kidney failure, unspecified Status: Acute Assessment and Plan: * Acute kidney injury. * This is on chronic kidney disease with a baseline creatinine of around 2.5 * At baseline on admission (01/27). However, creatinine has been on the rise it seemed to peak yesterday at 6 point O2 but is down to 5.97 now. * evaluation to date noted: * urine electrolytes nonprerenal * urine eosinophils negative * UA without infection * nephrotic range proteinuria * Renal ultrasound unremarkable * suspected etiology: * contrast exposure (CTA of chest on 01/27) * concurrent ARB use (olmesartan) * NSAID administration (Toradol) * prerenal factors(?) * Anemia? * Thrombotic complication of sickle cell crisis question * He has received a trial of IVFs. He continues to get 75cc an hour. No shortness of breath. Very small amount of swelling. Will continue IV fluids for now * renal scan is not read yet. It does show that both kidneys are lighting fairly equally. From what I can see from the scan and the grafts it looks like there is uptake without excretion consistent with ATN but the report is not out yet. This does suggest that there might be some improvement as time goes on. However because of his chronic kidney disease sometimes kidneys do not bounce back as quickly or as well as if he had normal kidneys. * He does not seem to have any uremic symptom, although his GFR is 10 today. * I am hoping he recover some kidney function as the contrast nephropathy improves. * still making reasonable urine output * The patient really really really wants to go home today. It would be nice to see 1 more day of improvement in his creatinine. We discussed yesterday the risks of driving home if something sudden should happen. * We had a long discussion. * The patient has anemia. He did receive a shot of Epogen this week.. He has been getting Epogen at home. He Received blood transfusion yesterday. Hemoglobin is up to 8.7. * The timing of driving home is a difficult one. Things would have to be more stable because if something happens on the road they may not be close to a medical center. * I had another discussion with the patient and Mrs. Estrada. (2) Stage 4 chronic kidney disease: Code(s): N18.4 - Chronic kidney disease, stage 4 (severe) Status: Chronic Assessment and Plan: * baseline creatinine seems to run ~ 2.0 - 2.6mg/dl * this causes him to fluctuate between CKD stage 3b and stage 4 * likely secondary to hypertension and vascular disease along with possible sickle cell disease(?) * follows with nephrology back home for CKD management (3) 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, unspecified Status: Acute Assessment and Plan: * pain control * IVFs as tolerated * continue supportive therapy (4) Hyperkalemia: Code(s): E87.5 - Hyperkalemia Status: Chronic Assessment and Plan: * stable at this time * chronic issue at baseline per my discussion with patient * likely acutely worsened by RENY/ARF * on lokelma as an outpatient * although patient and seem to think kayexalate works better (5) Hyponatremia: Code(s): E87.1 - Hypo-osmolality and hyponatremia Status: Acute Assessment and Plan: * likely due to RENY/ARF * should improve as renal function does * titrate sodium bicarbonate for this issue as well as #6 * on fluid restriction at this time (6) Metabolic acidosis: Code(s): E87.20 - Acidosis, unspecified Status: Acute Assessment and Plan: * due to CKD and worsened by RENY * on oral bicarbonate supplementation (7) Hypertension: Code(s): I10 - Essential (primary) hypertension Status: Chronic Assessment and Plan: * fluctuating since admission * however, suspect pain is playing a role * follow trend of hemodynamics (8) Anemia: Code(s): D64.9 - Anemia, unspecified Status: Chronic Assessment and Plan: * due to CKD with possible worsening due to #3 * follow trend of H/H * may need to consider Epogen (on this as an outpatient) * PRBC transfusion per protocol Subjective Date/time seen: 02/02/25 11:19 Interval history: patient feels okay. He woke up in the middle the night with anxiety but feels better today. He ate well for lunch and dinner and is hungry for breakfast. Exam Narrative: General: WD/WN male in NAD Heart: normal S1 and S2; no rub or gallop Lungs: clear anteriorly Abdomen: soft, nontender, nondistended, positive bowel sounds Extremities: no cyanosis or clubbing; trace edema Skin: No rash or subcu not Objective Data Vital Signs Vital Signs: Vital Signs - 24 hr 02/01/25 11:30 02/01/25 11:30 02/01/25 12:00 Temperature 98.2 F Pulse Rate 97 84 Respiratory Rate 18 Blood Pressure 175/61 H 175/61 H Pulse Oximetry 98 Oxygen Delivery 02/01/25 12:30 02/01/25 12:30 02/01/25 13:26 Temperature 97.8 F 98.2 F Pulse Rate 88 84 Respiratory Rate 18 18 Blood Pressure 161/63 H 161/63 H 151/63 H Pulse Oximetry 100 96 Oxygen Delivery 02/01/25 13:26 02/01/25 14:08 02/01/25 14:08 Temperature 98.1 F Pulse Rate 82 Respiratory Rate 16 Blood Pressure 151/63 H 157/65 H 157/65 H Pulse Oximetry 99 Oxygen Delivery 02/01/25 16:00 02/01/25 17:14 02/01/25 18:05 Temperature Pulse Rate 98 Respiratory Rate Blood Pressure 176/72 H 184/67 H Pulse Oximetry Oxygen Delivery 02/01/25 18:22 02/01/25 19:22 02/01/25 20:00 Temperature Pulse Rate Respiratory Rate Blood Pressure 184/67 H 161/79 H Pulse Oximetry Oxygen Delivery Room Air 02/01/25 20:00 02/01/25 21:47 02/02/25 00:00 Temperature 98.8 F Pulse Rate 82 99 94 Respiratory Rate 18 Blood Pressure 186/70 H Pulse Oximetry 97 Oxygen Delivery 02/02/25 00:14 02/02/25 02:35 02/02/25 04:00 Temperature Pulse Rate 104 H Respiratory Rate Blood Pressure 162/74 H 189/58 H Pulse Oximetry Oxygen Delivery 02/02/25 04:31 02/02/25 06:00 02/02/25 08:00 Temperature 98.7 F Pulse Rate 86 84 Respiratory Rate 18 Blood Pressure 180/62 H 171/59 H Pulse Oximetry 92 Oxygen Delivery 02/02/25 08:00 02/02/25 09:27 02/02/25 09:36 Temperature Pulse Rate 92 99 Respiratory Rate Blood Pressure 160/67 H Pulse Oximetry Oxygen Delivery Room Air Intake/Output Intake/Output: Intake & Output 01/30/25 01/31/25 02/01/25 02/02/25 23:59 23:59 23:59 23:59 Intake Total 3012.5 3027.5 3230 195 Output Total 740 2047 1210 660 Balance 2272.5 982.5 2019 Meds/Results Medications: Active Medications Generic Name Dose Route Start Last Admin Trade Name Freq PRN Reason Stop Dose Admin Acetaminophen 650 mg 01/28/25 14:02 01/28/25 15:07 Acetaminophen 325 Mg Tablet PO 650 mg Q4H PRN Administration Mild Pain (1-3) or Fever Allopurinol 100 mg 01/27/25 21:00 02/02/25 09:26 Allopurinol 100 Mg Tablet PO 100 mg Q12HR KYAW Administration Alprazolam 0.25 mg 02/01/25 10:09 02/02/25 02:39 Alprazolam (*Crx) 0.25 Mg Tablet PO 0.25 mg TID PRN Administration Anxiety Amlodipine Besylate 10 mg 02/02/25 09:00 02/02/25 04:59 Amlodipine Besylate 10 Mg Tablet PO 10 mg DAILY KYAW Administration Atenolol 12.5 mg 02/02/25 09:00 02/02/25 09:27 Atenolol 12.5 Mg Tablet PO 12.5 mg DAILY KYAW Administration Clonidine HCl 0.1 mg 01/28/25 09:00 02/02/25 09:25 Clonidine Hcl 0.1 Mg Tablet PO 0.1 mg TID KYAW Administration Epoetin Chava-epbx 40,000 units 01/31/25 15:00 01/31/25 15:58 Epoetin Chava-Epbx 20,000 Units/Ml Vial SUB-Q 40,000 units Th@0900 KYAW Administration Heparin Sodium (Porcine) 5,000 units 01/27/25 22:00 02/02/25 06:06 Heparin Sodium 5,000 Units/Ml Vial SUB-Q 5,000 units Q8HR KYAW Administration Hydralazine HCl 10 mg 01/29/25 14:38 02/02/25 02:47 Hydralazine Hcl 20 Mg/Ml Vial IV PUSH 10 mg Q8H PRN Administration Blood Pressure - High Sodium Chloride 1,000 mls @ 75 mls/hr 01/29/25 12:55 02/02/25 09:24 Normal Saline Iv IV CONT 75 mls/hr .[id number] KYAW Administration Lactulose 20 gm 01/31/25 17:00 02/02/25 09:25 Lactulose 20 Gm/30 Ml Udc PO 20 gm BID KYAW Administration Olmesartan 5 mg 01/28/25 09:00 01/30/25 08:55 Olmesartan Medoxomil 5 Mg Tablet PO 5 mg DAILY KYAW Administration Ondansetron HCl 4 mg 01/29/25 21:35 Ondansetron Inj 4 Mg/2 Ml Vial IV PUSH Q6H PRN Nausea And Vomiting Sodium Bicarbonate 1,300 mg 02/02/25 09:00 02/02/25 09:25 Sodium Bicarbonate Tab 650 Mg Tablet PO 1,300 mg BID KYAW Administration Sodium Zirconium Cyclosilicate 10 gm 01/27/25 19:00 02/02/25 09:25 Sodium Zirconium Cyclosilicate 10 Gm Powd.Pack PO 10 gm DAILY KYAW Administration Tamsulosin HCl 0.4 mg 01/29/25 21:40 02/01/25 21:34 Tamsulosin Hcl 0.4 Mg Capsule PO 0.4 mg QHS KYAW Administration Tramadol HCl 50 mg 01/27/25 20:26 01/29/25 10:21 Tramadol Hcl (*Crx) 50 Mg Tablet PO 50 mg Q8H PRN Administration pain 4-6 Radiology Results: ITS Impressions Chest CTA 01/27/25 19:20 IMPRESSION: 1. No pulmonary embolism. 2. Cardiomegaly with highly suggestive pulmonary hypertension with minimal interstitial thickening which may indicate early pulmonary edema. Clinical correlation advised. 3. Possible left kidney stone. Venous Doppler Study 01/27/25 19:29 IMPRESSION: Negative bilateral lower extremity venous US. No deep vein thrombosis. Chest X-Ray 01/28/25 11:36 IMPRESSION: 1. Bronchial wall thickening and opacities at the bilateral lower lung zones which could represent pneumonia or mild pulmonary edema. 2. 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 Abdomen Ultrasound 01/30/25 14:51 IMPRESSION: 1: Cirrhosis of the liver with portal venous hypertension. Renal Ultrasound 01/30/25 19:09 IMPRESSION: Limited examination as detailed above. No hydronephrosis. Bladder wall thickening as can be seen with chronic obstruction or cystitis. Abdomen X-Ray 01/31/25 15:07 IMPRESSION: 1: No acute abdominal abnormality identified. 2: Moderate colonic fecal loading. 3: Bibasilar atelectasis. Cannot exclude superimposed pneumonia. Consider correlation with chest x-ray. Labs Labs: Laboratory Results - last 24 hr 02/01/25 02/01/25 02/02/25 08:10 20:55 05:57 WBC 12.6 H RBC 4.44 L Hgb 8.7 L Hct 27.5 L MCV 61.9 L MCH 19.6 L MCHC 31.6 L RDW 25.3 H Plt Count 141 L MPV TNP % Immature Plt Fraction 6.4 Sodium 128 L Potassium 3.9 Chloride 102 Carbon Dioxide 16 L Anion Gap 10 BUN 67 H Creatinine 5.73 H Estim Creat Clear Calc 12 Estimated GFR 10 L Glucose 104 Calcium 7.8 L Phosphorus 4.8 H Total Bilirubin 2.8 H AST 39 ALT 70 H Alkaline Phosphatase 166 H Total Protein 6.5 Albumin 2.9 L Crossmatch See Detail
--- NOTE | 2025-02-02 11:33 | PM.IMPN ---
Progress Note: A&P Assessment and Plan (1) Pain crisis: Code(s): R52 - Pain, unspecified Status: Acute (2) Overdose of opiate or related narcotic: Code(s): T40.601A - Poisoning by unspecified narcotics, accidental (unintentional), initial encounter Status: Acute Plan Sickle cell pain crisis patient has history of Sickle cell disease CTA Chest reviewed, no PE but showed cardiomegaly and possible pulm edema improving Continue IVF and PRN pain control monitor Sickle cell anemia hb 8.7 today transfuse one unit blood 02/01/25 patient on epoetin Continue monitoring Metabolic acidosis, r Co2 low, anion gap resolved continue Bicarb monitor hyperkalemia resolved Continue home Zirconium monitor K level RENY on CKD, stage III cr 2.5 at baseline , imroving US Bladder wall thickening as can be seen with chronic obstruction or cystitis Continue IVF and monitor nephrology team on board HTN uncontrolled continue home meds increased amlodipine to 10 mg added labetalol hydralazine prn CHF, no ECHO, unable to specify CT chest reviewed monitor for now transaminitis improving liver US Cirrhosis of the liver with portal venous hypertension. hepatitis panel neg GI team on board constipation bowel regimen DVT prophylaxis on Sq Lovenox full code SDM: Spouse Mehul Estrada Subjective Date/time seen: 02/02/25 11:33 Interval history: per HPI: 69 yo male with PMH of sickle cell with PMH of HTN, CKD III, CHF who presented to the on account of chest and lower extremities. 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 Denies any SOB, abdpain, fever, focal weakness or numbness, diarrhea or vomiting. ER eval notable for PPR 113, RR 18, BP 176/86, saturating 99% on room air. Labs notable for WBC 12.1, hb 9.1, Na 136, K 5.8, CO2 15, Cr 2.5, Lactic aic 3.1 repeat 2.6. CTA chest showed no PE but showed cardiomegaly showed hightly suggetive pulm hypertensio with monimal interstitial thickening wihich may indicate early pulm edema and possible left kidney stone. Venous doppler negative for DVT. Patient was started on IVF and IV Dilaudid PRN prior to admission. Patient appeared to be overdose o Dilaudid in the ER and was given Narcan prior to admission [facility] he responded to. 01/29/25 Felling better. pain improving/ WBC 15.6, hemoglobin 7.6, sodium 125, creatinine 4.43 ,elevated liver enzyme Continue IV fluid. We will get liver ultrasound. 01/30/25 patient was seen and examined at bedside. he is feeling fine. denies any marcell pain, SOb, abd pian. N/V. Na 123. kidney function worsening. Liver us pending. Nephrology team on board. discussed with patient that we can not discharge him today. he mentioned he prefer to go home and get better at home and can get sunshine at home and that help him with kidney recovery. he is ok to stay and see wait for nephrology recs. 01/31/25 patient was seen and examined at bedside. he is feeling fine. his pain is better. he is urinating better. Kidney function is worsening. his is upset about hospital mistakes to give contrast and too much pain meds. He is asking to discharge and follow up with his doctors at [place]. i told him that I respect his decision but at this time he is not safe to be discharged and if he wants to leave it would be AMA. He and his understood. will give epoetin for anemia as he is getting weekly as outpatient. started on po salt tablet. continue to monitor. will follow nephrology team recs. US showed cirrhosis. GI team on board. 02/01/25 Patient was seen and examined at bedside. he is feeling ok. complaining of R hip pain and he is thinking should get better with exercises. had low Hb will transfuse one unit blood. kidney function slightly better. Continue with IVF. Liver function improving. has uncontrolled HTN. will increase amlodipine to 10 mg. 02/02/25 Patient was sen and examined at bedside. he is feeling better. he denies any chest pain, SOb, Abd pain, N/V. kidney function is getting batter. his BP running high, added labetalol. Review of Systems Review of Systems: All other systemes were reviewed and negative except as noted in the HPI above Exam Narrative: General: lethargic but responding to question and compliant Eyes: EOMI, PERRLA ENNT External ears normal, Neck is supple, no masses, Respiratory systems: Clear to auscultation Cardiovascular S1, S2, normal rhythm, no murmur, rub, or gallop; no thrill or palpable murmurs on palpation. Gastrointestinal: soft, non-tender, and non-distended abdomen with no masses; BS present Skin: no rash, lesions, ulcerations, subcutaneous nodules or induration Musculoskeletal: no abnormality and no tenderness, normal ROM Neurologic: Alert and oriented x3, non focal Mental Status Exam: normal affect Objective Data Vital Signs Vital Signs: Vital Signs - 24 hr 02/01/25 12:00 02/01/25 12:30 02/01/25 12:30 Temperature 97.8 F Pulse Rate 84 88 Respiratory Rate 18 Blood Pressure 161/63 H 161/63 H Pulse Oximetry 100 Oxygen Delivery 02/01/25 13:26 02/01/25 13:26 02/01/25 14:08 Temperature 98.2 F 98.1 F Pulse Rate 84 82 Respiratory Rate 18 16 Blood Pressure 151/63 H 151/63 H 157/65 H Pulse Oximetry 96 99 Oxygen Delivery 02/01/25 14:08 02/01/25 16:00 02/01/25 17:14 Temperature Pulse Rate 98 Respiratory Rate Blood Pressure 157/65 H 176/72 H Pulse Oximetry Oxygen Delivery 02/01/25 18:05 02/01/25 18:22 02/01/25 19:22 Temperature Pulse Rate Respiratory Rate Blood Pressure 184/67 H 184/67 H 161/79 H Pulse Oximetry Oxygen Delivery 02/01/25 20:00 02/01/25 20:00 02/01/25 21:47 Temperature 98.8 F Pulse Rate 82 99 Respiratory Rate 18 Blood Pressure 186/70 H Pulse Oximetry 97 Oxygen Delivery Room Air 02/02/25 00:00 02/02/25 00:14 02/02/25 02:35 Temperature Pulse Rate 94 Respiratory Rate Blood Pressure 162/74 H 189/58 H Pulse Oximetry Oxygen Delivery 02/02/25 04:00 02/02/25 04:31 02/02/25 06:00 Temperature 98.7 F Pulse Rate 104 H 86 Respiratory Rate 18 Blood Pressure 180/62 H 171/59 H Pulse Oximetry 92 Oxygen Delivery 02/02/25 08:00 02/02/25 08:00 02/02/25 09:27 Temperature Pulse Rate 84 92 Respiratory Rate Blood Pressure Pulse Oximetry Oxygen Delivery Room Air 02/02/25 09:36 Temperature Pulse Rate 99 Respiratory Rate Blood Pressure 160/67 H Pulse Oximetry Oxygen Delivery Intake/Output Intake/Output: Intake & Output 01/30/25 01/31/25 02/01/25 02/02/25 23:59 23:59 23:59 23:59 Intake Total 3012.5 3027.5 3230 195 Output Total 740 2045 1210 660 Balance 2272.5 982.5 2019 Meds/Results Medications: Active Medications Generic Name Dose Route Start Last Admin Trade Name Freq PRN Reason Stop Dose Admin Acetaminophen 650 mg 01/28/25 14:02 01/28/25 15:07 Acetaminophen 325 Mg Tablet PO 650 mg Q4H PRN Administration Mild Pain (1-3) or Fever Allopurinol 100 mg 01/27/25 21:00 02/02/25 09:26 Allopurinol 100 Mg Tablet PO 100 mg Q12HR KYAW Administration Alprazolam 0.25 mg 02/01/25 10:09 02/02/25 02:39 Alprazolam (*Crx) 0.25 Mg Tablet PO 0.25 mg TID PRN Administration Anxiety Amlodipine Besylate 10 mg 02/02/25 09:00 02/02/25 04:59 Amlodipine Besylate 10 Mg Tablet PO 10 mg DAILY KYAW Administration Atenolol 12.5 mg 02/02/25 09:00 02/02/25 09:27 Atenolol 12.5 Mg Tablet PO 12.5 mg DAILY KYAW Administration Clonidine HCl 0.1 mg 01/28/25 09:00 02/02/25 09:25 Clonidine Hcl 0.1 Mg Tablet PO 0.1 mg TID KYAW Administration Epoetin Chava-epbx 40,000 units 01/31/25 15:00 01/31/25 15:58 Epoetin Chava-Epbx 20,000 Units/Ml Vial SUB-Q 40,000 units Th@0900 KYAW Administration Heparin Sodium (Porcine) 5,000 units 01/27/25 22:00 02/02/25 06:06 Heparin Sodium 5,000 Units/Ml Vial SUB-Q 5,000 units Q8HR KYAW Administration Hydralazine HCl 10 mg 01/29/25 14:38 02/02/25 02:47 Hydralazine Hcl 20 Mg/Ml Vial IV PUSH 10 mg Q8H PRN Administration Blood Pressure - High Sodium Chloride 1,000 mls @ 75 mls/hr 01/29/25 12:55 02/02/25 09:24 Normal Saline Iv IV CONT 75 mls/hr .[id number] KYAW Administration Lactulose 20 gm 01/31/25 17:00 02/02/25 09:25 Lactulose 20 Gm/30 Ml Udc PO 20 gm BID KYAW Administration Olmesartan 5 mg 01/28/25 09:00 01/30/25 08:55 Olmesartan Medoxomil 5 Mg Tablet PO 5 mg DAILY KYAW Administration Ondansetron HCl 4 mg 01/29/25 21:35 Ondansetron Inj 4 Mg/2 Ml Vial IV PUSH Q6H PRN Nausea And Vomiting Sodium Bicarbonate 1,300 mg 02/02/25 09:00 02/02/25 09:25 Sodium Bicarbonate Tab 650 Mg Tablet PO 1,300 mg BID KYAW Administration Sodium Zirconium Cyclosilicate 10 gm 01/27/25 19:00 02/02/25 09:25 Sodium Zirconium Cyclosilicate 10 Gm Powd.Pack PO 10 gm DAILY KYAW Administration Tamsulosin HCl 0.4 mg 01/29/25 21:40 02/01/25 21:34 Tamsulosin Hcl 0.4 Mg Capsule PO 0.4 mg QHS KYAW Administration Tramadol HCl 50 mg 01/27/25 20:26 01/29/25 10:21 Tramadol Hcl (*Crx) 50 Mg Tablet PO 50 mg Q8H PRN Administration pain 4-6 Radiology Results: ITS Impressions Chest CTA 01/27/25 19:20 IMPRESSION: 1. No pulmonary embolism. 2. Cardiomegaly with highly suggestive pulmonary hypertension with minimal interstitial thickening which may indicate early pulmonary edema. Clinical correlation advised. 3. Possible left kidney stone. Venous Doppler Study 01/27/25 19:29 IMPRESSION: Negative bilateral lower extremity venous US. No deep vein thrombosis. Chest X-Ray 01/28/25 11:36 IMPRESSION: 1. Bronchial wall thickening and opacities at the bilateral lower lung zones which could represent pneumonia or mild pulmonary edema. 2. 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 Abdomen Ultrasound 01/30/25 14:51 IMPRESSION: 1: Cirrhosis of the liver with portal venous hypertension. Renal Ultrasound 01/30/25 19:09 IMPRESSION: Limited examination as detailed above. No hydronephrosis. Bladder wall thickening as can be seen with chronic obstruction or cystitis. Abdomen X-Ray 01/31/25 15:07 IMPRESSION: 1: No acute abdominal abnormality identified. 2: Moderate colonic fecal loading. 3: Bibasilar atelectasis. Cannot exclude superimposed pneumonia. Consider correlation with chest x-ray. Labs Labs: Laboratory Results - last 24 hr 02/01/25 02/01/25 02/02/25 08:10 20:55 05:57 WBC 12.6 H RBC 4.44 L Hgb 8.7 L Hct 27.5 L MCV 61.9 L MCH 19.6 L MCHC 31.6 L RDW 25.3 H Plt Count 141 L MPV TNP % Immature Plt Fraction 6.4 Sodium 128 L Potassium 3.9 Chloride 102 Carbon Dioxide 16 L Anion Gap 10 BUN 67 H Creatinine 5.73 H Estim Creat Clear Calc 12 Estimated GFR 10 L Glucose 104 Calcium 7.8 L Phosphorus 4.8 H Total Bilirubin 2.8 H AST 39 ALT 70 H Alkaline Phosphatase 166 H Total Protein 6.5 Albumin 2.9 L Crossmatch See Detail
[2025-02-02 14:08] LABS: Hematocrit 26.2 % (42.0-52.0); Hemoglobin 8.0 g/dL (14.0-18.0); Immature Platelet Fraction Pct 7.2 % (0.9-11.2); Mean Corpuscular HGB Conc 30.5 g/dl (32-36); Mean Corpuscular Hemoglobin 19.7 pg (26-34); Mean Corpuscular Volume 64.5 fl (80-100); Platelet Count Result 135 k/mm3 (150-375); Red Blood Count 4.06 M/mm3 (4.6-6.20); White Blood Count 11.4 K/mm3 (4.5-10.0)
[2025-02-02] MEDS: LIDOCAINE 5% PATCH 1 PATCH TRANSDERM (15:04)
--- NOTE | 2025-02-02 15:43 | PC.NURSE ---
Patient has complained of bilateral leg pain (mostly on right side). RN has told MD Drew and he tried to order dopplers and CT scan, but patient refuses.
[2025-02-02] MEDS: traMADol HCL (*CRX) 50 MG TABLET PO (18:16)
--- NOTE | 2025-02-02 20:55 | PC.NURSE ---
Nurse called to bedside after patient reported no pain relief after taken tramadol. [employer] spoke at length with patient and about symptoms and options for pain relief. Director [employer] offered to call hospitalist for additional pain medications and patient refuses at this time.
[2025-02-02] MEDS: TAMSULOSIN HCL 0.4 MG CAPSULE PO (21:12)
[2025-02-03] VITALS: PULSE 83
[2025-02-03] MEDS: ALPRAZolam (*CRX) 0.25 MG TABLET PO (02:15)
[2025-02-03 04:00] VITALS: PULSE 83
[2025-02-03 05:01] VITALS: BP 163/59; PULSE 82; RESP 18; TEMP 36.8; O2SAT 92
[2025-02-03 06:17] LABS: Albumin Level 3.0 g/dL (3.5-5.1); Anion Gap 9 mmol/L (4-12); Blood Urea Nitrogen 64 mg/dL (9-20); Calcium 8.4 mg/dL (8.4-10.2); Carbon Dioxide 19 mmol/L (22-30); Chloride 100 mmol/L (98-107); Estimated CRCL calculation 12 ml/min; Estimated Glomerular Filt Rate 10; Glucose 100 mg/dL (65-110); Potassium 3.9 mmol/L (3.4-5.0); Sodium 128 mmol/L (137-145)
[2025-02-03 07:51] LABS: Hematocrit 25.7 % (42.0-52.0); Hemoglobin 8.0 g/dL (14.0-18.0); Immature Platelet Fraction Pct 7.4 % (0.9-11.2); Mean Corpuscular HGB Conc 31.1 g/dl (32-36); Mean Corpuscular Hemoglobin 19.9 pg (26-34); Mean Corpuscular Volume 63.9 fl (80-100); Platelet Count Result 145 k/mm3 (150-375); Red Blood Count 4.02 M/mm3 (4.6-6.20); White Blood Count 11.8 K/mm3 (4.5-10.0)
--- NOTE | 2025-02-03 09:08 | P.PNNP_ITS ---
Progress Note: A&P Assessment and Plan (1) Acute kidney injury: Code(s): N17.9 - Acute kidney failure, unspecified Status: Acute Assessment and Plan: * Acute kidney injury. * This is on chronic kidney disease with a baseline creatinine of around 2.5 * evaluation to date noted: * urine electrolytes nonprerenal * urine eosinophils negative * UA without infection * nephrotic range proteinuria * Renal ultrasound unremarkable * suspected etiology: * contrast exposure (CTA of chest on 01/27) * concurrent ARB use (olmesartan) * NSAID administration (Toradol) * prerenal factors(?) * Anemia? * Thrombotic complication of sickle cell crisis question * Off of IV fluids. * renal scan is still not read yet. My reading is that of ATN on top of CKD. * He does not seem to have any uremic symptoms * It looks like his creatinine is at least stable if not improving a little bit. 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 * I will try to give that doctor a call tomorrow when back in the office. * Long discussion with the patient and with Mrs. Estrada. I am hoping kidney function will gradually improve. The renal scan looks somewhat promising. However because of his severe underlying chronic kidney disease and the length of time he had the acute issues the improvement will probably not be complete back to his original baseline. It is unknown what the future will bring. Hopefully improvement but it may stay the same. Sometimes when the GFR is only 10 there is some fatigue the kidneys experience because of all the work the have to do with only 10/60 function. So even if the acute issue is resolved, there may be some wear and tear which causes worsening. So he could go either way. Keeping him in the hospital just to do blood work is not going to help and the patient really wants to get back home. * They are driving to floor through only a [place] in [facility]. He is not on any oxygen right now so he should tolerate this okay. He should hydrate fairly well while on the road and then continue was 1500cc fluid restriction at home. * They should call the tool machine setup operator to get blood work and be seen this week. 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 * on fluid restriction at this time. (6) Metabolic acidosis: Code(s): E87.20 - Acidosis, unspecified Status: Acute Assessment and Plan: * due to CKD and worsened by RENY * on oral bicarbonate supplementation (7) Hypertension: Code(s): I10 - Essential (primary) hypertension Status: Chronic Assessment and Plan: * Blood pressure in the 140s to 160s. * Hospitalist has been adjusting blood pressure medications. (8) Anemia: Code(s): D64.9 - Anemia, unspecified Status: Chronic Assessment and Plan: * due to CKD with possible worsening due to #3 * follow trend of H/H * He received Epogen 1 dose. * PRBC transfusion per protocol Subjective Date/time seen: 02/03/25 09:08 Interval history: Patient is alert. He is eating well and drinking well. No chest pain or shortness of breath Eager to go home Exam Narrative: General: WD/WN male in NAD Heart: normal S1 and S2; no rub or gallop Lungs: clear anteriorly Abdomen: soft, nontender, nondistended, positive bowel sounds Extremities: no cyanosis or clubbing; trace edema Skin: No rash or subcu not Objective Data Vital Signs Vital Signs: Vital Signs - 24 hr 02/02/25 09:27 02/02/25 09:36 02/02/25 12:00 Temperature Pulse Rate 92 99 72 Respiratory Rate Blood Pressure 160/67 H Pulse Oximetry Oxygen Delivery 02/02/25 13:09 02/02/25 14:00 02/02/25 16:00 Temperature Pulse Rate 89 79 Respiratory Rate 18 Blood Pressure 154/58 H 182/72 H Pulse Oximetry 96 Oxygen Delivery 02/02/25 18:42 02/02/25 20:00 02/02/25 20:00 Temperature Pulse Rate 72 Respiratory Rate Blood Pressure 140/63 Pulse Oximetry Oxygen Delivery Room Air 02/02/25 20:23 02/03/25 00:00 02/03/25 04:00 Temperature 98.4 F Pulse Rate 78 83 83 Respiratory Rate 16 Blood Pressure 154/58 H Pulse Oximetry 95 Oxygen Delivery 02/03/25 05:01 Temperature 98.2 F Pulse Rate 82 Respiratory Rate 18 Blood Pressure 163/59 H Pulse Oximetry 92 Oxygen Delivery Intake/Output Intake/Output: Intake & Output 01/31/25 02/01/25 02/02/25 02/03/25 23:59 23:59 23:59 23:59 Intake Total 3027.5 3230 985 390 Output Total 2045 1210 2010 750 Balance 982.5 2020 -1025 -360 Meds/Results Medications: Active Medications Generic Name Dose Route Start Last Admin Trade Name Freq PRN Reason Stop Dose Admin Acetaminophen 650 mg 01/28/25 14:02 01/28/25 15:07 Acetaminophen 325 Mg Tablet PO 650 mg Q4H PRN Administration Mild Pain (1-3) or Fever Allopurinol 100 mg 01/27/25 21:00 02/02/25 21:12 Allopurinol 100 Mg Tablet PO 100 mg Q12HR KYAW Administration Alprazolam 0.25 mg 02/01/25 10:09 02/03/25 02:15 Alprazolam (*Crx) 0.25 Mg Tablet PO 0.25 mg TID PRN Administration Anxiety Amlodipine Besylate 10 mg 02/02/25 09:00 02/02/25 04:59 Amlodipine Besylate 10 Mg Tablet PO 10 mg DAILY KYAW Administration Atenolol 12.5 mg 02/02/25 09:00 02/02/25 09:27 Atenolol 12.5 Mg Tablet PO 12.5 mg DAILY KYAW Administration Clonidine HCl 0.1 mg 01/28/25 09:00 02/02/25 16:56 Clonidine Hcl 0.1 Mg Tablet PO 0.1 mg TID KYAW Administration Epoetin Chava-epbx 40,000 units 01/31/25 15:00 01/31/25 15:58 Epoetin Chava-Epbx 20,000 Units/Ml Vial SUB-Q 40,000 units Th@0900 KYAW Administration Heparin Sodium (Porcine) 5,000 units 01/27/25 22:00 02/03/25 05:07 Heparin Sodium 5,000 Units/Ml Vial SUB-Q 5,000 units Q8HR KYAW Administration Hydralazine HCl 10 mg 01/29/25 14:38 02/02/25 17:00 Hydralazine Hcl 20 Mg/Ml Vial IV PUSH 10 mg Q8H PRN Administration Blood Pressure - High Lactulose 20 gm 01/31/25 17:00 02/02/25 16:56 Lactulose 20 Gm/30 Ml Udc PO 20 gm BID KYAW Administration Lidocaine 1 patch 02/02/25 14:48 02/02/25 15:04 Lidocaine 5% Patch TRANSDERM 1 patch DAILY PRN Administration Pain Rated 1-3 Olmesartan 5 mg 01/28/25 09:00 01/30/25 08:55 Olmesartan Medoxomil 5 Mg Tablet PO 5 mg DAILY KYAW Administration Ondansetron HCl 4 mg 01/29/25 21:35 Ondansetron Inj 4 Mg/2 Ml Vial IV PUSH Q6H PRN Nausea And Vomiting Sodium Bicarbonate 1,300 mg 02/02/25 09:00 02/02/25 16:56 Sodium Bicarbonate Tab 650 Mg Tablet PO 1,300 mg BID KYAW Administration Sodium Zirconium Cyclosilicate 10 gm 01/27/25 19:00 02/02/25 09:25 Sodium Zirconium Cyclosilicate 10 Gm Powd.Pack PO 10 gm DAILY KYAW Administration Tamsulosin HCl 0.4 mg 01/29/25 21:40 02/02/25 21:12 Tamsulosin Hcl 0.4 Mg Capsule PO 0.4 mg QHS KYAW Administration Tramadol HCl 50 mg 01/27/25 20:26 02/02/25 18:16 Tramadol Hcl (*Crx) 50 Mg Tablet PO 50 mg Q8H PRN Administration pain 4-6 Radiology Results: ITS Impressions Chest CTA 01/27/25 19:20 IMPRESSION: 1. No pulmonary embolism. 2. Cardiomegaly with highly suggestive pulmonary hypertension with minimal interstitial thickening which may indicate early pulmonary edema. Clinical correlation advised. 3. Possible left kidney stone. Venous Doppler Study 01/27/25 19:29 IMPRESSION: Negative bilateral lower extremity venous US. No deep vein thrombosis. Chest X-Ray 01/28/25 11:36 IMPRESSION: 1. Bronchial wall thickening and opacities at the bilateral lower lung zones which could represent pneumonia or mild pulmonary edema. 2. 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 Abdomen Ultrasound 01/30/25 14:51 IMPRESSION: 1: Cirrhosis of the liver with portal venous hypertension. Renal Ultrasound 01/30/25 19:09 IMPRESSION: Limited examination as detailed above. No hydronephrosis. Bladder wall thickening as can be seen with chronic obstruction or cystitis. Abdomen X-Ray 01/31/25 15:07 IMPRESSION: 1: No acute abdominal abnormality identified. 2: Moderate colonic fecal loading. 3: Bibasilar atelectasis. Cannot exclude superimposed pneumonia. Consider correlation with chest x-ray. Labs Labs: Laboratory Results - last 24 hr 02/02/25 02/03/25 05:57 05:49 WBC 11.4 H 11.8 H RBC 4.06 L 4.02 L Hgb 8.0 L 8.0 L Hct 26.2 L 25.7 L MCV 64.5 L 63.9 L MCH 19.7 L 19.9 L MCHC 30.5 L 31.1 L RDW 25.3 H 25.6 H Plt Count 135 L 145 L MPV TNP TNP % Immature Plt Fraction 7.2 7.4 Sodium 128 L Potassium 3.9 Chloride 100 Carbon Dioxide 19 L Anion Gap 9 BUN 64 H Creatinine 5.80 H Estim Creat Clear Calc 12 Estimated GFR 10 L Glucose 100 Calcium 8.4 Phosphorus 4.9 H Albumin 3.0 L
[2025-02-03] MEDS: LACTULOSE 20 GM/30 ML UDC PO (09:49)
[2025-02-03] MEDS: SODIUM ZIRCONIUM CYCLOSILICATE 10 GM POWD.PACK PO (09:49)
[2025-02-03 09:50] VITALS: PULSE 88
[2025-02-03] MEDS: SODIUM BICARBONATE TAB 650 MG TABLET 1300 MG PO (09:50)
[2025-02-03] MEDS: atenoloL 12.5 MG TABLET PO (09:50)
[2025-02-03] MEDS: MORPHINE SULFATE (*CRX) 2 MG/ML INJ IV PUSH (09:59)
--- NOTE | 2025-02-03 12:55 | PM.DS ---
DS: Admitting Diagnosis Discharge Date 02/03/25 Admitting Diagnosis sickle cell crisis, RENY on CKD DS: Discharge Diagnosis Discharge Diagnosis (1) Pain crisis: Code(s): R52 - Pain, unspecified Status: Acute (2) Overdose of opiate or related narcotic: Code(s): T40.601A - Poisoning by unspecified narcotics, accidental (unintentional), initial encounter Status: Acute Plan Sickle cell pain crisis patient has history of Sickle cell disease CTA Chest reviewed, no PE but showed cardiomegaly and possible pulm edema improving receuived IVF and PRN pain control monitor Sickle cell anemia hb 8 today transfuse one unit blood 02/01/25 patient on epoetin Continue monitoring Metabolic acidosis, improving Co2 low, anion gap resolved continue Bicarb monitor hyperkalemia resolved Continue home Zirconium monitor K level RENY on CKD, stage III cr 2.5 at baseline , stable US Bladder wall thickening as can be seen with chronic obstruction or cystitis nephrology team on board. 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 hepatitis panel neg GI team on board constipation bowel regimen leg swelling trace neg US for DVT R hip pain AVN of the right femoral head plan [facility] SDM: Spouse Mehul Estrada DS: Summary Hospital Course Hospital Course: per HPI: 69 yo male with PMH of sickle cell with PMH of HTN, CKD III, CHF who presented to the on account of chest and lower extremities. 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 Denies any SOB, abdpain, fever, focal weakness or numbness, diarrhea or vomiting. ER eval notable for PPR 113, RR 18, BP 176/86, saturating 99% on room air. Labs notable for WBC 12.1, hb 9.1, Na 136, K 5.8, CO2 15, Cr 2.5, Lactic aic 3.1 repeat 2.6. CTA chest showed no PE but showed cardiomegaly showed hightly suggetive pulm hypertension with monimal interstitial thickening wihich may indicate early pulm edema and possible left kidney stone. Venous doppler negative for DVT. Patient was started on IVF and IV Dilaudid PRN prior to admission. Patient appeared to be overdose o Dilaudid in the ER and was given Narcan prior to admission which he responded to. 01/29/25 Felling better. pain improving/ WBC 15.6, hemoglobin 7.6, sodium 125, creatinine 4.43 ,elevated liver enzyme Continue IV fluid. We will get liver ultrasound. 01/30/25 patient was seen and examined at bedside. he is feeling fine. denies any marcell pain, SOb, abd pian. N/V. 01/31/25 patient was seen and examined at bedside. he is feeling fine. his pain is better. he is urinating better. started on po salt tablet. continue to monitor. will follow nephrology team recs. US showed cirrhosis. GI team on board. 02/01/25 Patient was seen and examined at bedside. he is feeling ok. complaining of R hip pain and he is thinking should get better with exercises. had low Hb will transfuse one unit blood. kidney function slightly better. Continue with IVF. Liver function improving. has uncontrolled HTN. will increase amlodipine to 10 mg. 02/02/25 his BP running high, added labetalol. 02/03/25 Patient was sen and examined at bedside. he is feeling better. he denies any chest pain, SOb, Abd pain, N/V. kidney function is stable. Lower ext Doppler neg for DVt. Patient and his requesting discharge today and they don't want to stay longer. reviewed nephrology team which is ok to discharge patient. recommended to stay home and rest for few days. Status at Discharge Overall status at discharge: patient is progressing back to baseline Time Spent with Patient Time attestation: Total time spent providing and/or coordinating discharge services: Time spent: Greater than 30 minutes Exam Narrative: General: lethargic but responding to question and compliant Eyes: EOMI, PERRLA ENNT External ears normal, Neck is supple, no masses, Respiratory systems: Clear to auscultation Cardiovascular S1, S2, normal rhythm, no murmur, rub, or gallop; no thrill or palpable murmurs on palpation. Gastrointestinal: soft, non-tender, and non-distended abdomen with no masses; BS present Skin: no rash, lesions, ulcerations, subcutaneous nodules or induration Musculoskeletal: no abnormality and no tenderness, normal ROM Neurologic: Alert and oriented x3, non focal Mental Status Exam: normal affect DS: Data Data Completed and Pending Labs on day of discharge: Labs from last 24 hours 02/03/25 02/02/25 05:49 05:57 WBC 11.8 H 11.4 H RBC 4.02 L 4.06 L Hgb 8.0 L 8.0 L Hct 25.7 L 26.2 L MCV 63.9 L 64.5 L MCH 19.9 L 19.7 L MCHC 31.1 L 30.5 L RDW 25.6 H 25.3 H Plt Count 145 L 135 L MPV TNP TNP % Immature Plt Fraction 7.4 7.2 Sodium 128 L Potassium 3.9 Chloride 100 Carbon Dioxide 19 L Anion Gap 9 BUN 64 H Creatinine 5.80 H Estim Creat Clear Calc 12 Estimated GFR 10 L Glucose 100 Calcium 8.4 Phosphorus 4.9 H Albumin 3.0 L Discharge Plan Discharge Attending physician on discharge: Marva Drew Consulting providers: Black Cordon; Marva Drew; Cristiano Fritz Discharging Clinician: Marva Drew Anticipated Discharge Date/Time: 02/03/25 12:58 Patient Disposition: Home Activity: as tolerated Diet: heart healthy and renal Discharge Instructions: follow with PCP in 1-2 days. 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 follow with repeat blood test in 1-2 days. go to Er or call 911 if your symptoms getting worse. Patient Instructions: Antibiotic Form Patient Language: Wolof Stand Alone Forms: General Discharge Information Follow-up/Referrals: PHYSICIAN,PHARMACOLOGY ASSOCIATE [Primary Care Provider] - 1 Week Discharge Medications: Continued allopurinol 100 mg tablet 100 mg PO Q12H amlodipine 5 mg tablet 5 mg PO DAILY clonidine HCl 0.1 mg tablet 0.1 mg PO TID Retacrit 40,000 unit/mL solution 40,000 unit subcut WEEKLY folic acid 1 mg tablet 1 mg PO DAILY olmesartan 5 mg tablet 5 mg PO DAILY paricalcitol 1 mcg capsule 1 mcg PO DAILY pregabalin 150 mg capsule 150 mg PO HS sodium bicarbonate 650 mg tablet 650 mg PO DAILY Lokelma 10 gram powder in packet 10 g PO DAILY tramadol 50 mg tablet 50 mg PO Q8H PRN (Reason: pain) Other Ambulatory Orders: Basic Metabolic Panel (DAILY) Timeframe: [id number] Location: Determined by Patient Ordered By: Marva Drew Date of admission: 01/28/25 16:26 Primary Care Provider: PHYSICIAN,PHARMACOLOGY ASSOCIATE Admitting Provider: Gisel Elizabeth Attending physician on admission: Gisel Elizabeth Condition: Stable
[2025-02-03] MEDS: MORPHINE SULFATE (*CRX) 15 MG TAB IR PO (15:00)
== END 2025-02-03 15:15 | disposition home or self-care (01) | DRG 811 ==
LOC: ANHED 19:53 → ANH3MEDSUR 20:18 → ANH3MED 20:19
PROVIDERS: Internal Medicine Nephrology; Student in an Organized Health Care Education/Training Program; Admitting Provider Internal Medicine; Emergency Provider Emergency Medicine; Visit Provider Internal Medicine
DX: D57.419 Sickle-cell thalassemia, unspecified, with crisis (principal); N17.0 Acute kidney failure with tubular necrosis; I13.0 Hypertensive heart and chronic kidney disease with heart failure and stage 1 through stage 4 chronic kidney disease, or unspecified chronic kidney disease; E87.21 Acute metabolic acidosis; N18.4 Chronic kidney disease, stage 4 (severe); E87.1 Hypo-osmolality and hyponatremia; M87.9 Osteonecrosis, unspecified; I50.9 Heart failure, unspecified; E87.5 Hyperkalemia; T40.2X1A Poisoning by other opioids, accidental (unintentional), initial encounter; D63.1 Anemia in chronic kidney disease; K74.60 Unspecified cirrhosis of liver
CPT/HCPCS: 36415; 36430; 36600; 71045; 71275; 73700; 74018; 76705; 76775; 78707; 80048; 80053; 80069; 80074; 80307; 81001; 81050; 82077; 82550; 82570; 82803; 82805; 82948; 83605; 83690; 83735; 83880; 84100; 84156; 84300; 84484; 84540; 85018; 85025; 85027; 85046; 85055; 85999; 86706; 86850; 86900; 86901; 86923; 87340; 87637; 93005; 93970; 93971; 96361; 96365; 96366; 96367; 96374; 96375; 97110; 97161; 99285; A9270; A9562; G0378; J0360; J1171; J1644; J1885; J2270; J2312; J7030; J7050; J7120; P9016; Q5105; Q9967